=== PATIENT | male | born 1975 | race Caucasian/White ===

== ENCOUNTER 2021-08-08 20:19 | Emergency (ER) | payer OTHER, SELFPAY ==
[2021-08-08 20:20] VITALS: BP 147/98; PULSE 85; RESP 18; TEMP 36.8; O2SAT 96; BMI 33.9
--- NOTE | 2021-08-08 20:52 | ED.VIS.LOWEX ---
HPI History of Present Illness Chief Complaint: Fall Narrative Narrative: 45-year-old male presenting with left knee pain. 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 He states he is ambulatory. Patient believes he sees himself for an abrasion because he is wearing insulated pants. He did not take anything for pain prior to arrival. He states this is a Workmen's Comp. PFSH PFSH Allergy/AdvReac Type Severity Reaction Status Date / Time bee venom protein (honey bee) Allergy Anaphylaxis Verified 08/08/21 20:23 fish oil Allergy Hives Verified 08/08/21 20:23 Social History Smoking Status: Unknown if ever smoked ROS ROS ED Constitutional Constitutional ED: Denies chills, fever(s) or sweats Eyes Eyes: Denies blurry vision or change in vision ENT ENT ED: Denies ear pain or sore throat Cardiovascular Cardiovascular: Denies chest pain, palpitations or racing heartbeat Respiratory/Chest Respiratory/Chest: Denies cough, dyspnea or sputum Gastrointestinal Gastrointestinal: Denies abdominal pain, constipation, diarrhea, nausea or vomiting Genitourinary Genitourinary ED: Denies dysuria, hematuria or urinary frequency Musculoskeletal Musculoskeletal: Reports other Details: Left knee pain ; Denies arthralgias, myalgias or neck pain Integumentary Denies abscess, Abrasions or rash Neurologic Neurologic: Denies headache(s), paresthesias or weakness Psychiatric Psychiatric: Denies anxiety, depression, suicidal ideation or suicidal thoughts Endocrine Endocrinology: Denies polydipsia or polyuria EXAM Physical Exam Const Vital Signs: 08/08/21 20:20 08/08/21 20:56 Temperature 98.3 F Temperature Source Temporal Pulse Rate 85 Respiratory Rate 18 Respiratory Effort Normal Non-Labored Blood Pressure 147/98 H Blood Pressure Mean 114 Pulse Ox 96 Oxygen Delivery Method Room Air Positive well nourished General Appearance ED: NAD HEENT normocephalic and atraumatic Resp normal respiratory effort and clear to auscultation bilaterally Cardio regular rate and regular rhythm Extremity Extremity Narrative: Tenderness to palpation inferior to the left patella. Patient has full range of motion in flexion and extension of actively and passively. There is no deformity. No ligamentous laxity. No bruising or abrasions. Skin no wounds Rashes: no rashes MDM MDM MDM Narrative Medical decision making narrative: Patient presenting with left knee pain. He has full range of motion. There is no abrasions or contusions. No ligamentous laxity. Patient given Naprosyn for pain. I have low suspicion for fracture or other abnormality however the patient feels he wants a x-ray of his knee just to make sure. X-rays obtained and on my interpretation shows no acute fracture or subluxation. Radiologist does agree. I feel the patient is stable for discharge home when he can work without restriction based on his exam. Impression: 1. Left knee contusion Radiography Diagnostic Testing: Clinical Impression(s) from Imaging Studies Knee X-Ray 08/08/21 20:58 IMPRESSION: Normal x-ray examination of the knee. Electronically Signed: Raj Orellana MD at 21:38 EST , Service support , Discharge Plan Triage Chief Complaint: Fall ED Provider: Reynaldo Stanton
[2021-08-08] MEDS: Naproxen 500 MG Tablet PO (20:55)
--- NOTE | 2021-08-08 20:58 | RAD_ITS ---
STUDY: X-RAY - LEFT KNEE REASON FOR EXAM: Male, 45 years old. 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 COMPARISON: None. FINDINGS: Normal visualized distal femur. Normal visualized proximal tibia and fibula. Normal proximal tibiofibular articulation. There is no demonstrated fracture. Normal medial femorotibial compartment. Normal lateral femorotibial compartment. Normal patellofemoral articulation. There is no demonstrated joint effusion. The soft tissue structures are unremarkable. RAD/Knee 4 or More Views IMPRESSION: Normal x-ray examination of the knee. Electronically Signed: Raj Orellana MD at 21:38 EST , Service support ,
== END 2021-08-08 21:50 | disposition home or self-care (01) ==
PROVIDERS: Emergency Provider Student in an Organized Health Care Education/Training Program; Visit Provider Student in an Organized Health Care Education/Training Program
DX: S80.02XA Contusion of left knee, initial encounter (principal); W00.0XXA Fall on same level due to ice and snow, initial encounter; Y93.9 Activity, unspecified; Y92.9 Unspecified place or not applicable
CPT/HCPCS: 73564; 99283

== ENCOUNTER 2021-09-05 10:27 | Outpatient (CLI) | payer OTHER, SELFPAY ==
--- NOTE | 2021-09-05 10:32 | MRI_ITS ---
STUDY: MRI LEFT KNEE REASON FOR EXAM: Anterior medial knee pain, left knee injury 08/08/2021. TECHNIQUE: Standardized fat and water weighted pulse sequences were obtained in all 3 orthogonal planes. COMPARISON: Radiographs 08/08/2021. FINDINGS: There is mild intrasubstance myxoid degeneration of the posterior horn of the medial meniscus without discrete medial meniscal tear. Normal hyaline cartilage of the medial femorotibial compartment. Normal medial femoral condyle and tibial plateau. Normal medial collateral ligamentous complex (MCL). Normal distal semimembranosus, gracilis and semitendinosus tendons. Normal lateral meniscus. Normal hyaline cartilage of the lateral femorotibial compartment. Normal lateral femoral condyle and tibial plateau. Normal proximal tibiofibular articulation. There is a low-grade sprain of the proximal lateral collateral ligament (T2 coronal image 11). Normal popliteus tendon. Normal biceps femoris tendon. Normal anterior cruciate ligament (ACL). Normal posterior cruciate ligament (PCL). Normal congruent patellofemoral articulation. Normal hyaline cartilage of the patellofemoral compartment. Normal medial and lateral patellar retinaculum. Normal visualized quadriceps tendon. Normal patellar tendon. Normal Hoffa''s fat pad. There is a minimal volume of fluid in the joint. There is a thin medial patellar plica. There is mild edema in the anterior subcutis adipose space. There is a small full-thickness tear of the inferior patella (T2 sagittal images 15, 16). MRI/Lower Ext Joint Only (Routine) IMPRESSION: Small bone contusion of the inferior patella. Low-grade sprain of the lateral collateral ligament. Mild edema in the anterior subcutis adipose space. No demonstrated meniscal tear. Electronically Signed: Bj Wilson MD at 11:51 EST ,
== END 2021-09-05 23:59 | disposition short-term general hospital (02) ==
PROVIDERS: Referring Provider Physician Assistant Surgical; Visit Provider Physician Assistant Surgical
DX: S80.02XA Contusion of left knee, initial encounter (principal); X58.XXXA Exposure to other specified factors, initial encounter
CPT/HCPCS: 73721

== ENCOUNTER 2021-10-02 18:07 | Emergency (ER) | payer OTHER, SELFPAY ==
[2021-10-02 18:07] VITALS: BP 128/91; PULSE 89; RESP 15; TEMP 36; O2SAT 98; BMI 34.2
--- NOTE | 2021-10-02 18:34 | EX.ED.GENINJ ---
HPI History of Present Illness Chief Complaint: Laceration Informant: patient Narrative Narrative: Patient is a 45-year-old male presenting with left index finger laceration. He is left-hand dominant. He states he was using small to chop wood when he cut his finger with the ax side of the blade. Does have some mild associated numbness. Has a flap of skin of his finger and is concerned needed stitches. This happened approximately 30 minutes prior to arrival. Denies any other injuries at this time. No other complaints. Tetanus Immunization: Unknown [facility] Medical History no medical history Home Medications NK 09/06/21 [History Last Taken Unknown] Allergy/AdvReac Type Severity Reaction Status Date / Time bee venom protein (honey bee) Allergy Anaphylaxis Verified 09/27/21 07:56 fish oil Allergy Hives Verified 09/27/21 07:56 Social History Smoking Status: Never smoker ROS ROS ED Constitutional Constitutional ED: Denies chills or fever(s) Eyes Eyes: Denies change in vision Cardiovascular Cardiovascular: Denies chest pain Respiratory/Chest Respiratory/Chest: Denies dyspnea Gastrointestinal Gastrointestinal: Denies abdominal pain or vomiting Musculoskeletal Musculoskeletal: Reports other Details: left index finger pain ; Denies arthralgias or myalgias Integumentary Reports Abrasions Neurologic Neurologic: Reports paresthesias; Denies headache(s) or weakness Psychiatric Psychiatric: Denies depression EXAM Physical Exam Const Vital Signs: 10/02/21 18:07 Temperature 96.8 F L Temperature Source Temporal Pulse Rate 89 Respiratory Rate 15 Blood Pressure 128/91 H Blood Pressure Mean 103 Pulse Ox 98 Oxygen Delivery Method Room Air Positive well nourished and well developed General Appearance ED: well developed HEENT atraumatic Eyes PERRL Neck full ROM Chest Wall inspection of chest normal Resp normal respiratory effort Extremity normal to inspection and full ROM Extremity Narrative: Tenderness to palpation of the distal aspect of the left index finger. Normal flexion and extension of the left index finger. No bony deformity. Neuro oriented x3, moves all extremities, no focal motor deficits and no sensory deficits noted Sensorium / Orientation: alert Psych mental status grossly normal Skin Skin Narrative: 2 cm slightly irregular semicircular laceration over the distal lateral left second finger. No involvement of the nailbed PROC Procedures Lacerations left finger: Length: 0.79 in Depth: Skin Shape: Flap Prep: Chlorhexadine Laceration repair: Digital block, Irrigated, Local and Skin sutures Irrigated (ml): 999 Number of Sutures/Alber: 3 Suture Information: Ethilon, Simple and 4-0 MDM MDM MDM Narrative Medical decision making narrative: Patient evaluated for a laceration of his left index finger. Laceration repair performed. See procedure note. Tetanus is updated. Patient counseled generalized wound care. Given mechanism of injury do not think imaging is indicated as there does not seem to be an underlying fracture based on exam and I am not concerned for foreign body. Counseled to return for suture removal/wound check in 10 days. Counseled on return precautions. Discharge Plan Triage Chief Complaint: Laceration ED Provider: Pooja Valverde Dx/Rx/DC Orders Clinical Impression: Laceration of left index finger, Need for [id number] (Tdap) vaccine Instructions: ED Laceration, Hand: All Closures Prescriptions: No Action NK RF: 0 Primary Care Provider: Care Physician,No Primary Referrals: Laya Pandya [NON-STAFF] - Care Physician,No Primary [Primary Care Provider] - Activity Restrictions/Additional Instructions: Sutures should be removed in 10 days. Disposition Disposition: Home, Self Care Discharge Date/Time: 10/02/21 19:17
[2021-10-02] MEDS: Diphth,Pertuss(Acell),Tet Vac 0.5 ML Vial IM (18:48)
[2021-10-02] MEDS: Lidocaine 1% (20 ml mdv) 20 ML Vial INFILT (18:50)
[2021-10-02] MEDS: BACITRACIN 15 GM Tube 1 APPLIC TOPICAL (18:51)
--- NOTE | 2021-10-02 19:10 | CM.ED ---
Social Work Per chart, patient noted to not have a PCP. This social media coordinator met with patient in room. Introduced self and social media coordinator role. Patient agreeable to speak with this social media coordinator. This social media coordinator inquired about PCP status for patient. Patient states to have a PCP, I just don't remember his name. Patient denies any concerns on returning to the community. Cari Yadav MSW, RHIANNON-S
== END 2021-10-02 19:17 | disposition home or self-care (01) ==
PROVIDERS: Emergency Provider Emergency Medicine; Visit Provider Emergency Medicine
DX: S61.211A Laceration without foreign body of left index finger without damage to nail, initial encounter (principal); Z23 Encounter for immunization; W27.0XXA Contact with workbench tool, initial encounter; Y93.H9 Activity, other involving exterior property and land maintenance, building and construction; Y99.9 Unspecified external cause status; Y92.9 Unspecified place or not applicable
CPT/HCPCS: 12001; 90471; 90715; 99283

== ENCOUNTER 2021-12-11 13:57 | Emergency (ER) | payer OTHER, SELFPAY ==
[2021-12-11 13:59] VITALS: BP 123/74; PULSE 87; RESP 18; TEMP 37.1; O2SAT 93; BMI 35.5
--- NOTE | 2021-12-11 14:02 | ED.RN ---
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 CALLED IN GRAC[facility] TO OBTAIN DRUG SCREEN Original Note: [employer] NOT COMING UP FOR DRUG SCREEN REQUIREMENT OR NOT. 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 FROI GIVEN TO PT
--- NOTE | 2021-12-11 14:38 | RAD_ITS ---
STUDY: X-RAY - LUMBAR SPINE REASON FOR EXAM: Male, 45 years old. Fall TECHNIQUE: 2 view(s) of the lumbar spine were obtained. COMPARISON: None FINDINGS: Normal lumbar lordosis. There is no substantial scoliosis. There is a normal alignment of the vertebrae. There is multilevel endplate spondylosis of the lumbar vertebrae. Mild degree of disc space narrowing at the L4-L5 level. Large amount of fecal material is seen in the colon. RAD/Lumbar Spine 2 or 3 Views IMPRESSION: Degenerative changes of the spine, as detailed above. Large amount of fecal material is seen in the colon. Electronically Signed: Elder Morrison MD at 15:22 EDT ,
--- NOTE | 2021-12-11 14:39 | EDS_ITS ---
HPI History of Present Illness Chief Complaint: Fall Informant: patient Onset/Context/Timing Onset: Today Mechanism/Context: Fall Current Severity: Mild Maximum Severity: Moderate Narrative Narrative: Patient presents secondary to low back pain after a fall at work. He was helping carry some doors when he tripped on a pallet and struck his low back against the palate. He complains of pain across his lower back. He has been able to ambulate without difficulty. He reports having broken his back several years ago but did not require any surgery. [facility] Medical History High cholesterol Hx of gastroesophageal reflux (GERD) Home Medications atorvastatin 12/11/21 [History Last Taken Unknown] fenofibrate mg 12/11/21 [History Last Taken Unknown] lidocaine [Lidoderm] 1 patch TOPICAL DAILY #6 ea 12/11/21 [Rx Last Taken Unknown] naproxen [Naprosyn] 500 mg PO BID PRN #20 tab 12/11/21 [Rx Last Taken Unknown] pantoprazole PO 12/11/21 [History Last Taken Unknown] sildenafil 12/11/21 [History Last Taken Unknown] testosterone cypionate mg 12/11/21 [History Last Taken Unknown] Allergy/AdvReac Type Severity Reaction Status Date / Time bee venom protein (honey bee) Allergy Anaphylaxis Verified 12/11/21 14:00 fish oil Allergy Hives Verified 12/11/21 14:00 Social History Smoking Status: Never smoker ROS ROS ED Constitutional Constitutional ED: Denies chills or fever(s) Eyes Eyes: Denies change in vision ENT ENT ED: Denies sore throat Cardiovascular Cardiovascular: Denies chest pain Respiratory/Chest Respiratory/Chest: Denies cough or dyspnea Gastrointestinal Gastrointestinal: Denies abdominal pain, diarrhea, nausea or vomiting Genitourinary Genitourinary ED: Denies dysuria Musculoskeletal Musculoskeletal: Reports back pain Integumentary Denies rash Neurologic Neurologic: Denies headache(s) or weakness Allergic/Immunologic Allergic/Immunologic ED: Denies urticaria EXAM Physical Exam Const Vital Signs: 12/11/21 13:59 12/11/21 14:37 Temperature 98.7 F Temperature Source Temporal Pulse Rate 87 Respiratory Rate 18 Respiratory Effort Normal Respiratory Depth Normal Respiratory Pattern Normal Blood Pressure 123/74 H Blood Pressure Mean 90 Pulse Ox 93 Oxygen Delivery Method Room Air Positive well nourished and well developed General Appearance ED: well developed HEENT atraumatic Eyes PERRL and EOMs intact bilaterally Neck full ROM Chest Wall inspection of chest normal and palpation of chest normal Resp normal respiratory effort and clear to auscultation bilaterally Cardio regular rhythm Rate: regular rate GI non-tender Palpation: soft Back/Spine Back/Spine Narrative: Mild tenderness to the lumbar spine. Very superficial sk in abrasion to the right lumbar paraspinal region. No erythema or ecchymosis. No CVA tenderness. Extremity normal to inspection and full ROM Neuro oriented x3 and moves all extremities Sensorium / Orientation: alert Motor Exam: strength 5/5 throughout MDM MDM MDM Narrative Medical decision making narrative: Patient given Naprosyn and a Lidoderm patch. Lumbar spine x-rays obtained. Radiography Diagnostic Testing: Clinical Impression(s) from Imaging Studies Lumbar Spine X-Ray 12/11/21 14:38 IMPRESSION: Degenerative changes of the spine, as detailed above. Large amount of fecal material is seen in the colon. Electronically Signed: Elder Morrison MD at 15:22 EDT , Treatment and Re-Evaluation Narrative: L-spine x-rays from interpretation reveal no acute abnormality. Radiology to rotation reviewed. Test results discussed with patient. He will be given prescription for Naprosyn and Lidoderm patches. He will follow-up with corporate care. Discharge Plan Triage Chief Complaint: Fall ED Provider: Deborah May Dx/Rx/DC Orders Clinical Impression: Back contusion Prescriptions: New naproxen [Naprosyn] 500 mg tablet 500 mg PO BID PRN (Reason: pain) Qty: 20 RF: 0 lidocaine [Lidoderm] 5 % adhesive patch,medicated 1 patch topical DAILY Qty: 6 RF: 0 No Action atorvastatin 40 mg tablet RF: 0 sildenafil 100 mg tablet RF: 0 pantoprazole 20 mg tablet,delayed release (DR/EC) PO RF: 0 testosterone cypionate 200 mg/mL oil RF: 0 fenofibrate 160 mg tablet RF: 0 Stand Alone Forms: Work Status Form Primary Care Provider: Care Physician,No Primary Referrals: Corporate,Care [GROUP OF PHYSICIANS] - 3-5 Days Care Physician,No Primary [Primary Care Provider] - Disposition Disposition: Home, Self Care
[2021-12-11] MEDS: Lidocaine 5% Patch 1 PATCH TOPICAL (14:47)
[2021-12-11] MEDS: Naproxen 500 MG Tablet PO (14:47)
== END 2021-12-11 15:45 | disposition home or self-care (01) ==
PROVIDERS: Emergency Provider Emergency Medicine; Visit Provider Emergency Medicine
DX: S20.229A Contusion of unspecified back wall of thorax, initial encounter (principal); W01.198A Fall on same level from slipping, tripping and stumbling with subsequent striking against other object, initial encounter; Y99.0 Civilian activity done for income or pay; E78.00 Pure hypercholesterolemia, unspecified; Z79.899 Other long term (current) drug therapy
CPT/HCPCS: 72100; 99283

== ENCOUNTER → 2022-11-01 | Outpatient (CLI) | payer OTHER, SELFPAY ==
[2022-11-01 09:41] LABS: Absolute Lymphocyte Count 2.13 X10^3/uL (0.83-4.51); Absolute Neutrophil Count 4.2 X10^3/uL (2.0-7.7); Basophil# 0.02 X10^3/uL; Basophil% 0.3 % (0-1); Eosinophil# 0.19 X10^3/uL; Eosinophils% 2.7 % (0-5); Hematocrit 41.7 % (40-54); Hemoglobin 14.4 g/dL (13.0-16.5); Lymphocyte # 2.13 X10^3/ul (0.83-4.51); Lymphocyte % 30.6 % (19-41); Mean Corp Hgb Conc 34.5 g/dL (32-36); Mean Corpuscular Hgb 31.6 pg (27.0-32.0); Mean Corpuscular Volume 91.6 fL (80-94); Mean Platelet Vol. 9.7 fl (6.2-12.0); Monocyte# 0.39 X10^3/uL; Monocyte% 5.6 % (0-10); NRBC Flagged by Analyzer 0 % (0-5); Neutrophil # 4.21 X10^3/uL (2.7-7.7); Neutrophil % 60.4 % (47-70); Platelet Count 262 K/mm3 (150-450); RBC Distribution Width CV 13.6 % (11.6-14.6); RBC Distribution Width SD 45.8 fl (35.1-43.9); Red Blood Count 4.55 M/mm3 (4.6-6.2)
[2022-11-01 10:52] LABS: ALB/GLOB Ratio 0.9 RATIO (0.9-2.4); AST(SGOT) 35 U/L (15-37); Alanine Aminotransfer ALT/SGPT 39 U/L (16-61); Albumin, Serum 3.5 g/dL (3.2-5.0); Alkaline Phosphatase 34 U/L (45-117); Anion Gap 4 (5-15); BUN 16 mg/dL (7-18); BUN/Creat Ratio 13.9 RATIO (10-20); Calcium,Total 8.3 mg/dL (8.5-10.1); Chloride 110 mmol/L (98-107); Cholesterol 149 mg/dL (200); Creatinine, Serum 1.15 mg/dL (0.70-1.30); EST Glomerular Filtration Rate 73 mL/min (>60); Est Glom Filt Rate - Afr Amer 88 mL/min (>60); Globulin 3.7 g/dL (2.2-4.2); Glucose 110 mg/dL (74-106); High Density Lipoprotein 9 mg/dL; Potassium 4.3 mmol/L (3.5-5.1); Protein, Total 7.2 g/dL (6.4-8.2); Sodium Level 138 mmol/L (136-145); T4 Free Direct 0.73 ng/dL (0.76-1.46); Thyroid Stim Hormone (TSH) 1.82 uIU/mL (0.358-3.74); Triglycerides 1288 mg/dL
[2022-11-03 09:06] LABS: Hepatitis B Surface Antibody Non-Reactive; Hepatitis B Surface Antigen Non-Reactive (Nonreactive); Hepatitis C Antibody Non-Reactive (Nonreactive)
[2022-11-04 10:55] LABS: Hemoglobin A1c 5.6 % (3.8-5.6)
== END | disposition home or self-care (01) ==
PROVIDERS: PCP Family Medicine; Referring Provider Family Medicine; Visit Provider Family Medicine
DX: R73.09 Other abnormal glucose (principal); K21.9 Gastro-esophageal reflux disease without esophagitis; R79.89 Other specified abnormal findings of blood chemistry; E78.1 Pure hyperglyceridemia
CPT/HCPCS: 36415; 80053; 80061; 83036; 84439; 84443; 85025; 86706; 86803; 87340

== ENCOUNTER → 2022-11-14 | Day surgery (SDC) | payer OTHER, SELFPAY ==
[2022-11-14] MEDS: Lidocaine Jelly 2% 20 ML Syringe (URO-JET) 1 APPLIC (08:50)
[2022-11-14 08:51] VITALS: BP 137/86; PULSE 81; RESP 20; TEMP 36.2; O2SAT 100
== END | disposition home or self-care (01) ==
LOC: EN 08:33
PROVIDERS: PCP Family Medicine; Referring Provider Family Medicine; Visit Provider Surgery
PROC: F00ZJWZ Instrumental Swallowing and Oral Function Assessment using Swallowing Equipment (ICD-10-PCS; CPT 43235; principal; 2022-11-14 08:40)
DX: K21.9 Gastro-esophageal reflux disease without esophagitis (principal)
CPT/HCPCS: 91010

== ENCOUNTER 2022-12-05 09:14 | Day surgery (SDC) | payer OTHER, SELFPAY ==
[2022-12-05] VITALS (7 sets, daily range): BP systolic 117–141; BP diastolic 84–96; PULSE 73–94; RESP 16–18; TEMP 36.1–36.3; O2SAT 92–96; BMI 33.4
[2022-12-05] MEDS: Lactated Ringers 1,000 ML 15 ML IV (09:48)
--- NOTE | 2022-12-05 10:33 | PCM.HP.BLA ---
History and Physical Date of Admission: 12/05/22 Intake Vital Signs ? 12/11/2212:59 11/11/2313:44 Height 5 ft 6 in 5 ft 6 in Weight: ? 215 lb 6 oz BMI ? 34.7 BP ? 129/77 H Blood Pressure Location ? Rt brachial Position ? Sitting Respiration ? 17 Pulse ? 96 Pulse Source ? Monitor Temp ? 97.4 F L Temp Source ? Temporal Pulse Oximetry (%) ? 98 Oxygen Delivery Method ? room air Intake Visit Reasons:?Gastroesophageal reflux disease (GERD) Chief Complaint: gerd Is patient in pain?: No Allergies bee venom protein (honey bee) Allergy (Verified 11/11/22 14:47) Anaphylaxisfish oil Allergy (Verified 11/11/22 14:47) Hives Medications naproxen 500 mg tablet (Naprosyn) 500 mg PO BID PRN pain #20 tabs 12/11/21 [Rx Confirmed 11/11/22] pantoprazole 20 mg tablet,delayed release PO 12/11/21 [History Confirmed 11/11/22] sildenafil 100 mg tablet? 12/11/21 [History Confirmed 11/06/22] testosterone cypionate 200 mg/mL intramuscular oil mg 12/11/21 [History Confirmed 11/11/22] cyclobenzaprine 10 mg tablet 10 mg PO HS PRN muscle spasm #10 tabs 12/16/21 [Rx Confirmed 11/11/22] prednisone 10 mg tablet 10 mg PO DIRECTED #30 tabs 11/06/22 [Rx Confirmed 11/11/22] fenofibrate nanocrystallized 48 mg tablet (Tricor) 48 mg PO DAILY 11/11/22 [History Confirmed 11/11/22] PFSH Medical History? High cholesterol Hx of gastroesophageal reflux (GERD) Left shoulder strain Lumbar radiculopathy Lumbar strain Strain of left hip Thoracic myofascial strain Social History?(Updated 11/11/22 @ 14:44 by Whit Leonardo) Smoking Status:? Never smoker alcohol intake:? current substance use type:? does not use additional social history:? daily use of aspirin and ibuprofen HPI HPI HPI: Patient is here for reflux.? He says he has had reflux his entire life.? He is on PPIs but says they are not doing much anymore.? He denies nausea or vomiting but does say he has epigastric pain occasionally.? He has never had an endoscopy before. ROS General General: No weight change, appetite, fatigue, colon cancer, breast cancer or weakness HEENT HEENT: No difficulty swallowing, eye injury, eye surgery, swollen glands or hoarseness Endo Endocrine: No thyroid disease, diabetes mellitus, thyroid cancer, Hair loss, heat intolerance or cold intolerance Skin Skin: No rash or changing moles Musc Musculoskeletal: Yes back problems and rheumatoid arthritis; No arthritis, gout or joint pain Cardio Cardiovascular: No murmur, pacemaker, heart disease, atrial fibrillation, high blood pressure, heart attack, heart stent, palpitations, shortness of breat with exertion or chest pain Psych Psychiatric: No depression, anxiety or hearing voices Resp Respiratory: No shortness of breath, No sleep apnea, No cough, No COPD, No asthma, No emphysema and No wheezing Gastro Gastrointestinal: No abdominal pain, No nausea or vomiting, No diarrhea, No constipation, No blood in stool, Yes acid reflux, No hemorrhoids, Yes ulcers, No gallbladder problem and No black,tarry stools Garett Hematologic: No blood thinners, No blood disorders, No bleeding, No anemia and No blood clots Neuro Neurologic: No system reviewed and no additional complaints, except as documented, No as per HPI, No abnormal gait, No abnormal hearing, No abnormal movements, No abnormal speech, No behavioral changes, No burning sensations, No confusion, No convulsions, No disequilibrium, No dizziness, No localized weakness, No frequent falls, No headache(s), No lack of coordination, No loss of vision, No memory loss, Yes numbness, No other visual disturbances, No radicular pain, No restless legs, No sensory deficit, No syncope, Yes tingling, No tremor(s), No weakness and No other Exam Const General: cooperative Orientation: alert and oriented x3 HENMT Head: normal to inspection Neck Neck: normal visual inspection and full ROM Chest Chest palpation & inspection: normal inspection of the chest Resp Effort & Inspection: normal respiratory effort Auscultation: clear to auscultation bilaterally Cardio Rate: regular rate Rhythm: regular rhythm GI Inspection: non-distended Palpation: soft and nontender Skin General: no rashes or lesions noted Neuro General: patient alert and patient oriented x3 Extrem General: full ROM Psych Appearance: grossly normal Mental Status: mental status grossly normal Assessment and Plan Assessment and Plan (1) Gastroesophageal reflux disease: ?Qualifiers: ?Esophagitis presence:?esophagitis presence not specified? Qualified Code(s):?K21.9 - Gastro-esophageal reflux disease without esophagitis ?Plan: The patient has chronic acid reflux and has been on a PPI for years.? I discussed fundoplication with him and he is agreeable and is very interested in the surgery.? Before surgery I will perform an EGD with pH probe and manometry and then I will see him back in the office to discuss fundoplication further. I explained endoscopy in detail to the patient.? I explained the risks including but not limited to stroke or heart attack with anesthesia, perforation of the GI tract, bleeding, infection.? I explained that any of these could necessitate further emergency surgery.? The patient understands and all questions were answered sufficiently.? The patient wishes to proceed with procedure. Soham Pham MD Pager: [facility] [address] [place] [address] [address] [place] [address] Office: I have examined the patient and the H&P has been reviewed. There are no clinical changes since date of exam.
--- NOTE | 2022-12-05 10:57 | OP.EGD_ITS ---
Patient Name: Justino Pacheco Procedure Date: 12/05/2022 10:43 AM Date of : 1975 Age: 46 Procedure: Upper GI endoscopy Indications: Heartburn, Gastro-esophageal reflux disease Providers: Soham Pham MD Referring MD: Soham Pham MD Medicines: Monitored Anesthesia Care Patient Profile: This is a 46 year old male. Refer to note in patient chart for documentation of history and physical. Complications: No immediate complications. Procedure: Pre-Anesthesia Assessment: - Prior to the procedure, a History and Physical was performed, and patient medications and allergies were reviewed. The patient's tolerance of previous anesthesia was also reviewed. The risks and benefits of the procedure and the sedation options and risks were discussed with the patient. All questions were answered, and informed consent was obtained. Prior Anticoagulants: The patient has taken no previous anticoagulant or antiplatelet agents. After reviewing the risks and benefits, the patient was deemed in satisfactory condition to undergo the procedure. After obtaining informed consent, the endoscope was passed under direct vision. Throughout the procedure, the patient's blood pressure, pulse, and oxygen saturations were monitored continuously. The Endoscope was introduced through the mouth, and advanced to the fourth part of duodenum. The upper GI endoscopy was accomplished without difficulty. The patient tolerated the procedure well. Scope In: 10:50:47 AM Scope Out: 10:54:22 AM Total Procedure Duration Time 0 hours 3 minutes 35 seconds Findings: The esophagus was normal. The stomach was normal. The examined duodenum was normal. The TAYLOR capsule with delivery system was introduced through the mouth and advanced into the esophagus, such that the TAYLOR pH capsule was positioned 34 cm from the incisors, which was 6 cm proximal to the GE junction. Suction was applied to the well of the TAYLOR pH capsule to suck in the adjacent mucosa of the esophagus using the external vacuum pump set at a minimum vacuum pressure of 550 mmHg for 30 seconds. The TAYLOR pH capsule was then deployed by depressing the plunger on top of the handle to advance the locking pin into the mucosa, thereby attaching the capsule to the esophagus. The plunger was then rotated a quarter turn clockwise to release the capsule from the delivery system. The delivery system was then withdrawn. Endoscopy was utilized for probe placement and diagnostic evaluation. Impression: - Normal esophagus. - Normal stomach. - Normal examined duodenum. - The TAYLOR pH capsule was positioned 34 cm from the incisors, which was 6 cm proximal to the GE junction. - No specimens collected. Recommendation: - Discharge patient to home. - Resume previous diet. - Continue present medications. Procedure Code(s): --- Professional --- 16053, Esophagogastroduodenoscopy, flexible, transoral; diagnostic, including collection of specimen(s) by brushing or washing, when performed (separate procedure) Diagnosis Code(s): --- Professional --- R12, Heartburn K21.9, Gastro-esophageal reflux disease without esophagitis CPT copyright 2017 [employer]. All rights reserved. The codes documented in this report are preliminary and upon machine whitener review may be revised to meet current compliance requirements. Soham Pham MD 12/05/2022 10:57:27 AM This report has been signed electronically. Number of Addenda: 0 Note Initiated On: 12/05/2022 10:43 AM
--- NOTE | 2022-12-05 10:58 | OP.CCLET_ITS ---
12/05/2022 Mauricio Lara [address] [place] [address] Re : Upper GI endoscopy procedure for Justino Pacheco Dear Dr. Lara This procedure was performed on Monday, December 05, 2022. My impressions and recommendations are as follows: Impressions : - Normal esophagus. - Normal stomach. - Normal examined duodenum. - The TAYLOR pH capsule was positioned 34 cm from the incisors, which was 6 cm proximal to the GE junction. - No specimens collected. Recommendations : - Discharge patient to home. - Resume previous diet. - Continue present medications. My findings are described in the full procedure note, which is enclosed. If I can be of further assistance, please feel free to contact me at Doctor phone number(s): , Work: . Sincerely, Soham Pham MD 12/05/2022 10:57:27 AM This report has been signed electronically.
== END 2022-12-05 11:45 | disposition home or self-care (01) ==
LOC: EN 09:17 → AC 09:18
PROVIDERS: PCP Family Medicine; Referring Provider Family Medicine; Visit Provider Surgery
PROC: (CPT 43235; principal; 2022-12-05 10:25)
DX: K21.9 Gastro-esophageal reflux disease without esophagitis (principal); E78.00 Pure hypercholesterolemia, unspecified; Z79.899 Other long term (current) drug therapy
CPT/HCPCS: 43235; J7120; J2405

== ENCOUNTER 2022-12-28 01:38 | Emergency (ER) | payer OTHER, SELFPAY ==
[2022-12-28 01:39] VITALS: BP 167/96; PULSE 107; RESP 20; TEMP 36.9; O2SAT 96; BMI 30.5
--- NOTE | 2022-12-28 01:48 | CT_ITS ---
EXAM: CT CERVICAL SPINE WITHOUT INTRAVENOUS CONTRAST CLINICAL INDICATION: trauma TECHNIQUE: Helically acquired images were obtained of the cervical spine without intravenous contrast. 2D reformatted images were reviewed. This CT exam was performed using one or more of the following dose reduction techniques: automated exposure control, adjustment of the mA and/or kV according to patient size, and/or use of iterative reconstruction technique. RADIATION DOSE: CTDIvol = 26.17 mGy, DLP = 583.39 mGy-cm COMPARISON: No relevant prior studies available. FINDINGS: VERTEBRAE: Mild anterior spondylosis at C4-C6 with mild anterior ligamentous ossifications. Hypertrophic changes and fusion at the left C3-4 facet joint and marked neural foraminal stenosis. No evidence of significant spinal stenosis. Straightening of the usual lordotic curvature. No fracture. No traumatic subluxation. No discrete lytic or blastic abnormality. Normal craniocervical junction and cervicothoracic junction. DISCS/SPINAL CANAL/NEURAL FORAMINA: See above. SOFT TISSUES: Unremarkable. No prevertebral soft tissue swelling. LYMPH NODES: Unremarkable. No cervical adenopathy. LUNG APICES: Unremarkable as visualized. Clear. CT/Spine Cervical without Contras IMPRESSION: No acute posttraumatic abnormality. 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 Electronically Signed: Roopa Virgen MD at 3:21 EDT ,
--- NOTE | 2022-12-28 01:48 | CT_ITS ---
EXAM: CT HEAD WITHOUT INTRAVENOUS CONTRAST CLINICAL INDICATION: ams TECHNIQUE: Multiple axial images were obtained of the head without intravenous contrast. This CT exam was performed using one or more of the following dose reduction techniques: automated exposure control, adjustment of the mA and/or kV according to patient size, and/or use of iterative reconstruction technique. RADIATION DOSE: CTDIvol = 44.99 mGy, DLP = 779.24 mGy-cm COMPARISON: No relevant prior studies available. FINDINGS: BRAIN AND EXTRA-AXIAL SPACES: Unremarkable. No intra- or extra-axial hemorrhage. No evidence of acute infarct. No intracranial mass or mass effect. There is preservation of the walters/white matter interface. Posterior fossa structures are unremarkable. Ventricles are appropriate for age. No hydrocephalus. Basal cisterns are patent. BONES/JOINTS: See below. 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 SINUSES: Minimal mucosal thickening in maxillary and ethmoid sinuses. MASTOID AIR CELLS: Unremarkable. Clear. ORBITS: Visualized globes, extraocular muscles, optic nerves and retrobulbar fat appear unremarkable. CT/Brain/Head without Contrast IMPRESSION: No acute findings in the head/brain. 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 Minimal chronic sinusitis. Electronically Signed: Roopa Virgen MD at 3:17 EDT ,
--- NOTE | 2022-12-28 01:48 | CT_ITS ---
EXAM: CT MAXILLOFACIAL WITHOUT INTRAVENOUS CONTRAST CLINICAL INDICATION: facial trauma TECHNIQUE: Helically acquired images were obtained of the face without intravenous contrast. This CT exam was performed using one or more of the following dose reduction techniques: automated exposure control, adjustment of the mA and/or kV according to patient size, and/or use of iterative reconstruction technique. RADIATION DOSE: CTDIvol = 29.38 mGy, DLP = 576.84 mGy-cm. COMPARISON: No relevant prior studies available. FINDINGS: BONES/JOINTS: Unremarkable. No displaced fracture. No discrete lytic or blastic abnormalities. SOFT TISSUES: Unremarkable. No focal subcutaneous swelling. No discrete fluid collections. ORBITS: Unremarkable. Both globes are unremarkable. Extraocular muscles are normal. Retrobulbar fat appears unremarkable. SINUSES: Mild mucosal thickening in the root of the maxillary sinuses. Intact orbits. MASTOID AIR CELLS: Unremarkable as visualized. Clear. DENTAL: Diffuse periapical lucencies around teeth in the maxilla and mandible consistent with advanced periodontal disease. Partially unerupted wisdom tooth in the left maxilla with root projecting into the floor of the left maxillary sinus and mild mucosal thickening in the left maxillary sinus. CT/Sinus/Facial Bone IMPRESSION: 1. Marked diffuse periodontal disease, extensive periapical lucencies around tooth roots. No fracture identified. Minimal sinusitis. No intraorbital injury. 2. Again noted left frontal scalp lipoma with underlying bone remodeling, very thin underlying left frontal bone but but the inner table is intact. Electronically Signed: Roopa Virgen MD at 3:27 EDT ,
[2022-12-28 02:06] LABS: Bacteria 0 SEEN /hpf (None Seen); Mucous, Urine 0 SEEN /hpf (<or=2+); Red Blood Cells-Urine 0 SEEN /hpf (0-5); Squamous Epithelial Cells - UA 0 SEEN /hpf (0-5); White Blood Cells 0 SEEN /hpf (0-5)
[2022-12-28] MEDS: 0.9% Normal Saline 1,000 ML 999 ML IV ×2 (02:06→02:50)
[2022-12-28 02:13] LABS: Color, Urine Yellow (Yellow); Glucose, Dipstick Normal (Normal); Ketone-Dipstick Negative (Negative); Leukocyte Esterase-Dipstick Negative /ul (Negative); Nitrite-Dipstick Negative (Negative); Occult Blood-Urine 25 /ul (Negative); Protein-Dipstick 100 mg/dl (Negative); Specific Gravity, Urine 1.025 (1.002-1.030); Urine Bilirubin Dipstick Negative (Negative); Urine Clarity Clear (Clear); Urine Urobilinogen Normal (Normal)
[2022-12-28 02:26] LABS: Amphetamine Urine VISTA NEGATIVE (<1000 ng/mL); Barbiturate Urine VISTA NEGATIVE (< 200 ng/mL); Benzodiazepine Urine VISTA NEGATIVE (< 200 ng/mL); Cocaine Urine VISTA NEGATIVE (< 300 ng/mL); Ecstacy Urine VISTA NEGATIVE (< 500 ng/mL); Methadone Urine VISTA NEGATIVE (< 300 ng/mL); PCP Urine VISTA NEGATIVE (< 25 ng/mL); THC Urine VISTA NEGATIVE (< 50 ng/mL); Vista UDS pH Range 5
[2022-12-28 02:28] LABS: Absolute Lymphocyte Count 2.28 X10^3/uL (0.83-4.51); Absolute Neutrophil Count 7.4 X10^3/uL (2.0-7.7); Basophil# 0.05 X10^3/uL; Basophil% 0.5 % (0-1); Eosinophil# 0.11 X10^3/uL; Hematocrit 47.6 % (40-54); Hemoglobin 15.9 g/dL (13.0-16.5); Lymphocyte # 2.28 X10^3/ul (0.83-4.51); Lymphocyte % 21.4 % (19-41); Mean Corp Hgb Conc 33.4 g/dL (32-36); Mean Corpuscular Hgb 31.5 pg (27.0-32.0); Mean Corpuscular Volume 94.3 fL (80-94); Mean Platelet Vol. 9.5 fl (6.2-12.0); Monocyte# 0.73 X10^3/uL; Monocyte% 6.8 % (0-10); NRBC Flagged by Analyzer 0 % (0-5); Neutrophil # 7.44 X10^3/uL (2.7-7.7); Neutrophil % 69.7 % (47-70); Platelet Count 313 K/mm3 (150-450); RBC Distribution Width CV 14.9 % (11.6-14.6); RBC Distribution Width SD 51.3 fl (35.1-43.9); Red Blood Count 5.05 M/mm3 (4.6-6.2); White Blood Count 10.7 K/mm3 (4.4-11.0)
[2022-12-28 02:31] LABS: AST(SGOT) 88 U/L (15-37); Alanine Aminotransfer ALT/SGPT 91 U/L (16-61); Albumin, Serum 4.1 g/dL (3.2-5.0); Alkaline Phosphatase 43 U/L (45-117); Anion Gap 12 (5-15); BUN 16 mg/dL (7-18); BUN/Creat Ratio 11.6 RATIO (10-20); Calcium,Total 9.1 mg/dL (8.5-10.1); Chloride 107 mmol/L (98-107); Creatinine, Serum 1.38 mg/dL (0.70-1.30); EST Glomerular Filtration Rate 59 mL/min (>60); Est Glom Filt Rate - Afr Amer 71 mL/min (>60); Estimated Creatinine Clearance 66.17 ml/min; Globulin 4.3 g/dL (2.2-4.2); Glucose 109 mg/dL (74-106); Potassium 3.9 mmol/L (3.5-5.1); Protein, Total 8.4 g/dL (6.4-8.2); Sodium Level 141 mmol/L (136-145); Troponin-I HS 16 pg/mL (3.0-78.0)
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
[2022-12-28 04:00] VITALS: BP 146/78; PULSE 93; RESP 20
== END 2022-12-28 05:30 | disposition home or self-care (01) ==
PROVIDERS: Emergency Provider Student in an Organized Health Care Education/Training Program; PCP Family Medicine; Visit Provider Student in an Organized Health Care Education/Training Program
DX: T51.94XA Toxic effect of unspecified alcohol, undetermined, initial encounter (principal); F43.10 Post-traumatic stress disorder, unspecified; F17.210 Nicotine dependence, cigarettes, uncomplicated; E78.00 Pure hypercholesterolemia, unspecified; K21.9 Gastro-esophageal reflux disease without esophagitis; Z79.899 Other long term (current) drug therapy
CPT/HCPCS: 70450; 70486; 72125; 80053; 80307; 81001; 82077; 84484; 85025; 93005; 96360; 96361; 99285; J7030; P9612; A4216

== ENCOUNTER 2022-12-31 18:30 | Outpatient (RCR) | payer OTHER, SELFPAY ==
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
--- NOTE | 2023-03-31 11:14 | HP.PTDCSUM_ITS ---
Discharge Summary D/C summary: It has been my pleasure to treat AYLIN WYNN referred by OSIRIS Ritter, with the diagnosis of STRAIN OF MUSCLE AND TENDON LOWER BACK ,STRAIN HIP STRAIN LEFT SHOULDER for a total of 12 visit(s). Discharge Date: Please see the following information for a summary of their discharge status. Subjective Subjective: Pt has about 3-4/10 back pain today. Pt reports that his Dr sent over more visits to be approved the other day cause he is improving. Pain Left Back: Pain Intensity (Out of 10): 3 Left Shoulder: Pain Intensity (Out of 10): 3 Left Lower Extremity: Pain Intensity (Out of 10): 3 Overall Improvement % Improvement: 65 Objective Objective/Function: Trunk AROM: flex 75% (to mid [place]), Ext 75%, SB B 50%, Rpt B 50% Goals Goal 1:: Patient to be I with HEP Goal 2:: Patient to demonstrate 50% improvement with decrease pain and improved function left shoulder and back Goal Progress: Goal Met Goal 3:: Patient to improve lumbar ROM for function of recovery for job demands Goal 4:: Patient to increase peak force RTC by 5 -10 to improve function with [place] activities for job Goal Progress: Progressing Goal 5:: Patient to improve back oswestry score by 5 points or > to improve f unction and ADLS /job demnads. Goal 6:: Patient improve posture/body mechanics by 90% to improve function and job demands. Plan Plan: d/c D/C Information d/c sentence: If there are questions or concerns regarding this patient's physical therapy, please feel free to call me at [phone]. Thank you for the referral of this patient. Sincerely, Selvin uA, PT, Cert MDT, OCS Balance/Gait/Functional tests Balance/Special Test Scores Oswestry Low Back Score: 14 Improvement % Improvement: 65
== END 2022-12-31 19:00 | disposition home or self-care (01) ==
LOC: PT 18:30
PROVIDERS: PCP Family Medicine; Referring Provider Physician Assistant; Visit Provider Physician Assistant
DX: S29.019D Strain of muscle and tendon of unspecified wall of thorax, subsequent encounter (principal); S39.012D Strain of muscle, fascia and tendon of lower back, subsequent encounter; M54.16 Radiculopathy, lumbar region; S76.012D Strain of muscle, fascia and tendon of left hip, subsequent encounter; S46.912D Strain of unspecified muscle, fascia and tendon at shoulder and upper arm level, left arm, subsequent encounter
CPT/HCPCS: 97110; 97162

== ENCOUNTER 2023-02-10 16:56 | Emergency (ER) | payer OTHER, SELFPAY ==
[2023-02-10 16:57] VITALS: BP 135/87; PULSE 97; RESP 15; TEMP 36; O2SAT 97; BMI 34.4
== END 2023-02-10 17:55 | disposition left against medical advice (07) ==
LOC: ED 18:06
PROVIDERS: PCP Family Medicine
DX: R51.9 Headache, unspecified (principal); Z53.21 Procedure and treatment not carried out due to patient leaving prior to being seen by health care provider

== ENCOUNTER 2023-02-11 09:19 | Emergency (ER) | payer OTHER, SELFPAY ==
[2023-02-11 09:20] VITALS: BP 141/90; PULSE 91; RESP 16; TEMP 36.4; O2SAT 99; BMI 33.6
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
[2023-02-11] MEDS: 0.9% Normal Saline 1,000 ML 999 ML IV (09:53)
[2023-02-11] MEDS: Metoclopramide 10 MG/2 ML Vial 5 MG IV (09:53)
[2023-02-11] MEDS: Ketorolac 30 MG/ML Syringe IV (09:54)
[2023-02-11 12:08] VITALS: BP 120/82; PULSE 72; RESP 16; O2SAT 98
== END 2023-02-11 12:09 | disposition home or self-care (01) ==
PROVIDERS: Emergency Provider Emergency Medicine; PCP Family Medicine; Visit Provider Emergency Medicine
DX: R51.9 Headache, unspecified (principal); R11.0 Nausea; E78.00 Pure hypercholesterolemia, unspecified; F17.210 Nicotine dependence, cigarettes, uncomplicated; Z79.899 Other long term (current) drug therapy
CPT/HCPCS: 96361; 96374; 96375; 99282; J7030; A4216

== ENCOUNTER 2023-02-18 16:30 | Outpatient (CLI) | payer OTHER, SELFPAY ==
[2023-02-18 18:09] LABS: Absolute Lymphocyte Count 1.95 X10^3/uL (0.83-4.51); Absolute Neutrophil Count 4.4 X10^3/uL (2.0-7.7); Basophil# 0.03 X10^3/uL; Basophil% 0.4 % (0-1); Eosinophil# 0.16 X10^3/uL; Eosinophils% 2.3 % (0-5); Hematocrit 40.3 % (40-54); Lymphocyte # 1.95 X10^3/ul (0.83-4.51); Lymphocyte % 28.2 % (19-41); Mean Corp Hgb Conc 34.7 g/dL (32-36); Mean Corpuscular Hgb 33.7 pg (27.0-32.0); Mean Corpuscular Volume 97.1 fL (80-94); Mean Platelet Vol. 10.1 fl (6.2-12.0); Monocyte# 0.39 X10^3/uL; Monocyte% 5.6 % (0-10); NRBC Flagged by Analyzer 0 % (0-5); Neutrophil # 4.35 X10^3/uL (2.7-7.7); Neutrophil % 62.9 % (47-70); Platelet Count 325 K/mm3 (150-450); RBC Distribution Width CV 13.6 % (11.6-14.6); RBC Distribution Width SD 48.7 fl (35.1-43.9); Red Blood Count 4.15 M/mm3 (4.6-6.2); White Blood Count 6.9 K/mm3 (4.4-11.0)
[2023-02-18 19:57] LABS: ALB/GLOB Ratio 0.9 RATIO (0.9-2.4); AST(SGOT) 39 U/L (15-37); Alanine Aminotransfer ALT/SGPT 60 U/L (16-61); Albumin, Serum 3.7 g/dL (3.2-5.0); Alkaline Phosphatase 42 U/L (45-117); Anion Gap 9 (5-15); BUN 16 mg/dL (7-18); BUN/Creat Ratio 18.1 RATIO (10-20); Calcium,Total 8.7 mg/dL (8.5-10.1); Chloride 106 mmol/L (98-107); Cholesterol 134 mg/dL (200); Creatinine, Serum 0.88 mg/dL (0.70-1.30); EST Glomerular Filtration Rate 98 mL/min (>60); Est Glom Filt Rate - Afr Amer 119 mL/min (>60); Globulin 3.9 g/dL (2.2-4.2); Glucose 147 mg/dL (74-106); High Density Lipoprotein 12 mg/dL; Potassium 3.9 mmol/L (3.5-5.1); Protein, Total 7.6 g/dL (6.4-8.2); Sodium Level 140 mmol/L (136-145); Triglycerides 1396 mg/dL
[2023-02-19 11:31] LABS: Hemoglobin A1c 5.3 % (3.8-5.6)
== END 2023-02-18 23:59 | disposition home or self-care (01) ==
LOC: MFPLAB 16:33
PROVIDERS: PCP Family Medicine; Visit Provider Family Medicine
DX: E78.1 Pure hyperglyceridemia (principal); F17.200 Nicotine dependence, unspecified, uncomplicated; R73.09 Other abnormal glucose
CPT/HCPCS: 36415; 80053; 80061; 83036; 85025

== ENCOUNTER 2023-08-17 08:41 | Emergency (ER) | payer OTHER, SELFPAY ==
[2023-08-17 08:42] VITALS: BP 192/96; PULSE 101; RESP 16; TEMP 36; O2SAT 98; BMI 36.1
--- NOTE | 2023-08-17 09:05 | EX.ED.GENINJ ---
HPI History of Present Illness Chief Complaint: Other, Pain/Inj Detail of Chief Complaint: Left arm pain and numbness and tingling Informant: patient Narrative Narrative: Patient presents to the emergency department with complaint of left arm pain as well as numbness and tingling. Patient states he had symptoms for about 5 days. Patient states work made him come in and get evaluated. Patient is left-hand dominant. 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 He is never had pain quite like this before. Patient states he has had a broken neck in the past. He denies fall or injury recently. Does describe some decreased retort setter strength. Having hard time sleeping at night secondary to the pain. Patient denies any neck pain and states that the pain seems to start around his left scapula and go down his left arm with numbness and tingling of all his fingers. [facility] Medical History Alcohol use Arthritis Back pain Gastric reflux High cholesterol History of fracture of clavicle History of steroid therapy Hx of fracture of wrist Injury of back Injury of head and neck Left shoulder strain Lumbar radiculopathy Lumbar radiculopathy, acute Lumbar strain Migraine headache Smoker Strain of left hip Thoracic myofascial strain Wears glasses Home Medications naproxen 500 mg tablet (Naprosyn) 500 mg PO BID PRN pain #20 tabs 12/11/21 [Rx Last Taken Unknown] pantoprazole 20 mg tablet,delayed release 20 mg PO DAILY 12/11/21 [History Last Taken 11/29/22] testosterone cypionate 200 mg/mL intramuscular oil 100 mg IM QWEEK 12/11/21 [History Last Taken Unknown] fenofibrate nanocrystallized 48 mg tablet (Tricor) 48 mg PO DAILY 11/11/22 [History Last Taken Unknown] atorvastatin 40 mg tablet 40 mg PO QHS 12/02/22 [History Last Taken Unknown] multivitamin 1 cap PO DAILY 12/02/22 [History Last Taken Unknown] cyclobenzaprine 10 mg tablet 10 mg PO HS PRN muscle spasm #14 tabs 12/17/22 [Rx Last Taken Unknown] hydrocodone-acetaminophen 5-325mg 5mg-325mg 1 tab PO Q4H PRN PRN Pain 2 days #10 TABLETS 08/17/23 [Rx Last Taken Unknown] naproxen 500 mg tablet (Naprosyn) 500 mg PO BID PRN pain #20 tabs 08/17/23 [Rx Last Taken Unknown] Allergy/AdvReac Type Severity Reaction Status Date / Time bee venom protein (honey bee) Allergy Anaphylaxis Verified 08/17/23 09:13 fish oil Allergy Hives Verified 08/17/23 09:13 Surgical History History of incision and drainage History of removal of retained hardware Hx of removal of testicle Social History Smoking Status: Current every day smoker tobacco type: cigarettes alcohol intake: current substance use type: does not use additional social history: daily use of aspirin and ibuprofen ROS ROS ED Review of Systems ROS Unobtainable: other Constitutional Constitutional ED: Reports lethargy; Denies chills, fever(s), sweats or weight loss Eyes Eyes: Denies blurry vision, change in vision or diplopia ENT ENT ED: Denies rhinorrhea or sore throat Cardiovascular Cardiovascular: Reports chest pain and racing heartbeat; Denies orthopnea Respiratory/Chest Respiratory/Chest: Reports dyspnea and dyspnea on exertion; Denies cough, orthopnea or sputum Gastrointestinal Gastrointestinal: Denies abdominal pain, diarrhea, nausea or vomiting Genitourinary Genitourinary ED: Denies dysuria, hematuria or urinary frequency Musculoskeletal Musculoskeletal: Reports extremity pain, numbness, radiating pain into limb and tingling; Denies arthralgias, back pain, myalgias or neck pain Integumentary Denies abscess, Abrasions or rash Neurologic Neurologic: Denies headache(s) or weakness Psychiatric Psychiatric: Denies anxiety, depression or suicidal thoughts Endocrine Endocrinology: Denies polydipsia, polyphagia or polyuria Hematologic/Lymphatic Hematologic/Lymphatic: Denies easy bleeding, easy bruising or lymphadenopathy Allergic/Immunologic Allergic/Immunologic ED: Denies mouth swelling, tongue swelling or urticaria EXAM Physical Exam Const Vital Signs: 08/17/23 08:42 Temperature 96.8 F L Temperature Source Temporal Pulse Rate 101 H Respiratory Rate 16 Blood Pressure 192/96 H Blood Pressure Mean 128 Pulse Ox 98 Oxygen Delivery Method Room Air Positive well nourished and well developed General Appearance ED: well developed and NAD HEENT Reports TM's clear and moist mucous membranes normocephalic and atraumatic; Negative for trauma or tenderness Tympanic Membrane ED: Yes TM's clear Eyes PERRL and EOMs intact bilaterally General Eye ED: Negative for pale conjunctiva or scleral icterus Neck no lymphadenopathy, supple and no JVD General: Negative for tenderness Chest Wall inspection of chest normal and palpation of chest normal Chest: Negative for tenderness Resp normal respiratory effort and clear to auscultation bilaterally Effort and Inspection: Negative for respiratory distress or pain with movement Auscultation: Negative for rhonchi, wheezes or diminished lung sounds Cardio regular rate, regular rhythm, S1 normal heart sound, S2 normal heart sound and no murmurs Peripheral Pulses: pulses 2+ throughout GI normal to inspection, nondistended, normoactive bowel sounds, soft to palpation, non-tender, non-distended and no masses Back/Spine no CVA tenderness and no thoracic nor lumbar tenderness Extremity Extremity Narrative: Left arm-patient has good range of motion at the left shoulder as well as the elbow and wrist and all digits. Unable to reproduce his pain with palpation. He has good retort setter strength. Decree sensation over the radial and ulnar nerve distribution. Deep tendon reflexes are plus 2 out of 4 bilaterally at the bicep, tricep, and brachioradialis. General Extremety ED: Negative for edema General Extremity: Negative for edema Neuro oriented x3, CN's II-XII intact bilaterally, no sensory deficits noted and gait normal Sensorium / Orientation: awake, alert, oriented to person, oriented to place and oriented to time Motor Exam: strength 5/5 throughout and strength abnormal Psych mental status grossly normal Skin no rashes or lesions noted and no wounds MDM MDM MDM Narrative Medical decision making narrative: Patient presents with left arm pain x 4 days is atraumatic. Believes it may be work related from repetitive motions and related to the work that he does. Denies any neck pain. Clinically I suspect a radiculopathy. I do not feel imaging is indicated. Recommended anti-inflammatories and rest with work restrictions. Will refer to orthopedics for follow-up. If symptoms do not improve or persistently worsen may require imaging such as possibly MRI to evaluate further. Discharge Plan Triage Chief Complaint: Other, Pain/Inj ED Provider: Ana Heredia Dx/Rx/DC Orders Clinical Impression: Arm pain, left, Arm paresthesia, left Instructions: Cervical Radiculopathy, ED Pain, Acute, Uncertain Cause, ED Paraesthesias Prescriptions: New hydrocodone-acetaminophen [hydrocodone-acetaminophen] 5-325 mg tablet 1 tab PO Q4H PRN PRN (Reason: Pain) 2 Days Qty: 10 0RF naproxen [Naprosyn] 500 mg tablet 500 mg PO BID PRN (Reason: pain) Qty: 20 0RF No Action fenofibrate nanocrystallized [Tricor] 48 mg tablet 48 mg PO DAILY cyclobenzaprine 10 mg tablet 10 mg PO HS PRN (Reason: muscle spasm) Qty: 14 0RF pantoprazole 20 mg tablet,delayed release (DR/EC) 20 mg PO DAILY Patient Comments: TAKE 1 TABLET BY MOUTH EVERY DAY testosterone cypionate 200 mg/mL oil 100 mg IM QWEEK Patient Comments: INJECT 0.5 ML (100 MG TOTAL) INTO THE SHOULDER, THIGH, OR BUTTOCKS ONCE A WEEK . naproxen [Naprosyn] 500 mg tablet 500 mg PO BID PRN (Reason: pain) Qty: 20 0RF atorvastatin 40 mg Tablet 40 mg PO QHS multivitamin Capsule 1 cap PO DAILY Primary Care Provider: Mauricio Lara Referrals: Mauricio Lara MD [Primary Care Provider] - Ricardo Aldana MD [Med Staff - Active Staff] - 3-5 Days Disposition Disposition: Home, Self Care Discharge Date/Time: 08/17/23 09:48
--- OUTSIDE RECORDS SUMMARY | 2023-08-17 10:04 | XMS RPT_ITS | CCD ---
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 diphtheria toxoid) Primitivolita Abeberedd [facility] Work Phone: Payers Date Payer Category Payer Unknown [id number] 2020 Worker's Compensation [id number] Worker's Compensation [employer] [id number] 2020-Present [id number] 2019 Unknown [id number] 2019 Unknown [id number] 2019 Unknown xxxxxxxxx [id number] 2016 Worker's Compensation [employer] [id number] 2016-Present [id number] 2016 Worker's Compensation [employer] [id number] 2016-Present [id number] 2016 Worker's Compensation [employer] [id number] 2016-Present [phone] [id number] [place] [address] [id number] 2016 Unknown [id number] 2016 Unknown [id number] 1975 Unknown [id number] 00 1975 Unknown [id number] 03 1975 Unknown [id number] 03 1975 Unknown [id number] 03 1975 Unknown [id number] 03 1975 Unknown [id number] 03 Unknown [id number] Worker's Compensation [id number] Social History Date Type Detail Facility Start: 04-22-2017 End: 09-30-2022 Tobacco smoking status NHIS Former smoker [employer] Work Phone: End: 10-15-2016 History of tobacco use Current smoker [employer] Phone: Start: 04-22-2017 End: 09-24-2020 Cigarettes smoked current (pack per day) - Reported [facility] Start: 1975 Sex Assigned At Not on file [employer] Phone: Start: 12-26-2016 End: 09-30-2022 Tobacco Comment Initially quit 2014, started smoking 1/2 ppd again for 3-4 months then quit again with e-cig [facility] Start: 03-15-2015 Alcohol Comment occ./former alcoholic [facility] Start: 04-18-2019 Tobacco smoking status NHIS Never smoker [facility] Start: 04-18-2019 End: 09-24-2020 Alcohol intake Never [facility] Start: 04-18-2019 End: 08-31-2020 History SD[facility] Start: 10-08-2019 End: 09-30-2022 Alcohol intake Current drinker of alcohol (finding) [facility] Start: 09-13-2021 End: 09-30-2022 Exposure to SARS-CoV-2 (event) Not sure [facility] Start: 08-31-2020 End: 09-30-2022 Tobacco use and exposure Never used [facility] Start: 08-31-2020 End: 09-24-2020 History SDOH Alcohol Frequency 2 [facility] Start: 08-31-2020 End: 09-24-2020 History SDOH Social Connections Phone 5 [facility] Start: 08-31-2020 History SDOH Social Connections Living 3 [facility] Start: 08-31-2020 History SDOH Physical Activity DPW 0 [facility] End: 10-15-2016 History of tobacco use Cigarette Smoker [facility] Within the last year , have you been afraid of your partner or ex-partner? No [facility] Are you now , , , , never or living with a partner? [facility] How often to you hav e a drink containing alcohol? Monthly or less [facility] Average Number of Drinks Not on file [facility] How often do you hav e 6 or more drinks on 1 occasion? Less than monthly [facility] Do you feel stress - tense, restless, nervous, or anxious, or unable to sleep at night because your mind is troubled all the time - these days [OSQ] Not at all [facility] (I/We) worried wheth er (my/our) food would run out before (I/we) got money to buy more. Sometimes true [facility] Start: 02-22-2020 Gender identity Identifies as male gender (finding) [facility] Start: 02-22-2020 Sexual orientation Heterosexual (finding) [facility] Medical Equipment Procedure Code Equipment Code Equipment Origin al Text Equipment Identifier Dates Use to inject testosterone weekly (mondays) . [id number] Start: 08-10-2018 End: 02-27-2022 Use to inject testosterone weekly (mondays). [id number] Start: 04-28-2016 Use to inject medication . [id number] Start: 01-16-2020 End: 03-25-2022 Use to inject testosterone weekly (mondays) . [id number] Start: 02-27-2022 End: 09-30-2022 Please dispense 100 needles for testosterone injection which will occur every 2 weeks. . [id number] Start: 03-25-2022 To use for IM injection of testosterone . [id number] Start: 03-25-2022 Use to inject testosterone weekly (mondays) . [id number] Start: 09-30-2022 Clinical Notes 10-19-2020 to 06-19-2023 Telephone Encounter - Dixie Schwarz RN - 06/19/2023 2:10 PM ESTTelephone Encounter - Dixie Schwarz RN - 06/19/2023 2:10 PM Clementine Whitaker MD - 09/30/2022 9:00 AM ESTPatient Instructions Note Date & Type Note Facility 06-19-2023 Telephone encounter Note [facility]ist from [facility] called to request a refill for patient Viagra. Unable to refill at this time d/t patient not being see since September. Was to follow up 3 months later with labs. Call placed to patient to advise him of this. No answer. LVM. [facility] 06-19-2023 Miscellaneous Notes Pharmacist from [facility] called to request a refill for patient Viagra. Unable to refill at this time d/t patient not being see since September. Was to follow up 3 months later with labs. Call placed to patient to advise him of this. No answer. LVM. documented in this encounter [facility] 02-28-2023 History of Present illness Narrative General Urology Note History of present illness: Justino Pacheco is a 46 y.o. male who presents for follow up for hypogonadism. Of note, he had an orchiectomy for trauma on the left. Low testosterone Low libido Yes Low energy Yes Poor sleep Yes Poor mental clarity Yes History of depression? No Erectile dysfunction? Yes Any potential interest in conception? No States these symptoms started since in 2019. He has been treated previously with TRT. No hx of BPH No hx of RAIN No hx of CAD or [place] No trouble urinating No family history of prostate CA No chronic opioid use positive for ED does use PDE5Is Patient does not carry nitrates for chest pain 09/30/22 Interval history- doing much better. He's happier on 200 mg weekly. Labs today- T- >1200, PSA within normal limits CBC which is much elevated than previous levels Review of systems: Const: Denies weight loss, bone pain Endocrine- no night sweats HEENT: Denies new changes in vision CV: Denies C/P Pulm: Denies SOB Abd: Denies constipation, diarrhea, nausea, vomiting Neuro: Denies numbness, tingling MSK: Denies weakness Psych- denies depression : See HPI Medical History: HLD GERD Left orchiectomy(trauma) Surgical History: Left orchiectomy ? 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 1 Tobacco: no EtOH: no Illicit drugs: no Family History: Patient is adopted and does not know his family hx ECO ? Performance Status: can climb 2 flights of stairs without significant shortness of breath ? Anticoagulation: no ? Life expectancy: greater than 10 years Physical Exam: PACU Vitals 09/30/22 0810 BP: (!) 144/89 Pulse: 81 SpO2: 97% Gen: WDWN Neuro- Grossly intact Psych- Alert and oriented Eyes- no Jaundice MSK- Normal Gait. Normal range of motion. Resp: non-labored. ?No increased work of breathing. ? Assessment: Justino Pacheco is a 46 y.o. male with hypogonadism and erectile dysfunction. He is currently on T every week and Viagra PRN. His T levels are very high and his blood counts are going up way above baseline. I suggested coming off testosterone for some time but patient is very concerned about quality of life. We will half his dose to 100 mg weekly and repeat lab work in 3 months Will resume every 6 month follow up after his levels have stabilized Plan: - refill viagra - back down testosterone to 100 mg weekly - repeat AM T and CBC in 3 months, follow up after ? I discussed diagnostics options, treatment options and risks and benefits of all options. Discussed alternative opinions and referral for 2nd/3rd opinion. Also discussed availability of clinical trial when/if appropriate. Patients recommended to read all package inserts for any medications prescribed and schedule another appointment should they have any concerns. Lindsay Whitaker MD documented in this encounter [facility] 05-07-2022 Telephone encounter Note Patient had to switch pharmacies due to insurance. [facility] to [facility] 05-07-2022 Miscellaneous Notes Patient had to switch pharmacies due to insurance. [facility] to [facility] [place] documented in this encounter [facility] 03-25-2022 History of Present illness Narrative General Urology Note Seen by Guillermo Whitaker- stopped clomid Started T 100 mg every week T- 120 INITIAL VISIT JAVED- 2x2 cm no nodules _ Pending: T, PSA, CBC every 6 months __ History of present illness: Justino Pacheco is a 46 y.o. male who presents for follow up for hypogonadism. Of note, he had an orchiectomy for trauma on the left. Low testosterone Low libido Yes Low energy Yes Poor sleep Yes Poor mental clarity Yes History of depression? No Erectile dysfunction? Yes Any potential interest in conception? No States these symptoms started since in 2019. He has been treated previously with TRT. No hx of BPH No hx of RAIN No hx of CAD or [place] No trouble urinating No family history of prostate CA No chronic opioid use positive for ED does use PDE5Is Patient does not carry nitrates for chest pain 03/25/22 Interval history- doing okay. Finished his [place]. Less energy over the last 6 months. Has been taking 0.5 ml weekly. 100 mg. He has had trouble sleeping as well. Labs today- T- <200, CBC and PSA WNL Review of systems: Const: Denies weight loss, bone pain Endocrine- no night sweats HEENT: Denies new changes in vision CV: Denies C/P Pulm: Denies SOB Abd: Denies constipation, diarrhea, nausea, vomiting Neuro: Denies numbness, tingling MSK: Denies weakness Psych- denies depression : See HPI Medical History: HLD GERD Left orchiectomy(trauma) Surgical History: Left orchiectomy ? 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 1 Tobacco: no EtOH: no Illicit drugs: no Family History: Patient is adopted and does not know his family hx ECO ? Performance Status: can climb 2 flights of stairs without significant shortness of breath ? Anticoagulation: no ? Life expectancy: greater than 10 years Physical Exam: PACU Vitals 03/25/22 0844 BP: 129/78 Pulse: 83 SpO2: 93% Gen: WDWN Neuro- Grossly intact Psych- Alert and oriented Eyes- no Jaundice MSK- Normal Gait. Normal range of motion. Resp: non-labored. ?No increased work of breathing. Records review: Independently reviewed Laboratory results review: See HPI Pathology review: None to review ? Radiograph review: None to review ? Assessment: Justino Pacheco is a 46 y.o. male with hypogonadism and erectile dysfunction. He is currently on T every week and Viagra PRN. His T levels are low. Discussed options moving forward. Will adjust his prescription to 200 mg weekly. Continue weekly injections and every 6 month follow up Plan: - refill for Viagra - new prescription for T for 200 mg weekly. Previously on 100 mg but did not double his dose last time. - RTC in 6 months for T, PSA, CBC, symptom check ? I discussed diagnostics options, treatment options and risks and benefits of all options. Discussed alternative opinions and referral for 2nd/3rd opinion. Also discussed availability of clinical trial when/if appropriate. Patients recommended to read all package inserts for any medications prescribed and schedule another appointment should they have any concerns. Lindsay Whitaker MD documented in this encounter [facility] 09-23-2021 History of Present illness Narrative General Urology Note Seen by Guillermo Whitaker- stopped clomid Started T 100 mg every week T- 120 2020- INITIAL VISIT JAVED- 2x2 cm no nodules _ Pending: T, PSA, CBC every 6 months __ History of present illness: Justino Pacheco is a 45 y.o. male who presents for follow up for hypogonadism. Of note, he had an orchiectomy for trauma on the left. Low testosterone Low libido Yes Low energy Yes Poor sleep Yes Poor mental clarity Yes History of depression? No Erectile dysfunction? Yes Any potential interest in conception? No States these symptoms started since in 2019. He has been treated previously with TRT. No hx of BPH No hx of RAIN No hx of CAD or [place] No trouble urinating No family history of prostate CA No chronic opioid use positive for ED does use PDE5Is Patient does not carry nitrates for chest pain 09/23/21 Interval history- continues to do well with weekly T and NEEDED Viagra. Recently hurt his knee and has been out of work for 6 weeks but other than that states he has no issues. Labs today- T- <200, CBC and PSA WNL Review of systems: Const: Denies weight loss, bone pain Endocrine- no night sweats HEENT: Denies new changes in vision CV: Denies C/P Pulm: Denies SOB Abd: Denies constipation, diarrhea, nausea, vomiting Neuro: Denies numbness, tingling MSK: Denies weakness Psych- denies depression : See HPI Medical History: HLD GERD Left orchiectomy(trauma) Surgical History: Left orchiectomy ? 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 1 Tobacco: no EtOH: no Illicit drugs: no Family History: Patient is adopted and does not know his family hx ECO ? Performance Status: can climb 2 flights of stairs without significant shortness of breath ? Anticoagulation: no ? Life expectancy: greater than 10 years Physical Exam: PACU Vitals 09/23/21 0802 BP: 131/86 Pulse: 68 SpO2: 92% Gen: WDWN Neuro- Grossly intact Psych- Alert and oriented Eyes- no Jaundice MSK- Normal Gait. Normal range of motion. Resp: non-labored. ?No increased work of breathing. Records review: Independently reviewed Laboratory results review: Sep 2020- CBC, PSA, T within normal limits Results for JUSTINO PACHECO ( ) as of 03/25/2021 08:04 Ref. Range 09/24/2020 09:03 WBC Latest Ref Range: 4.50 - 11.00 K/mcL 6.05 RBCs Latest Ref Range: 4.50 - 5.90 M/mcL 4.35 (L) HGB Latest Ref Range: 13.5 - 17.5 g/dL 13.8 HCT Latest Ref Range: 41.0 - 53.0 % 41.1 MCV Latest Ref Range: 80.0 - 100.0 fL 94.5 MCH Latest Ref Range: 26.0 - 34.0 pg 31.7 MCHC Latest Ref Range: 31.0 - 37.0 g/dL 33.6 RDW Latest Ref Range: 11.6 - 14.8 % 12.9 Platelets Latest Ref Range: 150 - 400 K/mcL 246 MPV Latest Ref Range: 9.4 - 12.4 fL 9.7 Nucleated RBC Latest Units: % 0.0 Nucleated RBC Abs Latest Ref Range: 0.00 - 0.00 K/mcL 0.00 Total Protein Latest Ref Range: 6.0 - 8.0 g/dL 7.4 Luteinizing Hormone Latest Ref Range: 1.2 - 10.6 mIU/mL 1.1 (L) Non HDL Chol. (LDL+VLDL) Latest Units: mg/dL 129 PSA Latest Ref Range: 0.00 - 0.99 ng/mL 0.45 Testosterone Latest Ref Range: 123 - 813 ng/dL 324 Pathology review: None to review ? Radiograph review: None to review ? Assessment: Justino Pacheco is a 45 y.o. male with hypogonadism and erectile dysfunction. He is currently on T every week and Viagra PRN. His T levels are low but this can be dependent on when he got it drawn vs. His last injection. He is overall happy with how he is feeling and does not necessarily want to make any changes at this time. Plan: - refill for Viagra - refill for T - RTC in 6 months for T, PSA, CBC, LH, symptom check - Annual JAVED ? I discussed diagnostics options, treatment options and risks and benefits of all options. Discussed alternative opinions and referral for 2nd/3rd opinion. Also discussed availability of clinical trial when/if appropriate. Patients recommended to read all package inserts for any medications prescribed and schedule another appointment should they have any concerns. Lindsay Whitaker MD documented in this encounter [facility] 04-26-2021 Instructions Manuel Saeed MD - 04/26/2021 9:00 AM EDT Problem List Items Addressed This Visit Other Hypertriglyceridemia - Primary (Chronic) If any referrals were placed at the time of your visit please allow 2 weeks for processing. If you haven't heard from anyone within 2 weeks please contact my office so we can look into the status of your referral. Please answer your phone for the next 2 weeks to receive the call from the doctor we referred you to. Please keep the appointment with your doctor. If you can not make the appointment for some reason please call to cancel and do not just No Show or not show up for the appointment. This makes it hard for us to get you future appointments. Thank you for your cooperation If you were given any labs today please ensure they are completed according to the directions given. Once labs are completed please allow 1-2 weeks for us to receive the results, review them, and let you know what steps, if any, are needed next. If you haven't heard from us after that please call to inquire. If labs were ordered to be done PRIOR to your next visit we will discuss the results at the time of your office visit. If any procedures or imaging studies were ordered that must be prior authorized please give us 2 weeks to get them approved. Once approved someone should call you to schedule them or give you a date and time that they were scheduled for. If you haven't heard anything within 2 weeks of the office visit please call the office so we can look into their status. documented in this encounter [facility] 04-26-2021 History of Present illness Narrative OFFICE VISIT PROGRESS NOTE HPI Here today for an insurance form No questions or concerns Still taking fenofibrate and atorvastatin hypogonadism Taking testosterone Eating OK Exercising no Only with work Discussed vaccines today and he is not interested in doing those Reviewed new guidelines for colonoscopy and Cologuard and he is not interested in doing those Offered screening blood test and he is not interested in that either The following portions of the patient's history were reviewed and updated as appropriate: allergies, current medications and problem list. The patient's surgical, family, and social history was reviewed and updated as appropriate. Review of Systems Review of Systems Constitutional: Negative for fever. HENT: Negative. Eyes: Negative. Respiratory: Negative for shortness of breath. Cardiovascular: Negative for chest pain. Gastrointestinal: Negative for abdominal pain, constipation, diarrhea, nausea and vomiting. Endocrine: Negative for cold intolerance and heat intolerance. Genitourinary: Negative for difficulty urinating. Musculoskeletal: Positive for arthralgias (shoulder). Skin: Negative for rash. Allergic/Immunologic: Negative for food allergies. Neurological: Negative for dizziness and headaches. Psychiatric/Behavioral: The patient is not nervous/anxious. No depression Vitals: 04/26/21 0830 BP: 110/70 BP Location: Left arm Patient Position: Sitting BP Cuff Size: Adult Pulse: 76 Temp: 98.9 F (37.2 C) TempSrc: Infrared SpO2: 94% Weight: 96.2 kg (212 lb) Height: 5' 6 Body mass index is 34.22 kg/m . Physical Exam Justino Pacheco Is a 45 y.o.. male. Alert and oriented to person, time and place In No Acute Distress Constitutional: Appearance: Normal appearance, HEENT: Head; normocephalic Right Ear: Tympanic Membrane and external ear normal, Hearing Normal Left Ear: Tympanic Membrane and external ear normal, Hearing Normal Right eye: Conjunctiva/sclera normal Left eye: conjunctiva/sclera normal Pupils: Pupils are equal, round, and reactive to light, Extra occular motion is Intact Nose: clear, turbinates are normal Mouth/Throat: clear, Mucus Membranes are Moist, tonsils not enlarged, Pharynx: Uvula is midline, Posterior Pharynx is not injected Neck: soft and supple, FROM, no lymphadenopathy or masses No thyromegaly Cardiovascular Rate and Rhythm: Normal rate and regular rhythm: Heart sounds: Normal heart sounds, S1 normal, S2 normal Pulses: Radial pulses: normal and equal Pulmonary: Pulmonary effort is normal. No Respiratory Distress: Breath sounds are normal, no wheezing Back: no CVA tenderness Abdominal: Palpation: soft and non tender Normal bowel sounds No guarding or rebound Musculoskeletal: Normal ROM The left shoulder has a scar, and he does have some decreased range of motion there Lower extremities: no edema, Skin: is warm and dry, no rashes Neuro: No focal deficits Psych: behavior is normal, mood and affect are normal Assessment/Plan Problem List Items Addressed This Visit Other Hypertriglyceridemia (Chronic) Relevant Orders Lipid Panel Hepatic Function Panel Other Visit Diagnoses Encounter for insurance examination - Primary He needs a lipid profile both for his physical and to follow his triglycerides Patient had no other questions or concerns today No follow-ups on file. If any referrals were placed at today's visit the patient was instructed to call the office if they havn't heard anything about the referral within 2 weeks of today's visit. For any new medications prescribed today, patient was educated about indications for the medication, how to take the medication and potential side effects of the medications. Manuel Saeed MD Please note: Portions of this chart may have been created with [employer] voice recognition software. Occasional wrong-word or sound-like substitutions may have occurred due to inherent limitations of the voice recognition software. Please read the chart carefully and recognize, using context, where the substitutions have occurred. documented in this encounter [facility] 03-25-2021 Miscellaneous Notes Addended by: LINDSAY WHITAKER on: 03/25/2021 09:25 AM Modules accepted: Orders documented in this encounter [facility] 03-25-2021 History of Present illness Narrative General Urology Note Seen by Guillermo Whitaker- humza clomid Started T 100 mg every week T- 120 INITIAL VISIT JAVED- 2x2 cm no nodules _ Pending: T, PSA, CBC every 6 months __ History of present illness: Justino Pacheco is a 45 y.o. male who presents for follow up for hypogonadism. Of note, he had an orchiectomy for trauma on the left. Low testosterone Low libido Yes Low energy Yes Poor sleep Yes Poor mental clarity Yes History of depression? No Erectile dysfunction? Yes Any potential interest in conception? No States these symptoms started since in 2019. He has been treated previously with TRT. No hx of BPH No hx of RAIN No hx of CAD or NH No trouble urinating No family history of prostate CA No chronic opioid use positive for ED does use PDE5Is Patient does not carry nitrates for chest pain 03/25/21 Interval history- doing well at this time on T once a week and Viagra as needed. Happy with symptoms. No new issues at this time. Review of systems: Const: Denies weight loss, bone pain Endocrine- no night sweats HEENT: Denies new changes in vision CV: Denies C/P Pulm: Denies SOB Abd: Denies constipation, diarrhea, nausea, vomiting Neuro: Denies numbness, tingling MSK: Denies weakness Psych- denies depression : See HPI Medical History: HLD GERD Left orchiectomy(trauma) Surgical History: Left orchiectomy ? 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 1 Tobacco: no EtOH: no Illicit drugs: no Family History: Patient is adopted and does not know his family hx ECO ? Performance Status: can climb 2 flights of stairs without significant shortness of breath ? Anticoagulation: no ? Life expectancy: greater than 10 years Physical Exam: PACU Vitals 03/25/21 0759 BP: (!) 142/74 Pulse: 69 SpO2: 94% Gen: WDWN Neuro- Grossly intact Psych- Alert and oriented Eyes- no Jaundice MSK- Normal Gait. Normal range of motion. Resp: non-labored. ?No increased work of breathing. Records review: Independently reviewed Laboratory results review: Sep 2020- CBC, PSA, T within normal limits Results for JUSTINO PACHECO ( ) as of 03/25/2021 08:04 Ref. Range 09/24/2020 09:03 WBC Latest Ref Range: 4.50 - 11.00 K/mcL 6.05 RBCs Latest Ref Range: 4.50 - 5.90 M/mcL 4.35 (L) HGB Latest Ref Range: 13.5 - 17.5 g/dL 13.8 HCT Latest Ref Range: 41.0 - 53.0 % 41.1 MCV Latest Ref Range: 80.0 - 100.0 fL 94.5 MCH Latest Ref Range: 26.0 - 34.0 pg 31.7 MCHC Latest Ref Range: 31.0 - 37.0 g/dL 33.6 RDW Latest Ref Range: 11.6 - 14.8 % 12.9 Platelets Latest Ref Range: 150 - 400 K/mcL 246 MPV Latest Ref Range: 9.4 - 12.4 fL 9.7 Nucleated RBC Latest Units: % 0.0 Nucleated RBC Abs Latest Ref Range: 0.00 - 0.00 K/mcL 0.00 Total Protein Latest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 stool softener daily with the pain medicine to prevent the development of constipation. ? Also drink plenty of water and eat foods high in fiber. If you are not taking a prescription pain medicine, take an nlen-far-pkreyhl medicine as directed such as Tylenol (Acetaminophen) or Motrin (Ibuprofen). When should you call for help? Call your doctor now or seek immediate medical care if: ? You have a new kind of pain. ? You have new symptoms, such as a fever or rash, along with the pain. ? You think you might be using too much pain medicine. ? You need help to use less or stop taking pain medicine. ? Your pain gets worse. ? You would like a referral to a doctor or clinic that specializes in pain management. RETURN TO WORK You may return to work as follows: [ ] Immediately upon hospital discharge- No work restrictions [X] When no longer requiring opiate pain medications [ ] We will discuss returning to work at your Outpatient Trauma office appointment [ ] When you follow up with your specialist, they will tell you when you may return to work SPINAL FRACTURE - NO BRACE NEEDED You have had a break or fracture in one or more of your thoracic and lumbar vertebrae. The Neurosurgery team has determined that you do not need to wear a brace at this time. Activity ? Avoid activities that may make your pain worse, such as picking up heavy things. When your pain decreases, begin normal, slow movements. ? You should sleep on a firm mattress. You should NOT sleep on a waterbed as it does not properly support your back. You may sleep on your back with a pillow under your knees to decrease tension on your back. You may also sleep on your side with one or both of your knees bent. Avoid re-injury ? Do not advance your activity until you have been cleared to at your follow up appointment. ? You should use the following steps to avoid re-hurting your back. ? When picking something up, bend at your hips and knees. Never bend from the waist only. Use bent knees and your leg muscles to lift the load. ? While lifting the object, keep it close to your chest. Do not try to twist or lift anything aboveyour waist. ? Maintain a weight as suggested by your doctor. Weighing too much puts a load on your back. ? Wear low-heeled shoes Scrapes (Abrasions): Care Instructions Your Care Instructions Scrapes (abrasions) are wounds where your skin has been rubbed or torn off. Most scrapes do not go deep into the skin, but some may remove several layers of skin. Scrapes usually don't bleed much, but they may ooze pinkish fluid. Scrapes on the head or face may appear worse than they are. They may bleed a lot because of the good blood supply to this area. Most scrapes heal well and may not need a bandage. They usually heal within 3 to 7 days. A large, deep scrape may take 1 to 2 weeks or longer to heal. A scab may form on some scrapes. Follow-up care is a ray part of your treatment and safety. Be sure to make and go to all appointments, and call your doctor if you are having problems. It's also a good idea to know your test resultsand keep a list of the medicines you take. How can you care for yourself at home? If your doctor told you how to care for your wound, follow your doctor's instructions. If you did not get instructions, follow this general advice: Wash the scrape with clean water 2 times a day. Don't use hydrogen peroxide or alcohol, which can slow healing. You may cover the scrape with a thin layer of petroleum jelly, such as Vaseline, and a nonstick bandage. Apply more petroleum jelly and replace the bandage as needed. Prop up the injured area on a pillow anytime you sit or lie down during the next 3 days. Try to keep it above the level of your heart. This will help reduce swelling. Be safe with medicines. Take pain medicines exactly as directed. If the doctor gave you a prescription medicine for pain, take it as prescribed. If you are not taking a prescription pain medicine, ask your doctor if you can take an ftkg-zdu-bcmikkn medicine. When should you call for help? Call your doctor now or seek immediate medical care if: You have signs of infection, such as: Increased pain, swelling, warmth, or redness around the scrape. Red streaks leading from the scrape. Pus draining from the scrape. A fever. The scrape starts to bleed, and blood soaks through the bandage. Oozing small amounts of blood is normal. Watch closely for changes in your health, and be sure to contact your doctor if the scrape is not getting better each day. Where can you learn more? Log into your personal health record on https://OLIVERS Apparelt.IndiaMART.User Replay and enter A374 in the Education box to learn more about Scrapes (Abrasions): Care Instructions. Current as of: 2015 Content Version: 11.2 5768-9437 [employer]. Care instructions adapted under license by your healthcare professional. If you have questions about a medical condition or this instruction, always ask your healthcare professional. [employer] disclaims any warranty or liability for your use of this information. ORTHOPEDIC TRAUMA (BONE INJURIES) Weight bearing instructions: Non weight bearing right leg Wound Care: ? Unless you are instructed otherwise, do not remove the dressing until your follow-up office visit. ? Keep the dressing clean, dry, and in place until follow-up visit. ? Wash your hands before and after touching the dressing. ? Keep your incision dry until follow-up visit. ? Sutures and/or speedy will be removed at your follow up appointment. Call the Orthopedic team or Outpatient Trauma office if you develop: ? Persistent or heavy bleeding from your wound/incision ? A fever greater than 101?F ? Redness or drainage at the surgery site ? Unexpected swelling, numbness, tingling or discoloration of extremities ? Severe pain that is not relieved by your pain medicine, ice, and rest Follow-up Care: ? A follow-up appointment should be scheduled for you at discharge. ? If the appointment has not been scheduled, please call at your earliest convenience to schedule follow up with the orthopedic team. ? You may also contact the Outpatient Trauma Office to assist in follow up scheduling. LOVENOX: Deep vein thrombosis (blood clot) prevention Your injuries and/or surgeries have put you at an increased risk for blood clots. To prevent blood clots you will be encouraged to get out of bed as much as possible, keeping in mind any limitations placed on your activity by your providers. Lovenox (enoxaparin) is a medication that helps prevent blood clots. Lovenox slows down the formation of clots by reducing the amount of certain clotting factors that can build up with inactivity. Medication: Lovenox Dose: 40 How often: Daily Length of Treatment: 20 days Please use extra caution to prevent bleeding while shaving or brushing your teeth. Please inform your primary care physician of any medications, such as Lovenox, that were initiated while in the hospital. Please call the Outpatient Trauma office at if you are unable to obtain/afford the Lovenox injections. in this encounter* Instructions* Luis Armando Alcazar MD - 04/18/2019 Take 1000 mg of Tylenol every 4 hours Take Advil 600 mg 3 times a day with food Take Robaxin for muscle relaxation Warm showers to your back twice a day for the next 3 to 4 days * Attachments The following attachments cannot be sent through Care Everywhere. * Strain or Sprain (Polish) documented in this encounter* Instructions* Carlos Ellison PA-C - 02/22/2020 Follow-up with work health. Return to the emergency department immediately for any new or worseningsymptoms. * Attachments The following attachments cannot be sent through Care Everywhere. * Wrist Sprain (Polish) * Wrist Sprain: Rehab Exercises (Polish) documented in this encounter Instructions * Patient Instructions - Nati Felder DO - 01/20/2018 2:04 PM EDT To wean from your protonix: - take 20 mg daily x 2 weeks - then take 20 mg every other day x 1-2 weeks - then stop Continue your zantac 150 mg twice a day Come back in 6-8 weeks for GERD follow up. in this encounter* Patient Instructions - Primitivo Walters DO - 03/20/2017 3:03 PM EDT Heart-Healthy Diet: Care Instructions Your Care Instructions A heart-healthy diet has lots of vegetables, fruits, nuts, beans, and whole grains, and is low in salt. It limits foods that are high in saturated fat, such as meats, cheeses, and fried foods. It maybe hard to change your diet, but even small changes can lower your risk of heart attack and heart disease. Follow-up care is a ray part of your treatment and safety. Be sure to make and go to all appointments, and call your doctor if you are having problems. It's also a good idea to know your test resultsand keep a list of the medicines you take. How can you care for yourself at home? Watch your portions Learn what a serving is. A serving and a portion are not always the same thing. Make sure that you are not eating larger portions than are recommended. For example, a serving of pasta is cup. A serving size of meat is 2 to 3 ounces. A 3-ounce serving is about the size of a deck of cards. Measure serving sizes until you are good at eyeballing them. Keep in mind that restaurants often serve portions that are 2 or 3 times the size of one serving. To keep your energy level up and keep you from feeling hungry, eat often but in smaller portions. Eat only the number of calories you need to stay at a healthy weight. If you need to lose weight, eat fewer calories than your body miller (through exercise and other physical activity). Eat more fruits and vegetables Eat a variety of fruit and vegetables every day. Dark green, deep orange, red, or yellow fruits andvegetables are especially good for you. Examples include spinach, carrots, peaches, and berries. Keep carrots, celery, and other veggies handy for snacks. Buy fruit that is in season and store it where you can see it so that you will be tempted to eat it. Cook dishes that have a lot of veggies in them, such as stir-fries and soups. Limit saturated and trans fat Read food labels, and try to avoid saturated and trans fats. They increase your risk of heart disease. Trans fat is found in many processed foods such as cookies and crackers. Use olive or canola oil when you cook. Try cholesterol-lowering spreads, such as Benecol or Take Control. Bake, broil, grill, or steam foods instead of frying them. Choose lean meats instead of high-fat meats such as hot dogs and sausages. Cut off all visible fat when you prepare meat. Eat fish, skinless poultry, and meat alternatives such as soy products instead of high-fat meats. Soy products, such as tofu, may be especially good for your heart. Choose low-fat or fat-free milk and dairy products. Eat fish Eat at least two servings of fish a week. Certain fish, such as salmon and tuna, contain omega-3 fatty acids, which may help reduce your risk of heart attack. Eat foods high in fiber Eat a variety of grain products every day. Include whole-grain foods that have lots of fiber and nutrients. Examples of whole-grain foods include oats, whole wheat bread, and brown rice. Buy whole-grain breads and cereals, instead of white bread or pastries. Limit salt and sodium Limit how much salt and sodium you eat to help lower your blood pressure. Taste food before you salt it. Add only a little salt when you think you need it. With time, your taste buds will adjust to less salt. Eat fewer snack items, fast foods, and other high-salt, processed foods. Check food labels for the amount of sodium in packaged foods. Choose low-sodium versions of canned goods (such as soups, vegetables, and beans). Limit sugar Limit drinks and foods with added sugar. These include candy, desserts, and soda pop. Limit alcohol Limit alcohol to no more than 2 drinks a day for men and 1 drink a day for women. Too much alcohol can cause health problems. When should you call for help? Watch closely for changes in your health, and be sure to contact your doctor if: You would like help planning heart-healthy meals. Where can you learn more? Log into your personal health record on https://Apprion.Velocify and enter V137 in the Education box to learn more about Heart-Healthy Diet: Care Instructions. Current as of: August 29, 2015 Content Version: 11.2 1429-4461 [employer]. Care instructions adapted under license by your healthcare professional. If you have questions about a medical condition or this instruction, always ask your healthcare professional. [employer] disclaims any warranty or liability for your use of this information. in this encounter* Patient Instructions - Suzan Carney RN - 04/03/2017 9:27 AM EDT OUTPATIENT TRAUMA AND ACUTE CARE SURGERY OFFICE INFORMATION -Office phone number is [phone], FAX [phone] -Office hours are Thursday-Thursday 8:00am-4:00pm -The office is closed on the weekends -We are unable to make appointments over the weekend. If you need to be seen in the office, call during normal business hours or leave a message and we will return your phone call during business hours -If you need assistance when the office is closed, call [phone] and ask to speak to the TraumaNurse Practitioner vision mixer. -It is acceptable to refill pain medication in certain instances but only during normal business hours. in this encounter* Patient Instructions* Sin Morris, DO - 04/21/2019 9:11 AM EDT Upper GI Endoscopy (01:20) Your health professional recommends that you watch this short online health video. Learn what an upper GI endoscopy is used for and how it's done. How to watch the video Scan the QR code OR Visit the website [email or web address] Current as of: June 09, 2018 Content Version: 12.20055755-0343 [employer]. Care instructions adapted under license by your healthcare professional. If you have questions about a medical condition or this instruction, always ask your healthcare professional. [employer] disclaims any warranty or liability for your use of this information. Upper GI Endoscopy: Before Your Procedure What is an upper GI endoscopy? An upper gastrointestinal (or GI) endoscopy is a test that allows your doctor to look at the insideof your esophagus, stomach, and the first part of your small intestine, called the duodenum. The esophagus is the tube that carries food to your stomach. The doctor uses a thin, lighted tube that bends. It is called an endoscope, or scope. The doctor puts the tip of the scope in your mouth and gently moves it down your throat. The scope is a flexible video camera. The doctor looks at a monitor (like a TV set or a computer screen) as heor she moves the scope. A doctor may do this test, which is also called a procedure, to look for ulcers, tumors, infection, or bleeding. It also can be used to look for signs of acid backing up into your esophagus. This is called gastroesophageal reflux disease, or GERD. The doctor can use the scope to take a sample of tissue for study (a biopsy). The doctor also can use the scope to take out growths or stop bleeding. Follow-up care is a ray part of your treatment and safety. Be sure to make and go to all appointments, and call your doctor if you are having problems. It's also a good idea to know your test resultsand keep a list of the medicines you take. What happens before the procedure? Preparing for the procedure Understand exactly what procedure is planned, along with the risks, benefits, and other options. Tell your doctors ALL the medicines, vitamins, supplements, and herbal remedies you take. Some of these can increase the risk of bleeding or interact with anesthesia. If you take blood thinners, such as warfarin (Coumadin), clopidogrel (Plavix), or aspirin, be sure to talk to your doctor. He or she will tell you if you should stop taking these medicines before your procedure. Make sure that you understand exactly what your doctor wants you to do. Your doctor will tell you which medicines to take or stop before your procedure. You may need to stop taking certain medicines a week or more before the procedure. So talk to your doctor as soon as you can. If you have an advance directive, let your doctor know. It may include a living will and a durable power of supervisor sample preparation for health care. Bring a copy to the hospital. If you don't have one, you may wantto prepare one. It lets your doctor and loved ones know your health care wishes. Doctors advise that everyone prepare these papers before any type of surgery or procedure. Procedures can be stressful. This information will help you understand what you can expect. And it will help you safely prepare for your procedure. What happens on the day of the procedure? Follow the instructions exactly about when to stop eating and drinking. If you don't, your procedure may be canceled. If your doctor told you to take your medicines on the day of the procedure, take them with only a sip of water. Take a bath or shower before you come in for your procedure. Do not apply lotions, perfumes, deodorants, or nail nepalese. Take off all jewelry and piercings. And take out contact lenses, if you wear them. At the hospital or surgery center Bring a picture ID. The test may take 15 to 30 minutes. The doctor may spray medicine on the back of your throat to numb it. You also will get medicine to prevent pain and to relax you. You will lie on your left side. The doctor will put the scope in your mouth and toward the back of your throat. The doctor will tell you when to swallow. This helps the scope move down your throat. You will be able to breathe normally. The doctor will move the scope down your esophagus into your stomach. The doctor also may look at the duodenum. If your doctor wants to take a sample of tissue for a biopsy, he or she may use small surgical tools, which are put into the scope, to cut off some tissue. You will not feel a biopsy, if one is taken. The doctor also can use the tools to stop bleeding or to do other treatments, if needed. You will stay at the hospital or surgery center for 1 to 2 hours until the medicine you were given wears off. Going home Be sure you have someone to drive you home. Anesthesia and pain medicine make it unsafe for you to drive. You will be given more specific instructions about recovering from your procedure. They will cover things like diet, wound care, follow-up care, driving, and getting back to your normal routine. When should you call your doctor? You have questions or concerns. You don't understand how to prepare for your procedure. You become ill before the procedure (such as fever, flu, or a cold). You need to reschedule or have changed your mind about having the procedure. Where can you learn more? Log into your personal health record on https://Apprion.Velocify and enter P790 in the Education box to learn more about Upper GI Endoscopy: Before Your Procedure. Current as of: June 09, 2018 Content Version: 12.20059605-7138 [employer]. Care instructions adapted under license by your healthcare professional. If you have questions about a medical condition or this instruction, always ask your healthcare professional. [employer] disclaims any warranty or liability for your use of this information. Hypogonadism: Care Instructions Your Care Instructions Men who have hypogonadism do not make enough testosterone. This hormone allows men to make sperm and to have normal physical male traits. The condition also is known as testosterone deficiency. It can lead to loss of sex drive, weakness, impotence, infertility, and weakened bones. Many things can cause this condition. Causes include injured testicles, certain medicines, an infection, and aging. Having a long-term health problem such as kidney or liver disease or being obese can cause it. So can surgery or radiation treatment for another health problem. It also can be presentat . It is most often treated with testosterone hormone. You can get the hormone as a shot or t hrough a patch or gel on the skin. Follow-up care is a ray part of your treatment and safety. Be sure to make and go to all appointments, and call your doctor if you are having problems. It's also a good idea to know your test resultsand keep a list of the medicines you take. How can you care for yourself at home? Take your medicines exactly as prescribed. Call your doctor if you think you are having a problem with your medicine. You will get more details on the specific medicines your doctor prescribes. Follow your treatment plan. If you use testosterone hormones, follow your doctor's instructions. Hormones can help relieve many of the effects of this condition, such as impotence. But it may take weeks or months for your symptoms to improve. Get plenty of exercise. And make sure to get plenty of calcium and vitamin D in your diet. Eat moredairy foods and green vegetables. They can help keep your bones from getting weak. If you have a hard time dealing with this condition, talk to your doctor about joining a support group. Talking with others who have the same problems can help you cope. When should you call for help? Call your doctor now or seek immediate medical care if: You have headaches. You have problems with your vision. Watch closely for changes in your health, and be sure to contact your doctor if: You have trouble getting or keeping an erection. You have a loss of body hair. You feel weak or tired a lot of the time. Your breasts are getting larger. You do not get better as expected. Where can you learn more? Log into your personal health record on https://[employer] and enter V434 in the Education box to learn more about Hypogonadism: Care Instructions. Current as of: June 08, 2018 Content Version: 12.20054078-0138 [employer]. Care instructions adapted under license by your healthcare professional. If you have questions about a medical condition or this instruction, always ask your healthcare professional. [employer] disclaims any warranty or liability for your use of this information. Learning About High Cholesterol What is high cholesterol? Cholesterol is a type of fat in your blood. It is needed for many body functions, such as making new cells. Cholesterol is made by your body. It also comes from food you eat. If you have too much cholesterol, it starts to build up in your arteries. This is called hardening of the arteries, or atherosclerosis. High cholesterol raises your risk of a heart attack and stroke. There are different types of cholesterol. LDL is the bad cholesterol. High LDL can raise your risk for heart disease, heart attack, and stroke. HDL is the good cholesterol. High HDL is linked with a lower risk for heart disease, heart attack, and stroke. Your cholesterol levels help your doctor find out your risk for having a heart attack or stroke. How can you prevent high cholesterol? A heart-healthy lifestyle can help you prevent high cholesterol. This lifestyle helps lower your risk for a heart attack and stroke. Eat heart-healthy foods. ? Eat fruits, vegetables, whole grains (like oatmeal), dried beans and peas, nuts and seeds, soy products (like tofu), and fat-free or low-fat dairy products. ? Replace butter, margarine, and hydrogenated or partially hydrogenated oils with olive and canola oils. (Canola oil margarine without trans fat is fine.) ? Replace red meat with fish, poultry, and soy protein (like tofu). ? Limit processed and packaged foods like chips, crackers, and cookies. Be active. Exercise can improve your cholesterol level. Get at least 30 minutes of exercise on mostdays of the week. Walking is a good choice. You also may want to do other activities, such as running, swimming, cycling, or playing tennis or team sports. Stay at a healthy weight. Lose weight if you need to. Don't smoke. If you need help quitting, talk to your doctor about stop-smoking programs and medicines. These can increase your chances of quitting for good. How is high cholesterol treated? The goal of treatment is to reduce your chances of having a heart attack or stroke. The goal is notto lower your cholesterol numbers only. You may make lifestyle changes, such as eating healthy foods, not smoking, losing weight, and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
== END 2023-08-17 09:48 | disposition home or self-care (01) ==
LOC: ED 09:41
PROVIDERS: Emergency Provider Emergency Medicine; PCP Family Medicine; Visit Provider Emergency Medicine
DX: M79.602 Pain in left arm (principal); R20.2 Paresthesia of skin; R20.0 Anesthesia of skin; E78.00 Pure hypercholesterolemia, unspecified; Z79.899 Other long term (current) drug therapy; F17.210 Nicotine dependence, cigarettes, uncomplicated
CPT/HCPCS: 99282

== ENCOUNTER → 2023-12-02 | Outpatient (CLI) | payer OTHER, SELFPAY ==
[2023-12-02 17:47] LABS: Absolute Lymphocyte Count 2.46 X10^3/uL (0.83-4.51); Absolute Neutrophil Count 4.3 X10^3/uL (2.0-7.7); Basophil# 0.03 X10^3/uL; Basophil% 0.4 % (0-1); Eosinophil# 0.19 X10^3/uL; Eosinophils% 2.6 % (0-5); Hematocrit 43.7 % (40-54); Hemoglobin 15.2 g/dL (13.0-16.5); Lymphocyte # 2.46 X10^3/ul (0.83-4.51); Lymphocyte % 33.3 % (19-41); Mean Corp Hgb Conc 34.8 g/dL (32-36); Mean Corpuscular Hgb 30.5 pg (27.0-32.0); Mean Corpuscular Volume 87.8 fL (80-94); Mean Platelet Vol. 9.7 fl (6.2-12.0); Monocyte# 0.43 X10^3/uL; Monocyte% 5.8 % (0-10); NRBC Flagged by Analyzer 0 % (0-5); Neutrophil # 4.26 X10^3/uL (2.7-7.7); Neutrophil % 57.8 % (47-70); Platelet Count 236 K/mm3 (150-450); RBC Distribution Width CV 15.1 % (11.6-14.6); RBC Distribution Width SD 47.8 fl (35.1-43.9); Red Blood Count 4.98 M/mm3 (4.6-6.2); White Blood Count 7.4 K/mm3 (4.4-11.0)
[2023-12-02 18:12] LABS: AST(SGOT) 35 U/L (15-37); Alanine Aminotransfer ALT/SGPT 61 U/L (16-61); Albumin, Serum 3.8 g/dL (3.2-5.0); Alkaline Phosphatase 55 U/L (45-117); Anion Gap 5 (5-15); BUN 12 mg/dL (7-18); BUN/Creat Ratio 12.5 RATIO (10-20); Calcium,Total 8.7 mg/dL (8.5-10.1); Chloride 111 mmol/L (98-107); Cholesterol 203 mg/dL (200); Creatinine, Serum 0.96 mg/dL (0.70-1.30); EST Glomerular Filtration Rate 89 mL/min (>60); Est Glom Filt Rate - Afr Amer 107 mL/min (>60); Globulin 3.7 g/dL (2.2-4.2); Glucose 109 mg/dL (74-106); High Density Lipoprotein 16 mg/dL; Potassium 3.8 mmol/L (3.5-5.1); Protein, Total 7.5 g/dL (6.4-8.2); Sodium Level 139 mmol/L (136-145); Triglycerides 1517 mg/dL
[2023-12-03 15:09] LABS: Hemoglobin A1c 5.7 % (3.8-5.6)
== END | disposition home or self-care (01) ==
PROVIDERS: PCP Family Medicine; Referring Provider Family Medicine; Visit Provider Family Medicine
DX: E78.1 Pure hyperglyceridemia (principal)
CPT/HCPCS: 36415; 80053; 80061; 83036; 85025

== ENCOUNTER → 2023-12-31 | Outpatient (CLI) | payer OTHER, SELFPAY ==
--- NOTE | 2023-12-31 16:06 | MRI_ITS ---
ACR Level 3 findings have been noted. An addendum which confirms receipt of the report will follow. EXAM: MR HEAD WITHOUT AND WITH INTRAVENOUS CONTRAST CLINICAL INDICATION: headaches, episodic confusion TECHNIQUE: Multiplanar and multisequence MR images of the brain were obtained without and with intravenous contrast. CONTRAST: IV 20cc Clariscan COMPARISON: CT head without contrast 12/28/2022. FINDINGS: BRAIN AND EXTRA-AXIAL SPACES: Small T2 FLAIR hyperintensity foci in the white matter anterior to the right lentiform nucleus and in the left central lobe subcortical white matter are nonspecific. They have no mass effects. There are no abnormally enhancing lesions intra-axially and extra-axially. Normal ventricles and cisterns. No intra- or extra-axial hemorrhage. No evidence of acute infarct. There is preservation of the walters/white matter interface. Posterior fossa structures are unremarkable. No hydrocephalus. SELLA: Unremarkable. Normal sella turcica, pituitary gland, infundibular stalk, optic chiasm and hypothalamus. AUDITORY SYSTEM: Unremarkable. The internal auditory canals are patent. BONES/JOINTS: Small intradiploic T2 hyperintensity and mildly hyperintense on T1 posterior bony calvarium overlying the left posterior temporal lobe enhances minimally with contrast.. SINUSES: Unremarkable as visualized. Clear. MASTOID AIR CELLS: Unremarkable as visualized. Clear. ORBITS: Unremarkable as visualized. Both globes, extraocular muscles, optic nerves and retrobulbar fat appear unremarkable. VASCULATURE: Unremarkable as visualized. Normal flow voids in the major intracranial circulation. SOFT TISSUES: 2.4 x 2.3 x 1.5 cm left soft tissue scalp mass with heterogeneous T1 and T2 hyperintensity and causing erosion and thinning of the underlying left frontal bone. There is minimal contrast enhancement at the periphery of the left frontal loss soft tissue scalp mass and central dots of contrast enhancement on the fat suppressed coronal T1 weighted images. This is worrisome for liposarcoma. MRI/Brain W/WO Contrast IMPRESSION: 1. 2.4 x 2.3 x 1.5 cm left frontal soft tissue scalp mass with heterogeneous T1 and T2 hyperintensity and causing erosion and suspicious increase thinning of the left frontal bone when compared to CT head scan of 12/28/2022. There is minimal peripheral contrast enhancement and small dots of central contrast enhancement. This is not benign lipoma. Liposarcoma is worrisome. 2. Small intradiploic T2 FLAIR hyperintensity is mildly hyperintense on T1 and enhances with intravenous contrast. This is a subtle hypodensity on the comparison CT head scan of 12/28/2022. Exact etiology is unknown. Correlation with bone scan may be helpful for further evaluation. 3. A couple of small nonenhancing T2 FLAIR hyperintensity in the white matter anterior to the right lentiform nucleus and in the left temporal lobe subcortical white matter are nonspecific. They may be migraine-related changes. Other possibilities include reversible cerebral vasoconstrictive syndrome, vasculitis and microvascular disease. Electronically Signed: Alphonse Younger MD at 9:43 EDT ,
== END | disposition home or self-care (01) ==
LOC: MRI 15:55
PROVIDERS: PCP Family Medicine; Referring Provider Family Medicine; Visit Provider Family Medicine
DX: R51.9 Headache, unspecified (principal); I71.21 Aneurysm of the ascending aorta, without rupture
CPT/HCPCS: 70553; A9575

== ENCOUNTER 2024-01-10 14:46 | Emergency (ER) | payer OTHER, SELFPAY ==
[2024-01-10 14:47] VITALS: BP 140/82; PULSE 90; RESP 18; TEMP 36.5; O2SAT 94; BMI 35.5
--- NOTE | 2024-01-10 15:41 | RAD_ITS ---
EXAM: XR LUMBOSACRAL SPINE, 2 OR 3 VIEWS CLINICAL INDICATION: Injury/Pain TECHNIQUE: Frontal and lateral views of the lumbar spine and sacrum. COMPARISON: No relevant prior studies available. FINDINGS: VERTEBRAE: Mild vertebral body osteophytosis. Facet arthropathy at L3-4, L4-5 and L5-S1. DISC SPACES: No acute findings. Disc spaces are maintained. RAD/Lumbar Spine 2 or 3 Views IMPRESSION: No acute abnormality. Although moderate spondylosis. Electronically Signed: Martín Caceres MD at 16:00 EDT ,
--- NOTE | 2024-01-10 15:45 | RAD_ITS ---
EXAM: XR RIGHT HAND COMPLETE, 3 OR MORE VIEWS CLINICAL INDICATION: Injury/Pain TECHNIQUE: Frontal, lateral and oblique views of the right hand. COMPARISON: No relevant prior studies available. FINDINGS: BONES/JOINTS: Deformity of distal radius, ulnar styloid process and fifth metacarpal related to old fractures. No acute fracture or subluxation. SOFT TISSUES: Normal. No soft tissue swelling or gas. No radiopaque foreign body. RAD/Hand Min 3 Views IMPRESSION: No acute fracture or subluxation. As above. Electronically Signed: Martín Caceers MD at 15:59 EDT ,
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
[2024-01-10] MEDS: Ibuprofen 600 MG Tablet PO (15:55)
[2024-01-10 16:44] VITALS: BP 135/80; PULSE 92; RESP 18; TEMP 36.6; O2SAT 95
== END 2024-01-10 16:47 | disposition home or self-care (01) ==
PROVIDERS: Emergency Provider Emergency Medicine; PCP Family Medicine; Visit Provider Emergency Medicine
DX: S39.012A Strain of muscle, fascia and tendon of lower back, initial encounter (principal); S66.911A Strain of unspecified muscle, fascia and tendon at wrist and hand level, right hand, initial encounter; M25.511 Pain in right shoulder; V53.5XXA Driver of pick-up truck or van injured in collision with car, pick-up truck or van in traffic accident, initial encounter; E78.00 Pure hypercholesterolemia, unspecified; F17.210 Nicotine dependence, cigarettes, uncomplicated; Z79.899 Other long term (current) drug therapy
CPT/HCPCS: 72100; 73130; 99282

== ENCOUNTER → 2024-01-13 | Outpatient (CLI) | payer OTHER, SELFPAY ==
--- NOTE | 2024-01-13 14:53 | ECHOD_ITS ---
Reason For Study: AAA Procedure This was a 2D Doppler, Color Flow transthoracic echocardiogram. Exam performed in department. Left Ventricle Normal LV size. Left ventricular systolic function is normal. The left ventricular ejection fraction is 60 %. No regional wall motion abnormalities noted. Right Ventricle Normal RV size. Normal systolic function. Atria Normal left atrium. Normal right atrium. Mitral Valve Normal mitral valve. Tricuspid Valve Normal tricuspid valve. Mild tricuspid valve insufficiency. Pulmonary artery systolic pressure is 25 mmHg. Aortic Valve Bicuspid aortic valve. Mild focal aortic valve calcification. Pulmonic Valve Normal pulmonic valve. Great Vessels Normal aortic root. The pulmonary artery is normal size. Normal inferior vena cava. Pericardium/Pleural No pericardial effusion. MMode/2D Measurements & Calculations LVIDd: 4.8 cm IVSd: 1.4 cm LVOT diam: 2.4 cm LVIDs: 3.4 cm LVPWd: 1.1 cm LVOT area: 4.4 cm2 RVDd: 3.1 cm FS: 28.7 % Ao root diam: 4.1 cm LAV(MOD-bp): 36.6 ml LVAd ap4: 26.1 cm2 LAV(MOD-bp) Indexed: 17.4 ml/m2 LVLd ap4: 7.1 cm LAV(MOD-sp2): 40.3 ml EDV(MOD-sp4): 80.4 ml LAV(MOD-sp4): 31.5 ml EDV(sp4-el): 81.0 ml LVAs ap4: 15.1 cm2 LVLs ap4: 6.0 cm ESV(MOD-sp4): 33.0 ml ESV(sp4-el): 32.3 ml EF(MOD-sp4): 59.0 % EF(sp4-el): 60.1 % SV(MOD-sp4): 47.4 ml SV(sp4-el): 48.7 ml LA A4 area: 13.0 cm2 LA dimension(2D): 3.5 cm RA A4 area: 13.9 cm2 TAPSE: 2.1 cm Time Measurements MV dec time: 0.20 sec Doppler Measurements & Calculations MV E max javon: 98.2 cm/sec Lat Peak E' Javon: 8.2 cm/sec Med Peak E' Javon: 9.5 cm/sec MV A max javon: 98.5 cm/sec E/E' lat: 12.0 E/E' med: 10.3 MV E/A: 1.00 MV V2 max: 110.2 cm/sec MV P1/2t max javon: 115.9 cm/sec Ao V2 max: 207.6 cm/sec MV max P.9 mmHg MV P1/2t: 50.7 msec Ao max P.3 mmHg MV V2 mean: 72.9 cm/sec Ao V2 mean: 144.6 cm/sec MV mean P.4 mmHg MV dec slope: 670.1 cm/sec2 Ao mean P.4 mmHg MV V2 VTI: 27.7 cm MVA(P1/2t): 4.3 cm2 Ao V2 VTI: 35.7 cm AV (velocity ratio): 0.56 MVA(VTI): 3.2 cm2 SANDY(I,D): 2.4 cm2 SANDY(V,D): 2.1 cm2 LV V1 max: 101.9 cm/sec SV(LVOT): 87.4 ml PA V2 max: 123.1 cm/sec LV V1 max P.2 mmHg PA V2 mean: 95.3 cm/sec LV V1 mean P.6 mmHg LV V1 mean: 78.5 cm/sec LV V1 VTI: 20.0 cm TR max javon: 232.8 cm/sec TR max P.7 mmHg ECHO/Echo Complete Interpretation Summary Normal LV size. Left ventricular systolic function is normal. The left ventricular ejection fraction is 60 %. Mild focal aortic valve calcification. Bicuspid aortic valve. Ordering Physician: Mauricio Lara Referring Physician: Mauricio Lara Performed By: Julianne Solares RDCS, RVT
== END | disposition home or self-care (01) ==
LOC: CVS 14:48
PROVIDERS: PCP Family Medicine; Referring Provider Family Medicine; Visit Provider Family Medicine
DX: I71.21 Aneurysm of the ascending aorta, without rupture (principal)
CPT/HCPCS: 93306

== ENCOUNTER 2024-03-27 10:53 | Emergency (ER) | payer OTHER, SELFPAY ==
[2024-03-27 10:54] VITALS: BP 133/87; PULSE 101; RESP 18; TEMP 36.4; O2SAT 92; BMI 33.7
--- NOTE | 2024-03-27 11:10 | EX.ED.UPPERE ---
HPI <OSIRIS Babb - Last Filed: 03/27/24 12:01> History of Present Illness Chief Complaint: Upper Extremity Injury Narrative Narrative: Patient presenting today with pain to his right hand after an injury that occurred last night. He was visiting with a new horse and got his hand smashed between the horse and the stable. He reports that he is ambidextrous but does use his left hand more. He denies any other injury. PFS <OSIRIS Babb - Last Filed: 03/27/24 12:01> [facility] Medical History Lumbar radiculopathy, acute Wears glasses Alcohol use History of steroid therapy Arthritis Back pain Injury of back Migraine headache Injury of head and neck Gastric reflux Smoker History of fracture of clavicle Hx of fracture of wrist Left shoulder strain Strain of left hip Lumbar radiculopathy Lumbar strain Thoracic myofascial strain High cholesterol Home Medications ?Medication ?Instructions ?Recorded ?Last Taken ?Type naproxen 500 mg tablet (Naprosyn) 500 mg PO BID PRN pain #20 tabs 12/11/21 Unknown Rx pantoprazole 20 mg tablet,delayed 20 mg PO DAILY 12/11/21 11/29/22 History release testosterone cypionate 200 mg/mL 100 mg IM QWEEK 12/11/21 Unknown History intramuscular oil fenofibrate nanocrystallized 48 mg 48 mg PO DAILY 11/11/22 Unknown History tablet (Tricor) atorvastatin 40 mg tablet 40 mg PO QHS 12/02/22 Unknown History multivitamin 1 cap PO DAILY 12/02/22 Unknown History cyclobenzaprine 10 mg tablet 10 mg PO HS PRN muscle spasm #14 12/17/22 Unknown Rx tabs hydrocodone-acetaminophen 5-325mg 1 tab PO Q4H PRN PRN Pain 2 days 08/17/23 Unknown Rx 5mg-325mg #10 TABLETS naproxen 500 mg tablet (Naprosyn) 500 mg PO BID PRN pain #20 tabs 08/17/23 Unknown Rx cyclobenzaprine 10 mg tablet 10 mg PO TID PRN Muscle Spasm #15 01/10/24 Unknown Rx TABLETS Allergy/AdvReac Type Severity Reaction Status Date / Time bee venom protein (honey bee) Allergy Anaphylaxis Verified 03/27/24 10:53 fish oil Allergy Hives Verified 03/27/24 10:53 Surgical History Hx of removal of testicle History of incision and drainage History of removal of retained hardware Social History Smoking Status: Current every day smoker tobacco type: cigarettes alcohol intake: current substance use type: does not use additional social history: daily use of aspirin and ibuprofen ROS <OSIRIS Babb - Last Filed: 03/27/24 12:01> ROS ED Constitutional Constitutional ED: Denies chills or fever(s) Cardiovascular Cardiovascular: Denies chest pain Respiratory/Chest Respiratory/Chest: Denies dyspnea Gastrointestinal Gastrointestinal: Denies abdominal pain, nausea or vomiting Musculoskeletal Musculoskeletal: Reports arthralgias Integumentary Denies Abrasions Neurologic Neurologic: Denies paresthesias EXAM <OSIRIS Babb - Last Filed: 03/27/24 12:01> Physical Exam Const Vital Signs: 03/27/24 10:54 Temperature 97.6 F L Temperature Source Temporal Pulse Rate 101 H Respiratory Rate 18 Blood Pressure 133/87 H Blood Pressure Mean 102 Pulse Ox 92 Oxygen Delivery Method Room Air Positive well nourished, well developed and no apparent distress General Appearance ED: well developed HEENT Reports normocephalic and head/scalp atraumatic Mouth ED: Yes moist mucous membranes normal Eyes PERRL and EOMs intact bilaterally Neck full ROM Resp normal respiratory effort and clear to auscultation bilaterally Cardio regular rate and regular rhythm Back/Spine normal to inspection Extremity normal to inspection and full ROM Extremity Narrative: Edema to the dorsum of the right hand, full flexion and extension at the MCP, PIP, DIP joints of the right hand. Right radial pulse 2+, good capillary refill, sensation intact. Neuro oriented x3, CN's II-XII intact bilaterally, moves all extremities, no focal motor deficits and no sensory deficits noted Sensorium / Orientation: awake and alert Psych mental status grossly normal and thought process normal Skin no rashes or lesions noted and no wounds MDM <OSIRIS Babb - Last Filed: 03/27/24 12:01> MDM MDM Narrative Medical decision making narrative: Patient presenting today with pain to his right hand after getting his hand smashed between a horse and the stall yesterday. X-ray will be obtained to rule out fracture, I did offer analgesia, he declines. X-ray shows evidence of previous wrist fracture which patient had surgery for. No acute fracture in his hand or wrist. He will be given a cock up wrist splint, RICE instructions, and will be discharged home in stable condition. He can alternate Tylenol and ibuprofen as needed for his pain. <Dr. Severo Dumas, DO - Last Filed: 03/27/24 12:29> [facility] Narrative Medical decision making narrative: Patient presenting today with pain to his right hand after getting his hand smashed between a horse and the stall yesterday. X-ray will be obtained to rule out fracture, I did offer analgesia, he declines. X-ray shows evidence of previous wrist fracture which patient had surgery for. No acute fracture in his hand or wrist. He will be given a cock up wrist splint, RICE instructions, and will be discharged home in stable condition. He can alternate Tylenol and ibuprofen as needed for his pain. I have personally performed a face to face assessment of the patient and have reviewed the BRE note. I personally made/approved the management plan and take responsibility for the patient management. I performed a substantive portion of the visit including all aspects of the following. My ray findings include: [id number] male presents crush injury right hand yesterday evening between horse and stall. Pain to the dorsal hand. No medications taken. History of wrist fracture hardware has been removed. History of hand fracture, with no surgical intervention. Exam tender dorsal aspect second third and fourth metacarpals proximally. Mild swelling. Soft compartments. Three-view x-ray right hand interpreted myself and read by radiology no new fractures. Old healed fractures noted. No clinical compartment syndrome. Cock-up splint provided for immobilization. Declining medication in the ED. Use Tylenol Motrin as needed. Outpatient follow-up. Discharge Plan Triage Chief Complaint: Upper Extremity Injury ED Midlevel Provider: Joan Summers ED Provider: Severo Dumas Dx/Rx/DC Orders Clinical Impression: Contusion of hand, right Instructions: ED Hand Contusion Prescriptions: No Action fenofibrate nanocrystallized [Tricor] 48 mg tablet 48 mg PO DAILY cyclobenzaprine 10 mg tablet 10 mg PO HS PRN (Reason: muscle spasm) Qty: 14 0RF pantoprazole 20 mg tablet,delayed release (DR/EC) 20 mg PO DAILY Patient Comments: TAKE 1 TABLET BY MOUTH EVERY DAY testosterone cypionate 200 mg/mL oil 100 mg IM QWEEK Patient Comments: INJECT 0.5 ML (100 MG TOTAL) INTO THE SHOULDER, THIGH, OR BUTTOCKS ONCE A WEEK . naproxen [Naprosyn] 500 mg tablet 500 mg PO BID PRN (Reason: pain) Qty: 20 0RF atorvastatin 40 mg Tablet 40 mg PO QHS multivitamin Capsule 1 cap PO DAILY hydrocodone-acetaminophen [hydrocodone-acetaminophen] 5-325 mg tablet 1 tab PO Q4H PRN PRN (Reason: Pain) 2 Days Qty: 10 0RF naproxen [Naprosyn] 500 mg tablet 500 mg PO BID PRN (Reason: pain) Qty: 20 0RF cyclobenzaprine 10 mg tablet 10 mg PO TID PRN (Reason: Muscle Spasm) Qty: 15 0RF Primary Care Provider: Mauricio Lara Referrals: Mauricio Lara MD [Primary Care Provider] - 1 Week if not improving Activity Restrictions/Additional Instructions: You can alternate Tylenol and ibuprofen as needed for your pain, elevate hand and ice your hand 15 to 20 minutes at a time a few times a day to help with swelling. Print Language: Yoruba Disposition Disposition: Home, Self Care Discharge Date/Time: 03/27/24 12:08
--- NOTE | 2024-03-27 11:15 | RAD_ITS ---
EXAM: XR RIGHT HAND COMPLETE, 3 OR MORE VIEWS CLINICAL INDICATION: hand pain TECHNIQUE: Frontal, lateral and oblique views of the right hand. COMPARISON: No relevant prior studies available. FINDINGS: BONES/JOINTS: Small well-corticated bone of the distal ulnar side of process due to remote fracture injury. Preservation of the joint space. No sclerotic or destructive changes observed. SOFT TISSUES: Unremarkable. No soft tissue swelling or gas. No radiopaque foreign body. RAD/Hand Min 3 Views IMPRESSION: No acute osseous abnormality in the right hand. Electronically Signed: Alphonse Younger MD at 11:47 EDT ,
== END 2024-03-27 12:08 | disposition home or self-care (01) ==
PROVIDERS: Emergency Provider Emergency Medicine; PCP Family Medicine; Visit Provider Emergency Medicine
DX: S60.221A Contusion of right hand, initial encounter (principal); W23.2XXA Caught, crushed, jammed or pinched between a moving and stationary object, initial encounter; E78.00 Pure hypercholesterolemia, unspecified; F17.210 Nicotine dependence, cigarettes, uncomplicated; Z79.899 Other long term (current) drug therapy
CPT/HCPCS: 73130; 99283

== ENCOUNTER 2024-03-30 20:42 | Emergency (ER) | payer OTHER, SELFPAY ==
[2024-03-30 20:43] VITALS: BP 146/99; PULSE 78; RESP 16; TEMP 36.6; O2SAT 96
--- NOTE | 2024-03-30 21:22 | EDS_ITS ---
HPI History of Present Illness HPI Narrative: Patient presents with left leg injury that occurred today. Patient states that his accidentally ran over his leg with a golf cart. Patient states his leg was pinned between a golf cart and a metal gate. Patient describes the pain as throbbing. Patient admits to some tingling into his foot. Patient states his pain is worse with movement. Patient states his last tetanus was approximately 6 years ago. Patient denies any weakness. Patient denies any other injuries. Chief Complaint: Trauma Informant: patient Occured/Mechanism Mechanism/Context: Yes direct blow Onset/Context/Timing Onset: Today Context: Sudden Onset Timing: Continuous Quality of Pain: Throbbing Location: Left ankle Worsened by: Movement Relieved by: Nothing Associated Symptoms Associated Symptoms: Positive for Parasthesia; Negative for Weakness or Loss of Funtion Narrative Tetanus Immunization: 5-10 years [facility] Medical History Lumbar radiculopathy, acute Wears glasses Alcohol use History of steroid therapy Arthritis Back pain Injury of back Migraine headache Injury of head and neck Gastric reflux Smoker History of fracture of clavicle Hx of fracture of wrist Left shoulder strain Strain of left hip Lumbar radiculopathy Lumbar strain Thoracic myofascial strain High cholesterol Home Medications ?Medication ?Instructions ?Recorded ?Last Taken ?Type naproxen 500 mg tablet (Naprosyn) 500 mg PO BID PRN pain #20 tabs 12/11/21 Unknown Rx pantoprazole 20 mg tablet,delayed 20 mg PO DAILY 12/11/21 11/29/22 History release testosterone cypionate 200 mg/mL 100 mg IM QWEEK 12/11/21 Unknown History intramuscular oil fenofibrate nanocrystallized 48 mg 48 mg PO DAILY 11/11/22 Unknown History tablet (Tricor) atorvastatin 40 mg tablet 40 mg PO QHS 12/02/22 Unknown History multivitamin 1 cap PO DAILY 12/02/22 Unknown History cyclobenzaprine 10 mg tablet 10 mg PO HS PRN muscle spasm #14 12/17/22 Unknown Rx tabs hydrocodone-acetaminophen 5-325mg 1 tab PO Q4H PRN PRN Pain 2 days 08/17/23 Unknown Rx 5mg-325mg #10 TABLETS naproxen 500 mg tablet (Naprosyn) 500 mg PO BID PRN pain #20 tabs 08/17/23 Unknown Rx cyclobenzaprine 10 mg tablet 10 mg PO TID PRN Muscle Spasm #15 01/10/24 Unknown Rx TABLETS Allergy/AdvReac Type Severity Reaction Status Date / Time bee venom protein (honey bee) Allergy Anaphylaxis Verified 03/30/24 20:45 fish oil Allergy Hives Verified 03/30/24 20:45 Surgical History Hx of removal of testicle History of incision and drainage History of removal of retained hardware Social History Smoking Status: Current every day smoker tobacco type: cigarettes alcohol intake: current substance use type: does not use additional social history: daily use of aspirin and ibuprofen ROS ROS ED Constitutional Constitutional ED: Denies chills or fever(s) Eyes Eyes: Denies blurry vision or change in vision ENT ENT ED: Denies rhinorrhea or sore throat Cardiovascular Cardiovascular: Denies chest pain or palpitations Respiratory/Chest Respiratory/Chest: Denies cough or dyspnea Gastrointestinal Gastrointestinal: Denies nausea or vomiting Genitourinary Genitourinary ED: Denies dysuria or hematuria Musculoskeletal Musculoskeletal: Denies back pain or neck pain Integumentary Denies abscess or rash Neurologic Neurologic: Denies headache(s) or weakness Allergic/Immunologic Allergic/Immunologic ED: Denies mouth swelling or urticaria EXAM Physical Exam Const Vital Signs: 03/30/24 20:43 Temperature 97.8 F Temperature Source Temporal Pulse Rate 78 Respiratory Rate 16 Blood Pressure 146/99 H Blood Pressure Mean 114 Pulse Ox 96 Oxygen Delivery Method Room Air Positive well nourished and well developed General Appearance ED: well developed and NAD HEENT Reports moist mucous membranes Neck full ROM and supple Extremity Extremity Narrative: There is tenderness over the medial aspect of the left distal tibia. There is a 1 cm laceration over this area. There is no bony crepitance or step-off noted. There is no obvious deformity noted. There is mild tenderness over the proximal tibia as well. There is decreased range of motion of the left knee and left ankle secondary to pain. Pedal pulses are equal bilaterally. Sensation was intact to light touch in all digits. Capillary refill was less than 2 seconds in all digits. Neuro oriented x3, CN's II-XII intact bilaterally, moves all extremities and no sensory deficits noted Sensorium / Orientation: alert Motor Exam: strength 5/5 throughout Psych mental status grossly normal MDM MDM MDM Narrative Medical decision making narrative: Differential diagnosis includes open fracture, laceration, contusion, and sprain. X-rays of the left tibia and fibula will be obtained to assess for fracture. Radiography Diagnostic Testing: X-rays of the left tibia and fibula were obtained. There are 4 views. On my independent interpretation, there is no acute fracture or dislocation. There is no radiopaque foreign body noted. There is some soft tissue swelling noted. Radiologist also interpreted the x-rays and agrees. Treatment and Re-Evaluation Narrative: Smoking cessation was discussed. Patient was given a dose of [place] here. Patient was advised of the need for suture repair. The patient left prior to receiving sutures and x-ray results. Patient did not wait to sign out AGAINST MEDICAL ADVICE. Patient eloped. Discharge Plan Triage Chief Complaint: Trauma ED Provider: Otis Carlos Dx/Rx/DC Orders Clinical Impression: Contusion of left lower leg, Laceration of left lower leg, Tobacco use disorder Prescriptions: No Action fenofibrate nanocrystallized [Tricor] 48 mg tablet 48 mg PO DAILY cyclobenzaprine 10 mg tablet 10 mg PO HS PRN (Reason: muscle spasm) Qty: 14 0RF pantoprazole 20 mg tablet,delayed release (DR/EC) 20 mg PO DAILY Patient Comments: TAKE 1 TABLET BY MOUTH EVERY DAY testosterone cypionate 200 mg/mL oil 100 mg IM QWEEK Patient Comments: INJECT 0.5 ML (100 MG TOTAL) INTO THE SHOULDER, THIGH, OR BUTTOCKS ONCE A WEEK . naproxen [Naprosyn] 500 mg tablet 500 mg PO BID PRN (Reason: pain) Qty: 20 0RF atorvastatin 40 mg Tablet 40 mg PO QHS multivitamin Capsule 1 cap PO DAILY hydrocodone-acetaminophen [hydrocodone-acetaminophen] 5-325 mg tablet 1 tab PO Q4H PRN PRN (Reason: Pain) 2 Days Qty: 10 0RF naproxen [Naprosyn] 500 mg tablet 500 mg PO BID PRN (Reason: pain) Qty: 20 0RF cyclobenzaprine 10 mg tablet 10 mg PO TID PRN (Reason: Muscle Spasm) Qty: 15 0RF Primary Care Provider: Mauricio Lara Referrals: Mauricio Lara MD [Primary Care Provider] - 5-7 Days Print Language: Somali Disposition Disposition: Elopement
[2024-03-30] MEDS: HYDROcodone Bitartrate/Apap 5/325 Tablet PO (21:54)
[2024-03-30] MEDS: Lidocaine 1% (20 ml mdv) 20 ML Vial INFILT (21:54)
--- NOTE | 2024-03-30 22:00 | RAD_ITS ---
EXAM: XR LEFT TIBIA AND FIBULA, 2 VIEWS CLINICAL INDICATION: Injury/Pain TECHNIQUE: Frontal and lateral views of the left tibia and fibula. COMPARISON: No relevant prior studies available. FINDINGS: BONES/JOINTS: Unremarkable. No acute fracture. No subluxation. Normal alignment. Preservation of the joint space. No sclerotic or destructive changes observed. SOFT TISSUES: Calf soft tissue swelling posteriorly and medially may be due to hematoma. RAD/Tibia & Fibula 2 Views IMPRESSION: Calf soft tissue swelling posteriorly and medially may be due to hematoma. No fracture. Electronically Signed: Blair Fernandes MD at 22:25 EDT ,
--- NOTE | 2024-03-30 23:26 | ED.RN ---
Patient's family come out to the nursing desk asking what's taking so long This RN explains that his results are back and we are waiting for the physician to come back in and go over results and suture him up. She rolls her eyes at this RN stating well he has to get up early, I don't think he wants to wait This RN states it is up to them if they want to wait or not, but physical should be in soon. This RN then witnessed them walking out of the department together. Pt was walking with steady gait without assistance. This RN asks if they are leaving and they did not respond. Patients family then walks back into the department demanding that we tell her the results of the xray. We explained that we can not do that. Patient and family left. Dr Carlos made aware. Family then calls into department again demanding someone tell her the results of the xray and if they need to go to another hospital. This RN explains that we cannot give results over the phone, she then states what are we suppose to do then This RN explains that they should be able to see his results on his portal. They then hung up on this RN.
== END 2024-03-30 23:40 | disposition left against medical advice (07) ==
PROVIDERS: Emergency Provider Emergency Medicine; PCP Family Medicine; Visit Provider Emergency Medicine
DX: S81.812A Laceration without foreign body, left lower leg, initial encounter (principal); V86.79XA Person on outside of other special all-terrain or other off-road motor vehicles injured in nontraffic accident, initial encounter; E78.00 Pure hypercholesterolemia, unspecified; F17.210 Nicotine dependence, cigarettes, uncomplicated; Z79.82 Long term (current) use of aspirin; Z79.899 Other long term (current) drug therapy
CPT/HCPCS: 73590; 99282

== ENCOUNTER 2024-09-24 17:38 | Emergency (ER) | payer OTHER, SELFPAY ==
[2024-09-24 17:39] VITALS: BP 147/93; PULSE 91; RESP 18; TEMP 36.8; O2SAT 96; BMI 34.7
--- NOTE | 2024-09-24 18:04 | RAD_ITS ---
PROCEDURE: Right hand radiographs REASON FOR EXAM: Pain TECHNIQUE: Three views of the right hand COMPARISON: 03/27/2024 FINDINGS: See impression RAD/Hand Min 3 Views IMPRESSION: Negative for acute displaced fracture or dislocation. Chronic fracture deformi ties of the distal radius and proximal aspect of the 3rd metacarpal. Scattered degenerative changes throughout the carpus. No radiopaque foreign body. Reading Location: [facility]
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
--- NOTE | 2024-09-24 18:15 | RAD_ITS ---
PROCEDURE: Chest radiograph REASON FOR EXAM: Shortness of breath TECHNIQUE: Frontal view of the chest COMPARISON: None. FINDINGS: Cardiomediastinal silhouette is within normal limits. Lungs are clear. No sizable pneumothorax. RAD/Chest 1 View (Portable) IMPRESSION: No acute airspace abnormality. Reading Location: [facility]
[2024-09-24 18:43] VITALS: BP 131/87; O2SAT 100
[2024-09-24 18:56] VITALS: BP 131/87; PULSE 75; RESP 16; O2SAT 100
[2024-09-24 19:00] VITALS: BP 133/82
[2024-09-24 19:53] VITALS: BP 125/95; PULSE 78; RESP 16; TEMP 36.8; O2SAT 99
== END 2024-09-24 19:58 | disposition home or self-care (01) ==
PROVIDERS: Emergency Provider Emergency Medicine; PCP Family Medicine; Referring Provider Emergency Medicine; Visit Provider Emergency Medicine
DX: R06.02 Shortness of breath (principal); J70.5 Respiratory conditions due to smoke inhalation; S60.221A Contusion of right hand, initial encounter; W01.0XXA Fall on same level from slipping, tripping and stumbling without subsequent striking against object, initial encounter; F17.210 Nicotine dependence, cigarettes, uncomplicated
CPT/HCPCS: 71045; 73130; 82375; 93005; 99282; A4216

== ENCOUNTER 2024-10-04 21:25 | Emergency (ER) | payer OTHER, SELFPAY ==
[2024-10-04 21:25] VITALS: BP 146/98; PULSE 87; RESP 16; TEMP 36.1; O2SAT 96; BMI 33.4
--- NOTE | 2024-10-04 21:40 | RAD_ITS ---
PROCEDURE: TIBIA FIBULA 2 VIEWS REASON FOR EXAM: Injury TECHNIQUE: Four views of the left leg COMPARISON: None. FINDINGS: No fracture. No suspicious bone lesion. Normal alignment at the knee and ankle. Soft tissues are unremarkable. RAD/Tibia & Fibula 2 Views IMPRESSION: No acute fracture or dislocation. Reading Location: [facility]
[2024-10-04] MEDS: morphine 10 MG/ML Syringe 8 MG IM (22:16)
[2024-10-04] MEDS: Ondansetron ODT 4 MG Tablet PO (22:16)
[2024-10-04] MEDS: Lidocaine 2% /Epi 1:100 (20ml) 20 ML VIAL INFILT (22:16)
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
[2024-10-04] MEDS: oxyCODONE 5 MG Tablet 10 MG PO (23:16)
== END 2024-10-04 23:20 | disposition home or self-care (01) ==
PROVIDERS: Emergency Provider Emergency Medicine; PCP Family Medicine; Visit Provider Emergency Medicine
DX: S80.12XA Contusion of left lower leg, initial encounter (principal); W55.12XA Struck by horse, initial encounter; K29.70 Gastritis, unspecified, without bleeding; E78.00 Pure hypercholesterolemia, unspecified; Z79.899 Other long term (current) drug therapy
CPT/HCPCS: 10160; 73590; 96372; 99282

== ENCOUNTER 2024-12-07 04:56 | Observation (INO) | payer OTHER, SELFPAY ==
[2024-12-07] VITALS (13 sets, daily range): BP systolic 118–137; BP diastolic 63–90; PULSE 67–97; RESP 16–18; TEMP 36.7–37.1; O2SAT 92–100; BMI 34.0; BMI 32.1
--- NOTE | 2024-12-07 05:12 | ED.RN ---
0508: ATTEMPT MADE TO PLACE PT. IN HOSPITAL GOWN. PT. REPLIED I AM JUST GOING TO TAKE IT BACK OFF AND PUT MY SWEATSHIRT ON. I AM SO COLD. PT. OFFERED A WARM BLANKET AND CONTINUED TO DECLINE GOWN. PT. REMAINS IN BED W/ GOWN LAYING ON BED AT SIDE AND NO TOP ON. WARM BLANKET PROVIDED BY Renetta VILLANUEVA.
--- NOTE | 2024-12-07 05:25 | US_ITS ---
PROCEDURE: GALLBLADDER 12/07/2024 REASON FOR EXAM: RUQ ABD PAIN COMPARISON: None available FINDINGS: Liver: Measures 17.8 cm and appears diffusely increased in echogenicity which can be seen with hepatic steatosis or other hepatocellular disease. Increased liver echogenicity limits parenchymal sonographic evaluation. No intrahepatic biliary ductal dilation. Hepatic color flow is present. Flow within the portal vein appears hepatopetal as expected. Gallbladder: Gallbladder appears within limits without stones, wall thickening or pericholecystic free fluid. Wall measures 2 mm. Report of a negative sonographic Meng's sign. Hypoechoic area adjacent to the gallbladder fossa may represent focal fatty sparing. Common bile duct: 7 mm mildly large for age. Pancreas: The visualized pancreas appears within limits. No pancreatic ductal dilation identified. The right kidney measures 12 x 5.6 x 5.3 cm with a cortical thickness of 1.6 cm. No right hydronephrosis, renal stone or perinephric fluid seen. No free fluid seen. US/Gallbladder IMPRESSION: CBD measures large for age at 7 mm. May correlate further with LFTs and alkali ne phosphatase. The liver is diffusely increased in echogenicity which can be seen with hepatic steatosis or other hepatocellular disease. Reading Location: [id number]
[2024-12-07] MEDS: Ondansetron 4 MG/2 ML Vial IV ×2 (05:37→17:33)
[2024-12-07] MEDS: HYDROmorphone 1 MG/ML Syringe IV ×2 (05:37→12:24)
[2024-12-07] MEDS: 0.9% Normal Saline (1000mL) 1,000 ML 999 ML IV (05:37)
[2024-12-07] MEDS: Pantoprazole Sodium 40 MG in 0.9% Normal Saline (100mL MB+) 100 ML 330 MG IV (05:37)
[2024-12-07 05:52] LABS: Absolute Lymphocyte Count 1.54 X10^3/uL (0.83-4.51); Absolute Neutrophil Count 11.8 X10^3/uL (2.0-7.7); Basophil# 0.04 X10^3/uL; Basophil% 0.3 % (0-1); Eosinophil# 0.12 X10^3/uL; Eosinophils% 0.8 % (0-5); Hematocrit 47.6 % (40-54); Hemoglobin 16.8 g/dL (13.0-16.5); Lymphocyte # 1.54 X10^3/ul (0.83-4.51); Lymphocyte % 10.7 % (19-41); Mean Corp Hgb Conc 35.3 g/dL (32-36); Mean Corpuscular Hgb 32.4 pg (27.0-32.0); Mean Corpuscular Volume 91.7 fL (80-94); Mean Platelet Vol. 9.5 fl (6.2-12.0); Monocyte# 0.92 X10^3/uL; Monocyte% 6.4 % (0-10); NRBC Flagged by Analyzer 0 % (0-5); Neutrophil # 11.76 X10^3/uL (2.7-7.7); Neutrophil % 81.2 % (47-70); Platelet Count 204 K/mm3 (150-450); RBC Distribution Width CV 12.9 % (11.6-14.6); RBC Distribution Width SD 43.1 fl (35.1-43.9); Red Blood Count 5.19 M/mm3 (4.6-6.2); White Blood Count 14.5 K/mm3 (4.4-11.0)
[2024-12-07 06:14] LABS: Lactic Acid 1.1 mmol/L (0.0-2.0)
[2024-12-07 06:18] LABS: AST(SGOT) 29 U/L (<=37); Alanine Aminotransfer ALT/SGPT 47 U/L (<=46); Albumin, Serum 4.1 g/dL (3.5-5.0); Alkaline Phosphatase 61 U/L (40-129); Anion Gap 11 (5-15); BUN 9 mg/dL (4-19); BUN/Creat Ratio 9.5 RATIO (10-20); Bilirubin, Direct 0.16 mg/dL (0.00-0.30); Calcium,Total 9.2 mg/dL (7.6-11.0); Carbon Dioxide 23.6 mmol/L (21.0-32.0); Chloride 102 mmol/L (98-108); EST Glomerular Filtration Rate 93 (>60); Estimated Creatinine Clearance 97.72 ml/min (50-250); Globulin 3.7 g/dL (2.2-4.2); Glucose 100 mg/dL (70-99); Lipase 76 U/L (13-75); Potassium 4.2 mmol/L (3.3-5.1); Protein, Total 7.8 g/dL (5.9-8.4); Sodium Level 136 mmol/L (133-145); Total Bilirubin 0.58 mg/dL (0.00-1.30)
--- NOTE | 2024-12-07 07:11 | EDS_ITS ---
HPI History of Present Illness Chief Complaint: Abd Pain Informant: patient and spouse/S.O. Narrative Narrative: Patient is a 48-year-old male with past medical history of of gastritis and lumbar radiculopathy. He states over the past 2 days or so he has developed upper abdominal pain with nausea. He states that he has taken medications for his gastritis without any symptom improvement. He reports with this he has had subjective fevers and chills. He denies any loose stool or diarrhea and he denies any known sick contacts. He reports that despite giving his symptoms time to improve they seem to be worsening and secondary to this he comes in for evaluation [facility] Medical History Lumbar radiculopathy, acute Wears glasses Alcohol use History of steroid therapy Arthritis Back pain Injury of back Migraine headache Injury of head and neck Gastric reflux Smoker History of fracture of clavicle Hx of fracture of wrist Left shoulder strain Strain of left hip Lumbar radiculopathy Lumbar strain Thoracic myofascial strain High cholesterol Home Medications ?Medication ?Instructions ?Recorded ?Last Taken ?Type naproxen 500 mg tablet (Naprosyn) 500 mg PO BID PRN pa in #20 tabs 12/11/21 Unknown Rx sildenafil 100 mg tablet 100 mg PO DAILY PRN sexual F UNCTION 09/24/24 09/03/24 History multivitamin (Daily Multi-Vitamin 1 tab PO DAILY 10/04 Unknown History tablet) testosterone cypionate 100 mg/mL 100 mg IM QMONTH 02/24 Unknown History intramuscular oil (Depo-Testosterone) Allergy/AdvReac Type Severity Reaction Status Date / Time bee venom protein (honey bee) Allergy Anaphylaxis Verified 12/07/24 05:02 fish oil Allergy Hives Verified 12/07/24 05:02 Surgical History Hx of removal of testicle History of incision and drainage History of removal of retained hardware Social History Smoking Status: Current every day smoker tobacco type: cigarettes alcohol intake: current substance use type: does not use additional social history: daily use of aspirin and ibuprofen ROS ROS ED Constitutional Constitutional ED: Reports chills, fever(s) and subjective ENT ENT ED: Denies sore throat Cardiovascular Cardiovascular: Denies chest pain Respiratory/Chest Respiratory/Chest: Denies cough or dyspnea Gastrointestinal Gastrointestinal: Reports abdominal pain and nausea; Denies diarrhea or vomiting Genitourinary Genitourinary ED: Denies dysuria or hematuria Musculoskeletal Musculoskeletal: Denies back pain or myalgias Integumentary Denies rash Neurologic Neurologic: Denies headache(s) Hematologic/Lymphatic Hematologic/Lymphatic: Denies easy bleeding or easy bruising EXAM Physical Exam Const Vital Signs: 12/07/24 04:57 12/07/24 04:59 12/07/24 05:45 Temperature 98.1 F 98.1 F Temperature Source Oral Oral Pulse Rate 81 83 97 Respiratory Rate 16 16 16 Blood Pressure 137/90 H 136/87 H 125/82 H Blood Pressure Mean 105 103 96 Pulse Ox 95 95 99 Oxygen Delivery Method Room Air Room Air Room Air 12/07/24 05:59 12/07/24 06:00 Temperature 98.4 F 98.4 F Temperature Source Oral Oral Pulse Rate 73 72 Respiratory Rate 16 16 Blood Pressure 133/64 H 133/64 H Blood Pressure Mean 87 87 Pulse Ox 94 98 Oxygen Delivery Method Room Air Room Air Positive well nourished and well developed General Appearance ED: well developed; Negative for pallor HEENT Reports moist mucous membranes HEENT Narrative: No tongue or lip swelling no oral lesions no airway edema or compromise No secondary findings in the posterior pharynx to suggest infection Eyes PERRL and EOMs intact bilaterally General Eye ED: Negative for scleral icterus Neck supple Neck Narrative: No nuchal rigidity or meningeal signs noted Resp normal respiratory effort and clear to auscultation bilaterally Cardio regular rate and regular rhythm GI non-distended and no masses GI Narrative: Abdomen is soft and nondistended with normal active bowel sounds. There is pain with palpation in the midepigastric and right upper quadrant region. It is greatest in the right upper quadrant with voluntary guarding and positive Meng sign No peritoneal signs or pulsatile mass. Auscultation: normoactive bowel sounds Palpation: soft Back/Spine no CVA tenderness Extremity normal to inspection Neuro oriented x3, CN's II-XII intact bilaterally and no sensory deficits noted Sensorium / Orientation: alert Motor Exam: strength 5/5 throughout Psych mental status grossly normal Skin no rashes or lesions noted General Skin Exam: Negative for jaundice or pallor MDM MDM MDM Narrative Medical decision making narrative: Patient arrived to the ER slightly hypertensive but otherwise with stable vitals. He reported subjective and fever at home but denied taking any antipyretic medication his temperature is normal upon arrival. He states the pain is more midepigastric but on exam it is greatest in the right upper quadrant and therefore there is concern for biliary colic versus acute cholecystitis versus pancreatitis versus gastritis. Secondary to his basic labs were obtained as well as a gallbladder ultrasound. The patient's white count is elevated at 14.5 and there is left shift with his neutrophil count elevated at 12. Despite this his lactic acid is normal and he does not have elevation to his liver enzymes. After 1 dose of IV Dilaudid he reports improvement of his pain while at rest but with palpation there is still voluntary guarding in the right upper quadrant. There is concern that this is secondary to developing acute cholecystitis with his subjective fevers and chills nausea and pain in the right upper quadrant. At this time the gallbladder ultrasound is still pending. Therefore the patient will be signed out to day physician Dr. Valverde. She will evaluate the ultrasound report and discussed the case with general surgery if needed. Plan of care was discussed with the patient and he is agreeable to it History & Record Review Discussion w/independent historian: Patient and Significant other Lab Data Attestation: I reviewed the patient's lab results. Labs: Laboratory Results - last 24 hr 12/07/24 05:42 WBC 14.5 H RBC 5.19 Hgb 16.8 H Hct 47.6 MCV 91.7 MCH 32.4 H MCHC 35.3 RDW Std Deviation 43.1 RDW Coeff of Jerod 12.9 Plt Count 204 MPV 9.5 Immature Gran % (Auto) 0.600 Neut % (Auto) 81.2 H Lymph % (Auto) 10.7 L Bowie % (Auto) 6.4 Eos % (Auto) 0.8 Baso % (Auto) 0.3 Absolute Neuts (auto) 11.8 H Absolute Lymphs (auto) 1.54 Nucleated RBC % 0 Sodium 136 Potassium 4.2 Chloride 102 Carbon Dioxide 23.6 Anion Gap 11 BUN 9 Creatinine 1.00 Estim Creat Clear Calc 97.72 Est GFR (MDRD) Non-Af 93 BUN/Creatinine Ratio 9.5 L Glucose 100 H Lactic Acid 1.1 Calcium 9.2 Total Bilirubin 0.58 Direct Bilirubin 0.16 AST 29 ALT 47 Alkaline Phosphatase 61 Total Protein 7.8 Albumin 4.1 Globulin 3.7 Lipase 76 H Discharge Plan Triage Chief Complaint: Abd Pain ED Provider: Miguel Angel Hunter Dx/Rx/DC Orders Prescriptions: No Action naproxen [Naprosyn] 500 mg tablet 500 mg PO BID PRN (Reason: pain) Qty: 20 0RF multivitamin [Daily Multi-Vitamin] Tablet 1 tab PO DAILY testosterone cypionate [Depo-Testosterone] 100 mg/mL oil 100 mg IM QMONTH sildenafil 100 mg tablet 100 mg PO DAILY PRN (Reason: sexual FUNCTION) Primary Care Provider: Mauricio Lara Referrals: Mauricio Lara MD [Primary Care Provider] - Print Language: Dutch
[2024-12-07] MEDS: Mag Hydrox/Al Hydrox/Simeth 30 ML UDC PO (09:18)
[2024-12-07] MEDS: Lidocaine 2% Viscous15 ML UDC 15 ML PO (09:18)
--- NOTE | 2024-12-07 10:11 | CT_ITS ---
PROCEDURE: ABDOMEN/PELVIS W IV CONT ONLY, 12/07/2024 REASON FOR EXAM: RUQ ABD PAIN TECHNIQUE: CT abdomen and pelvis was performed with IV contrast. Multiplanar reformats were generated. IV contrast: Isovue-300 VOLUME: 98mL RADIATION DOSE SUMMARY: CTDlvol: 16.62+ 19.0 mGy DLP: 1166.65 mGycm One or more dose reduction techniques were used (e.g., Automated exposure control, adjustment of the mA and/or kV according to patient size, use of iterative reconstruction technique). COMPARISON: 12/07/2024 FINDINGS: Lung bases: Chronic granulomatous disease. Liver: Suspect mild steatosis. Mildly lobulated hepatic contours.. Spleen: Mild splenomegaly, 13.1 cm.. Gallbladder: Unremarkable gallbladder. Mild dilatation of the CBD to 10 mm with relatively abrupt transition of the pancreatic head Pancreas: Inflammatory changes surrounding the pancreatic head/uncinate process. Ill-defined soft tissue prominence in the region without measurable mass. 7 mm hypodensity in the uncinate process. No ductal dilatation. Adrenals: Unremarkable. Kidneys: Unremarkable. Bowel: Gastric underdistention limits evaluation of wall thickness. Minimal diverticulosis.. Normal caliber appendix. Lymph nodes: Unremarkable. Vasculature: Trace atherosclerosis. Prominent retroperitoneal collaterals of uncertain significance.. Peritoneum: Unremarkable. Bladder: Underdistended and suboptimally evaluated, grossly unremarkable. Reproductive Organs: Trace RIGHT hydrocele. LEFT orchiectomy.. Body Wall: Unremarkable. Bones: Mild multilevel spondylosis. Trace lumbar levoscoliosis may be positional.. CT/Abdomen/Pelvis W IV Cont ONLY IMPRESSION: 1. Findings are compatible with mild focal acute pancreatitis involving the white creatic head/uncinate process. Lipase. No correlate with serum organized collection is present. Given soft tissue promin ence versus edema in the region, recommend follow-up to ensure resolution and no underlying mass. No organized fluid jazlyn ection at present. 2. Mild dilatation of the CBD with relatively abrupt transition at the pancreat ic head. No visible choledocholithiasis or other measurable obstructing lesion. Correlate with serum bilirubin and consider MRC P as indicated. 3. 7 mm pancreatic hypodensity in the uncinate process, possible cystic neoplas m such as IPMN. No ductal dilatation. Recommend follow-up multiphase pancreatic protocol MRI abdomen with and without contrast and with MRCP in 1 year per ACR recommendations to evaluate stability. 4. Suspected hepatic steatosis with mild splenomegaly and mildly lobulated cont ours as can be seen in early fibrosis. No overt serosal nodularity to suggest cirrhosis. Correlate for clinical and laboratory evidence of chronic liver disease 5. Additional description as above. Reading Location: [id number]
[2024-12-07] MEDS: fentaNYL 100 MCG/2 ML Ampul 75 MCG IV (11:34)
[2024-12-07] MEDS: 0.9% Normal Saline (1000mL) 1,000 ML 200 ML IV ×3 (12:24→23:59)
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
--- NOTE | 2024-12-07 14:01 | MRI_ITS ---
PROCEDURE: MRCP ABDOMEN WITHOUT CONTRAST, 12/07/2024 REASON FOR EXAM: PANCREATITIS TECHNIQUE: Multiplanar multisequence MRI abdomen was performed without IV contrast. MRCP was performed including generation of MIP reconstructions and 3D reformats. COMPARISON: CT of same date FINDINGS: Variable overall mild motion limitation. Some sequences are mild/moderately motion degraded. Note that the exam was optimized for evaluation of the gallbladder and biliary tree rather than the remaining abdominal viscera. Note also that sensitivity is limited in the absence of IV contrast. Liver: Similar mildly lobulated hepatic contours.. Gallbladder: Suspect T1 bright layering sludge. No calculi identified. Biliary tree: Mild dilatation of the CBD to 9 mm in the common hepatic duct to 8 mm, with gradual tapering at the level of the pancreatic head. No intrahepatic ductal dilatation. No filling defect identified to suggest choledocholithiasis.. Pancreas Mild stranding along the head/uncinate process as on previous CT. No ductal dilatation. No definite correlate for the previously seen 7 mm hypodensity within the anterior pancreatic head/uncinate process. The intrapancreatic lipomas likely present in the region. Other: None. MRI/MRCP Abdomen without Contrast IMPRESSION: 1. Findings again compatible with mild acute pancreatitis. Given soft tissue p rominence of the pancreatic head/uncinate process, follow-up again recommended following the patient's acute presentation to ensur e resolution as previously suggested. Ideally, given the below, recommend multiphase pancreatic protocol MRI abdomen with and without IV contrast and with MRCP. 2. Similar mildly dilated CBD without filling defect identified to suggest chol edocholithiasis or other measurable obstructing lesion evident in the absence of IV contrast/routine MR abdomen sequences. Cor relate with serum bilirubin. Findings could be related to ampullary stenosis or perhaps less likely an occult underlying ampul bruce lesion. This would be optimally evaluated by ERCP as indicated but could be further evaluated at the time of above follow-up . 3. Suspect gallbladder sludge without cholelithiasis. 4. Additional description as above and as described previously. Reading Location: [id number]
[2024-12-07] MEDS: Acetaminophen 500 MG Tablet 1000 MG PO ×2 (16:34→22:56)
--- NOTE | 2024-12-07 17:25 | PCM.HP.STD ---
HPI - General General Date of Admission: 12/07/24 Chief Complaint: Pancreatitis HPI Narrative AYLIN WYNN, is a 48 M who presented to the ED with worsening abdominal pain. As per the chart he has a history of gastritis and lumbar radiculopathy. He has not seen a GI doctor in the past. He does take Naprosyn 500 mg p.o. twice daily for pain, sildenafil and testosterone. He stated over the past 2 days or so he has developed upper abdominal pain with nausea. He stated that he has taken medications for his gastritis without any symptom improvement. He reports with this he has had subjective fevers and chills. He denies any loose stool or diarrhea and he denies any known sick contacts. He reports that despite giving his symptoms time to improve they seem to be worsening and secondary to this he comes in for evaluation. Patient signed out to me pending right upper quadrant ultrasound results. Presenting with 2 days of upper abdominal pain and nausea. Does also regularly drink alcohol and has a history of gastritis. WBC 14.5 H, RBC 5.19, Hgb 16.8 H, Hct 47.6, MCV 91.7, Plt Count 204, Sodium 136, Potassium 4.2, Chloride 102, Carbon Dioxide 23.6, Anion Gap 11, BUN 9, Creatinine 1.00,Glucose 100 H, Lactic Acid 1.1, Calcium 9.2 Total Bilirubin 0.58, Direct Bilirubin 0.16, AST 29, ALT 47, Alkaline Phosphatase 61, Total Protein 7.8, Albumin 4.1, Globulin 3.7, Lipase 76 H cc: Dr. Mauricio Lara MD ~* Signed [facility] History of Present Illness Chief Complaint: Abd Pain Informant: patient and spouse/S.O. Narrative Narrative: Patient is a 48-year-old male with past medical history of of [facility] Medical History Lumbar radiculopathy, acute Wears glasses Alcohol use History of steroid therapy Arthritis Back pain Injury of back Migraine headache Injury of head and neck Gastric reflux Smoker History of fracture of clavicle Hx of fracture of wrist Left shoulder strain Strain of left hip Lumbar radiculopathy Lumbar strain Thoracic myofascial strain High cholesterol Home Medications ?Medication ?Instructions ?Recorded ?Last Taken ?Type naproxen 500 mg tablet (Naprosyn) 500 mg PO BID PRN pain #20 tabs 12/11/21 Unknown Rx sildenafil 100 mg tablet 100 mg PO DAILY PRN sexual FUNCTION 09/24/24 09/03/24 History multivitamin (Daily Multi-Vitamin 1 tab PO DAILY 10/04/24 Unknown History tablet) testosterone cypionate 100 mg/mL 100 mg IM QMONTH 12/07/24 Unknown History intramuscular oil (Depo-Testosterone) Allergy/AdvReac Type Severity Reaction Status Date / Time bee venom protein (honey bee) Allergy Anaphylaxis Verified 12/07/24 05:02 fish oil Allergy Hives Verified 12/07/24 05:02 Surgical History Hx of removal of testicle History of incision and drainage History of removal of retained hardware Social History Smoking Status: Current every day smoker tobacco type: cigarettes alcohol intake: current substance use type: does not use additional social history: daily use of aspirin and ibuprofen Vital Signs Vital Signs Vital Signs: 12/07/24 04:57 12/07/24 04:59 12/07/24 05:45 Temperature 98.1 F 98.1 F Temperature Source Oral Oral Pulse Rate 81 83 97 Respiratory Rate 16 16 16 Respiratory Effort Blood Pressure 137/90 H 136/87 H 125/82 H Blood Pressure Mean 105 103 96 Blood Pressure Source Blood Pressure Position Blood Pressure Location Pulse Ox 95 95 99 Oxygen Delivery Method Room Air Room Air Room Air 12/07/24 05:59 12/07/24 06:00 12/07/24 07:00 Temperature 98.4 F 98.4 F 98.4 F Temperature Source Oral Oral Oral Pulse Rate 73 72 77 Respiratory Rate 16 16 18 Respiratory Effort Blood Pressure 133/64 H 133/64 H 118/63 Blood Pressure Mean 87 87 81 Blood Pressure Source Blood Pressure Position Blood Pressure Location Pulse Ox 94 98 95 Oxygen Delivery Method Room Air Room Air Room Air 12/07/24 09:00 12/07/24 11:00 12/07/24 13:00 Temperature Temperature Source Pulse Rate 70 76 Respiratory Rate 17 Respiratory Effort Blood Pressure 128/82 H 119/67 Blood Pressure Mean 97 84 Blood Pressure Source Blood Pressure Position Blood Pressure Location Pulse Ox 93 92 Oxygen Delivery Method Room Air Room Air 12/07/24 13:40 12/07/24 13:59 12/07/24 14:04 Temperature 98.4 F 98.7 F Temperature Source Oral Pulse Rate 67 68 Respiratory Rate 16 18 18 Respiratory Effort Normal Non-Labored Blood Pressure 119/67 128/82 H Blood Pressure Mean 84 97 Blood Pressure Source Monitor Blood Pressure Position Semi-Fowlers Blood Pressure Location Right Arm Pulse Ox 100 98 Oxygen Delivery Method Room Air Room Air 12/07/24 14:43 Temperature Temperature Source Pulse Rate Respiratory Rate Respiratory Effort Blood Pressure Blood Pressure Mean Blood Pressure Source Blood Pressure Position Blood Pressure Location Pulse Ox Oxygen Delivery Method Room Air Weight Weight: 205 lb 0.478 oz Body Mass Index (BMI) 32.1 Results Lab / Micro Data 12/07/24 05:42 12/07/24 05:42 Labs: Laboratory Results - last 24 hr 12/07/24 05:42: WBC 14.5 H, RBC 5.19, Hgb 16.8 H, Hct 47.6, MCV 91.7, MCH 32.4 H, MCHC 35.3, RDW Std Deviation 43.1, RDW Coeff of Jerod 12.9, Plt Count 204, MPV 9.5, Immature Gran % (Auto) 0.600, Neut % (Auto) 81.2 H, Lymph % (Auto) 10.7 L, Story % (Auto) 6.4, Eos % (Auto) 0.8, Baso % (Auto) 0.3, Absolute Neuts (auto) 11.8 H, Absolute Lymphs (auto) 1.54, Nucleated RBC % 0, Sodium 136, Potassium 4.2, Chloride 102, Carbon Dioxide 23.6, Anion Gap 11, BUN 9, Creatinine 1.00, Estim Creat Clear Calc 97.72, Est GFR (MDRD) Non-Af 93, BUN/Creatinine Ratio 9.5 L, Glucose 100 H, Lactic Acid 1.1, Calcium 9.2, Total Bilirubin 0.58, Direct Bilirubin 0.16, AST 29, ALT 47, Alkaline Phosphatase 61, Total Protein 7.8, Albumin 4.1, Globulin 3.7, Lipase 76 H Imaging Radiology Impression Gallbladder Ultrasound 12/07/24 05:25 IMPRESSION: CBD measures large for age at 7 mm. May correlate further with LFTs and alkaline phosphatase. The liver is diffusely increased in echogenicity which can be seen with hepatic steatosis or other hepatocellular disease. Reading Location: [id number] Abdomen/Pelvis CT 12/07/24 10:11 IMPRESSION: 1. Findings are compatible with mild focal acute pancreatitis involving the pancreatic head/uncinate process. Lipase. No correlate with serum organized collection is present. Given soft tissue prominence versus edema in the region, recommend follow-up to ensure resolution and no underlying mass. No organized fluid collection at present. 2. Mild dilatation of the CBD with relatively abrupt transition at the pancreatic head. No visible choledocholithiasis or other measurable obstructing lesion. Correlate with serum bilirubin and consider MRCP as indicated. 3. 7 mm pancreatic hypodensity in the uncinate process, possible cystic neoplasm such as IPMN. No ductal dilatation. Recommend follow-up multiphase pancreatic protocol MRI abdomen with and without contrast and with MRCP in 1 year per ACR recommendations to evaluate stability. 4. Suspected hepatic steatosis with mild splenomegaly and mildly lobulated contours as can be seen in early fibrosis. No overt serosal nodularity to suggest cirrhosis. Correlate for clinical and laboratory evidence of chronic liver disease 5. Additional description as above. Reading Location: [facility]
[2024-12-07] MEDS: 0.9% Saline Lock 10 ML Syringe IV (17:33)
[2024-12-07] MEDS: Ketorolac 15 MG/ML Vial IV (17:33)
--- NOTE | 2024-12-07 17:34 | EX.PCM.CON.G ---
HPI Consult Data Date of Consult: 12/07/24 HPI Narrative Reason for Consultation: Pancreatitis HPI Narrative: AYLIN WYNN, is a 48 M who presented to the ED with worsening abdominal pain. As per the chart he has a history of gastritis and lumbar radiculopathy. He has not seen a GI doctor in the past. He does take Naprosyn 500 mg p.o. twice daily for pain, sildenafil and testosterone. He stated over the past 2 days or so he has developed upper abdominal pain with nausea. He stated that he has taken medications for his gastritis without any symptom improvement. He reports with this he has had subjective fevers and chills. He denies any loose stool or diarrhea and he denies any known sick contacts. He reports that despite giving his symptoms time to improve they seem to be worsening and secondary to this he comes in for evaluation. Patient signed out to me pending right upper quadrant ultrasound results. Presenting with 2 days of upper abdominal pain and nausea. Does also regularly drink alcohol and has a history of gastritis. ?There was no history of hypertriglyceridemia or hypercalcemia. Family history was unremarkable. He does not know if he has been checked for diabetes. WBC 14.5 H, RBC 5.19, Hgb 16.8 H, Hct 47.6, MCV 91.7, Plt Count 204, Sodium 136, Potassium 4.2, Chloride 102, Carbon Dioxide 23.6, Anion Gap 11, BUN 9, Creatinine 1.00,Glucose 100 H, Lactic Acid 1.1, Calcium 9.2 Total Bilirubin 0.58, Direct Bilirubin 0.16, AST 29, ALT 47, Alkaline Phosphatase 61, Total Protein 7.8, Albumin 4.1, Globulin 3.7, Lipase 76 H US/Gallbladder CBD measures large for age at 7 mm. May correlate further with LFTs and alkaline phosphatase. The liver is diffusely increased in echogenicity which can be seen with hepatic steatosis or other hepatocellular disease. CT/Abdomen/Pelvis W IV Cont ONLY 1. Findings are compatible with mild focal acute pancreatitis involving the pancreatic head/uncinate process. Lipase. No correlate with serum organized collection is present. Given soft tissue prominence versus edema in the region, recommend follow-up to ensure resolution and no underlying mass. No organized fluid collection at present. 2. Mild dilatation of the CBD with relatively abrupt transition at the pancreatic head. No visible choledocholithiasis or other measurable obstructing lesion. Correlate with serum bilirubin and consider MRCP as indicated. 3. 7 mm pancreatic hypodensity in the uncinate process, possible cystic neoplasm such as IPMN. No ductal dilatation. Recommend follow-up multiphase pancreatic protocol MRI abdomen with and without contrast and with MRCP in 1 year per ACR recommendations to evaluate stability. 4. Suspected hepatic steatosis with mild splenomegaly and mildly lobulated contours as can be seen in early fibrosis. No overt serosal nodularity to suggest cirrhosis. [facility] Medical History (Updated 12/07/24 @ 17:[address] Pk Sifuentes, DO) Lumbar radiculopathy, acute Wears glasses Alcohol use History of steroid therapy Arthritis Back pain Injury of back Migraine headache Injury of head and neck Gastric reflux Smoker History of fracture of clavicle Hx of fracture of wrist Left shoulder strain Strain of left hip Lumbar radiculopathy Lumbar strain Thoracic myofascial strain High cholesterol Home Medications ?Medication ?Instructions ?Recorded ?Last Taken ?Type naproxen 500 mg tablet (Naprosyn) 500 mg PO BID PRN pain #20 tabs 12/11/21 Unknown Rx sildenafil 100 mg tablet 100 mg PO DAILY PRN sexual FUNCTION 09/24/24 09/03/24 History multivitamin (Daily Multi-Vitamin 1 tab PO DAILY 10/04/24 Unknown History tablet) testosterone cypionate 100 mg/mL 100 mg IM QMONTH 12/07/24 Unknown History intramuscular oil (Depo-Testosterone) Allergy/AdvReac Type Severity Reaction Status Date / Time bee venom protein (honey bee) Allergy Anaphylaxis Verified 12/07/24 05:02 fish oil Allergy Hives Verified 12/07/24 05:02 Surgical History Hx of removal of testicle History of incision and drainage History of removal of retained hardware Social History Smoking Status: Current every day smoker tobacco type: cigarettes alcohol intake: current substance use type: does not use additional social history: daily use of aspirin and ibuprofen ROS Constitutional Constitutional: Denies fatigue, fever(s), poor appetite, weight gain or weight loss Gastrointestinal Gastrointestinal: Denies belching, bloating, change in bowel habits, change in stool character, chewing difficulty, coffee ground emesis, constipation, cramping, diarrhea, dyspepsia, dysphagia, early satiety, excessive flatus, fecal incontinence, heartburn, hematemesis, hematochezia, hemorrhoids, loose stools, melena, nausea, odynophagia, rectal bleeding, tenesmus, vomiting or weight changes Physical Exam Const alert, oriented x3, no apparent distress and healthy appearing General Appearance: cooperative GI normal to inspection, nondistended, normoactive bowel sounds, soft to palpation, non-tender and non-distended Percussion: normal to percussion Rectal Exam: deferred Lab / Micro Data 12/07/24 05:42 12/07/24 05:42 Labs: Laboratory Results - last 24 hr 12/07/24 05:42: WBC 14.5 H, RBC 5.19, Hgb 16.8 H, Hct 47.6, MCV 91.7, MCH 32.4 H, MCHC 35.3, RDW Std Deviation 43.1, RDW Coeff of Jerod 12.9, Plt Count 204, MPV 9.5, Immature Gran % (Auto) 0.600, Neut % (Auto) 81.2 H, Lymph % (Auto) 10.7 L, [place] % (Auto) 6.4, Eos % (Auto) 0.8, Baso % (Auto) 0.3, Absolute Neuts (auto) 11.8 H, Absolute Lymphs (auto) 1.54, Nucleated RBC % 0, Sodium 136, Potassium 4.2, Chloride 102, Carbon Dioxide 23.6, Anion Gap 11, BUN 9, Creatinine 1.00, Estim Creat Clear Calc 97.72, Est GFR (MDRD) Non-Af 93, BUN/Creatinine Ratio 9.5 L, Glucose 100 H, Lactic Acid 1.1, Calcium 9.2, Total Bilirubin 0.58, Direct Bilirubin 0.16, AST 29, ALT 47, Alkaline Phosphatase 61, Total Protein 7.8, Albumin 4.1, Globulin 3.7, Lipase 76 H Imaging Radiology Impression Gallbladder Ultrasound 12/07/24 05:25 IMPRESSION: CBD measures large for age at 7 mm. May correlate further with LFTs and alkaline phosphatase. The liver is diffusely increased in echogenicity which can be seen with hepatic steatosis or other hepatocellular disease. Reading Location: [facility] Abdomen/Pelvis CT 12/07/24 10:11 IMPRESSION: 1. Findings are compatible with mild focal acute pancreatitis involving the pancreatic head/uncinate process. Lipase. No correlate with serum organized collection is present. Given soft tissue prominence versus edema in the region, recommend follow-up to ensure resolution and no underlying mass. No organized fluid collection at present. 2. Mild dilatation of the CBD with relatively abrupt transition at the pancreatic head. No visible choledocholithiasis or other measurable obstructing lesion. Correlate with serum bilirubin and consider MRCP as indicated. 3. 7 mm pancreatic hypodensity in the uncinate process, possible cystic neoplasm such as IPMN. No ductal dilatation. Recommend follow-up multiphase pancreatic protocol MRI abdomen with and without contrast and with MRCP in 1 year per ACR recommendations to evaluate stability. 4. Suspected hepatic steatosis with mild splenomegaly and mildly lobulated contours as can be seen in early fibrosis. No overt serosal nodularity to suggest cirrhosis. Correlate for clinical and laboratory evidence of chronic liver disease 5. Additional description as above. Reading Location: [facility] Assessment & Plan Assessment/Plan (1) Pancreatitis: (2) Hepatic steatosis: (3) Alcohol use: PLAN: Plan 48-year-old comes in with abdominal pain discovered to have mildly elevated lipase, CT evidence of acute pancreatitis without chronic pancreatitis. His CT scan also revealed an enlarged spleen, enlarged liver with significant fibrosis and no overt signs of cirrhosis. He was also discovered to have a small lesion in his pancreas consistent with a IPMN. He has not had his lipid panel checked. Differential diagnosis for his idiopathic pancreatitis does include choledocholithiasis. Patient could have passed common bile duct stone which be the reason why he would have normal LFTs and mildly elevated lipase. Also differential diagnosis would be hypertriglyceridemia, NSAID induced from the naproxen, IgG associated cholangiopathy, amyloidosis, sarcoidosis, hemochromatosis. Also different diagnosis could be hereditary pancreatitis., Celiac disease, vasculitis. I would have the patient get a HIDA scan to see if he does have biliary colic. This is his first episode of pancreatitis that he knows of. However he wants to continue drinking alcohol which increases his chances of recurrent pancreatitis and subsequently chronic pancreatitis. I would encourage no alcohol. At this time his hematocrit is elevated along with his hemoglobin consistent with hemoconcentration. I would recommend he get his hematocrit down to 35% with IV fluids. Since this is his first episode I am not recommending cholecystectomy at this time. However awaiting official reading on his MRI. Continue supportive care. Charges/Coding Visit Charges Inpatient E&M: 38812 Init Hosp L3
[2024-12-08 04:51] VITALS: BP 110/66; PULSE 66; RESP 16; TEMP 36.5; O2SAT 94
[2024-12-08] MEDS: Acetaminophen 500 MG Tablet 1000 MG PO ×3 (04:57→22:46)
[2024-12-08] MEDS: 0.9% Normal Saline (1000mL) 1,000 ML 200 ML IV ×3 (04:57→20:07)
[2024-12-08 07:00] LABS: Absolute Lymphocyte Count 1.77 X10^3/uL (0.83-4.51); Absolute Neutrophil Count 6.1 X10^3/uL (2.0-7.7); Basophil# 0.01 X10^3/uL; Basophil% 0.1 % (0-1); Eosinophil# 0.13 X10^3/uL; Eosinophils% 1.5 % (0-5); Hematocrit 41.8 % (40-54); Hemoglobin 14.2 g/dL (13.0-16.5); Lymphocyte # 1.77 X10^3/ul (0.83-4.51); Lymphocyte % 20.6 % (19-41); Mean Corpuscular Hgb 32.5 pg (27.0-32.0); Mean Corpuscular Volume 95.7 fL (80-94); Monocyte# 0.54 X10^3/uL; Monocyte% 6.3 % (0-10); NRBC Flagged by Analyzer 0 % (0-5); Neutrophil # 6.14 X10^3/uL (2.7-7.7); Neutrophil % 71.4 % (47-70); Platelet Count 170 K/mm3 (150-450); RBC Distribution Width CV 13.3 % (11.6-14.6); RBC Distribution Width SD 47.2 fl (35.1-43.9); Red Blood Count 4.37 M/mm3 (4.6-6.2); White Blood Count 8.6 K/mm3 (4.4-11.0)
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
[2024-12-08 07:40] LABS: ALB/GLOB Ratio 1.3 RATIO (0.9-2.4); AST(SGOT) 20 U/L (<=37); Alanine Aminotransfer ALT/SGPT 30 U/L (<=46); Albumin, Serum 3.2 g/dL (3.5-5.0); Alkaline Phosphatase 48 U/L (40-129); Anion Gap 8 (5-15); BUN 8 mg/dL (4-19); BUN/Creat Ratio 8.4 RATIO (10-20); Carbon Dioxide 22.7 mmol/L (21.0-32.0); Chloride 108 mmol/L (98-108); Cholesterol 130 mg/dL (<=200); Creatinine, Serum 0.93 mg/dL (0.70-1.20); EST Glomerular Filtration Rate 101 (>60); Globulin 2.5 g/dL (2.2-4.2); Glucose 97 mg/dL (70-99); High Density Lipoprotein 16 mg/dL; Low Density Lipoprotein Calc. 47 mg/dL; Potassium 4.2 mmol/L (3.3-5.1); Protein, Total 5.8 g/dL (5.9-8.4); Sodium Level 139 mmol/L (133-145); Total Bilirubin 0.39 mg/dL (0.00-1.30); Triglycerides 336 mg/dL; Very Low Density Lipoprotein 67 mg/dL (5-40); cholesterol:hdl ratio screen 8.02
[2024-12-08 09:09] VITALS: BP 136/89; PULSE 59; RESP 16; TEMP 36.3; O2SAT 98
[2024-12-08 09:10] VITALS: RESP 18
--- NOTE | 2024-12-08 09:30 | NM_ITS ---
PROCEDURE: GASTRIC EMPTYING STUDY 12/08/2024 REASON FOR EXAM: GASTROPARESIS COMPARISON: None. TECHNIQUE: The patient ingested a standard meal of 1 cup of oatmeal with the radiopharmaceutical. Following ingestion, anterior and posterior gamma camera images were acquired at 60 second intervals for a total of 60 minutes. Regions of interest were drawn, and a geometric mean was used to calculate a [id number]. Medications taken in the past 24 hours that may affect gastric emptying: None Radiopharmaceutical: 1.2 mCi of Technetium Sulfur Colloid in oatmeal. FINDINGS: T half-life = 24 min Percent activity remaining in stomach: 1 hour 20 % (normal 37-90%) NM/Gastric Emptying Study IMPRESSION: THERE IS 20% ACTIVITY REMAINING IN THE STOMACH AT 60 MINUTES. Reading Location: [facility]
[2024-12-08] MEDS: Enoxaparin 40 MG/0.4 ML Syringe SC (11:25)
--- NOTE | 2024-12-08 12:45 | CASEMGMT ---
STEF HICKMAN Assessment: Face to Face with pt for initial transition planning/care coordination assessment. STEF HICKMAN introduced self and role at [facility], pt voices understanding and consents to assessment. Pt is A&O x4 and answers all questions appropriately at this time. Pt lying in be in no distress. Pt sitting at bedside, pt agreeable to discussing DC plan with present. Care providers, pharmacy, and demographics verified/updated. Strata: 2 Admitting Dx: Acute Pancreatitis PCP: Marco Specialists: [facility] Preferred Pharmacy: [facility] Insurance: [facility] Prescription Benefit: yes LNOK: Alexi Watson Living Arrangements: Pt lives with in a ranch home with 3 steps to enter. ADLs: Pt states he is I at baseline with ADLs and IADLs Transportation: Pt drives self and denies concerns with transportation. DME: Denies HHC/SNF: Denies Pt states no concerns with going home at time of dc. STEF HICKMAN asked if Pt uses drugs, alcohol or tobacco. Pt reports he drinks alcohol, when STEF HICKMAN asked how much Pt states Depends on the day, do I have to work tomorrow or not. Sometimes I only drink 1-2 beers a week and other times I'll drink a couple cases in one night. STEF HICKMAN asked if pt would be interested in any cessation programs, pt laughed and said No, i can quit anytime I want to. I just don't want to quit. Pt states no further concerns/needs. CM to follow. Advised pt to ask CM if any further question/concerns/needs arise, voices understanding. Pt Goal: Home Plan: Home with family support, follow for safe DC. Marleny FINCH CM
[2024-12-08 16:00] VITALS: BP 129/72; PULSE 67; RESP 16; TEMP 36.8; O2SAT 98
[2024-12-08 22:48] VITALS: BP 140/80; PULSE 79; RESP 16; TEMP 36.5; O2SAT 97
[2024-12-09] MEDS: 0.9% Normal Saline (1000mL) 1,000 ML 200 ML IV ×2 (01:12→06:01)
[2024-12-09 05:06] VITALS: BP 149/78; PULSE 74; RESP 16; TEMP 36.5; O2SAT 95
[2024-12-09] MEDS: Acetaminophen 500 MG Tablet 1000 MG PO (05:09)
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
[2024-12-09 08:39] VITALS: BP 145/96; PULSE 65; RESP 18; TEMP 36.6; O2SAT 97
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
--- NOTE | 2024-12-09 09:48 | PHA.DC.MR.R ---
Pharmacy CT Med Reconciliation Pharmacy Service has performed discharge medication reconciliation for this patient. The patient's discharge medication list was reviewed for discrepancies and discrepancies were resolved. Medications at Discharge Home Medications naproxen 500 mg tablet (Naprosyn) 500 mg PO BID PRN pain #20 tabs 12/11/21 sildenafil 100 mg tablet 100 mg PO DAILY PRN sexual FUNCTION 09/24/24 multivitamin (Daily Multi-Vitamin tablet) 1 tab PO DAILY 10/04/24 testosterone cypionate 100 mg/mL intramuscular oil (Depo-Testosterone) 100 mg IM QMONTH 12/07/24
== END 2024-12-09 10:34 | disposition home or self-care (01) | DRG 440 ==
LOC: ED 05:34 → MS3 12-08 09:49
PROVIDERS: Emergency Provider Emergency Medicine; PCP Family Medicine
DX: K85.20 Alcohol induced acute pancreatitis without necrosis or infection (principal); E78.1 Pure hyperglyceridemia; F10.10 Alcohol abuse, uncomplicated; E89.5 Postprocedural testicular hypofunction; F17.210 Nicotine dependence, cigarettes, uncomplicated; Y90.9 Presence of alcohol in blood, level not specified; Z79.890 Hormone replacement therapy
CPT/HCPCS: 36415; 74177; 74181; 76705; 78264; 80048; 80053; 80061; 80076; 83605; 83690; 85025; 96361; 96365; 96372; 96375; 96376; 97802; 99221; 99284; 99406; A9541; Q9967; A4216; G0378; J2405

== ENCOUNTER 2025-03-16 02:59 | Emergency (ER) | payer SELFPAY ==
[2025-03-16 03:00] VITALS: BP 145/96; PULSE 75; RESP 18; TEMP 36.7; O2SAT 100; BMI 30.7
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
--- OUTSIDE RECORDS SUMMARY | 2025-03-16 03:36 | XMS RPT_ITS | CCD ---
Author Organization [facility] Care Team Providers Care State Attorney Name Role Phone No, Physician Unavailable Unavailable Unavailable Unavailable Unavailable Primitivo Walters Unavailable No, Physician Unavailable Unavailable O'ANTONIO, DERIK MUÑOZ Unavailable Unavaila ble NO, PHYSICIAN Unavailable Unavailable ALISON HUNTER Unavailable Unavailable ONE, TRAUMA Unavailable Unavailable SOBIA ORO Unavailable Unavailab ALISON Parson Unavailable Unavailable JIM CANADA Unavailable Unavailab le Mariel'ANTONIODERIK Unavailable Unavaila ble O'ANTONIO, DERIK MUÑOZ Unavailable Unavaila ble NO, PHYSICIAN Unavailable Unavailable KELY RASHID Unavailable Unavailable STARJANIE JAMES Unavailable Unavailabl e NO, PHYSICIAN Unavailable Unavailable KELY RASHID Unavailable Unavailable STARJANIE JAMES Unavailable Unavailabl e NO, PHYSICIAN Unavailable Unavailable KELY RASHID Unavailable Unavailable JAIDEN GUPTA Unavailable Unavailab le NO, PHYSICIAN Unavailable Unavailable KELY RASHID Unavailable Unavailable STARJANIE JAMES Unavailable Unavailabl e NO, PHYSICIAN Unavailable Unavailable WILTRCHAPIN KATIA MICHAEL Unavailable Unavaila ble WILTROUT, KATIA MICHAEL Unavailable Unavaila ble NO, PHYSICIAN Unavailable Unavailable WILTROUT, KATIA MICHAEL Unavailable Unavaila ble WILTROUT, KATIA MICHAEL Unavailable Unavaila ble NO, PHYSICIAN Unavailable Unavailable DEBORAH OVALLE JACKI Unavailable Unavailable DEBORAH OVALLE JACKI Unavailable Unavailable NO, PHYSICIAN Unavailable Unavailable Primitivo Walters Primary Care Provider Unavailable Primary Care Provider Unavailabl e Sin Morris Primary Care Provider CONSUELO TRAORE Admitting Unavailab le SIN MORRIS P Primary Care Unavailab le ZENIA BANGURA Admitting Unavailable VAN DE VELDE, SIN P Primary Care Unavailab le VAN DE VELDE, SIN P Primary Care Unavailab le DERIK DRIVER Attending Unavailable Manuel Quinn Primary Care Provider Manuel Quinn MD Primary Care Provider OSIRIS Nunez Attending Provider Care Physician, No Primary Primary Care Provider Unavailable Care Physician, No Primary Referring Provider Un available Manuel Quinn MD Primary Care Provider Sin Morris DO Primary Care Provider Manuel Quinn MD Primary Care Provider Care Physician, No Primary Primary Care Provider Unavailable Care Physician, No Primary Referring Provider Un available Ivis ANIMAL CARE ASSISTANT, ANIMAL CARE ASSISTANT-C Karlee Goldman Attending Provider [phone] Dr. Ronit Lara Primary Care Provider Dr. Ronit Lara Referring Provider OSIRIS Yepez Attending Provider Dr. Soham Pham Attending Provider Dr. Soham Pham Other Provider Dr. Ronit Lara Primary Care Provider Dr. Ronit Lara Referring Provider Dr. Soham Pham Attending Provider OSIRIS Yepez Attending Provider Dr. Ronit Lara Primary Care Provider Dr. Ronit aLra Referring Provider OSIRIS Yepez Attending Provider Dr. Ronit Lara Primary Care Provider Dr. Ronti Lara Referring Provider Randy NEWELL, PA Royce Ramsey Attending Provider MD Ricardo Aldana Attending Provider [phone] John Smith Attending Provider Darlin GIORN, Manuel Escalante Primary Care Provider MANUEL QUINN Primary Care Unavailable Ronit Lara MD Primary Care Provider SOHAM MACHADO Admitting Unavailable MANUEL QUINN Primary Care Unavailable SOHAM MACHADO Referring Unavailable SOHAM MACHADO Attending Unavailable MANUEL QUINN Primary Care Unavailable SOHAM MACHADO Attending Unavailable RONIT LARA Primary Care Unavailable SOHAM MACHADO Attending Unavailable Dr. Ronit Lara MD Primary Care Provider Alphonse Avina MD Attending Provider Alphonse Avina MD Referring Provider Alphonse Avina MD Emergency Provider Dr. Miguel Angel Hunter DO Attending Provider Dr. Miguel Angel Hunter DO Emergency Provider Dr. Otis Mack DO Admit Provider Dr. Otis Mack DO Attending Provider Dr. Otis Mack DO Other Provider Dr. Pk Sifuentes DO Attending Provider Darlin GIRON, Manuel Lopez Primary Care Provider No, Physician Unavailable Unavailable GUS SETHI Attending Unavailable MANUEL QUINN Primary Care Unavailable MANUEL QUINN Primary Care Unavailable LINDSAY TRAORE Attending Unavailable MANUEL QUINN Primary Care Unavailable GUS SETHI Attending Unavailable GUS SETHI Attending Unavailable Dr. Ronit Lara MD Primary Care Provider [phone] Dr. Miguel Angel Hunter DO Emergency Provider Dr. Otis Mack DO Referring Provider Dr. Ronit Lara MD Referring Provider Royce Yepez Attending Provider [phone] Jopperi, Otis Admitting Unavailable Jopperi, Otis Attending Unavailable Schinner, Ronit E Primary Care Unavailable Jopperi, Otis Consulting Unavailable MariaPk Attending Unavailable Jopperi, Otis Referring Unavailable Royce Yepez Attending Unavailable Schinner, Ronit Goldman Referring Unavailable Schinner, Ronit E Primary Care Unavailable Schinner, Ronit E Primary Care Unavailable ReAlphonse wilkinson Attending Unavailable Reodica, Alphonse Referring Unavailable Schinner, Ronit E Primary Care Unavailable Miguel Angel Hunter Attending Unavailable Schinner, Ronit E Primary Care Unavailable Otis Carlos Attending Unavailable Schinner, Ronit E Primary Care Unavailable Severo Dumas Attending Unavailable Schinner, Ronit E Primary Care Unavailable Jopperi, Otis Admitting Unavailable Jopperi, Otis Attending Unavailable Allergies Allergy Classification Reported Allergen(s) Allergy Type Date of Onset Reaction(s) Facility Fish Oils (4 sources) Fish Oils Drug Allergy 1 GI Intolerance, Other: See Comments [facility] (20 sources) BEE VENOM PROTEIN (HONEY BEE); Translations: [BEE VENOM PROTEIN (HONEY BEE)] Propensity to adverse reactions to drug 5 Anaphylaxis [facility] Work Phone: (20 sources) Fish Oils; Translations: [FISH OIL] Drug Allergy 1 GI Intolerance, Other: See Comments [facility] (1 source) Fish Oils Drug Allergy 5 [facility] (1 source) bee venom protein (honey bee) Drug allergy (disorder) 5 [facility] Medications Current Medications Medication Drug Class(es) Dates Sig (Normalized) Sig (Original) acetaminophen 500 mg oral tablet (5 sources) Start: 04-18-2019 take 1 tablet by mouth every six hours as needed for pain acetaminophen (APAP EXTRA STRENGTH) 500 MG tablet Take 1 tablet by mouth every 6 hours as needed for Pain 20 tablet 0 04/18/2019 Active Start: 04-18-2019 acetaminophen (TYLENOL) tablet 1,000 mg End: 03-20-2017 take 1 tablet by mouth every six hours acetaminophen (TYLENOL) 500 MG tablet Take 500 mg by mouth every 6 (six) hours as needed for pain. 03/20/2017 Discontinued End: 03-22-2017 take 4 tablets by mouth twice daily as needed for pain acetaminophen (TYLENOL) 325 MG tablet Take 1,300 mg by mouth 2 (two) times a day as needed for pain. 03/22/2017 Discontinued amitriptyline hydrochloride 25 mg oral tablet (3 sources) Tricyclic Antidepressant Start: 12-02-2023 take 1 tablet by mouth once daily amitriptyline (ELAVIL) 25 mg tablet Take 25 mg by mouth daily at bedtime. TAKE ONE TABLET BY MOUTH NIGHTLY 12/02/2023 Active b complex vitamins capsule (20 sources) take 1 capsule by mouth once daily b complex vitamins capsule Take 1 (one) capsule by mouth daily . Active take 1 capsule by mouth once reza ly b complex vitamins capsule Take 1 (one) capsule by mouth daily . 0 Active take 1 capsule by mouth once reza ly b complex vitamins capsule Take 1 capsule by mouth daily. 0 Active blunt needle, disposable 18 x 1 1/2 Ndle (20 sources) Start: 01-16-2020 blunt needle, disposable 18 x 1 1/2 Ndle Use to draw up medication from vial . 20 each 01/16/2020 Active chondroitin sulfates 400 mg / glucosamine hydrochloride 500 mg oral tablet (20 sources) take 1 tablet by mouth three times daily glucosamine-chondroiti n 500-400 mg tablet Take 1 (one) tablet by mouth 3 (three) times a day . Active docusate sodium 50 mg / sennosides, long term 8.6 mg oral tablet (4 sources) Start: 03-21-2017 End: 04-20-2017 take 1 tablet by mouth twice daily senna-docusate (SENNA-S) 8.6-50 mg Take 1 (one) tablet by mouth 2 (two) times a day. 60 tablet 0 03/21/2017 04/20/2017 Active Start: 03-21-2017 End: 03-22-2017 senna-docusate (SENNA-S) 8.6 -50 mg per tablet 1 tablet 1 tablet, Oral, 2 times daily, First dose on 03/21/17 at 0900, NOT for abdominal surgery patients. Hold for loose stools. Do Not Crush or Chew if administering orally due to bitter taste. May be crushed if given via tube. Given 03/21/2017 08:44 EDT 1 tablet 0.4 ml enoxaparin sodium 100 mg/ml prefilled syringe (4 sources) Low Molecular Weight Heparin Start: 03-22-2017 End: 04-11-2017 inject 0.4 mL by subcutaneous injection once daily enoxaparin (LOVENOX) 40 mg/0.4 mL Syrg Inject 0.4 mL (40 mg total) under the skin daily for 20 days. 20 Syringe 0 03/22/2017 04/11/2017 Active Start: 03-21-2017 End: 03-22-2017 take 30 mg by subcutaneous injection twice daily enoxaparin (LOVENOX) syringe 30 mg 30 mg, Subcutaneous, 2 times daily, First dose on 03/21/17 at 0800, Administer in abdomen unless otherwise directed by prescriber. Notify physician if patient refuses. Given 03/21/2017 08:44 EDT 30 mg Abdominal Tissue [id number] 0.3 ml EPINEPHrine 1 mg/ml auto-injector (20 sources) alpha-Adrenergic Agonist, beta-Adrenergic Agonist, Catecholamine Start: 08-31-2020 EPINEPHrine (EpiP en) 0.3 mg/0.3 mL AtIn Indications: Allergy to honey bee venom Inject 0.3 mL (0.3 mg total) into the shoulder, thigh, or buttocks once for 1 dose . 0.3 mL 08/31/2020 Active End: 08-31-2020 EPINEPHrine (EPIPEN) 0.3 mg/ 0.3 mL AtIn Inject 0.3 mg into the shoulder, thigh, or buttocks once. 0 08/31/2020 Discontinued (Reorder (Suppress CancelRx Message to Pharmacy)) EPINEPHrine (EPI PEN) 0.3 mg/0.3 mL AtIn Inject 0.3 mg into the shoulder, thigh, or buttocks once. Active EPINEPHrine (EPI PEN) 0.3 mg/0.3 mL AtIn Inject 0.3 mg into the shoulder, thigh, or buttocks once. Active Epinephrine 0.3 Mg/0.3 Ml In jection, Auto-Injector (1 source) EPINEPHrine (EPI PEN) 0.3 mg/0.3 mL AtIn Inject 0.3 mg into the shoulder, thigh, or buttocks once. Active EPINEPHRINE HCL INJECTION (4 sources) EPINEPHRINE HCL INJECTION 0.3 mg by INJECTION(UNSPECIFIED PARENTERAL ROUTES) route. Active EPINEPHRINE HCL INJECTION 0.3 mg by INJECTION(UNSPECIFIED PARENTERAL ROUTES) route. 0 Active gabapentin 300 mg oral capsule (4 sources) Anti-epileptic Agent Start: 03-22-2017 End: 04-21-2017 take 1 capsule by mouth every eight hours gabapentin (NEURONTIN) 300 MG capsule Take 1 (one) capsule (300 mg total) by mouth every 8 (eight) hours. 90 capsule 0 03/22/2017 04/21/2017 Active glucosamine sulfate 500 mg oral capsule (1 source) Glucosamine 500 MG CAPS Take 1,500 mg by mouth 0 Active glucosamine/msm/ch ondroitin A (GLUCOSAMINE-CHOND R-MSM ORAL) (4 sources) take 500 mg by mouth three times daily glucosamine/msm/c hondroitin A (GLUCOSAMINE-ANDREI DR-MSM ORAL) Take 500 mg by mouth three times daily. Active take 500 mg by mouth three times daily glucosamine/msm/chondroitin A ([id number]-IHD ORAL) Take 500 mg by mouth three times daily. 0 Active icosapent ethyl 1000 mg oral capsule (5 sources) Start: 12-11-2020 End: 03-01-2021 take 2 capsules by mouth twice daily at mealtime icosapent ethyl (VASCEPA) capsule Take 2 capsules by mouth twice daily with meals. 120 capsule 5 12/11/2020 Active isopropyl alcohol 0.7 ml/ml medicated pad (12 sources) Start: 03-25-2022 End: 09-30-2022 alcohol swabs PadM Apply 1 (one) Swab topically as needed . 60 each 12 09/30/2022 Active methocarbamol 500 mg oral tablet (2 sources) Muscle Relaxant Start: 04-18-2019 End: 04-23-2019 take 1 tablet by mouth four times daily methocarbamol (ROBAXIN) 500 MG tablet Take 1 tablet by mouth 4 times daily for 20 doses 20 tablet 0 04/18/2019 04/23/2019 Active Multiple Vitamins-Minerals (THERAPEUTIC MULTIVITAMIN-MINERAL S) tablet (1 source) take 1 tablet by mouth once daily Multiple Vitamins-Minerals (THERAPEUTIC MULTIVITAMIN-MINERA LS) tablet Take 1 tablet by mouth daily 0 Active Multivitamin (Daily Multi-Vitamin) tablet (3 sources) Start: 10-04-2024 Multivitamin ( Daily Multi-Vitamin) tablet Active 1 {tbl} PO DAILY October 04, 2024 1:00am multivitamin (THERAGRAN) per tablet (20 sources) take 1 tablet by mouth once daily multivitamin (THERAGRAN) per tablet Take 1 (one) tablet by mouth daily . Active take 1 tablet by mouth once kira y multivitamin (THERAGRAN) per tablet Take 1 (one) tablet by mouth daily . 0 Active take 1 tablet by mouth once kira y multivitamin (THERAGRAN) per tablet Take 1 tablet by mouth daily. 0 Active take 1 tablet by mouth once kira y multivitamin (THERAGRAN) per tablet Take 1 tablet by mouth daily. Active MULTIVITAMIN ORAL (4 sources) MULTIVITAMIN ORA L Take by mouth once daily. Active MULTIVITAMIN ORA L Take by mouth. 0 Active Multivitamin preparation (7 sources) Start: 12-02-2022 take 1 capsule by mouth once daily Multivitamin Active 1 CAP PO DAILY December 01, 2022 11:00pm Start: 12-02-2022 take 1 capsule by mo ut once daily Multivitamin Active 1 CAP PO DAILY December 02, 2022 12:00am Multivitamin Tablet (7 sources) take 1 tablet by mouth once daily multivitamin (THERAGRAN) per tablet Take 1 tablet by mouth daily. Active raNITIdine 150 mg oral capsule (18 sources) Histamine-2 Receptor Antagonist Start: 10-14-19 End: 07-20-20 take 1 capsule by mouth twice daily ranitidine (ZANTAC) 150 MG capsule Indications: Gastroesophageal reflux disease, esophagitis presence not specified Take 1 (one) capsule (150 mg total) by mouth 2 (two) times a day . 180 capsule 0 04/21/2019 07/20/2019 Active raNITIdine HCl ( ZANTAC 75 PO) Take 150 mg by mouth 0 Active take 1 capsule by mouth twice da peri ranitidine (ZANTAC) 150 MG capsule Take 150 mg by mouth 2 (two) times a day. Active sildenafil 100 mg oral tablet (20 sources) Phosphodiesterase 5 Inhibitor Start: 09-19-2019 take 1 tablet by mouth every other day as needed sildenafil (VIAGRA) 100 MG tablet Take 1 (one) tablet (100 mg total) by mouth every other day as needed for erectile dysfunction . 30 tablet 0 09/19/2019 Active Start: 05-31-2019 End: 07-09-2025 take 1 tablet by mouth once daily as needed Sildenafil 100 mg tablet Active 100 mg PO DAILY as needed for sexual FUNCTION September 24, 2024 1:00am syringe with needle (BD Eclipse Luer-Lars) 3 mL 23 x 1 Syrg (1 source) Start: 09-14-2024 End: 09-14-2025 syringe with needle (BD Ecli pse Luer-Lars) 3 mL 23 x 1 Syrg Indications: Hypogonadism in male 1 each by Miscellaneous route every 14 (fourteen) days . 50 each 2 09/14/2024 09/14/2025 Active Syringe With Needle 1 Ml 20 Gauge X 1 (5 sources) Start: 01-20-2018 syringe with n eedle 1 mL 20 gauge x 1 Syrg Indications: Primary hypogonadism in male Use to inject testosterone weekly (mondays). 30 Syringe 5 01/20/2018 Active Start: 07-16-2017 End: 01-20-2018 syringe with needle 1 mL 20 gauge x 1 Syrg Indications: Primary hypogonadism in male Use to inject testosterone weekly (mondays). 30 Syringe 5 07/16/2017 01/20/2018 Discontinued Start: 04-28-2016 syringe with n eedle 1 mL 20 gauge x 1 Syrg Indications: Primary hypogonadism in male Use to inject testosterone weekly (mondays). 30 Syringe 1 04/28/2016 Active syringe with needle 1 mL 20 gauge x 1 Syrg (4 sources) Start: 07-16-2017 syringe with n eedle 1 mL 20 gauge x 1 Syrg Indications: Primary hypogonadism in male Use to inject testosterone weekly (mondays). 30 Syringe 5 07/16/2017 Active Start: 04-28-2016 End: 07-16-2017 syringe with needle 1 mL 20 gauge x 1 Syrg Indications: Primary hypogonadism in male Use to inject testosterone weekly (mondays). 30 Syringe 1 04/28/2016 07/16/2017 Discontinued Start: 04-28-2016 syringe with n eedle 1 mL 20 gauge x 1 Syrg Indications: Primary hypogonadism in male Use to inject testosterone weekly (mondays). 30 Syringe 1 04/28/2016 Active testosterone cypionate 100 mg/ml injectable solution (20 sources) Androgen Start: 12-07-2024 inject 100 mg by intramuscular injection every month Testosterone Cypionate (Testosterone Cypionate 100 Mg/Ml Intramuscular Oil) 100 mg/mL oil Active 100 mg IM EVERY MONTH December 07, 2024 12:00am Start: 09-14-2024 End: 06-21-2025 inject 100 mg by intramuscular injection every month Testosterone Cypionate (Depo-Testosterone) 100 mg/mL oil Active 100 mg IM EVERY MONTH December 07, 2024 12:00am Start: 01-26-2024 End: 09-14-2024 testosterone cypionate (DEPOTESTOTERONE CYPIONATE) 200 mg/mL injection Indications: Low testosterone Inject 0.5 mL (100 mg total) into the shoulder, thigh, or buttocks once a week . 10 mL 3 01/26/2024 09/14/2024 Discontinued (Alternate therapy) Start: 03-25-2022 End: 01-26-2024 testosterone cypionate (DEPOTESTOTERONE CYPIONATE) 200 mg/mL injection Indications: Low testosterone Inject 1 mL (200 mg total) into the shoulder, thigh, or buttocks once a week . 10 mL 3 09/30/2022 01/26/2024 Discontinued (Reorder (Suppress CancelRx Message to Pharmacy)) Start: 12-11-2021 inject 100 mg by int ramuscular injection every week Testosterone Cypionate Active 100 MG IM EVERY WEEK December 11, 2021 12:00am Start: 12-11-2021 inject 200 mg by int ramuscular injection every week Testosterone Cypionate Active 200 MG IM EVERY WEEK December 11, 2021 12:00am Start: 12-11-2021 Testosterone C ypionate Active MG December 11, 2021 12:00am Start: 01-16-2020 End: 03-25-2022 testosterone cypionate (DEPOTESTOTERONE CYPIONATE) 200 mg/mL injection Indications: Erectile dysfunction, unspecified erectile dysfunction type Inject 0.5 mL (100 mg total) into the shoulder, thigh, or buttocks once a week . 10 mL 0 02/27/2022 03/25/2022 Discontinued (Reorder) Start: 04-26-2019 End: 03-29-2020 testosterone cypionate (DEPOTESTOTERONE CYPIONATE) 200 mg/mL injection Indications: Primary hypogonadism in male , High risk medication use Inject 0.75 mL (150 mg total) into the shoulder, thigh, or buttocks once a week . 6 mL 0 04/26/2019 03/29/2020 Discontinued Start: 10-18-2018 testosterone c ypionate (DEPOTESTOTERONE CYPIONATE) 200 mg/mL injection Indications: Primary hypogonadism in male , High risk medication use Inject 0.75 mL (150 mg total) into the shoulder, thigh, or buttocks once a week . 3 mL 2 10/18/2018 Active Start: 01-22-2018 End: 10-13-2018 testosterone cypionate (DEPOTESTOTERONE CYPIONATE) 200 mg/mL injection Indications: Primary hypogonadism in male , High risk medication use Inject 0.75 mL (150 mg total) into the shoulder, thigh, or buttocks once a week . 10 mL 2 10/13/2018 Active Start: 01-22-2018 testosterone c ypionate (DEPOTESTOTERONE CYPIONATE) 200 mg/mL injection Indications: Primary hypogonadism in male , High risk medication use Inject 0.75 mL (150 mg total) into the shoulder, thigh, or buttocks once a week. 10 mL 5 01/22/2018 Active Start: 12-25-2016 End: 01-20-2018 testosterone cypionate (DEPOTESTOTERONE CYPIONATE) 200 mg/mL injection Indications: Primary hypogonadism in male , High risk medication use Inject 0.75 mL (150 mg total) into the shoulder, thigh, or buttocks once a week. 10 mL 5 01/20/2018 Active inject 0.5 mL by int ramuscular injection every week testosterone cypionate 200 mg/mL kit Inject 0.5 mL intramuscularly one time a week. Active Testosterone 75 MG PLLT by Implant route. 0 Active Vitamin B Complex Capsule (10 sources) take 1 capsule by mo uth once daily b complex vitamins capsule Take 1 capsule by mouth daily. Active Completed/Discontinued Medications Medication Drug Class(es) Dates Sig (Normalized) Sig (Original) acetaminophen 325 mg / HYDROcodone bitartrate 5 mg oral tablet (8 sources) Opioid Agonist Start: 08-17-2023 End: 10-04-2024 Hydrocodone-Acetami nophen 5-325 mg tablet Discontinued 1 {tbl} PO EVERY 4 HOURS NEEDED as needed for Pain 10 August 17, 2023 October 04, 2024 10:28pm Pain of left upper extremity Pain in left arm Start: 08-17-2023 take 1 tablet by feliz th every four hours as needed Hydrocodone-Acetaminophen Active 1 TABLE T PO EVERY 4 HOURS NEEDED 10 2 August 17, 2023 Start: 06-03-2017 End: 06-13-2017 take 1 tablet by mouth every eight hours HYDROcodone-acetaminophen (NORCO) 5-325 mg per tablet Take 1 (one) tablet by mouth every 8 (eight) hours as needed. 60 tablet 0 06/03/2017 06/13/2017 Active Start: 03-21-2017 End: 03-21-2017 take 2 tablets by mouth every four hours HYDROcodone-acetaminophen (NORCO) 5-325 mg per tablet 2 tablet 2 tablet, Oral, Every 4 hours PRN, moderate to severe pain, Starting 03/21/17 at 0114 Given 03/21/2017 03:49 EDT 2 tablets acetaminophen 325 mg / oxyCODONE hydrochloride 5 mg oral tablet (14 sources) Opioid Agonist Start: 10-04-2024 End: 12-07-2024 Oxycodone-Acetaminophen (Percocet) 5-325 mg tablet Discontinued 1 {tbl} PO EVERY 6 HOURS as needed for pain 20 5 0 October 04, 2024 December 07, 2024 6:35am Hematoma of left lower leg Contusion of left lower leg, initial encounter Start: 04-22-2017 End: 04-13-2018 take 1 tablet by mouth every eight hours as needed for pain oxyCODONE-acetaminophen (PERCOCET) 5-325 mg per tablet Indications: Fracture of spinous process of thoracic vertebra, with routine healing, subsequent encounter Take 1 (one) tablet by mouth every 8 (eight) hours as needed for pain. 90 tablet 0 04/22/2017 04/13/2018 Discontinued Start: 04-16-2017 End: 04-22-2017 take 1 tablet by mouth every six hours as needed for pain oxyCODONE-acetaminophen (PERCOCET) 5-325 mg per tablet Indications: Fracture of spinous process of thoracic vertebra, with routine healing, subsequent encounter Take 1 (one) tablet by mouth every 6 (six) hours as needed for pain. 24 tablet 0 04/16/2017 04/22/2017 Discontinued Start: 04-03-2017 take 1 tablet by feliz every six hours as needed for pain oxyCODONE-acetaminophen (PERCOCET) 5-325 mg per tablet Indications: Fracture of spinous process of thoracic vertebra, with routine healing, subsequent encounter Take 1 (one) tablet by mouth every 6 (six) hours as needed for pain. 28 tablet 0 04/03/2017 Active Start: 03-21-2017 End: 03-31-2017 take 1 tablet by mouth every four hours oxyCODONE-acetaminophen (PERCOCET) 5-325 mg per tablet Take 1 (one) tablet by mouth every 4 (four) hours as needed. 60 tablet 0 03/21/2017 03/31/2017 Active End: 04-03-2017 take 1 tablet by mouth every six hours oxyCODONE-acetaminophen (PERCOCET) 5-325 mg per tablet Take 1 tablet by mouth every 6 (six) hours as needed for pain. 04/03/2017 Discontinued atorvastatin 40 mg oral tablet (20 sources) HMG-CoA Reductase Inhibitor Start: 12-11-2021 End: 11-11-2022 Atorvastatin 40 mg tablet Discontinued December 11, 2021 12:00am November 11, 2022 2:50pm Start: 09-06-2021 End: 10-04-2024 take 1 tablet by mouth at bedtime Atorvastatin 40 mg Tablet Discontinued 40 mg PO AT BEDTIME December 02, 2022 12:00am October 04, 2024 10:28pm Start: 03-01-2021 End: 03-01-2022 take 1 tablet by mouth once daily atorvastatin (LIPITOR) 80 MG tablet Indications: Hypertriglyceridemia Take 1 (one) tablet (80 mg total) by mouth daily . 90 tablet 3 03/01/2021 03/01/2022 Active Start: 01-11-2020 End: 03-01-2021 take 1 tablet by mouth once daily atorvastatin (LIPITOR) 40 MG tablet Indications: Hypertriglyceridemia Take 1 (one) tablet (40 mg total) by mouth daily . 90 tablet 3 01/11/2020 03/01/2021 Discontinued (Reorder (Suppress CancelRx Message to Pharmacy)) clomiPHENE citrate 50 mg oral tablet (4 sources) Estrogen Agonist/Antagonist Start: 09-26-2019 End: 08-31-2020 take 1 tablet by mouth once daily, then take 1 tablet by mouth once daily clomiPHENE (CLOMID) 50 mg tablet Take 1 (one) tablet (50 mg total) by mouth daily Take one tablet daily . 30 tablet 4 09/26/2019 08/31/2020 Discontinued cyclobenzaprine hydrochloride 10 mg oral tablet (20 sources) Muscle Relaxant Start: 12-17-2022 End: 10-04-2024 take 1 tablet by mouth at bedtime as needed for muscle spasms Cyclobenzaprine 10 mg tablet Discontinued 10 mg PO BEDTIME as needed for muscle spasm 14 0 December 17, 2022 12:00am October 04, 2024 10:28pm Start: 12-16-2021 End: 11-07-2022 take 1 tablet by mouth three times daily as needed for muscle spasms Cyclobenzaprine 10 mg tablet Discontinued 10 mg PO THREE TIMES A DAY as needed for muscle spasm 20 7 0 October 31, 2022 12:00am November 06, 2022 12:00am November 07, 2022 12:04am Start: 04-17-2017 End: 04-21-2019 take 1 tablet by mouth three times daily as needed for muscle spasms cyclobenzaprine (FLEXERIL) 10 MG tablet Indications: Fracture of spinous process of thoracic vertebra, with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 Performed By: #### L 100.0100, L500.4100, L500.4050 ####[facility] [address] [place], [address] BUN/CRE 8.4 RATIO Low 10-20 [facility] Comment on above: Performed By: #### L 100.0100, L500.4100, L500.4050 ####[facility] [address] [place], [address] Calcium [Mass/Vol] 8.0 mg/dL Normal 7.6-11.0 [facility] Comment on above: Performed By: #### L 100.0100, L500.4100, L500.4050 ####[facility] [address] [place], [address] Chloride [Moles/Vol] 108 mmol/L Normal 98-108 [facility] Comment on above: Performed By: #### L 100.0100, L500.4100, L500.4050 ####[facility] [address] [place], [address] CO2 [Moles/Vol] 22.7 mmol/L Normal 21.0-32.0 [facility] Comment on above: Performed By: #### L 100.0100, L500.4100, L500.4050 ####[facility] [address] [place], [address] Creatinine [Mass/Vol] 0.93 mg/dL Normal 0.70-1.20 [facility] Comment on above: Performed By: #### L 100.0100, L500.4100, L500.4050 ####[facility] [address] [place], [address] ECRCL 105.60 ml/min Normal 50-250 [facility] Comment on above: Performed By: #### L 100.0100, L500.4100, L500.4050 ####[facility] [address] [place], [address] GAP 8 Normal 5-15 [facility] Comment on above: Performed By: #### L 100.0100, L500.4100, L500.4050 ####[facility] [address] [place], [address] GFR/1.73 sq M.predicted among non-blacks MDRD (S/P/Bld) [Vol rate/Area] 101 mL/min/{1.73_m2} Normal >60 [facility] Comment on above: Result Comment: mL/m in/1.73m2 CKD-EPI Creatinine Equation (2020) Performed By: #### L 100.0100, L500.4100, L500.4050 ####[facility] [address] [place], [address] Globulin (S) [Mass/Vol] 2.5 g/dL Normal 2.2-4.2 [facility] Comment on above: Performed By: #### L 100.0100, L500.4100, L500.4050 ####[facility] [address] [place], [address] Glucose [Mass/Vol] 97 mg/dL Normal 70-99 [facility] Comment on above: Performed By: #### L 100.0100, L500.4100, L500.4050 ####[facility] [address] [place], [address] Potassium [Moles/Vol] 4.2 mmol/L Normal 3.3-5.1 [facility] Comment on above: Performed By: #### L 100.0100, L500.4100, L500.4050 ####[facility] [address] [place], [address] Sodium [Moles/Vol] 139 mmol/L Normal 133-145 [facility] Comment on above: Performed By: #### L 100.0100, L500.4100, L500.4050 ####[facility] [address] [place], [address] T PROT 5.8 g/dL Low 5.9-8.4 [facility] Comment on above: Performed By: #### L 100.0100, L500.4100, L500.4050 ####[facility] [address] [place], [address] Urea nitrogen [Mass/Vol] 8 mg/dL Normal 4-19 [facility] Comment on above: Performed By: #### L 100.0100, L500.4100, L500.4050 ####[facility] [address] [place], [address] Eosinophil percentageOrdered By: Otis Mack on 12-08-2024 Eosinophils/100 WBC (Bld) 1.5 % Normal 0-5 [facility] Comment on above: Performed By: #### L 100.0100, L500.4100, L500.4050 #### [facility] [address] [place], [address] Erythrocyte distribution wid th ratioOrdered By: Otis Mack on 12-08-2024 Erythrocyte distribution width (RBC) [Ratio] 13.3 % Normal 11.6-14.6 [facility] Comment on above: Performed By: #### L 100.0100, L500.4100, L500.4050 #### [facility] [address] [place], [address] Erythrocyte distribution wid th standard deviationOrdered By: Otis Mack on 12-08-2024 Erythrocyte distribution width (RBC) [Ratio] 47.2 fl High 35.1-43.9 [facility] Gastric Emptying Studyon Gastric Emptying Study [facility] Imaging Services [address] [place] [address] Gastric Emptying Study MR#: [id number] Acct: [id number] Name: JUSTINO PACHECO Rep #: [id number] : 1975 M 48 From: Otis West MD PCP: Dr. Ronit Lara MD Status: ADM IN Study: Gastric Emptying Study Date of Exam: 12/08/24 Exam# [id number] Ordering Dr: Pk Sifuentes DO PROCEDURE: GASTRIC EMPTYING STUDY 12/08/2024 REASON FOR EXAM: GASTROPARESIS COMPARISON: None. TECHNIQUE: The patient ingested a standard meal of 1 cup of oatmeal with the radiopharmaceutical. Following ingestion, anterior and posterior gamma camera images were acquired at 60 second intervals for a total of 60 minutes. Regions of interest were drawn, and a geometric mean was used to calculate a [id number]-[id number]. Medications taken in the past 24 hours that may affect gastric emptying: None Radiopharmaceutical: 1.2 mCi of Technetium Sulfur Colloid in oatmeal. FINDINGS: T half-life = 24 min Percent activity remaining in stomach: 1 hour 20 % (normal 37-90%) NM/Gastric Emptying Study IMPRESSION: THERE IS 20% ACTIVITY REMAINING IN THE STOMACH AT 60 MINUTES. Reading Location: [facility] CC: Dr. Otis Mack DO; Dr. Ronit Lara MD; Pk Sifuentes DO Dna Analyst: Signed Normal [facility] Glomerular filtration rate ( GFR) estimation/1.73 sq m using serum, plasma, or whole bOrdered By: Otis Mack on 12-08-2024 GFR/1.73 sq M.predicted among non-blacks MDRD (S/P/Bld) [Vol rate/Area] 101 mL/min/{1.73_m2} >60 [facility] Comment on above: mL/min/1.73m2 CKD-EP I Creatinine Equation (2020) Hemoglobin measurementOrdere d By: Otis Mack on 12-08-2024 Hemoglobin (Bld) [Mass/Vol] 14.2 g/dL Normal 13.0-16.5 [facility] Comment on above: Performed By: #### L 100.0100, L500.4100, L500.4050 #### [facility] [address] [place], [address] Immature granulocytes/100 WB C Auto (Bld)Ordered By: Otis Mack on 12-08-2024 Immature granulocytes/100 WBC (Bld) 0.100 % 0.0-0.9 [facility] Comment on above: IG% - Immature Granu locytes (promyelocytes, myelocytes and metamyelocytes) > 1% indicates that a LEFT SHIFT is Present. LDL calc ser/plasOrdered By: Otis Mack on 12-08-2024 Cholesterol in LDL [Mass/Vol] 47 mg/dL [facility] Comment on above: Vyejctpfbc=189-334 m g/dL & Higher Yyyw=442 mg/dL or greater Laboratory - Chemistry and C hemistry - challengeOrdered By: Otis Mack on 12-08-2024 AST [Catalytic activity/Vol] 20 U/L <38 [facility] Lipid Profileon 12-08-2024 CHOL:HDL 8.02 Normal [facility] Comment on above: Performed By: #### L 100.0100, L500.4100, L500.4050 ####[facility] [address] [place], [address] Cholesterol [Mass/Vol] 130 mg/dL Normal <=200 [facility] Comment on above: Result Comment: Chol esterol level, Desirable <200 mg/dL Borderline high cholesterol 200-239 mg/dL High cholesterol >=240 mg/dL Recommendations of the NCEP Adult Treatment Panel for the following risk-cutoff thresholds for the [place] population. Performed By: #### L 100.0100, L500.4100, L500.4050 ####[facility] [address] [place], [address] Cholesterol in HDL [Mass/Vol] 16 mg/dL Low [facility] Comment on above: Result Comment: Kiara onal Cholesterol Education Program (NCEP) guidelines: <40 mg/dL: Low HDL-cholesterol (major risk factor for CHD) >= 60 mg/dL: High HDL-cholesterol (negative risk factor for CHD) HDL-cholesterol is affected by a number of factors, e.g. smoking, exercise, hormones, sex and age. Performed By: #### L 100.0100, L500.4100, L500.4050 ####[facility] [address] [place], [address] Cholesterol in LDL [Mass/Vol] 47 mg/dL Normal [facility] Comment on above: Result Comment: Bord hzrljm=583-014 mg/dL Higher Ijjj=210 mg/dL or greater Performed By: #### L 100.0100, L500.4100, L500.4050 ####[facility] [address] [place], [address] Cholesterol in VLDL [Mass/Vol] 67 mg/dL High 5-40 [facility] Comment on above: Performed By: #### L 100.0100, L500.4100, L500.4050 ####[facility] [address] [place], [address] Triglyceride [Mass/Vol] 336 mg/dL High [facility] Comment on above: Result Comment: The drugs N-Acetylcysteine and Metamizole may falsely depress this assay. Normal range: <150 mg/dL Borderline High: 150-199 mg/dL High: 200-499 mg/dL Very High: >500 mg/dL Performed By: #### L 100.0100, L500.4100, L500.4050 ####[facility] [address] [place], [address] MCV (mean corpuscular volume ) determinationOrdered By: Otis Mack on 12-08-2024 MCV (RBC) [Entitic vol] 95.7 fL High 80-94 [facility] Comment on above: Performed By: #### L 100.0100, L500.4100, L500.4050 #### [facility] [address] [place], [address] Mean corpuscular hemoglobin (MCH) determinationOrdered By: Otis Mack on 12-08-2024 MCH (RBC) [Entitic mass] 32.5 pg High 27.0-32.0 [facility] Comment on above: Performed By: #### L 100.0100, L500.4100, L500.4050 #### [facility] [address] [place], [address] Mean corpuscular hemoglobin concentration (MCHC) determinationOrdered By: Otis Mack on 05-08-2025 MCHC (RBC) [Mass/Vol] 34.0 g/dL Normal 32-36 [facility] Comment on above: Performed By: #### L 100.0100, L500.4100, L500.4050 #### [facility] [address] [place], [address] Mean platelet volume determi nationOrdered By: Otis Mack on 12-08-2024 Platelet mean volume (Bld) [Entitic vol] 10.0 fL Normal 6.2-12.0 [facility] Comment on above: Performed By: #### L 100.0100, L500.4100, L500.4050 #### [facility] [address] [place], [address] Monocyte percentageOrdered B y: Otis Mack on 12-08-2024 Monocytes/100 WBC (Bld) 6.3 % Normal 0-10 [facility] Comment on above: Performed By: #### L 100.0100, L500.4100, L500.4050 #### [facility] [address] [place], [address] Neutrophil percentageOrdered By: Otis Mack on 12-08-2024 Neutrophils/100 WBC (Bld) 71.4 % High 47-70 [facility] Comment on above: Performed By: #### L 100.0100, L500.4100, L500.4050 #### [facility] [address] [place], [address] Nucleated red blood cell per centageOrdered By: Otis Mack on 12-08-2024 Nucleated RBC/100 WBC (Bld) [Ratio] 0 % 0-5 [facility] Platelet countOrdered By: Jerod Mack on 12-08-2024 Platelets (Bld) [#/Vol] 170 10*3/uL Normal 150-450 [facility] Comment on above: Performed By: #### L 100.0100, L500.4100, L500.4050 #### [facility] [place], [address] Potassium measurement (mass/ volume)Ordered By: Otis Mack on 12-08-2024 Potassium (Unsp spec) [Mass/Vol] 4.2 mmol/L 3.3-5.1 [facility] Screening total cholesterol/ high density lipoprotein (HDL) cholesterol ratioOrdered By: Otis Mack on 12-08-2024 Cholesterol.total/Chol esterol in HDL [Mass ratio] 8.02 {ratio} [facility] Serum creatinine measurement (mass/volume)Ordered By: Otis Mack on 12-08-2024 Creatinine [Mass/Vol] 0.93 mg/dL 0.70-1.20 [facility] Serum globulin measurementOr dered By: Otis Mack on 12-08-2024 Globulin (S) [Mass/Vol] 2.5 g/dL 2.2-4.2 [facility] Serum glucose measurement (m ass/volume)Ordered By: Otis Mack on 12-08-2024 Glucose [Mass/Vol] 97 mg/dL 70-99 [facility] Serum or plasma alanine lala otransferase (ALT) measurementOrdered By: Otis Mack on 12-08-2024 ALT [Catalytic activity/Vol] 30 U/L <47 [facility] Serum or plasma albumin akin urement (mass/volume)Ordered By: Otis Mack on 12-08-2024 Albumin [Mass/Vol] 3.2 g/dL Low 3.5-5.0 [facility] Serum or plasma albumin/glob ulin mass ratioOrdered By: Otis Mack on 12-08-2024 Albumin/Globulin [Mass ratio] 1.3 {ratio} 0.9-2.4 [facility] Serum or plasma alkaline angelita sphatase measurementOrdered By: Otis Mack on 12-08-2024 ALP [Catalytic activity/Vol] 48 U/L 40-129 [facility] Serum or plasma calcium akin urement (mass/volume)Ordered By: Otis Mack on 12-08-2024 Calcium [Mass/Vol] 8.0 mg/dL 7.6-11.0 [facility] Serum or plasma cholesterol in HDL measurement (mass/volume)Ordered By: Otis Mack on 12-08-2024 Cholesterol in HDL [Mass/Vol] 16 mg/dL Low >40 [facility] Comment on above: National Cholesterol Education Program (NCEP) guidelines:<40 mg/dL: Low HDL-cholesterol (major risk factor for CHD)>= 60 mg/dL: High HDL-cholesterol (negative risk factor for CHD)HDL-cholesterol is affected by a number of factors, e.g. smoking, exercise, hormones, sex and age. Serum or plasma cholesterol measurement (mass/volume)Ordered By: Otis Mack on 12-08-2024 Cholesterol [Mass/Vol] 130 mg/dL <201 [facility] Comment on above: Cholesterol level, D esirable <200 mg/dLBorderline high cholesterol 200-239 mg/dLHigh cholesterol >=240 mg/dLRecommendations of the NCEP Adult Treatment Panel for the following risk-cutoff thresholds for the [place] population. Serum or plasma urea nitroge n measurement (mass/volume)Ordered By: Otis Mack on 12-08-2024 Urea nitrogen [Mass/Vol] 8 mg/dL 4-19 [facility] Sodium levelOrdered By: Otis Mack on 12-08-2024 Sodium [Moles/Vol] 139 mmol/L 133-145 [facility] Total proteinOrdered By: Jessica Mack on 12-08-2024 Protein [Mass/Vol] 5.8 g/dL Low 5.9-8.4 [facility] Triglycerides measurementOrd ered By: Otis Mack on 12-08-2024 Triglyceride [Mass/Vol] 336 mg/dL High <199 [facility] Comment on above: The drugs N-Acetylcy steine and Metamizole may falsely depress this assay. Normal range: <150 mg/dLBorderline High: 150-199 mg/dLHigh: 200-499 mg/dLVery High: >500 mg/dL White blood cell (WBC) count Ordered By: Otis Mack on 12-08-2024 WBC (Bld) [#/Vol] 8.6 10*3/uL Normal 4.4-11.0 [facility] Comment on above: Performed By: #### L 100.0100, L500.4100, L500.4050 #### [facility] [address] [place], [place], [address] Abdomen/Pelvis W IV Cont ONL Yon 12-07-2024 Abdomen/Pelvis W IV Cont ONLY [facility] Imaging Services [address] [place] [address] Abdomen/Pelvis W IV Cont ONLY MR#: [id number] Acct: [id number] Name: JUSTINO PACHECO Rep #: [id number] : 1975 M 48 From: Robert Braga MD PCP: Dr. Ronit Lara MD Status: REG ER Study: Abdomen/Pelvis W IV Cont ONLY Date of Exam: Exam# [id number] Ordering Dr: Pooja Valverde DO PROCEDURE: ABDOMEN/PELVIS W IV CONT ONLY, 12/07/2024 REASON FOR EXAM: RUQ ABD PAIN TECHNIQUE: CT abdomen and pelvis was performed with IV contrast. Multiplanar reformats were generated. IV contrast: Isovue-300 VOLUME: 98mL RADIATION DOSE SUMMARY: CTDlvol: 16.62+ 19.0 mGy DLP: 1166.65 mGycm One or more dose reduction techniques were used (e.g., Automated exposure control, adjustment of the mA and/or kV according to patient size, use of iterative reconstruction technique). COMPARISON: 12/07/2024 FINDINGS: Lung bases: Chronic granulomatous disease. Liver: Suspect mild steatosis. Mildly lobulated hepatic contours.. Spleen: Mild splenomegaly, 13.1 cm.. Gallbladder: Unremarkable gallbladder. Mild dilatation of the CBD to 10 mm with relatively abrupt transition of the pancreatic head Pancreas: Inflammatory changes surrounding the pancreatic head/uncinate process. Ill-defined soft tissue prominence in the region without measurable mass. 7 mm hypodensity in the uncinate process. No ductal dilatation. Adrenals: Unremarkable. Kidneys: Unremarkable. Bowel: Gastric underdistention limits evaluation of wall thickness. Minimal diverticulosis.. Normal caliber appendix. Lymph nodes: Unremarkable. Vasculature: Trace atherosclerosis. Prominent retroperitoneal collaterals of uncertain significance.. Peritoneum: Unremarkable. Bladder: Underdistended and suboptimally evaluated, grossly unremarkable. Reproductive Organs: Trace RIGHT hydrocele. LEFT orchiectomy.. Body Wall: Unremarkable. Bones: Mild multilevel spondylosis. Trace lumbar levoscoliosis may be positional.. CT/Abdomen/Pelvis W IV Cont ONLY IMPRESSION: 1. Findings are compatible with mild focal acute pancreatitis involving the pancreatic head/uncinate process. Lipase. No correlate with serum organized collection is present. Given soft tissue prominence versus edema in the region, recommend follow-up to ensure resolution and no underlying mass. No organized fluid collection at present. 2. Mild dilatation of the CBD with relatively abrupt transition at the pancreatic head. No visible choledocholithiasis or other measurable obstructing lesion. Correlate with serum bilirubin and consider MRCP as indicated. 3. 7 mm pancreatic hypodensity in the uncinate process, possible cystic neoplasm such as IPMN. No ductal dilatation. Recommend follow-up multiphase pancreatic protocol MRI abdomen with and without contrast and with MRCP in 1 year per ACR recommendations to evaluate stability. 4. Suspected hepatic steatosis with mild splenomegaly and mildly lobulated contours as can be seen in early fibrosis. No overt serosal nodularity to suggest cirrhosis. Correlate for clinical and laboratory evidence of chronic liver disease 5. Additional description as above. Reading Location: [id number] CC: Dr. Pooja Valverde DO; Dr. Ronit Lara MD Dna Analyst: Signed Normal [facility] Absolute lymphocyte countOrd ered By: Miguel Angel Hunter on 12-07-2024 Lymphocytes Auto (Unsp spec) [#/Vol] 1.54 10*3/uL 0.83-4.51 [facility] Absolute neutrophil countOrd ered By: Miguel Angel Hunter on 12-07-2024 Neutrophils (Bld) [#/Vol] 11.8 10*3/uL High 2.0-7.7 [facility] Anion gap in Serum or Plasma Ordered By: Miguel Angel Hunter on 12-07-2024 Anion gap [Moles/Vol] 11 mmol/L 5-15 [facility] Automated lymphocyte count a s percentage of total leukocytesOrdered By: Miguel Angel Hunter on 05-07-2025 Lymphocytes/100 WBC Auto (Unsp spec) 10.7 % Low 19-41 [facility] BUN/creatinine ratioOrdered By: Miguel Angel Hunter on 12-07-2024 Urea nitrogen/Creatinine [Mass ratio] 9.5 mg/mg Low 10-20 [facility] Basic Metabolic Profile (BMP )on 12-07-2024 BUN/CRE 9.5 RATIO Low 10-20 [facility] Comment on above: Performed By: #### L 501.2450, L500.2500, L100.0100, L500.3400, L503.6005 ####[facility] [address] [place], [address] Calcium [Mass/Vol] 9.2 mg/dL Normal 7.6-11.0 [facility] Comment on above: Performed By: #### L 501.2450, L500.2500, L100.0100, L500.3400, L503.6005 ####[facility] [address] [place], [address] Chloride [Moles/Vol] 102 mmol/L Normal 98-108 [facility] Comment on above: Performed By: #### L 501.2450, L500.2500, L100.0100, L500.3400, L503.6005 ####[facility] [address] [place], [address] CO2 [Moles/Vol] 23.6 mmol/L Normal 21.0-32.0 [facility] Comment on above: Performed By: #### L 501.2450, L500.2500, L100.0100, L500.3400, L503.6005 ####[facility] [address] [place], [address] Creatinine [Mass/Vol] 1.00 mg/dL Normal 0.70-1.20 [facility] Comment on above: Performed By: #### L 501.2450, L500.2500, L100.0100, L500.3400, L503.6005 ####[facility] [address] [place], [address] ECRCL 97.72 ml/min Normal 50-250 [facility] Comment on above: Performed By: #### L 501.2450, L500.2500, L100.0100, L500.3400, L503.6005 ####[facility] [address] [place], [address] GAP 11 Normal 5-15 [facility] Comment on above: Performed By: #### L 501.2450, L500.2500, L100.0100, L500.3400, L503.6005 ####[facility] [address] [place], [address] GFR/1.73 sq M.predicted among non-blacks MDRD (S/P/Bld) [Vol rate/Area] 93 mL/min/{1.73_m2} Normal >60 [facility] Comment on above: Result Comment: mL/m in/1.73m2 CKD-EPI Creatinine Equation (2020) Performed By: #### L 501.2450, L500.2500, L100.0100, L500.3400, L503.6005 ####[facility] [address] [place], [address] Glucose [Mass/Vol] 100 mg/dL High 70-99 [facility] Comment on above: Performed By: #### L 501.2450, L500.2500, L100.0100, L500.3400, L503.6005 ####[facility] [address] [place], [address] Potassium [Moles/Vol] 4.2 mmol/L Normal 3.3-5.1 [facility] Comment on above: Result Comment: Hemo lysis present, Results??could be affected. ?? Performed By: #### L 501.2450, L500.2500, L100.0100, L500.3400, L503.6005 ####[facility] [address] [place], [address] Sodium [Moles/Vol] 136 mmol/L Normal 133-145 [facility] Comment on above: Performed By: #### L 501.2450, L500.2500, L100.0100, L500.3400, L503.6005 ####[facility] [address] [place], [address] Urea nitrogen [Mass/Vol] 9 mg/dL Normal 4-19 [facility] Comment on above: Performed By: #### L 501.2450, L500.2500, L100.0100, L500.3400, L503.6005 ####[facility] [address] [place], [address] Basophil percentageOrdered B y: Miguel Angel Hunter on 12-07-2024 Basophils/100 WBC (Bld) 0.3 % 0-1 [facility] Bilirubin directOrdered By: Miguel Angelchristel Hunter on 12-07-2024 Bilirubin.direct [Mass/Vol] 0.16 mg/dL 0.00-0.30 [facility] Comment on above: Hemolysis present, R esults could be affected. Bilirubin, totalOrdered By: Miguel Angel Hunter on 12-07-2024 Bilirubin [Mass/Vol] 0.58 mg/dL 0.00-1.30 [facility] CBC W/Diff, Automatedon Absolute Lymph 1.54 X10 3/uL Normal 0.83-4.51 [facility] Comment on above: Performed By: #### L 501.2450, L500.2500, L100.0100, L500.3400, L503.6005 ####[facility] [address] [place], [address] Absolute Neut 11.8 X10 3/uL High 2.0-7.7 [facility] Comment on above: Performed By: #### L 501.2450, L500.2500, L100.0100, L500.3400, L503.6005 ####[facility] [address] [place], [address] Basophils/100 WBC (Bld) 0.3 % Normal 0-1 [facility] Comment on above: Performed By: #### L 501.2450, L500.2500, L100.0100, L500.3400, L503.6005 ####[facility] [address] [place], [address] Eosinophils/100 WBC (Bld) 0.8 % Normal 0-5 [facility] Comment on above: Performed By: #### L 501.2450, L500.2500, L100.0100, L500.3400, L503.6005 ####[facility] [address] [place], [address] Erythrocyte distribution width (RBC) [Ratio] 12.9 % Normal 11.6-14.6 [facility] Comment on above: Performed By: #### L 501.2450, L500.2500, L100.0100, L500.3400, L503.6005 ####[facility] [address] [place], [address] Hematocrit (Bld) [Volume fraction] 47.6 % Normal 40-54 [facility] Comment on above: Performed By: #### L 501.2450, L500.2500, L100.0100, L500.3400, L503.6005 ####[facility] [address] [place], [address] Hemoglobin (Bld) [Mass/Vol] 16.8 g/dL High 13.0-16.5 [facility] Comment on above: Performed By: #### L 501.2450, L500.2500, L100.0100, L500.3400, L503.6005 ####[facility] [address] [place], [address] IG% 0.600 Normal 0.0-0.9 [facility] Comment on above: Result Comment: IG% - Immature Granulocytes (promyelocytes, myelocytes and metamyelocytes) > 1% indicates that a LEFT SHIFT is Present. Performed By: #### L 501.2450, L500.2500, L100.0100, L500.3400, L503.6005 ####[facility] [address] [place], [address] Lymphocytes/100 WBC (Bld) 10.7 % Low 19-41 [facility] Comment on above: Performed By: #### L 501.2450, L500.2500, L100.0100, L500.3400, L503.6005 ####[facility] [address] [place], [address] MCH (RBC) [Entitic mass] 32.4 pg High 27.0-32.0 [facility] Comment on above: Performed By: #### L 501.2450, L500.2500, L100.0100, L500.3400, L503.6005 ####[facility] [address] [place], [address] MCHC (RBC) [Mass/Vol] 35.3 g/dL Normal 32-36 [facility] Comment on above: Performed By: #### L 501.2450, L500.2500, L100.0100, L500.3400, L503.6005 ####[facility] [address] [place], [address] MCV (RBC) [Entitic vol] 91.7 fL Normal 80-94 [facility] Comment on above: Performed By: #### L 501.2450, L500.2500, L100.0100, L500.3400, L503.6005 ####[facility] [address] [place], [address] Monocytes/100 WBC (Bld) 6.4 % Normal 0-10 [facility] Comment on above: Performed By: #### L 501.2450, L500.2500, L100.0100, L500.3400, L503.6005 ####[facility] [address] [place], [address] Neutrophils/100 WBC (Bld) 81.2 % High 47-70 [facility] Comment on above: Performed By: #### L 501.2450, L500.2500, L100.0100, L500.3400, L503.6005 ####[facility] [address] [place], [address] Nucleated RBC (Bld) [#/Vol] 0 10*3/uL Normal 0-5 [facility] Comment on above: Performed By: #### L 501.2450, L500.2500, L100.0100, L500.3400, L503.6005 ####[facility] [address] [place], [address] Platelet mean volume (Bld) [Entitic vol] 9.5 fL Normal 6.2-12.0 [facility] Comment on above: Performed By: #### L 501.2450, L500.2500, L100.0100, L500.3400, L503.6005 ####[facility] [address] [place], [address] Platelets (Bld) [#/Vol] 204 10*3/uL Normal 150-450 [facility] Comment on above: Performed By: #### L 501.2450, L500.2500, L100.0100, L500.3400, L503.6005 ####[facility] [address] [place], [address] RBC (Bld) [#/Vol] 5.19 10*6/uL Normal 4.6-6.2 [facility] Comment on above: Performed By: #### L 501.2450, L500.2500, L100.0100, L500.3400, L503.6005 ####[facility] [address] [place], [address] RDW SD 43.1 fl Normal 35.1-43.9 [facility] Comment on above: Performed By: #### L 501.2450, L500.2500, L100.0100, L500.3400, L503.6005 ####[facility] [address] [place], [address] WBC (Bld) [#/Vol] 14.5 10*3/uL High 4.4-11.0 [facility] Comment on above: Performed By: #### L 501.2450, L500.2500, L100.0100, L500.3400, L503.6005 ####[facility] [address] [place], [address] Carbon dioxide, total [Moles /volume] in Central venous bloodOrdered By: Miguel Angel Hunter on 12-07-2024 CO2 [Moles/Vol] 23.6 mmol/L 21.0-32.0 [facility] Chloride assayOrdered By: Joanne Hunter on 12-07-2024 Chloride [Moles/Vol] 102 mmol/L 98-108 [facility] Emergency Department Summary on 12-07-2024 Emergency Department Summary [facility] Medical Records Department [address] [place] [address] Emergency Department Summary 12/07/24 MR#: [id number] Acct: [id number] Name: JUSTINO PACHECO Rep #: [id number] : 1975 48 From: Miguel Angel Hunter DO PCP: Dr. Ronit Lara MD Status:REG ER Location: ED ADDENDUM by Dr. Pooja Valverde DO on 12/07/24 at 1219 Patient signed out to me pending right upper quadrant ultrasound results. Presenting with 2 days of upper abdominal pain and nausea. Does also regularly drink alcohol and has a history of gastritis. Right upper quadrant ultrasound does show a dilated common bile duct at 7 mm but no findings consistent with cholecystitis. His LFTs and alkaline phosphatase however are normal which is not consistent with any type of acute obstruction or ascending cholangitis. He does have a leukocytosis of uncertain etiology. Despite receiving Dilaudid and GI cocktail he has no improvement of his pain. Is then given fentanyl and again has no improvement of his pain. CT of the abdomen pelvis is added onWhich shows inflammatory changes started pancreatic head/uncinate process and ill-defined soft tissue prominence in the region without measurable mass. There is a 7 mm hypodensity in the uncinate process. There is no ductal dilation. Due to his intractable pain and CT findings as well as physical exam findings consistent with acute pancreatitis will be admitted for pain control. Is given further IV fluids and Dilaudid in the emergency room. Case discussed with hospitalist, Dr. Mack. Diagnosis 1 acute pancreatitis 2 dilated common bile duct 3 intractable epigastric abdominal pain 12/07/24 1219 Cosigner Signature (if applicable): cc: Dr. Ronit Lara MD * Signed HPI History of Present Illness Chief Complaint: Abd Pain Informant: patient and spouse/S.O. Narrative Narrative: Patient is a 48-year-old male with past medical history of of gastritis and lumbar radiculopathy. He states over the past 2 days or so he has developed upper abdominal pain with nausea. He states that he has taken medications for his gastritis without any symptom improvement. He reports with this he has had subjective fevers and chills. He denies any loose stool or diarrhea and he denies any known sick contacts. He reports that despite giving his symptoms time to improve they seem to be worsening and secondary to this he comes in for evaluation [facility] Medical History Lumbar radiculopathy, acute Wears glasses Alcohol use History of steroid therapy Arthritis Back pain Injury of back Migraine headache Injury of head and neck Gastric reflux Smoker History of fracture of clavicle Hx of fracture of wrist Left shoulder strain Strain of left hip Lumbar radiculopathy Lumbar strain Thoracic myofascial strain High cholesterol Home Medications ???Medication ???Instructions ???Recorded ???Last Taken ???Type naproxen 500 mg tablet (Naprosyn) 500 mg PO BID PRN pain #20 tabs 0 12/11/21 Unknown Rx sildenafil 100 mg tablet 100 mg PO DAILY PRN sexual FUNCTIO N 09/24/24 09/03/24 History multivitamin (Daily Multi-Vitamin 1 tab PO DAILY 10/04/24 Unknown H istory tablet) testosterone cypionate 100 mg/mL 100 mg IM QMONTH 12/07/24 Unknown History intramuscular oil (Depo-Testosterone) Allergy/AdvReac Type Severity Reaction Status Date / Time bee venom protein (honey bee) Allergy Anaphylaxis Verified 12/07/24 05:02 fish oil Allergy Hives Verified 12/07/24 05:02 Surgical History Hx of removal of testicle History of incision and drainage History of removal of retained hardware Social History Smoking Status: Current every day smoker tobacco type: cigarettes alcohol intake: current substance use type: does not use additional social history: daily use of aspirin and ibuprofen ROS ROS ED Constitutional Constitutional ED: Reports chills, fever(s) and subjective ENT ENT ED: Denies sore throat Cardiovascular Cardiovascular: Denies chest pain Respiratory/Chest Respiratory/Chest: Denies cough or dyspnea Gastrointestinal Gastrointestinal: Reports abdominal pain and nausea; Denies diarrhea or vomiting Genitourinary Genitourinary ED: Denies dysuria or hematuria Musculoskeletal Musculoskeletal: Denies back pain or myalgias Integumentary Denies rash Neurologic Neurologic: Denies headache(s) Hematologic/Lymphatic Hematologic/Lymphatic: Denies easy bleeding or easy bruising EXAM Physical Exam Const Vital Signs: 12/07/24 04:57 12/07/24 04:59 12/07/24 05:45 Temperature 98.1 F 98.1 F Temperature Source Oral Oral Pulse Rate 81 83 97 (more content not included)... Normal [facility] Eosinophil percentageOrdered By: Miguel Angel Hunter on 12-07-2024 Eosinophils/100 WBC (Bld) 0.8 % 0-5 [facility] Erythrocyte distribution wid th ratioOrdered By: Miguel Angel Hunter on 12-07-2024 Erythrocyte distribution width (RBC) [Ratio] 12.9 % 11.6-14.6 [facility] Erythrocyte distribution wid th standard deviationOrdered By: Miguel Angel Hunter on 12-07-2024 Erythrocyte distribution width (RBC) [Ratio] 43.1 fl 35.1-43.9 [facility] Gallbladderon 12-07-2024 Gallbladder [facility] Imaging Services [address] [place] [address] Gallbladder MR#: [id number] Acct: [id number] Name: JUSTINO PACHECO Rep #: [id number] : 1975 M 48 From: Rocky Wild MD PCP: Dr. Ronit Lara MD Status: REG ER Study: Gallbladder Date of Exam: 12/07/24 Exam# [id number] Ordering Dr: Miguel Angel Hunter DO PROCEDURE: GALLBLADDER 12/07/2024 REASON FOR EXAM: RUQ ABD PAIN COMPARISON: None available FINDINGS: Liver: Measures 17.8 cm and appears diffusely increased in echogenicity which can be seen with hepatic steatosis or other hepatocellular disease. Increased liver echogenicity limits parenchymal sonographic evaluation. No intrahepatic biliary ductal dilation. Hepatic color flow is present. Flow within the portal vein appears hepatopetal as expected. Gallbladder: Gallbladder appears within limits without stones, wall thickening or pericholecystic free fluid. Wall measures 2 mm. Report of a negative sonographic Meng's sign. Hypoechoic area adjacent to the gallbladder fossa may represent focal fatty sparing. Common bile duct: 7 mm mildly large for age. Pancreas: The visualized pancreas appears within limits. No pancreatic ductal dilation identified. The right kidney measures 12 x 5.6 x 5.3 cm with a cortical thickness of 1.6 cm. No right hydronephrosis, renal stone or perinephric fluid seen. No free fluid seen. US/Gallbladder IMPRESSION: CBD measures large for age at 7 mm. May correlate further with LFTs and alkaline phosphatase. The liver is diffusely increased in echogenicity which can be seen with hepatic steatosis or other hepatocellular disease. Reading Location: [facility] CC: Dr. Ronit Lara MD; Miguel Angel Hunter DO Dna Analyst: Signed Normal [facility] Glomerular filtration rate ( GFR) estimation/1.73 sq m using serum, plasma, or whole bOrdered By: Miguel Angel Hunter on 12-07-2024 GFR/1.73 sq M.predicted among non-blacks MDRD (S/P/Bld) [Vol rate/Area] 93 mL/min/{1.73_m2} >60 [facility] Comment on above: mL/min/1.73m2 CKD-EP I Creatinine Equation (2020) H AND P Exam - [facility] 12-07-2024 H&P Exam - Hospitalist [facility] Medical Records Department [address] [place] [address] H P Exam - Hospitalist 12/07/24 1253 MR#: [id number] Acct: [id number] Name: JUSTINO PACHECO Rep #: [id number] : 1975 48 From: Otis Mack DO PCP: Dr. Ronit Lara MD Status:ADM IN [place] [facility] - General General Date of Admission: 12/07/24 Date of Service: 12/07/24 Chief Complaint: abdominal pain. HPI Narrative JUSTINO PACHECO, is a 48 M who presents with 2 weeks of epigastric abdominal pain. Normally drinks alcohol from 1-12 beers/day, but states that he has not drank alcohol during this past 2 weeks. He presented to the ED and had an US that showed the CBD measuring 7mm. Diffusely increased echogenicity. Subsequent CT showed findings consistent with acute pancreatitis involving the pancreatic head/uncinate process. Mild dilation of the common bile duct with relatively abrupt transition at the pancreatic head. No visible clear cholelithiasis or other possible obstructing lesion. 7 mm pancreatic hypodensity in the uncinate process, possible cystic neoplasm. Patient was having significant abdominal pain and did require fentanyl as well as hydromorphone. Patient has never had any issues like this in the past. No prior history of pancreatitis. [facility] Medical History Lumbar radiculopathy, acute Wears glasses Alcohol use History of steroid therapy Arthritis Back pain Injury of back Migraine headache Injury of head and neck Gastric reflux Smoker History of fracture of clavicle Hx of fracture of wrist Left shoulder strain Strain of left hip Lumbar radiculopathy Lumbar strain Thoracic myofascial strain High cholesterol Home Medications ???Medication ???Instructions ???Recorded ???Last Taken ???Type naproxen 500 mg tablet (Naprosyn) 500 mg PO BID PRN pain #20 tabs 0 12/11/21 Unknown Rx sildenafil 100 mg tablet 100 mg PO DAILY PRN sexual FUNCTIO N 09/24/24 09/03/24 History multivitamin (Daily Multi-Vitamin 1 tab PO DAILY 10/04/24 Unknown H istory tablet) testosterone cypionate 100 mg/mL 100 mg IM QMONTH 12/07/24 Unknown History intramuscular oil (Depo-Testosterone) Allergy/AdvReac Type Severity Reaction Status Date / Time bee venom protein (honey bee) Allergy Anaphylaxis Verified 12/07/24 05:02 fish oil Allergy Hives Verified 12/07/24 05:02 Surgical History Hx of removal of testicle History of incision and drainage History of removal of retained hardware Social History Smoking Status: Current every day smoker tobacco type: cigarettes alcohol intake: current substance use type: does not use additional social history: daily use of aspirin and ibuprofen ROS ROS Narrative Has been cold over the past 2 weeks. All review of systems were negative except as mentioned above in the history of present illness and the other review of systems. Vital Signs Vital Signs Vital Signs: 12/07/24 04:57 12/07/24 04:59 12/07/24 05:45 Temperature 36.7 C 36.7 C Temperature Source Oral Oral Pulse Rate 81 83 97 Respiratory Rate 16 16 16 Blood Pressure 137/90 H 136/87 H 125/82 H Blood Pressure Mean 105 103 96 Pulse Ox 95 95 99 Oxygen Delivery Method Room Air Room Air Room Air 12/07/24 05:59 12/07/24 06:00 12/07/24 07:00 Temperature 36.9 C 36.9 C 36.9 C Temperature Source Oral Oral Oral Pulse Rate 73 72 77 Respiratory Rate 16 16 18 Blood Pressure 133/64 H 133/64 H 118/63 Blood Pressure Mean 87 87 81 Pulse Ox 94 98 95 Oxygen Delivery Method Room Air Room Air Room Air 12/07/24 09:00 12/07/24 11:00 Temperature Temperature Source Pulse Rate 70 76 Respiratory Rate 17 Blood Pressure 128/82 H Blood Pressure Mean 97 Pulse Ox 93 92 Oxygen Delivery Method Room Air Room Air Weight Weight: 95.5 kg Body Mass Index (BMI) 34.0 Physical Exam Const alert and no apparent distress HEENT normocephalic and head/scalp atraumatic Resp normal respiratory effort, no retractions, no use of accessory muscles and clear to auscultation bilaterally Cardio regular rate, regular rhythm, S1 normal heart sound and S2 normal heart sound GI GI Narrative: Epigastric right-sided abdominal pain. Patient with tense before out palpate that region. No rebound tenderness throughout. Extremity normal to inspection and full ROM Skin Skin Narrative: Numerous tattoos of varying age throughout. Neuro Sensorium / Orientation: awake and alert Psych affect normal Results Lab / Micro Data Attestation: I reviewed the patient's lab results. 12/07/24 05:42 12/07/24 05 (more content not included)... Normal [facility] Hematocrit Auto (Bld) [Volum e fraction]Ordered By: Miguel Angel Hunter on 12-07-2024 Hematocrit (Bld) [Volume fraction] 47.6 % 40-54 [facility] Hemoglobin measurementOrdere d By: Miguel Angel Hunter on 12-07-2024 Hemoglobin (Bld) [Mass/Vol] 16.8 g/dL High 13.0-16.5 [facility] Immature granulocytes/100 WB C Auto (Bld)Ordered By: Miguel Angel Hunter on 12-07-2024 Immature granulocytes/100 WBC (Bld) 0.600 % 0.0-0.9 [facility] Comment on above: IG% - Immature Granu locytes (promyelocytes, myelocytes and metamyelocytes) > 1% indicates that a LEFT SHIFT is Present. Laboratory - Chemistry and C hemistry - challengeOrdered By: Miguel Angel Hunter on 12-07-2024 AST [Catalytic activity/Vol] 29 U/L <38 [facility] Comment on above: Hemolysis present, R esults could be affected. Lactic Acidon 12-07-2024 Lactate [Moles/Vol] 1.1 mmol/L Normal 0.0-2.0 [facility] Comment on above: Order Comment: Y Performed By: #### L 501.2450, L500.2500, L100.0100, L500.3400, L503.6005 ####[facility] [address] [place], [place], [id number] Lactic acid measurementOrder ed By: Miguel Angel Hunter on 12-07-2024 Lactate [Moles/Vol] 1.1 mmol/L 0.0-2.0 [facility] Lipaseon 12-07-2024 Lipase [Catalytic activity/Vol] 76 U/L High 13-75 [facility] Comment on above: Result Comment: Plea se note: LIPASE revised reference range effective 22. New Lipase methodology. Expected to produce lower values than the previous assay method. NEW Reference Range: 13 - 75 U/L Performed By: #### L 501.2450, L500.2500, L100.0100, L500.3400, L503.6005 ####[facility] [address] [place], [address] Lipase measurementOrdered By : Miguel Angel Hunter on 12-07-2024 Lipase [Catalytic activity/Vol] 76 U/L High 13-75 [facility] Comment on above: Please note:LIPASE r evised reference range effective 22. New Lipase methodology. Expected to produce lower values than the previous assay method. NEW Reference Range: 13 - 75 U/L Liver Profileon 12-07-2024 Albumin [Mass/Vol] 4.1 g/dL Normal 3.5-5.0 [facility] Comment on above: Performed By: #### L 501.2450, L500.2500, L100.0100, L500.3400, L503.6005 ####[facility] [address] [place], [address] ALK PHOS 61 U/L Normal 40-129 [facility] Comment on above: Performed By: #### L 501.2450, L500.2500, L100.0100, L500.3400, L503.6005 ####[facility] [address] [place], [address] ALT [Catalytic activity/Vol] 47 U/L Normal <=46 [facility] Comment on above: Performed By: #### L 501.2450, L500.2500, L100.0100, L500.3400, L503.6005 ####[facility] [address] [place], [address] AST [Catalytic activity/Vol] 29 U/L Normal <=37 [facility] Comment on above: Result Comment: Hemo lysis present, Results??could be affected. ?? Performed By: #### L 501.2450, L500.2500, L100.0100, L500.3400, L503.6005 ####[facility] [address] [place], [address] Bilirubin [Mass/Vol] 0.58 mg/dL Normal 0.00-1.30 [facility] Comment on above: Performed By: #### L 501.2450, L500.2500, L100.0100, L500.3400, L503.6005 ####[facility] [address] [place], [address] Bilirubin.direct [Mass/Vol] 0.16 mg/dL Normal 0.00-0.30 [facility] Comment on above: Result Comment: Hemo lysis present, Results??could be affected. ?? Performed By: #### L 501.2450, L500.2500, L100.0100, L500.3400, L503.6005 ####[facility] [address] [place], [address] Globulin (S) [Mass/Vol] 3.7 g/dL Normal 2.2-4.2 [facility] Comment on above: Performed By: #### L 501.2450, L500.2500, L100.0100, L500.3400, L503.6005 ####[facility] [address] [place], [address] T PROT 7.8 g/dL Normal 5.9-8.4 [facility] Comment on above: Performed By: #### L 501.2450, L500.2500, L100.0100, L500.3400, L503.6005 ####[facility] [address] [place], [address] MCV (mean corpuscular volume ) determinationOrdered By: Miguel Angel Hunter on 12-07-2024 MCV (RBC) [Entitic vol] 91.7 fL 80-94 [facility] MR/CON.PCM.GIon 12-07-2024 MR/CON.PCM.GI [facility] Medical Records Department [address] [place] [address] Consultation - GI 12/07/24 1734 MR#: [id number] Acct: [id number] Name: JUSTINO PACHECO Rep #: [id number] : 1975 48 From: Pk Friend DO PCP: Dr. Ronit Lara MD Status:ADM IN Location: [place] [address]-1 HPI Consult Data Date of Consult: 12/07/24 HPI Narrative Reason for Consultation: Pancreatitis HPI Narrative: JUSTINO PACHECO, is a 48 M who presented to the ED with worsening abdominal pain. As per the chart he has a history of gastritis and lumbar radiculopathy. He has not seen a GI doctor in the past. He does take Naprosyn 500 mg p.o. twice daily for pain, sildenafil and testosterone. He stated over the past 2 days or so he has developed upper abdominal pain with nausea. He stated that he has taken medications for his gastritis without any symptom improvement. He reports with this he has had subjective fevers and chills. He denies any loose stool or diarrhea and he denies any known sick contacts. He reports that despite giving his symptoms time to improve they seem to be worsening and secondary to this he comes in for evaluation. Patient signed out to me pending right upper quadrant ultrasound results. Presenting with 2 days of upper abdominal pain and nausea. Does also regularly drink alcohol and has a history of gastritis. ???There was no history of hypertriglyceridemia or hypercalcemia. Family history was unremarkable. He does not know if he has been checked for diabetes. WBC 14.5 H, RBC 5.19, Hgb 16.8 H, Hct 47.6, MCV 91.7, Plt Count 204, Sodium 136, Potassium 4.2, Chloride 102, Carbon Dioxide 23.6, Anion Gap 11, BUN 9, Creatinine 1.00,Glucose 100 H, Lactic Acid 1.1, Calcium 9.2 Total Bilirubin 0.58, Direct Bilirubin 0.16, AST 29, ALT 47, Alkaline Phosphatase 61, Total Protein 7.8, Albumin 4.1, Globulin 3.7, Lipase 76 H US/Gallbladder CBD measures large for age at 7 mm. May correlate further with LFTs and alkaline phosphatase. The liver is diffusely increased in echogenicity which can be seen with hepatic steatosis or other hepatocellular disease. CT/Abdomen/Pelvis W IV Cont ONLY 1. Findings are compatible with mild focal acute pancreatitis involving the pancreatic head/uncinate process. Lipase. No correlate with serum organized collection is present. Given soft tissue prominence versus edema in the region, recommend follow-up to ensure resolution and no underlying mass. No organized fluid collection at present. 2. Mild dilatation of the CBD with relatively abrupt transition at the pancreatic head. No visible choledocholithiasis or other measurable obstructing lesion. Correlate with serum bilirubin and consider MRCP as indicated. 3. 7 mm pancreatic hypodensity in the uncinate process, possible cystic neoplasm such as IPMN. No ductal dilatation. Recommend follow-up multiphase pancreatic protocol MRI abdomen with and without contrast and with MRCP in 1 year per ACR recommendations to evaluate stability. 4. Suspected hepatic steatosis with mild splenomegaly and mildly lobulated contours as can be seen in early fibrosis. No overt serosal nodularity to suggest cirrhosis. [facility] Medical History (Updated 12/07/24 @ 17:[address] Whittington Friend, DO) Lumbar radiculopathy, acute Wears glasses Alcohol use History of steroid therapy Arthritis Back pain Injury of back Migraine headache Injury of head and neck Gastric reflux Smoker History of fracture of clavicle Hx of fracture of wrist Left shoulder strain Strain of left hip Lumbar radiculopathy Lumbar strain Thoracic myofascial strain High cholesterol Home Medications ???Medication ???Instructions ???Recorded ???Last Taken ???Type naproxen 500 mg tablet (Naprosyn) 500 mg PO BID PRN pain #20 tabs 0 12/11/21 Unknown Rx sildenafil 100 mg tablet 100 mg PO DAILY PRN sexual FUNCTIO N 09/24/24 09/03/24 History multivitamin (Daily Multi-Vitamin 1 tab PO DAILY 10/04/24 Unknown H istory tablet) testosterone cypionate 100 mg/mL 100 mg IM QMONTH 12/07/24 Unknown History intramuscular oil (Depo-Testosterone) Allergy/AdvReac Type Severity Reaction Status Date / Time bee venom protein (honey bee) Allergy Anaphylaxis Verified 12/07/24 05:02 fish oil Allergy Hives Verified 12/07/24 05:02 Surgical History Hx of removal of testicle History of incision and drainage History of removal of retained hardware Social History Smoking Status: Current every day smoker tobacco type: cigarettes alcohol intake: current substance use type: does not use additional social history: daily use of aspirin and ibuprofen ROS Constitutional Constitutional: Denies fatigue, fever(s), poor appeti (more content not included)... Normal [facility] MRCP Abdomen without Contras ton 12-07-2024 MRCP Abdomen without Contrast [facility] Imaging Services [address] [place], [place] [address] MRCP Abdomen without Contrast MR#: [id number] Acct: [id number] Name: JUSTINO PACHECO Rep #: [id number] : 1975 M 48 From: Robert Braga MD PCP: Dr. Ronit Lara MD Status: ADM IN Study: MRCP Abdomen without Contrast Date of Exam: Exam# [id number] Ordering Dr: Otis Mack DO PROCEDURE: MRCP ABDOMEN WITHOUT CONTRAST, 12/07/2024 REASON FOR EXAM: PANCREATITIS TECHNIQUE: Multiplanar multisequence MRI abdomen was performed without IV contrast. MRCP was performed including generation of MIP reconstructions and 3D reformats. COMPARISON: CT of same date FINDINGS: Variable overall mild motion limitation. Some sequences are mild/moderately motion degraded. Note that the exam was optimized for evaluation of the gallbladder and biliary tree rather than the remaining abdominal viscera. Note also that sensitivity is limited in the absence of IV contrast. Liver: Similar mildly lobulated hepatic contours.. Gallbladder: Suspect T1 bright layering sludge. No calculi identified. Biliary tree: Mild dilatation of the CBD to 9 mm in the common hepatic duct to 8 mm, with gradual tapering at the level of the pancreatic head. No intrahepatic ductal dilatation. No filling defect identified to suggest choledocholithiasis.. Pancreas Mild stranding along the head/uncinate process as on previous CT. No ductal dilatation. No definite correlate for the previously seen 7 mm hypodensity within the anterior pancreatic head/uncinate process. The intrapancreatic lipomas likely present in the region. Other: None. MRI/MRCP Abdomen without Contrast IMPRESSION: 1. Findings again compatible with mild acute pancreatitis. Given soft tissue prominence of the pancreatic head/uncinate process, follow-up again recommended following the patient's acute presentation to ensure resolution as previously suggested. Ideally, given the below, recommend multiphase pancreatic protocol MRI abdomen with and without IV contrast and with MRCP. 2. Similar mildly dilated CBD without filling defect identified to suggest choledocholithiasis or other measurable obstructing lesion evident in the absence of IV contrast/routine MR abdomen sequences. Correlate with serum bilirubin. Findings could be related to ampullary stenosis or perhaps less likely an occult underlying ampullary lesion. This would be optimally evaluated by ERCP as indicated but could be further evaluated at the time of above follow-up. 3. Suspect gallbladder sludge without cholelithiasis. 4. Additional description as above and as described previously. Reading Location: [id number] CC: Dr. Otis Mack DO; Dr. Ronit Lara MD Dna Analyst: Signed Normal [facility] Magnetic resonance imaging r eportOrdered By: Robert Braga on 12-07-2024 Study report [facility] Imaging Services [address] [place], [place] [id number] MRCP Abdomen without Contrast MR#: [id number] Acct: [id number] Name: PENJUSTINO GARLAND Rep #: [id number] : 1975 M 48 From: Rosi Braga MD PCP: Dr. Ronit Lara MD Status: AD M IN Study:MRCP Abdomen without Contrast Date of Jones acr: 12/07/24 Exam# [id number] Ordering Dr: Otis Mack DO PROCEDURE: MRCP ABDOMEN WITHOUT CONTRAST, 12/07/2024 REASON FOR EXAM: PANCREATITIS TECHNIQUE: Multiplanar multisequence MRI abdomen was performed without IV contrast. MRCP was performed including generation of MIP reconstructions and 3D reformats. COMPARISON: CT of same date FINDINGS: Variable overall mild motion limitation. Some sequences are mild/moderately motion degraded. Note that the exam was optimized for evaluation of the gallbladder and biliary tree rather than the remaining abdominal viscera. Note also that sensitivity is limited in the absence of IV contrast. Liver: Similar mildly lobulated hepatic contours.. Gallbladder: Suspect T1 bright layering sludge. No calculi identified. Biliary tree: Mild dilatation of the CBD to 9 mm in the common hepatic duct to 8mm, with gradual tapering at the level of the pancreatic head. No intrahepatic ductal dilatation. No filling defect identified to suggest choledocholithiasis.. Pancreas Mild stranding along the head/uncinate process as on previous CT. No ductal dilatation. No definite correlate for the previously seen 7 mm hypodensity within the anterior pancreatic head/uncinate process. The intrapancreatic lipomas likely present in the region. Other: None. MRI/MRCP Abdomen without Contrast IMPRESSION: 1. Findings again compatible with mild acute pancreatitis. Given soft tissue prominence of the pancreatic head/uncinate process, follow-up again recommended following the patient's acute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 leg injury that occurred today. Patient states that his accidentally ran over his leg with a golf cart. Patient states his leg was pinned between a golf cart and a metal gate. Patient describes the pain as throbbing. Patient admits to some tingling into his foot. Patient states his pain is worse with movement. Patient states his last tetanus was approximately 6 years ago. Patient denies any weakness. Patient denies any other injuries. Chief Complaint: Trauma Informant: patient Occured/Mechanism Mechanism/Context: Yes direct blow Onset/Context/Timing Onset: Today Context: Sudden Onset Timing: Continuous Quality of Pain: Throbbing Location: Left ankle Worsened by: Movement Relieved by: Nothing Associated Symptoms Associated Symptoms: Positive for Parasthesia; Negative for Weakness or Loss of Funtion Narrative Tetanus Immunization: 5-10 years PFSH [facility] Medical History Lumbar radiculopathy, acute Wears glasses Alcohol use History of steroid therapy Arthritis Back pain Injury of back Migraine headache Injury of head and neck Gastric reflux Smoker History of fracture of clavicle Hx of fracture of wrist Left shoulder strain Strain of left hip Lumbar radiculopathy Lumbar strain Thoracic myofascial strain High cholesterol Home Medications ???Medication ???Instructions ???Recorded ???Last Taken ???Type naproxen 500 mg tablet (Naprosyn) 500 mg PO BID PRN pain #20 tabs 12/11/21 Unknown Rx pantoprazole 20 mg tablet,delayed 20 mg PO DAILY 12/11/21 11/29/22 History release testosterone cypionate 200 mg/mL 100 mg IM QWEEK 12/11/21 Unknown History intramuscular oil fenofibrate nanocrystallized 48 mg 48 mg PO DAILY 11/11/22 Unknown History tablet (Tricor) atorvastatin 40 mg tablet 40 mg PO QHS 12/02/22 Unknown History multivitamin 1 cap PO DAILY 12/02/22 Unknown History cyclobenzaprine 10 mg tablet 10 mg PO HS PRN muscle spasm #14 12/17/22 Unknown Rx tabs hydrocodone-acetaminoph en 5-325mg 1 tab PO Q4H PRN PRN Pain 2 days 08/17/23 Unknown Rx 5mg-325mg #10 TABLETS naproxen 500 mg tablet (Naprosyn) 500 mg PO BID PRN pain #20 tabs 08/17/23 Unknown Rx cyclobenzaprine 10 mg tablet 10 mg PO TID PRN Muscle Spasm #15 01/10/24 Unknown Rx TABLETS Allergy/AdvReac Type Severity Reaction Status Date / Time bee venom protein (honey bee) Allergy Anaphylaxis Verified 03/30/24 20:45 fish oil Allergy Hives Verified 03/30/24 20:45 Surgical History Hx of removal of testicle History of incision and drainage History of removal of retained hardware Social History Smoking Status: Current every day smoker tobacco type: cigarettes alcohol intake: current substance use type: does not use additional social history: daily use of aspirin and ibuprofen ROS ROS ED Constitutional Constitutional ED: Denies chills or fever(s) Eyes Eyes: Denies blurry vision or change in vision ENT ENT ED: Denies rhinorrhea or sore throat Cardiovascular Cardiovascular: Denies chest pain or palpitations Respiratory/Chest Respiratory/Chest: Denies cough or dyspnea Gastrointestinal Gastrointestinal: Denies nausea or vomiting Genitourinary Genitourinary ED: Denies dysuria or hematuria Musculoskeletal Musculoskeletal: Denies back pain or neck pain Integumentary Denies abscess or rash Neurologic Neurologic: Denies headache(s) or weakness Allergic/Immunologic Allergic/Immunologic ED: Denies mouth swelling or urticaria EXAM Physical Exam Const Vital Signs: 03/30/24 20:43 Temperature 97.8 F Temperature Source Temporal Pulse Rate 78 Respiratory Rate 16 Blood Pressure 146/99 H Blood Pressure Mean 114 Pulse Ox 96 Oxygen Delivery Method Room Air Positive well nourished and well developed General Appearance ED: well developed and NAD HEENT Reports moist mucous membranes Neck full ROM and supple Extremity Extremity Narrative: There is tenderness over the medial aspect of the left distal tibia. There is a 1 cm laceration over this area. There is no bony crepitance or step-off noted. There is no obvious deformity noted. There is mild tenderness over the proximal tibia as well. There is decreased range of motion of the left knee and left ankle secondary to pain. Pe (more content not included)... Normal [facility] Tibia Fibula 2 Viewson 03-30 Tibia Fibula 2 Views [facility] Imaging Services [address] [place] [address] Tibia Fibula 2 Views MR#: [id number] Acct: [id number] Name: JUSTINO PACHECO Rep #: [id number] : 1975 M 48 From: Derik Olivas PCP: Dr. Ronit Lara MD Status: REG ER Study: Tibia Fibula 2 Views Date of Exam: 03/30/24 Exam# [id number] Ordering [place]: [place] [id number] EXAM: XR LEFT TIBIA AND FIBULA, 2 VIEWS CLINICAL INDICATION: Injury/Pain TECHNIQUE: Frontal and lateral views of the left tibia and fibula. COMPARISON: No relevant prior studies available. FINDINGS: BONES/JOINTS: Unremarkable. No acute fracture. No subluxation. Normal alignment. Preservation of the joint space. No sclerotic or destructive changes observed. SOFT TISSUES: Calf soft tissue swelling posteriorly and medially may be due to hematoma. RAD/Tibia Fibula 2 Views IMPRESSION: Calf soft tissue swelling posteriorly and medially may be due to hematoma. No fracture. Electronically Signed: Derik Fernandes MD at 22:25 EDT , CC: Dr. Otis Carlos DO; Dr. Ronit Lara MD Dna Analyst: Signed Normal [facility] Emergency Department Summary on 03-27-2024 Emergency Department Summary [facility] Medical Records Department [address] [place] [address] Emergency Department Summary 03/27/24 MR#: [id number] Acct: [id number] Name: JUSTINO PACHECO Rep #: [id number] : 1975 48 From: Severo Gann PCP: Dr. Ronit Lara MD Status:DEP ER Location: ED HPI History of Present Illness Chief Complaint: Upper Extremity Injury Narrative Narrative: Patient presenting today with pain to his right hand after an injury that occurred last night. He was visiting with a new horse and got his hand smashed between the horse and the stable. He reports that he is ambidextrous but does use his left hand more. He denies any other injury. [facility] Medical History Lumbar radiculopathy, acute Wears glasses Alcohol use History of steroid therapy Arthritis Back pain Injury of back Migraine headache Injury of head and neck Gastric reflux Smoker History of fracture of clavicle Hx of fracture of wrist Left shoulder strain Strain of left hip Lumbar radiculopathy Lumbar strain Thoracic myofascial strain High cholesterol Home Medications ???Medication ???Instructions ???Recorded ???Last Taken ???Type naproxen 500 mg tablet (Naprosyn) 500 mg PO BID PRN pain #20 tabs 12/11/21 Unknown Rx pantoprazole 20 mg tablet,delayed 20 mg PO DAILY 12/11/21 11/29/22 History release testosterone cypionate 200 mg/mL 100 mg IM QWEEK 12/11/21 Unknown History intramuscular oil fenofibrate nanocrystallized 48 mg 48 mg PO DAILY 11/11/22 Unknown History tablet (Tricor) atorvastatin 40 mg tablet 40 mg PO QHS 12/02/22 Unknown History multivitamin 1 cap PO DAILY 12/02/22 Unknown History cyclobenzaprine 10 mg tablet 10 mg PO HS PRN muscle spasm #14 12/17/22 Unknown Rx tabs hydrocodone-acetaminoph en 5-325mg 1 tab PO Q4H PRN PRN Pain 2 days 08/17/23 Unknown Rx 5mg-325mg #10 TABLETS naproxen 500 mg tablet (Naprosyn) 500 mg PO BID PRN pain #20 tabs 08/17/23 Unknown Rx cyclobenzaprine 10 mg tablet 10 mg PO TID PRN Muscle Spasm #15 01/10/24 Unknown Rx TABLETS Allergy/AdvReac Type Severity Reaction Status Date / Time bee venom protein (honey bee) Allergy Anaphylaxis Verified 03/27/24 10:53 fish oil Allergy Hives Verified 03/27/24 10:53 Surgical History Hx of removal of testicle History of incision and drainage History of removal of retained hardware Social History Smoking Status: Current every day smoker tobacco type: cigarettes alcohol intake: current substance use type: does not use additional social history: daily use of aspirin and ibuprofen ROS ROS ED Constitutional Constitutional ED: Denies chills or fever(s) Cardiovascular Cardiovascular: Denies chest pain Respiratory/Chest Respiratory/Chest: Denies dyspnea Gastrointestinal Gastrointestinal: Denies abdominal pain, nausea or vomiting Musculoskeletal Musculoskeletal: Reports arthralgias Integumentary Denies Abrasions Neurologic Neurologic: Denies paresthesias EXAM Physical Exam Const Vital Signs: 03/27/24 10:54 Temperature 97.6 F L Temperature Source Temporal Pulse Rate 101 H Respiratory Rate 18 Blood Pressure 133/87 H Blood Pressure Mean 102 Pulse Ox 92 Oxygen Delivery Method Room Air Positive well nourished, well developed and no apparent distress General Appearance ED: well developed HEENT Reports normocephalic and head/scalp atraumatic Mouth ED: Yes moist mucous membranes normal Eyes PERRL and EOMs intact bilaterally Neck full ROM Resp normal respiratory effort and clear to auscultation bilaterally Cardio regular rate and regular rhythm Back/Spine normal to inspection Extremity normal to inspection and full ROM Extremity Narrative: Edema to the dorsum of the right hand, full flexion and extension at the MCP, PIP, DIP joints of the right hand. Right radial pulse 2+, good capillary refill, sensation intact. Neuro oriented x3, CN's II-XII intact bilaterally, moves all extremities, no focal motor deficits and no sensory deficits noted Sensorium / Orientation: awake and alert Psych mental status grossly normal and thought process normal Skin no rashes or lesions noted and no wounds MDM MDM MDM Narrative Medical decision making narrative: Patient presenting today with pain to his right hand after getting his hand smashed between a horse and the stall yesterday. X-ray will be obtained to rule out fracture, I did offer analgesia, he declines. X-ray shows evidence of previous wrist fracture which patient had surgery for. No acute fracture in his hand or wrist. He will be given a cock up wrist splint, RICE (more content not included)... Normal [facility] Hand Min 3 Viewson 4 Hand Min 3 Views [facility] Imaging Services [address] [place] [id number] Hand Min 3 Views MR#: [id number] Acct: [id number] Name: JUSTINO PACHECO Rep #: [id number] : 1975 M 48 From: Alphonse Younger MD PCP: Dr. Ronit Lara MD Status: REG ER Study: Hand Min 3 Views Date of Exam: 03/27/24 Exam# [id number] Ordering Dr: Joan Summers [id number] EXAM: XR RIGHT HAND COMPLETE, 3 OR MORE VIEWS CLINICAL INDICATION: hand pain TECHNIQUE: Frontal, lateral and oblique views of the right hand. COMPARISON: No relevant prior studies available. FINDINGS: BONES/JOINTS: Small well-corticated bone of the distal ulnar side of process due to remote fracture injury. Preservation of the joint space. No sclerotic or destructive changes observed. SOFT TISSUES: Unremarkable. No soft tissue swelling or gas. No radiopaque foreign body. RAD/Hand Min 3 Views IMPRESSION: No acute osseous abnormality in the right hand. Electronically Signed: Alphonse Younger MD at 11:47 EDT , CC: Dr. Ronit Lara MD; OSIRIS Babb Dna Analyst: Signed Normal [facility] CNCOon 03-23-2024 CNCO Letter Text Normal [facility] CNOVon 03-23-2024 CNOV Office Visit (AGGENS 3) JUSTINO PACHECO ([id number]) 1975 M Date Time Provider Department 03/23/24 11:15 AM SOHAM [email or web address] During your visit today, we recorded the following information about you: Pulse Blood pressure Weight Height 94/minute 148/90 98.9 kg 1.676 m Soham Machado MD 03/23/2024 11:34 AM Signed Soham Machado M.D. Surgical Oncology [address] [facility], [address] [place] [address] Plan SUBJECTIVE Justino Pacheco is a 48 year old male presenting for follow-up status post excision of a left scalp cyst. Patient reports that he is doing relatively well from surgery. He does have some headaches which are slowly resolving and some swelling at the surgical site with no redness. No drainage. He reports no other new or worsening medical condition since his last visit. The ROS, medical, surgical, family, and social history were reviewed by Soham Machado MD OBJECTIVE BP 148/90 Pulse 94 Ht 167.6 cm (5' 6) Wt 98.9 kg (218 lb) SpO2 98% BMI 35.19 kg/m? BMI 35.19 kg/(m2) Physical Exam: General: Patient standing in no distress. Scalp: Incision healing well with no signs of infection. ASSESSMENT AND PLAN 48-year-old man status post excision of a epidermal inclusion cyst of the scalp. Patient is recovering well. I discussed with patient that he can follow-up with me as needed. He did mention but he may be interested in having a back cyst removed as well. Advised patient that this was totally feasible and he could likely perform this in the office. If he wishes to proceed he will call the clinic. Answered all the patient's questions to his satisfaction he is agreeable to this plan. Soham Machado MD 03/23/2024 11:32 AM Allergies As of Date: 03/23/2024 Noted Allergy Reaction BEE VENOM PROTEIN (HONEY BEE) 10/19/2020 10 - Anaphylaxis Comments: All bee venom FISH OIL 10/19/2020 14 - Other: See Comments Comments: Nausea, vomiting heartburn, insomnia Date Reviewed: 03/23/2024 Reviewed by: Soham Machado MD - Fully Assessed Reason for Visit: Post Op Follow Up [3947] Cmt: Post op head lipoma Primary Visit Diagnosis:EIC (epidermal inclusion cyst) [L72.0] Prescriptions as of 03/23/2024 - Fenofibrate (LOFIBRA) 160 mg tablet Take 160 mg by mouth once daily. - amitriptyline (ELAVIL) 25 mg tablet Take 25 mg by mouth daily at bedtime. TAKE ONE TABLET BY MOUTH NIGHTLY - icosapent ethyl (VASCEPA) capsule Take 2 capsules by mouth twice daily with meals. - atorvastatin (LIPITOR) 40 mg tablet Take 40 mg by mouth once daily. - pantoprazole DR (PROTONIX) 20 mg tablet Take 20 mg by mouth once daily. - sildenafil (VIAGRA) 100 mg tablet Take 100 mg by mouth as needed. - testosterone cypionate 200 mg/mL kit Inject 0.5 mL intramuscularly one time a week. - MULTIVITAMIN ORAL Take by mouth once daily. - glucosamine/msm/chondro itin A ([id number]-XNJ ORAL) Take 500 mg by mouth three times daily. - ibuprofen (MOTRIN) 800 mg tablet Take 800 mg by mouth every 6 hours as needed. - EPINEPHRINE HCL INJECTION 0.3 mg by INJECTION(UNSPECIFIED PARENTERAL ROUTES) route. Problem List As Of Date: 03/23/2024 (None) Level of Service: POSTOP FOLLOW UP VISIT RELATED TO ORIGINAL PX [38348] Encounter Status:Closed by SOHAM MACHADO on 03/23/24 [facility] ANES POSTPROC EVALon 024 ANES POSTPROC EVAL HNO ID: [id number] Author: LUZ MARIA HUGGINS MD Service: Anesthesiology Author Type: Anesthesiologist Type: Anesthesia Postprocedure Evaluation Filed: 03/11/2024 10:42 Note Text: POST ANESTHESIA EVALUATION NOTE : 1975 Procedure Summary Date: 03/11/24 Room / Location: IA OR / IA OR Anesthesia Start: 757 Anesthesia Stop: 915 Procedure: EXCISION LIPOMA SCALP [1918] - wide local excision lipoma scalp 3cm (Scalp) Diagnosis: Lipoma of head (Lipoma of head [D17.0]) Surgeons: Soham Machado MD Responsible Provider: Luz Maria Huggins MD Anesthesia Type: MAC ASA Status: 2 Anesthesia Type: MAC Last Vitals Vitals Value Taken Time BP 136/84 03/11/24 1015 Temp 36 ?C (96.8 ?F) 03/11/24 0945 HR SpO2 80 03/11/24 1030 Resp 21 03/11/24 1030 SpO2 98 % 03/11/24 1030 Post Anesthesia Patient Status Patient Evaluation: PACU. PACU/ICU Patient Condition: stable. Anticipated Disposition: phase 2 then home. Neurological Status: aware and responsive. Pulmonary Status: breathing comfortably on room air Airway Control: returned to baseline unsupported. Cardiovascular Status: stable. Pain Management: clinically adequate Postoperative Hydration: acceptable. Intraoperative Events: no significant anesthesia events Post Operative Nausea/Vomiting Status: no significant post operative nausea or vomiting Recommendation: continue current plan of care. Anesthesia Observations No Documentation SIGNATURE: Luz Maria Huggins MD PATIENT NAME: Justino Pacehco DATE: March 11, 2024 TIME: 10:41 AM CSN: [id number] [facility] ANES PRE-OPon 03-11-2024 ANES PRE-OP HNO ID: [id number] Author: LUZ MARIA HUGGINS MD Service: Anesthesiology Author Type: Anesthesiologist Type: Anesthesia Preprocedure Evaluation Filed: 03/11/2024 08:30 Note Text: ANESTHESIOLOGY DAY OF SURGERY NOTE : 1975 Procedure Information Anesthesia Start Date/Time: 03/11/24 0758 Procedure: EXCISION LIPOMA SCALP [1918] - wide local excision lipoma scalp 3cm (Scalp) Location: [place] [facility] [place] [facility] Surgeons: Soham Machado MD Estimated body mass index is 33.54 kg/m? as calculated from the following: Height as of 10/19/20: 167.6 cm (5' 6). Weight as of this encounter: 94.3 kg (207 lb 12.8 oz). Most recent hematocrit and potassium results: No results found for this basename: HCT,HEMATOCRIT,K,POTASS IUM Other history: Scalp lipoma with bony erosion + tobacco - 30 year history, 1/2 ppd HLD Relevant Problems No relevant active problems I - PHYSICAL EVALUATION AIRWAY Patient intubated: No. Tracheostomy tube not present Mallampati: III. TM distance: >3 FB. Neck ROM: full ROM without neurological symptoms. Mouth opening: adequate. Short neck: no. Thick neck: yes Shaw present: yes DENTAL Dental findings: missing tooth/teeth and poor dentition. II - ANESTHESIA PLAN ASA Score: 2 Anesthetic Plan: MAC The patient is a current smoker. NPO Status: adequate Beta Renetta Perioperative beta-renetta/statin: n/a. Monitoring Plan Monitoring plan: standard ASA. Post Procedure Analgesic Plan Postoperative analgesic plan: multimodal analgesia. Informed Consent Anesthetic risks, benefits, alternatives, personnel and consent discussed: yes. Patient / Responsible Libertarian agrees to proceed: yes Patient / Surrogate agrees to blood products: blood products not planned Significant changes in the patient condition since the History and Physical, not otherwise documented in primary service progress note: no. Potential Anesthesia issues that may suggest increased risk of complications or contraindication to planned procedure: none. Vitals Value Taken Time BP 135/75 03/11/24 0702 Pulse 78 03/11/24 0702 Resp 16 03/11/24701 Temp 36.7 ?C (98.1 ?F) 03/11/24701 SpO2 95 % 03/11/24701 Facility-Administered Medications as of 03/11/2024 Medication Dose Route Frequency lidocaine (PF) 10 mg/mL (1 %) 1-2 mg injection (XYLOCAINE) 0.1-0.2 mL INTRADERMAL PRN lactated ringers iv infusion 5-30 mL/hr INTRAVENOUS CONTINUOUS NaCl 0.9% iv flush bag 20 mL INTRAVENOUS PRN [COMPLETED] acetaminophen 975 mg tab(s) (TYLENOL) 975 mg ORAL Pre-Op Once [COMPLETED] celecoxib 400 mg cap(s) (CeleBREX) 400 mg ORAL Pre-Op Once [COMPLETED] gabapentin 300 mg cap(s) (NEURONTIN) 300 mg ORAL Pre-Op Once water for irrigation irrigation X (OR/PROCEDURE) PRN BUPivacaine HCl injection (SENSORCAINE) X (OR/PROCEDURE) PRN Outpatient Medications as of 03/11/2024 Medication Sig Fenofibrate (LOFIBRA) 160 mg tablet Take 160 mg by mouth once daily. amitriptyline (ELAVIL) 25 mg tablet Take 25 mg by mouth daily at bedtime. TAKE ONE TABLET BY MOUTH NIGHTLY atorvastatin (LIPITOR) 40 mg tablet Take 40 mg by mouth once daily. pantoprazole DR (PROTONIX) 20 mg tablet Take 20 mg by mouth once daily. sildenafil (VIAGRA) 100 mg tablet Take 100 mg by mouth as needed. MULTIVITAMIN ORAL Take by mouth once daily. glucosamine/msm/chondro itin A ([id number]-UZXUZG-ZQG ORAL) Take 500 mg by mouth three times daily. icosapent ethyl (VASCEPA) capsule Take 2 capsules by mouth twice daily with meals. (Patient not taking: Reported on 01/27/2024) testosterone cypionate 200 mg/mL kit Inject 0.5 mL intramuscularly one time a week. ibuprofen (MOTRIN) 800 mg tablet Take 800 mg by mouth every 6 hours as needed. (Patient not taking: Reported on 03/11/2024) EPINEPHRINE HCL INJECTION 0.3 mg by INJECTION(UNSPECIFIED PARENTERAL ROUTES) route. I have interviewed and examined the patient. I have reviewed the medical record and/or the pre-anesthesia evaluation, pertinent labs, and test results. This contains updated information obtained within 48 hours of Surgery/Procedure. SIGNATURE: Luz Maria Huggins MD PATIENT NAME: Justino Pacheco DATE: March 11, 2024 TIME: 8:29 AM CSN: [id number] [facility] BRIEF OP NOTon 03-11-2024 BRIEF OP NOT HNO ID: [id number] Author: SOHAM MACHADO MD Service: General Surgery Author Type: Resident Type: Brief Op Note Filed: 03/14/2024 08:17 Note Text: Attestation signed by Soham Machado MD at 03/14/2024 8:17 AM I was present for the critical and ray portions of the surgery and I was immediately available to provide assistance. BRIEF OPERATIVE / PROCEDURE NOTE LOG ID: [id number] SURGERY/PROCEDURE DATE: 03/11/2024 INCISION/PROCEDURE START TIME: 8:23 AM INCISION CLOSE/PROCEDURE END TIME: 9:05 AM SURGEON(S)/PROCEDURALIS T(S) AND WAREHOUSE GENERAL LABORER(S): Surgeon(s) and Role: * Soham Machado MD - Primary * Anny Yee DO - Resident - Assisting No Additional Staff SURGERY/PROCEDURE(S): Scalp Cyst Excision ANESTHESIA: Monitored Anesthesia Care FINDINGS: Approximately 3 cm cyst ESTIMATED BLOOD LOSS: 5 mls SPECIMENS: ID Type Source Tests Collected by Time Destination A : left scalp cyst Tissue Cyst, Skin, Sebaceous SURGICAL PATHOLOGY Soham Machado MD 03/11/2024 8:42 AM COMPLICATIONS: None CLOSURE TECHNIQUE: Primary PRE-OP/PRE-PROCEDURE DIAGNOSIS: Scalp Lipoma POST-OP/POST-PROCEDURE DIAGNOSIS: Scalp Cyst SIGNATURE: Anny Yee DO PATIENT NAME: Justino Pacheco DATE: March 11, 2024 TIME: 9:25 AM [facility] CNCOon 03-11-2024 CNCO Letter Text [facility] HISTORY PHYSICALon HISTORY PHYSICAL HNO ID: [id number] Author: SOHAM MACHADO MD Service: General Surgery Author Type: Resident Type: H&P Filed: 03/14/2024 08:17 Note Text: Attestation signed by Soham Machado MD at 03/14/2024 8:17 AM I personally saw and examined the patient. I reviewed the resident's note. I agree with the resident's assessment and plan except as noted below. Plan of care discussed with: Provider, RN, Patient. UPDATED HISTORY AND PHYSICAL EXAMINATION SERVICE DATE: 03/11/2024 SERVICE TIME: 7:41 AM PHYSICAL EXAM MUST BE COMPLETED ON ADMISSION The History and Physical has been reviewed and the patient has been examined. The contents accurately reflect the patient's condition with the following additions or revisions since the HANDP was completed. Examination indicates no changes. This HANDP can be found in the Electronic Medical Record dated 01/27/24. SIGNATURE: Anny Yee DO PATIENT NAME: Justino Pacheco DATE: March 11, 2024 TIME: 7:40 AM [facility] NURSING PROGon 03-11-2024 NURSING PROG HNO ID: [id number] Author: NICOLE BUENO RN Service: Nursing Author Type: Registered Nurse Type: Nursing Progress Note Filed: 03/11/2024 09:34 Note Text: DR Yee called to bedside to address incisional swelling. She aspirated a small amount of blood from the site and instructed to hold pressure until swelling subsides. [facility] OPERATIVE NOon 03-11-2024 OPERATIVE NO HNO ID: [id number] Author: SOHAM MACHADO MD Service: General Surgery Author Type: Physician Type: Operative Report Filed: 03/14/2024 08:24 Note Text: OPERATIVE/PROCEDURE REPORT LOG ID: [id number] SURGERY/PROCEDURE DATE: 03/11/2024 INCISION/PROCEDURE START TIME: 8:23 AM INCISION CLOSE/PROCEDURE END TIME: 9:05 AM SURGEON(S)/PROCEDURALIS T(S) AND WAREHOUSE GENERAL LABORER(S): Surgeon(s) and Role: * Soham Machado MD - Primary * Anny Yee DO - Resident - Assisting No Additional Staff INDICATIONS: Patient is a 48 year old man with longstanding nodule on his left forehead. Imaging of this nodule revealed a possible lipoma with some concern for bone erosion on the scalp. Given these findings patient was offered resection and agreed to proceed. SURGERY/PROCEDURE(S): Procedure(s): EXCISION LIPOMA SCALP [1918] - wide local excision lipoma scalp 3cm ANESTHESIA: Monitored Anesthesia Care SURGERY/PROCEDURE DETAILS: After correct patient identification, the patient was brought to the operating room and placed in supine position. A pre-procedure checklist was performed. Appropriate DVT prophylaxis and perioperative antibiotics were given prior to the induction of general anesthesia. Patient was then prepped and draped in usual fashion and a surgical timeout was performed. Local anesthesia was infiltrated into the operative site prior to incision for a total of 10 cc. A 3 cm incision was made in left forehead overlying the nodule which was approximately 2 cm. The dissection was carried into the superficial subcutaneous tissue. We identified the fascia overlying the skull and incised this to expose the nodule. We then circumferentially dissected the nodule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 Diabetic >or= 6.5 % Please note range changes. Absolute lymphocyte countOrd ered By: Dr. Stanton on 2022 Lymphocytes Auto (Unsp spec) [#/Vol] 2.28 10*3/uL 0.83-4.51 [facility] Basophil percentageOrdered B y: Reynaldo Stanton on 2022 Basophil percentage 0 SEEN /hpf 0-5 [facility] Basophil percentageOrdered B y: Dr. Stanton on 2022 Basophils/100 WBC (Bld) 0.5 % 0-1 [facility] Bilirubin [Mass/Vol] 0.30 mg/dL 0.20-1.00 [facility] Comment on above: For patients on eltr ombopag therapy, use of Dimension [place] TBIL is not recommended. Chloride [Moles/Vol] 107 mmol/L 98-107 [facility] Eosinophils/100 WBC (Bld) 1.0 % 0-5 [facility] Glucose [Mass/Vol] 109 mg/dL 74-106 [facility] Comment on above: Fasting Glucose resu lt from 100 to 125 mg/dL suggests IMPAIRED HOMEOSTASIS per A.D.A. criteria. Neutrophils (Bld) [#/Vol] 7.4 10*3/uL 2.0-7.7 [facility] Neutrophils/100 WBC (Bld) 69.7 % 47-70 [facility] Potassium [Moles/Vol] 3.9 mmol/L 3.5-5.1 [facility] Comment on above: Slight Hemolysis, Re sult may be falsely increased. Protein [Mass/Vol] 8.4 g/dL 6.4-8.2 [facility] Sodium [Moles/Vol] 141 mmol/L 136-145 [facility] WBC (Bld) [#/Vol] 10.7 10*3/uL 4.4-11.0 [facility] Bilirubin Test strip Ql (U)O rdered By: Dr. Stanton on 2022 Bilirubin Ql (U) Negative Negative [facility] Blood erythrocytes count (nu mber/volume)Ordered By: Dr. Stanton on 2022 RBC (Bld) [#/Vol] 5.05 10*6/uL 4.6-6.2 [facility] Blood hemoglobin measurement (mass/volume)Ordered By: Dr. Stanton on 2022 Hemoglobin (Bld) [Mass/Vol] 15.9 g/dL 13.0-16.5 [facility] Blood lymphocytes/100 leukoc ytesOrdered By: Dr. Stanton on 2022 Lymphocytes/100 WBC (Bld) 21.4 % 19-41 [facility] Blood monocytes/100 leukocyt esOrdered By: Dr. Stanton on 2022 Monocytes/100 WBC (Bld) 6.8 % 0-10 [facility] Blood platelet mean volumeOr dered By: Dr. Stanton on 2022 Platelet mean volume (Bld) [Entitic vol] 9.5 fL 6.2-12.0 [facility] Determination of erythrocyte mean corpuscular volume (MCV)Ordered By: Dr. Stanton on 2022 MCV (RBC) [Entitic vol] 94.3 fL 80-94 [facility] Hematocrit Auto (Bld) [Volum e fraction]Ordered By: Dr. Stanton on 2022 Hematocrit (Bld) [Volume fraction] 47.6 % 40-54 [facility] Ketones Test strip Ql (U)Ord ered By: Dr. Stanton on 2022 Ketones Ql (U) Negative Negative [facility] Laboratory - Chemistry and C hemistry - challengeOrdered By: Dr. Stanton on 2022 ALP [Catalytic activity/Vol] 43 U/L 45-117 [facility] ALT [Catalytic activity/Vol] 91 U/L 16-61 [facility] CO2 [Moles/Vol] 22.0 mmol/L 21.0-32.0 [facility] Globulin (S) [Mass/Vol] 4.3 g/dL 2.2-4.2 [facility] Urea nitrogen/Creatinine [Mass ratio] 11.6 mg/mg 10-20 [facility] Laboratory - Drug toxicology Ordered By: Dr. Stanton on 2022 Amphetamines Ql (U) Negative <1000 ng/mL [facility] Benzodiazepines Ql (U) Negative < 200 ng/mL [facility] Cannabinoids Screen Ql (U) Negative < 50 ng/mL [facility] Cocaine Ql (U) Negative < 300 ng/mL [facility] Opiates Ql (U) Negative < 300 ng/mL [facility] Laboratory - Hematology and Cell countsOrdered By: Dr. Stanton on 2022 Erythrocyte distribution width (RBC) [Entitic vol] 51.3 fL 35.1-43.9 [facility] Erythrocyte distribution width (RBC) [Ratio] 14.9 % 11.6-14.6 [facility] Immature granulocytes/100 WBC (Bld) 0.600 % 0.0-0.9 [facility] Comment on above: IG% - Immature Granu locytes (promyelocytes, myelocytes and metamyelocytes) > 1% indicates that a LEFT SHIFT is Present. MCH (RBC) [Entitic mass] 31.5 pg 27.0-32.0 [facility] Nucleated RBC/100 WBC (Bld) [Ratio] 0 % 0-5 [facility] MCHC Auto (RBC) [Mass/Vol]Or dered By: Dr. Stanton on 2022 MCHC (RBC) [Mass/Vol] 33.4 g/dL 32-36 [facility] Mucus LM Ql (Urine sed)Order ed By: Reynaldo Stanton on 2022 Mucus Ql (Urine sed) 0 SEEN /hpf [facility] Nitrite Test strip Ql (U)Ord ered By: Dr. Stanton on 2022 Nitrite Ql (U) Negative Negative [facility] No Panel InformationOrdered By: Dr. Stanton on 2022 MDMA (Ecstasy) Screen Negative < 500 ng/mL [facility] Urine Barbiturates Screen Negative < 200 ng/mL [facility] Urine Drug Screen Comment [facility] Comment on above: CONFIRMATORY TESTING FOR ALL POSITIVE URINE DRUG SCREENRESULTS WILL ONLY BE SENT OUT UPON PHYSICIAN ORDER. VISTA Urine Drug Screen methods provide only preliminaryanalytical test results. A more specific alternate chemicalmethod must be used in order to obtain a confirmedanalytical result. Gas chromatography/mass spectrometery(GC/MS) is the preferred confirmatory method. Clinicalconsideration and professional judgement should be appliedto any drug of abuse test result, particularly whenpreliminary positive results are used. URINE TCA TESTING MUST BE ORDERED SEPARATELY. USE TESTMNEMONIC: [facility] Urine Methadone Screen Negative < 300 ng/mL [facility] Estimated Creatinine Clearance Calc 66.17 ml/min [facility] Estimated GFR (MDRD) Amer 71 mL/min >60 [facility] Comment on above: GFR Calc Estimated GFR (MDRD) Non-Af Amer 59 mL/min >60 [facility] Comment on above: Non- GFR Calc Ethyl Alcohol Level 180.0 mg/dL [facility] Comment on above: The serum:whole bloo d ethanol ratio is approximately 1.14and varies slightly with hematocrit. Medical Alcohol reference interval and critical value innon-tolerant individuals; 50 - 100 Impairment 100 Intoxication 100 - 250 Severe Poisoning 250 - 400 Deep/possible fatal coma Troponin I High Sensitivity 16 pg/mL 3.0-78.0 [facility] Comment on above: Please Note: New Irish t Units and Gender Specific Reference Ranges. For more information see Policy Stat Procedure [place] High Sensitivity Troponin (TNIH) and attachments. Platelets bldOrdered By: Dr. Stanton on 2022 Platelets (Bld) [#/Vol] 313 10*3/uL 150-450 [facility] Protein Test strip Ql (U)Ord ered By: Dr. Stanton on 2022 Protein Ql (U) 100 mg/dl Negative [facility] Serum or plasma albumin akin urement (mass/volume)Ordered By: Dr. Stanton on 2022 Albumin [Mass/Vol] 4.1 g/dL 3.2-5.0 [facility] Serum or plasma albumin/glob ulin mass ratioOrdered By: Dr. Stanton on 2022 Albumin/Globulin [Mass ratio] 1.0 {ratio} 0.9-2.4 [facility] Serum or plasma calcium akin urement (mass/volume)Ordered By: Dr. Stanton on 2022 Calcium [Mass/Vol] 9.1 mg/dL 8.5-10.1 [facility] Serum or plasma creatinine m easurement (mass/volume)Ordered By: Dr. Stanton on 2022 Creatinine [Mass/Vol] 1.38 mg/dL 0.70-1.30 [facility] Comment on above: The validity of the calculated GFR & GFRAA in patients over 70 years has not been determined. Clinical correlation is essential. Serum or plasma urea nitroge n measurement (mass/volume)Ordered By: Dr. Stanton on 2022 Urea nitrogen [Mass/Vol] 16 mg/dL 7-18 [facility] Squamous epithelial cells de tection in urine sediment by light microscopyOrdered By: Reynaldo Stanton on 2022 Epithelial cells.squamous LM Ql (Urine sed) 0 SEEN /hpf 0-5 [facility] Thin prep Papanicolaou smear with manual screeningOrdered By: Dr. Stanton on 2022 Thin prep Papanicolaou smear with manual screening 88 U/L 15-37 [facility] Comment on above: Slight Hemolysis, Re sult may be falsely increased. Thin prep Papanicolaou smear with manual screening 12 5-15 [facility] Urine blood detectionOrdered By: Dr. Stanton on 2022 RBC Ql (U) 25 /ul Negative [facility] Urine blood detectionOrdered By: Reynaldo Stanton on 2022 RBC Ql (U) 0 SEEN /hpf 0-5 [facility] Urine clarityOrdered By: Dr. Stanton on 2022 Clarity (U) Clear Clear [facility] Urine color determinationOrd ered By: Dr. Stanton on 2022 Color (U) Yellow Yellow [facility] Urine glucose detectionOrder ed By: Dr. Stanton on 2022 Glucose Ql (U) Normal mg/dl Normal [facility] Urine leukocyte esterase det ection by dipstickOrdered By: Dr. Stanton on 2022 Leukocyte esterase Test strip Ql (U) Negative Negative [facility] Urine pHOrdered By: Dr. Aquilino eduardo on 2022 pH (U) 5.0 [pH] 5.0 - 8.0 [facility] Urine phencyclidine (PCP) de tectionOrdered By: Dr. Stanton on 2022 Phencyclidine Ql (U) Negative < 25 ng/mL [facility] Urine sediment bacteria coun t by microscopy (number/high power field)Ordered By: Reynaldo Stanton on 2022 Bacteria LM.HPF (Urine sed) [#/Area] 0 /[HPF] None Seen [facility] Urine specific gravity measu rementOrdered By: Dr. Stanton on 2022 Specific gravity (U) [Rel density] 1.025 1.002-1.030 [facility] Urobilinogen Auto test strip Ql (U)Ordered By: Dr. Stanton on 2022 Urobilinogen Ql (U) Normal mg/dl Normal [facility] Absolute lymphocyte countOrd ered By: Dr. Lara on 11-01-2022 Lymphocytes Auto (Unsp spec) [#/Vol] 2.13 10*3/uL 0.83-4.51 [facility] Basophil percentageOrdered B y: Dr. Lara on 11-01-2022 Basophils/100 WBC (Bld) 0.3 % 0-1 [facility] Bilirubin [Mass/Vol] 0.40 mg/dL 0.20-1.00 [facility] Comment on above: Slight Lipemia, Resu lt may be falsely increased. For patients on eltrombopag therapy, use of Dimension [place] TBIL is not recommended. Chloride [Moles/Vol] 110 mmol/L 98-107 [facility] Cholesterol [Mass/Vol] 149 mg/dL <200 [facility] Comment on above: Slight Lipemia, Resu lt may be falsely increased. <200 mg/dL Desirable 200-240 mg/dL Borderline >240 mg/dL High Risk Eosinophils/100 WBC (Bld) 2.7 % 0-5 [facility] Glucose [Mass/Vol] 110 mg/dL 74-106 [facility] Comment on above: Slight Lipemia, Resu lt may be falsely increased.Fasting Glucose result from 100 to 125 mg/dL suggests IMPAIRED HOMEOSTASIS per A.D.A. criteria. Neutrophils (Bld) [#/Vol] 4.2 10*3/uL 2.0-7.7 [facility] Neutrophils/100 WBC (Bld) 60.4 % 47-70 [facility] Potassium [Moles/Vol] 4.3 mmol/L 3.5-5.1 [facility] Comment on above: Moderate Hemolysis, Result may be falsely increased.-Slight Lipemia, Result may be falsely increased. Protein [Mass/Vol] 7.2 g/dL 6.4-8.2 [facility] Comment on above: Slight Lipemia, Resu lt may be falsely increased. Sodium [Moles/Vol] 138 mmol/L 136-145 [facility] Triglyceride [Mass/Vol] 1288 mg/dL <199 [facility] Comment on above: The drugs N-Acetylcy steine and Metamizole may falsely depress this assay. Slight Lipemia, Result may be falsely increased. Serum Triglycerides Reference Interval Normal <150 mg/dL Borderline high 150 - 199 mg/dL High 200 - 499 mg/dL Very High > or = 500 mg/dL WBC (Bld) [#/Vol] 7.0 10*3/uL 4.4-11.0 [facility] Blood erythrocytes count (nu mber/volume)Ordered By: Dr. Lara on 11-01-2022 RBC (Bld) [#/Vol] 4.55 10*6/uL 4.6-6.2 [facility] Blood hemoglobin measurement (mass/volume)Ordered By: Dr. Lara on 11-01-2022 Hemoglobin (Bld) [Mass/Vol] 14.4 g/dL 13.0-16.5 [facility] [facility] Blood lymphocytes/100 leukoc ytesOrdered By: Dr. Lara on 11-01-2022 Lymphocytes/100 WBC (Bld) 30.6 % 19-41 [facility] Blood monocytes/100 leukocyt esOrdered By: Dr. Lara on 11-01-2022 Monocytes/100 WBC (Bld) 5.6 % 0-10 [facility] Blood platelet mean volumeOr dered By: Dr. Lara on 11-01-2022 Platelet mean volume (Bld) [Entitic vol] 9.7 fL 6.2-12.0 [facility] Determination of erythrocyte mean corpuscular volume (MCV)Ordered By: Dr. Lara on 11-01-2022 MCV (RBC) [Entitic vol] 91.6 fL 80-94 [facility] Hematocrit Auto (Bld) [Volum e fraction]Ordered By: Dr. Lara on 11-01-2022 Hematocrit (Bld) [Volume fraction] 41.7 % 40-54 [facility] Laboratory - Chemistry and C hemistry - challengeOrdered By: Dr. Lara on 11-01-2022 ALP [Catalytic activity/Vol] 34 U/L 45-117 [facility] ALT [Catalytic activity/Vol] 39 U/L 16-61 [facility] CO2 [Moles/Vol] 24.0 mmol/L 21.0-32.0 [facility] Comment on above: Slight Lipemia, Resu lt may be falsely increased. Free T4 [Mass/Vol] 0.73 ng/dL 0.76-1.46 [facility] Comment on above: Slight Lipemia, Resu lt may be falsely increased. Globulin (S) [Mass/Vol] 3.7 g/dL 2.2-4.2 [facility] Urea nitrogen/Creatinine [Mass ratio] 13.9 mg/mg 10-20 [facility] Laboratory - Hematology and Cell countsOrdered By: Dr. Lara on 11-01-2022 Erythrocyte distribution width (RBC) [Entitic vol] 45.8 fL 35.1-43.9 [facility] Erythrocyte distribution width (RBC) [Ratio] 13.6 % 11.6-14.6 [facility] Immature granulocytes/100 WBC (Bld) 0.400 % 0.0-0.9 [facility] Comment on above: IG% - Immature Granu locytes (promyelocytes, myelocytes and metamyelocytes) > 1% indicates that a LEFT SHIFT is Present. MCH (RBC) [Entitic mass] 31.6 pg 27.0-32.0 [facility] Nucleated RBC/100 WBC (Bld) [Ratio] 0 % 0-5 [facility] MCHC Auto (RBC) [Mass/Vol]Or dered By: Dr. Lara on 11-01-2022 MCHC (RBC) [Mass/Vol] 34.5 g/dL 32-36 [facility] No Panel InformationOrdered By: Dr. Lara on 11-01-2022 Hepatitis B Surface Antigen Non-Reactive Nonreactive [facility] Hepatitis C Antibody Non-Reactive Nonreactive [facility] Comment on above: Non Reactive: < 0.8 Equivocal: >/= 0.8 to < 1.0 Reactive: >/= 1.0The CDC recommends that a reactive/equivocal HCV antibody result be followed up by the HCV Nucleic Acid Amplificationtest (920051) Estimated GFR (MDRD) Amer 88 mL/min >60 [facility] Comment on above: GFR Calc Estimated GFR (MDRD) Non-Af Amer 73 mL/min >60 [facility] Comment on above: Non- GFR Calc Thyroid Stimulating Hormone (TSH) 1.82 uIU/mL 0.358-3.74 [facility] Platelets bldOrdered By: Dr. Lara on 11-01-2022 Platelets (Bld) [#/Vol] 262 10*3/uL 150-450 [facility] Serum hepatitis B virus surf tremaine antibody IgG detectionOrdered By: Dr. Lara on 11-01-2022 HBV surface IgG Ql (S) Non-Reactive [facility] Comment on above: Non Reactive: Incons istent with immunity less than <10 mIU/mL Reactive: Consistent with immunity greater than or equal to 10 mIU/mL Serum or plasma albumin akin urement (mass/volume)Ordered By: Dr. Lara on 11-01-2022 Albumin [Mass/Vol] 3.5 g/dL 3.2-5.0 [facility] Serum or plasma albumin/glob ulin mass ratioOrdered By: Dr. Lara on 11-01-2022 Albumin/Globulin [Mass ratio] 0.9 {ratio} 0.9-2.4 [facility] Serum or plasma calcium akin urement (mass/volume)Ordered By: Dr. Lara on 11-01-2022 Calcium [Mass/Vol] 8.3 mg/dL 8.5-10.1 [facility] Comment on above: Slight Lipemia, Resu lt may be falsely increased. Serum or plasma cholesterol in HDL measurement (mass/volume)Ordered By: Dr. Lara on 11-01-2022 Cholesterol in HDL [Mass/Vol] 9 mg/dL >40 [facility] Comment on above: The drugs N-Acetylcy steine and Metamizole may falsely depress this assay. Reference Range HDL <40 mg/dL Low HDL Cholesterol HDL >or= 60 mg/dL High HDL Cholesterol Serum or plasma cholesterol in VLDL measurement (mass/volume)Ordered By: Dr. Lara on 11-01-2022 Cholesterol in VLDL [Mass/Vol] TNP [facility] Comment on above: Test not performed Serum or plasma creatinine m easurement (mass/volume)Ordered By: Dr. Lara on 11-01-2022 Creatinine [Mass/Vol] 1.15 mg/dL 0.70-1.30 [facility] Comment on above: Slight Lipemia, Resu lt may be falsely increased.The validity of the calculated GFR & GFRAA in patients over 70 years has not been determined. Clinical correlation is essential. Serum or plasma low density lipoprotein (LDL) cholesterol measurement (mass/volume)Ordered By: Dr. Lara on 11-01-2022 Cholesterol in LDL [Mass/Vol] [facility] Comment on above: Test not performed Serum or plasma urea nitroge n measurement (mass/volume)Ordered By: Dr. Lara on 11-01-2022 Urea nitrogen [Mass/Vol] 16 mg/dL 7-18 [facility] Comment on above: Slight Lipemia, Resu lt may be falsely increased. Thin prep Papanicolaou smear with manual screeningOrdered By: Dr. Lara on 11-01-2022 Thin prep Papanicolaou smear with manual screening 35 U/L 15-37 [facility] Thin prep Papanicolaou smear with manual screening 4 5-15 [facility] Whole blood hemoglobin A1c/t otal hemoglobin ratio (mass fraction)Ordered By: Dr. Lara on 11-01-2022 HbA1c (Bld) [Mass fraction] 5.6 % 3.8-5.6 [facility] Comment on above: Normal < 5.7 % Predi abetic 5.7 - 6.4 % Diabetic >or= 6.5 % Please note range changes. CBC panel Auto (Bld)on 09-23 Erythrocyte distribution width (RBC) [Entitic vol] 13.5 % 11.6 - 14.8 % [facility] [place] [facility] Hematocrit (Bld) [Volume fraction] 41.3 % 41.0 - 53.0 % [facility] [place] [facility] Hemoglobin (Bld) [Mass/Vol] 14.0 g/dL 13.5 - 17.5 g/dL [facility] [place] [facility] MCH (RBC) [Entitic mass] 31.1 pg 26.0 - 34.0 pg [facility] [place] [facility] MCHC (RBC) [Mass/Vol] 33.9 g/dL 31.0 - 37.0 g/dL [facility] [place] [facility] MCV (RBC) [Entitic vol] 91.8 fL 80.0 - 100.0 fL [facility] [place] [facility] Nucleated RBC (Bld) [#/Vol] 0.00 10*3/uL [facility] [place] [facility] Nucleated RBC/100 WBC (Bld) [Ratio] 0.0 % [facility] [place] [facility] Platelet mean volume (Bld) [Entitic vol] 10.5 fL 9.4 - 12.4 fL [facility] [place] [facility] Platelets (Bld) [#/Vol] 202 10*3/uL [facility] [place] [facility] RBC (Bld) [#/Vol] 4.50 10*6/uL [facility] WBC (Bld) [#/Vol] 6.73 10*3/uL [facility] [place] [facility] Monitoron 09-23-2021 Prostate specific Ag [Mass/Vol] 0.37 ng/mL 0.00 - 0.99 ng/mL [facility] [place] [facility] Prostate specific Ag [Mass/V ol]on 09-23-2021 Interpretation and review of laboratory results Normal [facility] Testosterone, Totalon 2021 Interpretation and review of laboratory results Normal [facility] [place] [facility] Testosterone [Mass/Vol] 167 ng/dL 123 - 813 ng/dL [facility] Hepatic function 2000 panelo n 04-26-2021 Albumin [Mass/Vol] 3.9 g/dL 3.2 - 5.2 g/dL [facility] [place] [facility] ALP [Catalytic activity/Vol] 53 U/L 40 - 150 U/L [facility] [place] [facility] ALT [Catalytic activity/Vol] 110 U/L High 14 - 65 U/L [facility] [place] [facility] AST [Catalytic activity/Vol] 59 U/L High 0 - 45 U/L [facility] [place] [facility] Bilirubin [Mass/Vol] 0.3 mg/dL 0.0 - 1 .3 mg/dL [facility] [place] [facility] Bilirubin.conjugated [Mass/Vol] mg/dL 0.0 - 0.4 mg/dL [facility] [place] [facility] Protein [Mass/Vol] 7.4 g/dL 6.0 - 8.0 g/dL [facility] [place] [facility] Lipid 1996 panelon Cholesterol [Mass/Vol] 111 mg/dL 100 - 199 mg/dL [facility] [place] [facility] Comment on above: National Cholesterol Education Program Guidelines: Cholesterol Desirable: <200 mg/dL Borderline High: 200-239 mg/dL High: greater than or equal to 240 mg/dL Cholesterol in HDL [Mass/Vol] 12 mg/dL Low 40 - 59 [facility] [place] [facility] Comment on above: National Cholesterol Education Program Guidelines: HDL Cholesterol Low: <40 mg/dL Near Optimal: 40-59 mg/dL High: greater than or equal to 60 mg/dL Cholesterol in LDL [Mass/Vol] [facility] [place] [facility] Comment on above: Calculated LDL inval id, triglycerides >400 mg/dl Cholesterol non HDL [Mass/Vol] 99 mg/dL [facility] [place] [facility] Comment on above: National Cholesterol Education Program Guidelines: NON HDL Cholesterol Desirable: <130 mg/dL Borderline High: 130-159 mg/dL High: 160-189 mg/dL Very High: > or = 190 mg/dL Cholesterol.total/Chol esterol in HDL [Mass ratio] 9.3 {ratio} ratio [facility] [place] [facility] Comment on above: Males Cholesterol/HD L Ratio: Average risk: 5.0 1/2 average risk: 3.4 2 x average risk: 9.6 Triglyceride [Mass/Vol] 666 mg/dL High 30 - 150 mg/dL [facility] [place] [facility] Comment on above: National Cholesterol Education Program Guidelines: Triglyceride Normal: <150 mg/dL Borderline High: 150-199 mg/dL High: 200-499 mg/dL Very High: greater than or equal to 500 mg/dL No Panel Informationon 04-26 Interpretation and review of laboratory results Abnormal [facility] CNPLuann 12-11-2020 [place] Telephone (WALTER) JUSTINO PACHECO ([id number]) 1975 M Date Time Provider Department 12/11/20 RICARDO GODDARD During your visit today, we recorded the following information about you: [place]b [place] [facility] [place]/11[place] 10:15 AM Signed I called [facility] and waited on hold before going through a litany of menus over 30 minutes ? they do not see a case, and the case number as provided is incorrect. They also have a different Dr. Goddard listed who is not me. A new case cannot be opened within 60 days but they say they will try. I asked them to connect me to the appeals department and they are trying to do this. Please update the patient that he needs the appointment with Dr. Edgar irrespective (no show previously). The patient has a very rare lipid disorder and irrespective of whether the medication is approved, he needs Dr. Edgar?s input. Ricardo Goddard M.D., Ph.D. Sbazra Moody [facility] 12/11/2020 10:15 AM Signed Medication APPROVED until 2023 ---- i.d. # [id number]. The insurance company will be sending him a letter. Ricardo Goddard M.D., Ph.D. Sb Moody [facility] 12/11/2020 10:15 AM Signed Sb Moody [facility] 12/11/2020 10:15 AM Signed Please remind him he must stop Gemfibrozil when he starts Vascepa (approved) and he must continue atorvastatin. He must also see Dr. Edgar who will assume care of him. Ricardo Goddard M.D., Ph.D. Sb Jonancy [facility] 12/11/2020 3:10 PM Addendum Called and left message for Mrs. Pacheco to call back to give all information regarding medications and appointments scheduled for 01/[address] Edgar and EKG. Mrs. Pacheco called back and I gave her all instructions: Stop Gemfibrozil (Tricor) when he starts Vascepa and he must continue atorvastatin. Gave her date/times of EKG and appointment with Dr. Edgar on 01/23/21. She is in agreement. Sb Moody Allergies As of Date: 12/11/2020 Noted Allergy Reaction BEE VENOM PROTEIN (HONEY BEE) 10/19/2020 10 - Anaphylaxis Comments: All bee venom FISH OIL 10/19/2020 14 - Other: See Comments Comments: Nausea, vomiting heartburn, insomnia Date Reviewed: 10/19/2020 Reviewed by: Kristyn Hill) STEF Jain - Fully Assessed Reason for Visit: Insurance Authorization [[id number]] Cmt: VASCEPA? Prescriptions as of 12/11/2020 Sig: X ICOSAPENT ETHYL 1 GRAM CAPSULE Take 2 capsules by mouth twic* ATORVASTATIN 40 MG TABLET Take 40 mg by mouth once kira* PANTOPRAZOLE 20 MG TABLET,DEL* Take 20 mg by mouth once kira* SILDENAFIL 100 MG TABLET Take 100 mg by mouth as neede* TESTOSTERONE CYPIONATE 200 MG* Inject 0.5 mL intramuscularly* MULTIVITAMIN ORAL Take by mouth. [id number] ORAL Take 500 mg by mouth three ti* IBUPROFEN 800 MG TABLET Take 800 mg by mouth every 6 * EPINEPHRINE HCL INJECTION 0.3 mg by INJECTION(UNSPECIFI* X FENOFIBRATE 160 MG TABLET Take 160 mg by mouth once reza* Problem List As Of Date: 12/11/2020 (None) Encounter Status:Closed by SB HUNTLEY on 12/11/20 [facility] OBSOLETEon 12-11-2020 OBSOLETE Orders Only (CHERRIEN) JUSTINO PACHECO ([id number]) 1975 M Date Time Provider Department 12/11/20 RICARDO GODDARD During your visit today, we recorded the following information about you: Allergies As of Date: 12/11/2020 Noted Allergy Reaction BEE VENOM PROTEIN (HONEY BEE) 10/19/2020 10 - Anaphylaxis Comments: All bee venom FISH OIL 10/19/2020 14 - Other: See Comments Comments: Nausea, vomiting heartburn, insomnia Date Reviewed: 10/19/2020 Reviewed by: Kristyn (Rn) STEF Jain - Fully Assessed Order(s):icosapent ethyl (VASCEPA) capsuleTake 2 capsules by mouth twice daily with meals.Disp: 120 capsuleRfl: 5 Prescriptions as of 12/11/2020 Sig: ICOSAPENT ETHYL 1 GRAM CAPSULE Take 2 capsules by mouth twic* ATORVASTATIN 40 MG TABLET Take 40 mg by mouth once kira* PANTOPRAZOLE 20 MG TABLET,DEL* Take 20 mg by mouth once kira* SILDENAFIL 100 MG TABLET Take 100 mg by mouth as neede* TESTOSTERONE CYPIONATE 200 MG* Inject 0.5 mL intramuscularly* MULTIVITAMIN ORAL Take by mouth. [id number] ORAL Take 500 mg by mouth three ti* IBUPROFEN 800 MG TABLET Take 800 mg by mouth every 6 * EPINEPHRINE HCL INJECTION 0.3 mg by INJECTION(UNSPECIFI* Problem List As Of Date: 12/11/2020 (None) Prescriptions ordered this encounter Disp Refills Start End ICOSAPENT ETHYL 1 GRAM CAPSULE 120 * 5 12/11/2020 Route: ORAL Sig: Take 2 capsules by mouth twice daily with meals. Medications Discontinued During This Encounter Prescriptions - Fenofibrate (LOFIBRA) 160 mg tablet (Discontinued) Take 160 mg by mouth once daily. - icosapent ethyl (VASCEPA) capsule (Discontinued) Take 2 capsules by mouth twice daily with meals. Encounter Status:Closed by RICARDO GODDARD on 12/11/20 [facility] Hui 12-10-2020 [facility] Telephone (PERN) JUSTINO PACHECO ([id number]) 1975 Date Time Provider Department 12/10/20 RICARDO GODDARD During your visit today, we recorded the following information about you: Sb Moody [facility] 12/10/2020 11:21 AM Signed Mrs. Pacheco called back today to find out what is going on with the prior auth. on Vascepa. She wasn?t sure if Dr. Goddard was going to change the medication or if still trying to get authorized (I was reading the messages back and forth in the PA basket but cannot tell what is going on). She would like to know something EMILEE as she has to reschedule the appointment with Dr. Edgar in Preventive Cardiology. I told her that you are out today but would return Thursday. Can you please call her and give her update and make a note in the chart. [phone] Thanks. Sb Perez Sec 12/14/2020 12:19 PM Signed Mrs. Pacheco called today and states that they cannot afford the Vasepa and is asking for an alternative medication. I checked the website for Vasepa regarding financial assistance and they have a card which can reduce the cost, but it's only good through 08/02/21. Is this something that you would suggest they try? If so, I can give them the information. Lainey Allergies As of Date: 12/10/2020 Noted Allergy Reaction BEE VENOM PROTEIN (HONEY BEE) 10/19/2020 10 - Anaphylaxis Comments: All bee venom FISH OIL 10/19/2020 14 - Other: See Comments Comments: Nausea, vomiting heartburn, insomnia Date Reviewed: 10/19/2020 Reviewed by: Kristyn HallRn) STEF Jain - Fully Assessed Reason for Visit: Medication Question [0787] Cmt: Re: prior authorization and possibly changing medications Prescriptions as of 12/10/2020 Sig: X ICOSAPENT ETHYL 1 GRAM CAPSULE Take 2 capsules by mouth twic* ATORVASTATIN 40 MG TABLET Take 40 mg by mouth once kira* PANTOPRAZOLE 20 MG TABLET,DEL* Take 20 mg by mouth once kira* SILDENAFIL 100 MG TABLET Take 100 mg by mouth as neede* TESTOSTERONE CYPIONATE 200 MG* Inject 0.5 mL intramuscularly* MULTIVITAMIN ORAL Take by mouth. [id number] ORAL Take 500 mg by mouth three ti* IBUPROFEN 800 MG TABLET Take 800 mg by mouth every 6 * EPINEPHRINE HCL INJECTION 0.3 mg by INJECTION(UNSPECIFI* X FENOFIBRATE 160 MG TABLET Take 160 mg by mouth once reza* Problem List As Of Date: 12/10/2020 (None) Encounter Status:Closed by SB HUNTLEY on 12/17/20 Normal [facility] Hui 12-03-2020 [place] Telephone (WALTER) BECCAJUSTINO GARLAND ([id number]) 1975 M Date Time Provider Department 5/3/21 RICARDO GODDARD During your visit today, we recorded the following information about you: Marian Perez Sec 12/03/2020 3:41 PM Signed Patient has not been able to start the Vascepa because it has not been approved by insurance yet. She states she forgot to call and let us know about this issue. Since his appointment with Dr. Edgar in preventive cardiology is on 12/07/20, he will reschedule the appointment with him 3 months after he starts taking the Vescepa. Allergies As of Date: 12/03/2020 Noted Allergy Reaction BEE VENOM PROTEIN (HONEY BEE) 10/19/2020 10 - Anaphylaxis Comments: All bee venom FISH OIL 10/19/2020 14 - Other: See Comments Comments: Nausea, vomiting heartburn, insomnia Date Reviewed: 10/19/2020 Reviewed by: Kristyn (Rn) STEF Jain - Fully Assessed Reason for Visit: Patient Update [1234] Prescriptions as of 12/03/2020 Sig: X ICOSAPENT ETHYL 1 GRAM CAPSULE Take 2 capsules by mouth twic* ATORVASTATIN 40 MG TABLET Take 40 mg by mouth once kira* PANTOPRAZOLE 20 MG TABLET,DEL* Take 20 mg by mouth once kira* SILDENAFIL 100 MG TABLET Take 100 mg by mouth as neede* TESTOSTERONE CYPIONATE 200 MG* Inject 0.5 mL intramuscularly* MULTIVITAMIN ORAL Take by mouth. [id number] ORAL Take 500 mg by mouth three ti* IBUPROFEN 800 MG TABLET Take 800 mg by mouth every 6 * EPINEPHRINE HCL INJECTION 0.3 mg by INJECTION(UNSPECIFI* X FENOFIBRATE 160 MG TABLET Take 160 mg by mouth once reza* Problem List As Of Date: 12/03/2020 (None) Encounter Status:Closed by BS HUNTLEY on 12/11/20 Normal [facility] Fang 10-19-2020 [place] Office Visit (WALTER ) JUSTINO PACHECO ([id number]) 1975 M Date Time Provider Department 10/19/20 7:45 AM RICARDO GODDARD During your visit today, we recorded the following information about you: Pulse Blood pressure Weight Height 68/minute 138/82 94.8 kg 1.676 m Ricardo Goddard MD,PhD,RPVI 10/19/2020 11:30 AM Signed [facility] Department of Cardiovascular Medicine SECTION OF VASCULAR MEDICINE OUTPATIENT VISIT DATE October 19, 2020 OUTPATIENT VISIT TYPE CONSULTATION Consult regarding: Dyslipideamia Consult requested by: Manuel Quinn My final recommendations will be communicated back to the requesting physician by way of the shared medical record or by letter. Primary care physician: Manuel Quinn MD History of present illness: The patient is a 44-year-old male from [facility] who presents for evaluation of dyslipidemia and [...] - MULTIVITAMIN ORAL Take by mouth. - glucosamine/msm/chondro itin A (COYMRMPIVTB-[id number]-MWR ORAL) Take 500 mg by mouth three [...] - No Pain with walking - No (more content not included)... Normal [facility] Lipaseon 10-19-2020 Lipase [Catalytic activity/Vol] 28 U/L Normal 16-61 [facility] Comment on above: Performed By: #### L IPA #### [facility] [address] [place] [address] NMR Particle Analon 10-20-19 HDL Size 8.6 nm Low >9.0 [facility] Comment on above: Result Comment: (NOT E) Relative risk: Optimal >9.0; Moderate 8.7-9.0; High <8.7 nm. Reference range is 8.3-10.5 nm. Performed By: #### L IPA #### [facility] [address] [place] [address] HDL-P 16.1 umol/L Low >32.8 [facility] Comment on above: Result Comment: (NOT E) Relative risk: Optimal >32.8; Moderate 29.2-32.8; High <29.2 umol/L. Reference range is 21.1-43.4 umol/L. Performed By: #### L IPA #### [facility] [address] [place] [address] Large HDL-P <3.0 Low >7.2 [facility] Comment on above: Result Comment: (NOT E) Relative risk: Optimal >7.2; Moderate 5.3-7.2; High <5.3 umol/L. Reference range is >3.5 umol/L. Performed By: #### L IPA #### [place] [address] Large VLDL-P 24.8 nmol/L High <3.7 [facility] Comment on above: Result Comment: (NOT E) Relative risk: Optimal <3.7; Moderate 3.7-6.1; High >6.1 nmol/L. Reference range is <16.0 nmol/L. Performed By: #### L IPA #### [facility] [address] [phone] LDL Size 19.6 nm Low >20.5 [facility] Comment on above: Result Comment: (NOT E) Relative risk: Optimal >20.5; High <20.6 nm. Reference range is 20.0-22.3 nm. Performed By: #### L IPA #### [facility] [address] [place] [phone] LDL-P 1502 nmol/L High <935 [facility] Comment on above: Result Comment: (NOT E) Relative risk: Optimal <935; Moderate 935-1816; High >1816 nmol/L. Reference range is 592-2404 nmol/L. This test is performed by a Nuclear Magnetic Resonance method. This test was developed and its performance characteristics determined by [facility] [employer] It has not been cleared or approved by the U.S. FDA. [facility] is regulated under Clinical Laboratory Improvement Amendments (CLIA) as qualified to perform high-complexity testing. This test is used for clinical purposes. It should not be regarded as investigational or for research. Performed By: #### L IPA #### [facility] [address] [phone] Small LDL-P 957 nmol/L High <467 [facility] Comment on above: Result Comment: (NOT E) Relative risk: Optimal <467; Moderate 467-820; High >820 nmol/L. Reference range is <1408 nmol/L. Performed By: #### L IPA #### [facility] [address] [place] [phone] VLDL Size 62.2 nm High <47.1 [facility] Comment on above: Result Comment: (NOT E) Relative risk: Optimal <47.1; Moderate 47.1-49.0; High >49.0 nm. Reference range is 41.1-61.7 nm. Test performed at: [facility] [address] [place] [address] Kenton Anderson MD Performed By: #### L IPA #### [facility] [address] [place], [place] [address] Otheron 10-19-2020 Susanna Giles CNP 10/19/2020 5:38 PM LG Jt Injection/Arthrocentesi s: L subacromial bursa Performed by: Susanna Giles CNP Authorized by: Susanna Giles CNP CPT 51480 - Large Joint Arthrocentesis: Consent given by: [...] the procedure well with no immediate complications [facility] XR Shoulder Left 2+ Views (S tandard)on 10-18-2020 Erythrocyte distribution width (RBC) [Ratio] Postsurgical changes from ORIF of the healed proximal humeral fracture with intact hardware. No acute osseous abnormality. Moderate glenohumeral joint arthrosis. SA/lab Workstation ID: [id number] [facility] EXAMINATION: XR SHOULDER LEFT 2+ VIEWS (STANDARD) 10/18/2020 10:04 AM HISTORY: ORDERING SYSTEM PROVIDED HISTORY: Right shoulder pain, TECHNOLOGIST PROVIDED HISTORY: Injury/Trauma Reason for exam: left shoulder pain Cancer History: unk Surgery, RadiationHistory: left shoulder surgery Encounter Type: Initial Mechanism of injury: ORDERING SYSTEM PROVIDED DIAGNOSIS CODES: Z96.9 Retained orthopedic hardware M25.512 Chronic left shoulder pain G89.29 Chronic left shoulder pain COMPARISON: Shoulder radiograph on 05/17/2012. FINDINGS: There are postsurgical changes from ORIF of the healed proximal humeral fracture with a compression plate and multiple screws. Hardware appears intact. The acromioclavicular and glenohumeral joint is preserved. There is at least moderate glenohumeral joint arthrosis. The visualized portion of the lung parenchyma is clear. No acute abnormalities of the visualized ribs. [facility] [place] [facility] Interface, Rad In Fu ji Speechq - 10/18/2020 11:52 AM EDT EXAMINATION: XR SHOULDER LEFT 2+ VIEWS (STANDARD) 10/18/2020 10:04 AM HISTORY: ORDERING SYSTEM PROVIDED HISTORY: Right shoulder pain, TECHNOLOGIST PROVIDED HISTORY: Injury/Trauma Reason for exam: left shoulder pain Cancer History: unk Surgery, RadiationHistory: left shoulder surgery Encounter Type: Initial Mechanism of injury: ORDERING SYSTEM PROVIDED DIAGNOSIS CODES: Z96.9 Retained orthopedic hardware M25.512 Chronic left shoulder pain G89.29 Chronic left shoulder pain COMPARISON: Shoulder radiograph on 05/17/2012. FINDINGS: There are postsurgical changes from ORIF of the healed proximal humeral fracture with a compression plate and multiple screws. Hardware appears intact. The acromioclavicular and glenohumeral joint is preserved. There is at least moderate glenohumeral joint arthrosis. The visualized portion of the lung parenchyma is clear. No acute abnormalities of the visualized ribs. IMPRESSION: Postsurgical changes from ORIF of the healed proximal humeral fracture with intact hardware. No acute osseous abnormality. Moderate glenohumeral joint arthrosis. SA/lab Workstation ID: [id number] [facility] [place] [facility] Hepatic Functn Panelon 10-09 Albumin Test reordered by [facility]3]. Normal 3.9-4.9 [facility] Comment on above: Result Comment: SEE NEW MILES [id number] Account Credited Performed By: #### T SH, LIPNF #### [facility] [address] [place], [place] [id number] Albumin [Mass/Vol] 4.5 g/dL Normal 3.9-4.9 [facility] Comment on above: Result Comment: Khloe benjamin removed prior to analysis. Specimen Lipemic Performed By: #### H FP #### [facility] [address] [place], [place] [address] Alkaline Phosphatase Test reordered by [facility]. Normal 38-113 [facility] Comment on above: Result Comment: SEE NEW MILES [id number] Account Credited Performed By: #### T SH, LIPNF #### [facility] [address] [place], [place] [address] ALP [Catalytic activity/Vol] 48 U/L Normal 38-113 [facility] Comment on above: Result Comment: Khloe benjamin removed prior to analysis. Specimen Lipemic Performed By: #### H FP #### [facility] [address] [place], [place] [address] ALT Test reordered by [facility]3]. Normal 10-54 [facility] Comment on above: Result Comment: SEE NEW MILES [id number] Account Credited Performed By: #### T SH, LIPNF #### [facility] [address] [place] [phone] ALT [Catalytic activity/Vol] 50 U/L Normal 10-54 [facility] Comment on above: Result Comment: Khloe benjamin removed prior to analysis. Specimen Lipemic Performed By: #### H FP #### [facility] [address] [place] [address] AST Test reordered by [facility]3]. Normal 14-40 [facility] Comment on above: Result Comment: SEE NEW MILES [id number] Account Credited Performed By: #### T SH, LIPNF #### [facility] [address] [place] [address] AST [Catalytic activity/Vol] 30 U/L Normal 14-40 [facility] Comment on above: Result Comment: Khloe benjamin removed prior to analysis. Specimen Lipemic Performed By: #### H FP #### [facility] [address] [place] [address] Bilirubin [Mass/Vol] mg/dL Low 0.2-1.3 [facility] Comment on above: Result Comment: Resu lt rechecked. Lipemia removed prior to analysis. Specimen Lipemic Performed By: #### H FP #### [facility] [address] [place], [place] [address] Bilirubin, Total Test reordered by [facility]3]. Normal 0.2-1.3 [facility] Comment on above: Result Comment: SEE NEW MILES [id number] Account Credited Performed By: #### T SH, LIPNF #### [facility] [address] [place], [place] [address] Bilirubin,Conjugated <0.2 Normal <0.2 [facility] Comment on above: Result Comment: Klhoe benjamin removed prior to analysis. Specimen Lipemic Performed By: #### H FP #### [facility] [address] [place], [place] [address] Bilirubin,Conjugated Test reordered by [facility]. Normal <0.2 [facility] Comment on above: Result Comment: SEE NEW MILES [id number] Account Credited Performed By: #### T SH, LIPNF #### [facility] [address] [place], [place] [address] Protein [Mass/Vol] 7.5 g/dL Normal 6.3-8.0 [facility] Comment on above: Result Comment: Khloe benjamin removed prior to analysis. Specimen Lipemic Performed By: #### H FP #### [facility] [address] [place], [place] [address] Protein, Total Test reordered by [facility]3]. Normal 6.3-8.0 [facility] Comment on above: Result Comment: SEE NEW MILES [id number] Account Credited Performed By: #### T SH, LIPNF #### [facility] [address] [place], [place] [address] Lipid Panel, Nonfaston 10-09 Cholesterol [Mass/Vol] 129 mg/dL Normal <200 [facility] Comment on above: Result Comment: <200 mg/dL, Desirable 200-239 mg/dL, Borderline high >239 mg/dL, High Performed By: #### T SH, LIPNF #### [facility] [address] [place], [place] [address] HDL Cholesterol, NF 11 mg/dL Low >39 [facility] Comment on above: Result Comment: 40-5 9 mg/dL, Acceptable >59 mg/dL, High: Negative risk factor for coronary heart disease <40 mg/dL, Low: Positive risk factor for coronary heart disease Performed By: #### T SH, LIPNF #### [facility] [address] [place], [place] [address] LDL Cholesterol, NF Unable to calculate due to increased Triglycerides. A Direct LDL Cholesterol measurement will not be performed. If clinically indicated, a fasting Basic Lipid Panel (LIPB) may be ordered. Normal <100 [facility] Comment on above: Performed By: #### T SH, LIPNF #### [facility] [address] [place], [place] [address] LDL/HDL Ratio, NF Unable to calculate due to elevated Triglycerides. Normal <2.54 [facility] Comment on above: Result Comment: Yuliet chino: 1. National Cholesterol Education Program ATP III Guideline At-A-Glance Quick Desk Reference: National Heart, Lung, and Blood Union. National Institutes of Health. 2001: NIH Publication No. 01-3305. 2. An International Atherosclerosis Society position paper: global recommendations for the management of dyslipidemia: executive summary, Atherosclerosis. 2014: 232(2):410-413. Performed By: #### T SH, LIPNF #### [facility] [address] [place], [place] [address] Non HDL Chol, NF 118 mg/dL Normal <130 [facility] Comment on above: Result Comment: <130 mg/dL, Optimal 130-159 mg/dL, Near optimal/above optimal 160-189 mg/dL, Borderline high 190-219 mg/dL, High >219 mg/dL, Very high Secondary prevention optimal non HDL Cholesterol levels are recommended to be < 100 mg/dL Performed By: #### T SH, LIPNF #### [facility] [address] [place] [id number] T Chol/HDL Ratio NF 11.73 mg/dL High <5.10 [facility] Comment on above: Performed By: #### T SH, LIPNF #### [place] [address] [place] [address] Triglycerides, NF 836 mg/dL High <150 [facility] Comment on above: Result Comment: <150 mg/dL, Normal 150-199 mg/dL, Borderline high 200-499 mg/dL, High >499 mg/dL, Very high Performed By: #### T SH, LIPNF #### [place] [address] [place] [address] VLDL Cholesterol, NF Unable to calculate due to elevated Triglycerides. Normal <30 [facility] Comment on above: Performed By: #### T SH, LIPNF #### [place] [address] [place] [address] TSHon 10-09-2020 TSH Qn 1.750 m[IU]/L Normal 0.270-4.200 [facility] Comment on above: Performed By: #### T SH, LIPNF #### [place] [address] [place] [address] CNCOon 09-28-2020 CNCO Letter Text Normal [facility] CNPNon 09-28-2020 CNPN Telephone (JORGERenaldo) JUSTINO PACHECO ([id number]) 1975 M Date Time Provider Department 09/28/20 RICARDO GODDARD During your visit today, we recorded the following information about you: Sb [facility] 09/28/2020 10:31 AM Signed Received faxed outside records. Given to Dr. Goddard for review for up-coming appointment 10/19/20. Sb Insurance Underwriter Allergies As of Date: 09/28/2020 (Not on File) Date Reviewed: Never Reviewed Reason for Visit: Received Outside Medical Records [[id number]] Problem List As Of Date: 09/28/2020 (None) Encounter Status:Closed by SB HUNTLEY on 09/28/20 Normal [facility] CBCon 09-24-2020 Erythrocyte distribution width (RBC) [Entitic vol] 12.9 % 11.6 - 14.8 % [facility] [place] [facility] Hematocrit (Bld) [Volume fraction] 41.1 % 41.0 - 53.0 % [facility] [place] [facility] Hemoglobin (Bld) [Mass/Vol] 13.8 g/dL 13.5 - 17.5 g/dL [facility] [place] [facility] Interpretation and review of laboratory results Abnormal [facility] [place] [facility] MCH (RBC) [Entitic mass] 31.7 pg 26.0 - 34.0 pg [facility] [place] [facility] MCHC (RBC) [Mass/Vol] 33.6 g/dL 31.0 - 37.0 g/dL [facility] [place] [facility] MCV (RBC) [Entitic vol] 94.5 fL 80.0 - 100.0 fL [facility] [place] [facility] Nucleated RBC (Bld) [#/Vol] 0.00 10*3/uL [facility] [place] [facility] Nucleated RBC/100 WBC (Bld) [Ratio] 0.0 % [facility] [place] [facility] Platelet mean volume (Bld) [Entitic vol] 9.7 fL 9.4 - 12.4 fL [facility] [place] [facility] Platelets (Bld) [#/Vol] 246 10*3/uL [facility] [place] [facility] RBC (Bld) [#/Vol] 4.35 10*6/uL Low [facility] [place] [facility] WBC (Bld) [#/Vol] 6.05 10*3/uL [facility] [place] [facility] eah Luteinizing Hormoneon 2020 Interpretation and review of laboratory results Abnormal [facility] [place] [facility] Lutropin Qn 1.1 m[IU]/mL Low [facility] [place] [facility] PSA Monitoron 09-24-2020 Interpretation and review of laboratory results Normal [facility] [place] [facility] Prostate specific Ag [Mass/Vol] 0.45 ng/mL 0.00 - 0.99 ng/mL [facility] [place] [facility] TESTOSTERONE, TOTALon 2020 Interpretation and review of laboratory results Normal [facility] [place] [facility] Testosterone [Mass/Vol] 324 ng/dL 123 - 813 ng/dL [facility] [place] [facility] XR WRIST RIGHT 3+ VIEWS (STA NDARD)on 02-22-2020 XR WRIST RIGHT 3+ VIEWS (STANDARD) EXAMINATION: XR WRIST RIGHT 3+ VIEWS (STANDARD) HISTORY: ORDERING SYSTEM PROVIDED HISTORY: wrist pain/injury, TECHNOLOGIST PROVIDED HISTORY: Injury/Trauma Reason for exam: wrist pain/injury Cancer History: unk Surgery, RadiationHistory: unk Encounter Type: Initial Mechanism of injury: smashed in between 2 slabs ORDERING SYSTEM PROVIDED DIAGNOSIS CODES: COMPARISON: 03/20/2017 x-ray right wrist IMPRESSION: FINDINGS/ 1. No radiographic evidence of acute [...] the lunate is unchanged. Workstation ID: [id number] Dictated by: LEXIS BROCK on ThuFeb 22, 2020 3:36:12 PM EDT Transcribed by: LEXIS BROCK on ThuFeb 22, 2020 3:36:12 PM EDT Finalized by: LEXIS BROCK on ThuFeb 22, 2020 3:36:12 PM EDT Normal [facility] Comment on above: Order Comment: Injur y/Trauma or Illness?:Injury/Trauma How long have you had these symptoms (acute/chronic)?:Acute Reason for exam?:wrist pain/injury History of cancer?:unk Surgeries, chemotherapy, or radiation?:unk Type of Exam?:Initial Mechanism of injury?:smashed in between 2 slabs XR Wrist Right 3+ Views (Sta ndard)on 02-22-2020 FINDINGS/ 1. No radiographic evidence of acute [...] the lunate is unchanged. Workstation ID: [id number] [facility] [place] [facility] EXAMINATION: XR WRIS T RIGHT 3+ VIEWS (STANDARD) HISTORY: ORDERING SYSTEM PROVIDED HISTORY: wrist pain/injury, TECHNOLOGIST PROVIDED HISTORY: Injury/Trauma Reason for exam: wrist pain/injury Cancer History: unk Surgery, RadiationHistory: unk Encounter Type: Initial Mechanism of injury: smashed in between 2 slabs ORDERING SYSTEM PROVIDED DIAGNOSIS CODES: COMPARISON: 03/20/2017 x-ray right wrist [facility] [place] [facility] Vincenzo, Matteo Henderson ji Speechq - 02/22/2020 3:38 PM EDT EXAMINATION: XR WRIST RIGHT 3+ VIEWS (STANDARD) HISTORY: ORDERING SYSTEM PROVIDED HISTORY: wrist pain/injury, TECHNOLOGIST PROVIDED HISTORY: Injury/Trauma Reason for exam: wrist pain/injury Cancer History: unk Surgery, RadiationHistory: unk Encounter Type: Initial Mechanism of injury: smashed in between 2 slabs ORDERING SYSTEM PROVIDED DIAGNOSIS CODES: COMPARISON: 03/20/2017 x-ray right wrist IMPRESSION: FINDINGS/ 1. No radiographic evidence of acute [...] the lunate is unchanged. Workstation ID: [id number] [facility] [place] [facility] ED Clinical Summaryon 2019 ED Clinical Summary [address] [address] Fax: [phone] PERSON INFORMATION Name: JUSTINO PACHECO Age: 43 Years : 1975 Sex: Male Language: Indonesian PCP: No Family Doctor, Physician Marital Status: Med Service: Emergency Medicine Arrival: 10/01/2019 06:30:37 Visit Reason: Shoulder pain-swelling; shoulder pain Acuity: 4 LOS: 000 01:28 Address: [address] [facility] [id number] Diagnosis: Acromioclavicular joint arthritis; Chronic shoulder pain Medications Administered: Radiology Orders: Laboratory Orders: Lab and Rad: Laboratory or Other Results This Visit (last charted value for your 10/01/2019 visit) Diagnostic Radiology 10/01/2019 6:49 AM XR Shoulder Complete 2+ Views Right: XR Shoulder Complete 2+ Views Right Medications: PROVIDER INFORMATION Provider Role Assigned Unassigned MD Adam, Taylor Escalante ED Provider 10/01/2019 07:09:53 Kiesha Hall ED Nurse 10/01/2019 07:10:05 Attending Physician: MD Adam, Taylor Escalante Admit Doc MD Adam, Taylor Escalante Consulting Doc VITALS INFORMATION Vital Sign Triage Latest Temp Oral 98.5 Deg F 98.5 Deg F Temp Temporal Temp Intravascular Temp Axillary Temp Rectal 02 Sat 98 % 98 % Respiratory Rate 16 br/min 16 br/min Peripheral Pulse Rate 78 bpm 78 bpm Apical Heart Rate Blood Pressure 124 mmHg / 82 mmHg 124 mmHg / 82 mmHg Allergies Fish Oil Immunizations No Immunizations Documented This Visit DISCHARGE INFORMATION Discharge Disposition: Home or Self Care Discharge Location: Home Discharge Date and Time: 10/01/2019 07:58:00 ED Checkout Date and Time: 10/01/2019 07:58:00 DEPART REASON INCOMPLETE INFORMATION Depart Action Incomplete Reason Vital Signs and Pain Recently assessed Problems Active No Chronic Problems Smoking Status Former smoker, quit more than 30 days ago PATIENT EDUCATION INFORMATION Instructions: Joint Pain, Jlib-wo-Udvg Follow up: With: Address: When: [facility] Orthopedics and Physical Medicine [address] [place] [phone] Business ([employer] In 1 week 10/08/2019 Comments: You can attempt to call to follow-up with this orthopedics team. Based on your preference you can also have your call [facility] to get in touch with their orthopedics clinic to arrange follow-up with a shoulder specialist at [facility] you will be able to find the number on Google or by calling general [facility] ED Patient Education Noteon 10-01-2019 ED Patient Education Note Patient Education Instructions Name: JUSTINO PACHECO Current Date: 10/01/2019 07:58:22 [facility]: [id number] The following sheet(s) are the Patient Education Leaflets for JUSTINO PACHECO Rheumatology Joint Pain Introduction Joint pain can be caused by many things. The joint can be bruised, infected, weak from aging, or sore from exercise. The pain will probably go away if you follow your doctor's instructions for home care. If your joint pain continues, more tests may be needed to help find the cause of your condition. Follow these instructions at home: Watch your condition for any changes. Follow these instructions as told to lessen the pain that you are feeling: ? Take medicines only as told by your doctor. ? Rest the sore joint for as long as told by your doctor. If your doctor tells you to, raise (elevate) the painful joint above the level of your heart while you are sitting or lying down. ? Do notdo things that cause pain or make the pain worse. ? If told, put ice on the painful area:? Put ice in a plastic bag. ? Place a towel between your skin and the bag. ? Leave the ice on for 20 minutes, 2?3 times per day. ? Wear an elastic bandage, splint, or sling as told by your doctor. Loosen the bandage or splint if your fingers or toes lose feeling (become numb) and tingle, or if they turn cold and blue. ? Begin exercising or stretching the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 the bag. ? Leave the ice on for 20 minutes, 2?3 times a day. ? If you have a shoulder immobilizer (sling and straps), wear it until told otherwise by your health care provider. ? You may want to sleep on several pillows or in a recliner at night to lessen swelling and pain. ? Only take [id number] or prescription medicines for pain, discomfort, or fever as directed by your health care provider. ? Do simple hand squeezing exercises with a soft rubber ball to decrease hand swelling. SEEK MEDICAL CARE IF: ? Your shoulder pain increases, or new pain or numbness develops in your arm, hand, or fingers. ? Your hand or fingers are colder than your other hand. SEEK IMMEDIATE MEDICAL CARE IF: ? Your arm, hand, or fingers are numb or tingling. ? Your arm, hand, or fingers are increasingly swollen and painful, or they turn white or blue. MAKE SURE YOU: ? Understand these instructions. ? Will watch your condition. ? Will get help right away if you are not doing well or get worse. This information is not intended to replace advice given to you by your health care provider. Make sure you discuss any questions you have with your health care provider. Document Released: 07/17/2001 Document Revised: 07/25/2014 Document Reviewed: 03/01/2014 Elsevier Interactive Patient Education ?2017 [employer]. [facility] Patient Letteron 01-06-2019 Patient Letter (Inserted Image. Laney ble to display) January 06, 2019 JUSTINO PACHECO [address] [facility] [id number] Justino Pacheco will be off work through 01/14/19 to return to work 01/15/19 secondary to a medical condition. Thank you, Selvin Guillen MS, PA-C [facility] XR Shoulder Complete 2+ View s Righton 01-06-2019 XR Shoulder Complete 2+ Views Right EXAMINATION: 4 XRAY VIEWS OF THE RIGHT SHOULDER 01/06/2019 11:22 am COMPARISON: 01/02/2019 HISTORY: ORDERING SYSTEM PROVIDED HISTORY: Shoulder pain TECHNOLOGIST PROVIDED HISTORY: Tech Provided Reason for Exam: Rt shoulder pain Injury/Trauma or Illness: Injury/Trauma Type of Encounter: Recurring Acuity: Since Tuesday 01/02 Ongoing evaluation, recurrent right shoulder pain, acute FINDINGS: No fracture or dislocation. 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 No erosions are present. No evidence of rotator cuff calcification. IMPRESSION: 1. No acute osseous abnormality 2. 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 Ordering Provider: Dayana Reyes Final Dictated by: MD Lopez David Dictated DT/TM: 01/06/2019 2:22 pm Signed by: MD Lopez David S Signed (Electronic Signature): 01/06/2019 2:22 pm [facility] Comment on above: Order Comment: Darma fall ED Clinical Summaryon 2018 ED Clinical Summary [facility] [address], [place] [phone] Fax: [phone] PERSON INFORMATION Name: JUSTINO PACHECO Age: 43 Years : 75 Sex: Male Language: Indonesian PCP: Marital Status: Med Service: Emergency Medicine Arrival: 01/05/19 09:30:00 Visit Reason: Shoulder injury - Minor; Shoulder pain Acuity: 4 LOS: 000 02:27 Address: [address] [facility] [id number] Diagnosis: Right shoulder strain Medications Administered: Medication Dose Route lidocaine topical 1 patches TD ketorolac 60 mg IM Radiology Orders: Laboratory Orders: Lab and Rad: Laboratory or Other Results This Visit (last charted value for your 01/05/2019 visit) No Laboratory or Other Results This Visit Medications: PROVIDER INFORMATION Provider Role Assigned Unassigned Viri Gregg ED Nurse 01/05/19 09:54:51 01/05/19 11:34:58 SADIQ Verduzco Benjamin E ED MidLevel 01/05/19 10:09:57 Karen No ED Nurse 01/05/19 11:01:31 Attending Physician: MD Allen E D Admit Doc MD Allen E D Consulting Doc VITALS INFORMATION Vital Sign Triage Latest Temp Oral 97.9 Deg F 97.9 Deg F Temp Temporal Temp Intravascular Temp Axillary Temp Rectal 02 Sat 96 % 96 % Respiratory Rate 18 br/min 18 br/min Peripheral Pulse Rate 73 bpm 73 bpm Apical Heart Rate Blood Pressure 139 mmHg / 91 mmHg 139 mmHg / 91 mmHg Allergies Fish Oil Immunizations No Immunizations Documented This Visit DISCHARGE INFORMATION Discharge Disposition: Home or Self Care Discharge Location: Home Discharge Date and Time: 01/05/19 11:57:00 ED Checkout Date and Time: 01/05/19 11:57:00 DEPART REASON INCOMPLETE INFORMATION Depart Action Incomplete Reason Vital Signs/Pain Recently assessed Patient Understanding Recently assessed Problems Active No Chronic Problems Smoking Status Former smoker, quit more than 30 days ago PATIENT EDUCATION INFORMATION Instructions: Form - Excuse from Work, School, or Physical Activity; Shoulder Pain; Rotator Cuff Injury Follow up: With: Address: When: Froilan Barrow [address] [address] [facility] () Within 2 to 4 days Normal [facility] ED Patient Education Noteon 01-05-2019 ED Patient Education Note Patient Education Instructions Name: JUSTINO PACHECO Current Date: 01/05/19 11:57:58 The following sheet(s) are the Patient Education Leaflets for JUSTINO PACHECO Forms Introduction Justino Pacheco needs to be excused from: __X__ Work ____ School ____ Physical activity beginning now and through the following date: ___01/05-01/08 . He or she may return to work or school but should still avoid the following physical activity or activities from now until . Activity restrictions include: ____ Lifting more than lb ____ Sitting longer than minutes at a time ____ Standing longer than minutes at a time ____ He or she may return to full physical activity as of . Health Care Provider Name (printed): Health Care Provider (signature): Date: This information is not intended to replace advice given to you by your health care provider. Make sure you discuss any questions you have with your health care provider. Document Released: 01/13/2002 Document Revised: 02/06/2017 Document Reviewed: 02/19/2015 ? 2017 Elsevier Orthopedics Shoulder Pain Many things can cause shoulder pain, including: ? An injury to the area. ? Overuse of the shoulder. ? Arthritis. The source of the pain can be: ? Inflammation. ? An injury to the shoulder joint. ? An injury to a tendon, ligament, or bone. Follow these instructions at home: Take these actions to help with your pain: ? Squeeze a soft ball or a foam pad as much as possible. This helps to keep the shoulder from swelling. It also helps to strengthen the arm. ? Take lebo-lrk-zlyrtwy and prescription medicines only as told by your health care provider. ? If directed, apply ice to the area: ? Put ice in a plastic bag. ? Place a towel between your skin and the bag. ? Leave the ice on for 20 minutes, 2?3 times per day. Stop applying ice if it does not help with the pain. ? If you were given a shoulder sling or immobilizer: ? Wear it as told. ? Remove it to shower or bathe. ? Move your arm as little as possible, but keep your hand moving to prevent swelling. Contact a health care provider if: ? Your pain gets worse. ? Your pain is not relieved with medicines. ? New pain develops in your arm, hand, or fingers. Get help right away if: ? Your arm, hand, or fingers: ? Tingle. ? Become numb. ? Become swollen. ? Become painful. ? Turn white or blue. This information is not intended to replace advice given to you by your health care provider. Make sure you discuss any questions you have with your health care provider. Document Released: 04/29/2006 Document Revised: 03/15/2017 Document Reviewed: 11/12/2015 [employer] Interactive Patient Education ? 2017 [employer] Rotator Cuff Injury Rotator cuff injury is any type of injury to the set of muscles and tendons that make up the stabilizing unit of your shoulder. This unit holds the ball of your upper arm bone (humerus) in the socket of your shoulder blade (scapula). What are the causes? Injuries to your rotator cuff most commonly come from sports or activities that cause your arm to be moved repeatedly over your head. Examples of this include throwing, weight lifting, swimming, or racquet sports. Long lasting (chronic) irritation of your rotator cuff can cause soreness and swelling (inflammation), bursitis, and eventual damage to your tendons, such as a tear (rupture). What are the signs or symptoms? Acute rotator cuff tear: ? Sudden tearing sensation followed by severe pain shooting from your upper shoulder down your arm toward your elbow. ? Decreased range of motion of your shoulder because of pain and muscle spasm. ? Severe pain. ? Inability to raise your arm out to the side because of pain and loss of muscle power (large tears). Chronic rotator cuff tear: ? Pain that usually is worse at night and may interfere with sleep. ? Gradual weakness and decreased shoulder motion as the pain worsens. ? Decreased range of motion. Rotator cuff tendinitis: ? Deep ache in your shoulder and the outside upper arm over your shoulder. ? Pain that comes on gradually and becomes worse when lifting your arm to the side or turning it inward. How is this diagnosed? Rotator cuff injury is diagnosed through a medical history, physical exam, and imaging exam. The medical history helps determine the type of rotator cuff injury. Your health care provider will look at your injured shoulder, feel the injured area, and ask you to move your shoulder in different positions. X-ray exams typically are done to rule out other causes of shoulder pain, such as fractures. MRI is the exam of choice for the most severe shoulder injuries because the images show muscles and tendons. How is this treated? Chronic tear: ? Medicine for pain, such as acetaminophen or ibuprofen. ? Physical therapy and mbltw-ci-rtgadx exercises may be helpful in maintaining shoulder function and strength. ? Steroid injections into your shoulder joint. ? Surgical repair of the rotator cuff if the injury does not heal with noninvasive treatment. Acute tear: ? Anti-inflammatory medicines such as ibuprofen and naproxen to help reduce pain and swelling. ? A sling to help support your arm and rest your rotator cuff muscles. Long-term use of a sling is not advised. It may cause significant stiffening of the shoulder joint. ? Surgery may be considered within a few weeks, especially in younger, active people, to return the shoulder to full function. ? Indications for surgical treatment include the following: ? Age younger than 60 years. ? Rotator cuff tears that are complete. ? Physical therapy, rest, and anti-inflammatory medicines have been used for 6?8 weeks, with no improvement. ? Employment or sporting activity that requires constant shoulder use. Tendinitis: ? Anti-inflammatory medicines such as ibuprofen and naproxen to help reduce pain and swelling. ? A sling to help support your arm and rest your rotator cuff muscles. Long-term use of a sling is not advised. It may cause significant stiffening of the shoulder joint. ? Severe tendinitis may require: ? Steroid injections into your shoulder joint. ? Physical therapy. ? Surgery. Follow these instructions at home: ? Apply ice to your injury: ? Put ice in a plastic bag. ? Place a towel between your skin and the bag. ? Leave the ice on for 20 minutes, 2?3 times a day. ? If you have a shoulder immobilizer (sling and straps), wear it until told otherwise by your health care provider. ? You may want to sleep on several pillows or in a recliner at night to lessen swelling and pain. ? Only take mtan-oxl-xwurhxf or prescription medicines for pain, discomfort, or fever as directed by your health care provider. ? Do simple hand squeezing exercises with a soft rubber ball to decrease hand swelling. Contact a health care provider if: ? Your shoulder pain increases, or new pain or numbness develops in your arm, hand, or fingers. ? Your hand or fingers are colder than your other hand. Get help right away if: ? Your arm, hand, or fingers are numb or tingling. ? Your arm, hand, or fingers are increasingly swollen and painful, or they turn white or blue. This information is not intended to replace advice given to you by your health care provider. Make sure you discuss any questions you have with your health care provider. Document Released: 07/17/2001 Document Revised: 12/25/2016 Document Reviewed: 03/01/2014 [employer] Interactive Patient Education ? 2017 [employer] Normal [facility] ED Patient Summaryon 019 ED Patient Summary (Inserted Image. Laney ble to display) [facility] Emergency Department [address] [place] [address] [phone] Discharge Instructions (Patient) Name:JUSTINO PACHECO : 75 Reason For Visit: Shoulder injury - Minor; Shoulder pain Final Diagnosis: Right shoulder strain Visit Date: 01/05/19 09:30:00 Address: [address] [facility] [id number] Primary Care Provider: Name: Phone: Emergency Department Providers:Primary Physician: Jim Verduzco [facility] would like to thank you for allowing us to assist you with your healthcare needs. The following includes patient education materials and information regarding your injury/illness. Follow-up Instructions: You were treated today on an emergency basis; it may be martinez to contact your primary care provider to notify them of your visit today. You may have been referred to your regular doctor or a specialist, please follow up as instructed. If your condition worsens or you can't get in to see the doctor, contact the Emergency Department. With: Address: When: Froilan Barrow [facility] [place][note 2][address] [id number] [facility] (1) Within 2 to 4 days Prescriptions naproxen (naproxen 500 mg oral tablet), 500 Milligrams, 1 tab, Oral (given by mouth), 2 times a day cyclobenzaprine (cyclobenzaprine 10 mg oral tablet), 10 Milligrams, 1 tab, Oral (given by mouth), 3 times a day, as needed for as needed for muscle spasm Patient Education Materials: Form - Excuse from Work, School, or Physical Activity; Shoulder Pain; Rotator Cuff Injury Introduction Adolfosusie Pacheco needs to be excused from: __X__ Work ____ School ____ Physical activity beginning now and through the following date: ___01/05-01/08 . He or she may return to work or school but should still avoid the following physical activity or activities from now until . Activity restrictions include: ____ Lifting more than lb ____ Sitting longer than minutes at a time ____ Standing longer than minutes at a time ____ He or she may return to full physical activity as of . Health Care Provider Name (printed): Health Care Provider (signature): Date: This information is not intended to replace advice given to you by your health care provider. Make sure you discuss any questions you have with your health care provider. Document Released: 01/13/2002 Document Revised: 02/06/2017 Document Reviewed: 02/19/2015 ? 2017 [employer] Shoulder Pain Many things can cause shoulder pain, including: ? An injury to the area. ? Overuse of the shoulder. ? Arthritis. The source of the pain can be: ? Inflammation. ? An injury to the shoulder joint. ? An injury to a tendon, ligament, or bone. Follow these instructions at home: Take these actions to help with your pain: ? Squeeze a soft ball or a foam pad as much as possible. This helps to keep the shoulder from swelling. It also helps to strengthen the arm. ? Take zfox-uar-gapivld and prescription medicines only as told by your health care provider. ? If directed, apply ice to the area: ? Put ice in a plastic bag. ? Place a towel between your skin and the bag. ? Leave the ice on for 20 minutes, 2?3 times per day. Stop applying ice if it does not help with the pain. ? If you were given a shoulder sling or immobilizer: ? Wear it as told. ? Remove it to shower or bathe. ? Move your arm as little as possible, but keep your hand moving to prevent swelling. Contact a health care provider if: ? Your pain gets worse. ? Your pain is not relieved with medicines. ? New pain develops in your arm, hand, or fingers. Get help right away if: ? Your arm, hand, or fingers: ? Tingle. ? Become numb. ? Become swollen. ? Become painful. ? Turn white or blue. This information is not intended to replace advice given to you by your health care provider. Make sure you discuss any questions you have with your health care provider. Document Released: 04/29/2006 Document Revised: 03/15/2017 Document Reviewed: 11/12/2015 [employer] Interactive Patient Education ? 2017 [employer] Rotator Cuff Injury Rotator cuff injury is any type of injury to the set of muscles and tendons that make up the stabilizing unit of your shoulder. This unit holds the ball of your upper arm bone (humerus) in the socket of your shoulder blade (scapula). What are the causes? Injuries to your rotator cuff most commonly come from sports or activities that cause your arm to be moved repeatedly over your head. Examples of this include throwing, weight lifting, swimming, or racquet sports. Long lasting (chronic) irritation of your rotator cuff can cause soreness and swelling (inflammation), bursitis, and eventual damage to your tendons, such as a tear (rupture). What are the signs or symptoms? Acute rotator cuff tear: ? Sudden tearing sensation followed by severe pain shooting from your upper shoulder down your arm toward your elbow. ? Decreased range of motion of your shoulder because of pain and muscle spasm. ? Severe pain. ? Inability to raise your arm out to the side because of pain and loss of muscle power (large tears). Chronic rotator cuff tear: ? Pain that usually is worse at night and may interfere with sleep. ? Gradual weakness and decreased shoulder motion as the pain worsens. ? Decreased range of motion. Rotator cuff tendinitis: ? Deep ache in your shoulder and the outside upper arm over your shoulder. ? Pain that comes on gradually and becomes worse when lifting your arm to the side or turning it inward. How is this diagnosed? Rotator cuff injury is diagnosed through a medical history, physical exam, and imaging exam. The medical history helps determine the type of rotator cuff injury. Your health care provider will look at your injured shoulder, feel the injured area, and ask you to move your shoulder in different positions. X-ray exams typically are done to rule out other causes of shoulder pain, such as fractures. MRI is the exam of choice for the most severe shoulder injuries because the images show muscles and tendons. How is this treated? Chronic tear: ? Medicine for pain, such as acetaminophen or ibuprofen. ? Physical therapy and gelep-yk-cpkjit exercises may be helpful in maintaining shoulder function and strength. ? Steroid injections into your shoulder joint. ? Surgical repair of the rotator cuff if the injury does not heal with noninvasive treatment. Acute tear: ? Anti-inflammatory medicines such as ibuprofen and naproxen to help reduce pain and swelling. ? A sling to help support your arm and rest your rotator cuff muscles. Long-term use of a sling is not advised. It may cause significant stiffening of the shoulder joint. ? Surgery may be considered within a few weeks, especially in younger, active people, to return the shoulder to full function. ? Indications for surgical treatment include the following: ? Age younger than 60 years. ? Rotator cuff tears that are complete. ? Physical therapy, rest, and anti-inflammatory medicines have been used for 6?8 weeks, with no improvement. ? Employment or sporting activity that requires constant shoulder use. Tendinitis: ? Anti-inflammatory medicines such as ibuprofen and naproxen to help reduce pain and swelling. ? A sling to help support your arm and rest your rotator cuff muscles. Long-term use of a sling is not advised. It may cause significant stiffening of the shoulder joint. ? Severe tendinitis may require: ? Steroid injections into your shoulder joint. ? Physical therapy. ? Surgery. Follow these instructions at home: ? Apply ice to your injury: ? Put ice in a plastic bag. ? Place a towel between your skin and the bag. ? Leave the ice on for 20 minutes, 2?3 times a day. ? If you have a shoulder immobilizer (sling and straps), wear it until told otherwise by your health care provider. ? You may want to sleep on several pillows or in a recliner at night to lessen swelling and pain. ? Only take egjn-wvm-euejycf or prescription medicines for pain, discomfort, or fever as directed by your health care provider. ? Do simple hand squeezing exercises with a soft rubber ball to decrease hand swelling. Contact a health care provider if: ? Your shoulder pain increases, or new pain or numbness develops in your arm, hand, or fingers. ? Your hand or fingers are colder than your other hand. Get help right away if: ? Your arm, hand, or fingers are numb or tingling. ? Your arm, hand, or fingers are increasingly swollen and painful, or they turn white or blue. This information is not intended to replace advice given to you by your health care provider. Make sure you discuss any questions you have with your health care provider. Document Released: 07/17/2001 Document Revised: 12/25/2016 Document Reviewed: 03/01/2014 [employer] Interactive Patient Education ? 2017 [employer] Allergy Info: Fish Oil Medication Information: [facility] ED Physicians provided you with a complete list of medications post discharge, if you have been instructed to stop taking a medication please ensure you also follow up with this information to your Primary Care Physician. Unless otherwise noted, patient will continue to take medications as prescribed prior to the Emergency Room visit. Any specific questions regarding your chronic medications and dosages should be discussed with your physician(s) and pharmacist. Major Tests and Procedures: The following procedures and tests were performed during your ED visit. Radiology Orders: Laboratory Orders: Patient Care Orders: Discharge Patient 01/05/19 11:31:00 EDT Comment: General Information We are happy to serve you. The examination and treatment you have received have been on an emergency basis only. It's not intended to be a substitute or replacement for complete medical care. Call the Emergency Department for any questions or concerns at [phone]. Some illnesses get worse even when treated correctly. Others may take more time before the correct diagnosis can be made. If you don't get better, or you get worse, you should return to the Emergency Department or call your doctor. We are very concerned about your general health and safety. When driving or riding in a vehicle, we encourage you to always wear your seatbelt, and if you have an or child, always use the appropriate infant/child car seat. Medication Instructions If you need a prescription refill, you must see your doctor. Take all medications only as directed. Do not take a medication you are allergic to. If you have been prescribed new medications check with your pharmacist to make sure there are no problems with the medications you are taking. To help ensure your safety, keep a copy of this discharge instruction to share with your health care provider at your next visit. It contains a copy of your medication list, diagnoses made in our emergency department and information about treatment you received here. Referral Instructions You were treated today on an emergency basis; it may be martinez to contact your primary care provider to notify them of your visit today. You may have been referred to your regular doctor or a specialist, please follow up as instructed. If your condition worsens or you can't get in to see the doctor, contact the Emergency Department. Diagnostic Studies If you had a diagnostic study performed, we will notify you of any lab, EKG or X-ray findings that would require a change in treatment. A specialist reviews most diagnostic studies after your visit. Some test results are not available for 24-72 hours. You may need a copy of your x-rays to take to your follow-up doctor. You can arrange to leaf size picker a copy of your x-rays by calling [phone]. Case Management A pillowcase cleaner can help you with follow up visits, referrals, or questions about your care and other needs. You may call [phone] during regular business hours. Many medications can make you feel sleepy, impair your ability to drive, or effect your ability to make good decisions. Some of these medicines can even make you stop breathing when you go to sleep, particularly if several different medicines are combined. For this reason,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 types of sprains: ? Grade 1 is a mild sprain involving an overstretched ligament or a very slight tear of the ligament. ? Grade 2 is a moderate sprain involving a partial tear of the ligament. ? Grade 3 is a severe sprain involving a complete tear of the ligament. What are the causes? This condition may be caused by: ? Trauma, such as a fall or a hit to the body. ? Twisting or overstretching the back. This may result from doing activities that require a lot of energy, such as lifting heavy objects. What increases the risk? The following factors may increase your risk of getting this condition: ? Playing contact sports. ? Participating in sports or activities that put excessive stress on the back and require a lot of bending and twisting, including: ? Lifting weights or heavy objects. ? Gymnastics. ? Soccer. ? Figure skating. ? Snowboarding. ? Being overweight or obese. ? Having poor strength and flexibility. What are the signs or symptoms? Symptoms of this condition may include: ? Sharp or dull pain in the lower back that does not go away. Pain may extend to the buttocks. ? Stiffness. ? Limited range of motion. ? Inability to stand up straight due to stiffness or pain. ? Muscle spasms. How is this diagnosed? This condition may be diagnosed based on: ? Your symptoms. ? Your medical history. ? A physical exam. ? Your health care provider may push on certain areas of your back to determine the source of your pain. ? You may be asked to bend forward, backward, and side to side to assess the severity of your pain and your range of motion. ? Imaging tests, such as: ? X-rays. ? MRI. How is this treated? Treatment for this condition may include: ? Applying heat and cold to the affected area. ? Medicines to help relieve pain and to relax your muscles (muscle relaxants). ? NSAIDs to help reduce swelling and discomfort. ? Physical therapy. When your symptoms improve, it is important to gradually return to your normal routine as soon as possible to reduce pain, avoid stiffness, and avoid loss of muscle strength. Generally, symptoms should improve within 6 weeks of treatment. However, recovery time varies. Follow these instructions at home: Managing pain, stiffness, and swelling ? If directed, apply ice to the injured area during the first 24 hours after your injury. ? Put ice in a plastic bag. ? Place a towel between your skin and the bag. ? Leave the ice on for 20 minutes, 2?3 times a day. ? If directed, apply heat to the affected area as often as told by your health care provider. Use the heat source that your health care provider recommends, such as a moist heat pack or a heating pad. ? Place a towel between your skin and the heat source. ? Leave the heat on for 20?30 minutes. ? Remove the heat if your skin turns bright red. This is especially important if you are unable to feel pain, heat, or cold. You may have a greater risk of getting burned. Activity ? Rest and return to your normal activities as told by your health care provider. Ask your health care provider what activities are safe for you. ? Avoid activities that take a lot of effort (are strenuous) for as long as told by your health care provider. ? Do exercises as told by your health care provider. General instructions ? Take [id number] and prescription medicines only as told by your health care provider. ? If you have questions or concerns about safety while taking pain medicine, talk with your health care provider. ? Do notdrive or operate heavy machinery until you know how your pain medicine affects you. ? Do notuse any tobacco products, such as cigarettes, chewing tobacco, and e-cigarettes. Tobacco can delay bone healing. If you need help quitting, ask your health care provider. ? Keep all follow-up visits as told by your health care provider. This is important. How is this prevented? ? Warm up and stretch before being active. ? Cool down and stretch after being active. ? Give your body time to rest between periods of activity. ? Avoid: ? Being physically inactive for long periods at a time. ? Exercising or playing sports when you are tired or in pain. ? Use correct form when playing sports and lifting heavy objects. ? Use good posture when sitting and standing. ? Maintain a healthy weight. ? Sleep on a mattress with medium firmness to support your back. ? Make sure to use equipment that fits you, including shoes that fit well. ? Be safe and responsible while being active to avoid falls. ? Do at least 150 minutes of moderate-intensity exercise each week, such as brisk walking or water aerobics. Try a form of exercise that takes stress off your back, such as swimming or stationary cycling. ? Maintain physical fitness, including: ? Strength. In particular, develop and maintain strong abdominal muscles. ? Flexibility. ? Cardiovascular fitness. ? Endurance. Contact a health care provider if: ? Your back pain does not improve after 6 weeks of treatment. ? Your symptoms get worse. Get help right away if: ? Your back pain is severe. ? You are unable to stand or walk. ? You develop pain in your legs. ? You develop weakness in your buttocks or legs. ? You have difficulty controlling when you urinate or when you have a bowel movement. This information is not intended to replace advice given to you by your health care provider. Make sure you discuss any questions you have with your health care provider. Document Released: 07/20/2006 Document Revised: 03/26/2017 Document Reviewed: 04/30/2016 [employer] Interactive Patient Education ? 2017 [employer] Normal [facility] ED Patient Summaryon 019 ED Patient Summary (Inserted Image. Laney ble to display) [facility] Emergency Department Eliza Madden [phone] Discharge Instructions (Patient) Name:JUSTINO PACHECO : [address] [facility]: [id number] Reason For Visit: Back pain; Back Pain Final Diagnosis: 1:Thoracic sprain; 2:Lumbar sprain Visit Date: 11/25/18 19:13:00 [address]: [address] [facility] [id number] Primary Care Provider: Name: Phone: Emergency Department Providers:Primary Physician: OSIRIS Young Chad B [facility] would like to thank you for allowing us to assist you with your healthcare needs. The following includes patient education materials and information regarding your injury/illness. Follow-up Instructions: You were treated today on an emergency basis; it may be martinez to contact your primary care provider to notify them of your visit today. You may have been referred to your regular doctor or a specialist, please follow up as instructed. If your condition worsens or you can't get in to see the doctor, contact the Emergency Department. With: Address: When: first [facility] urgent [facility] [address] [place] [address] In 1 day Patient Education Materials: Low Back Sprain Low Back Sprain A sprain is a stretch or tear in the bands of tissue that hold bones and joints together (ligaments). Sprains of the lower back (lumbar spine) are a common cause of low back pain. A sprain occurs when ligaments are overextended or stretched beyond their limits. The ligaments can become inflamed, resulting in pain and sudden muscle tightening (spasms). A sprain can be caused by an injury (trauma), or it can develop gradually due to overuse. There are three types of sprains: ? Grade 1 is a mild sprain involving an overstretched ligament or a very slight tear of the ligament. ? Grade 2 is a moderate sprain involving a partial tear of the ligament. ? Grade 3 is a severe sprain involving a complete tear of the ligament. What are the causes? This condition may be caused by: ? Trauma, such as a fall or a hit to the body. ? Twisting or overstretching the back. This may result from doing activities that require a lot of energy, such as lifting heavy objects. What increases the risk? The following factors may increase your risk of getting this condition: ? Playing contact sports. ? Participating in sports or activities that put excessive stress on the back and require a lot of bending and twisting, including: ? Lifting weights or heavy objects. ? Gymnastics. ? Soccer. ? Figure skating. ? Snowboarding. ? Being overweight or obese. ? Having poor strength and flexibility. What are the signs or symptoms? Symptoms of this condition may include: ? Sharp or dull pain in the lower back that does not go away. Pain may extend to the buttocks. ? Stiffness. ? Limited range of motion. ? Inability to stand up straight due to stiffness or pain. ? Muscle spasms. How is this diagnosed? This condition may be diagnosed based on: ? Your symptoms. ? Your medical history. ? A physical exam. ? Your health care provider may push on certain areas of your back to determine the source of your pain. ? You may be asked to bend forward, backward, and side to side to assess the severity of your pain and your range of motion. ? Imaging tests, such as: ? X-rays. ? MRI. How is this treated? Treatment for this condition may include: ? Applying heat and cold to the affected area. ? Medicines to help relieve pain and to relax your muscles (muscle relaxants). ? NSAIDs to help reduce swelling and discomfort. ? Physical therapy. When your symptoms improve, it is important to gradually return to your normal routine as soon as possible to reduce pain, avoid stiffness, and avoid loss of muscle strength. Generally, symptoms should improve within 6 weeks of treatment. However, recovery time varies. Follow these instructions at home: Managing pain, stiffness, and swelling ? If directed, apply ice to the injured area during the first 24 hours after your injury. ? Put ice in a plastic bag. ? Place a towel between your skin and the bag. ? Leave the ice on for 20 minutes, 2?3 times a day. ? If directed, apply heat to the affected area as often as told by your health care provider. Use the heat source that your health care provider recommends, such as a moist heat pack or a heating pad. ? Place a towel between your skin and the heat source. ? Leave the heat on for 20?30 minutes. ? Remove the heat if your skin turns bright red. This is especially important if you are unable to feel pain, heat, or cold. You may have a greater risk of getting burned. Activity ? Rest and return to your normal activities as told by your health care provider. Ask your health care provider what activities are safe for you. ? Avoid activities that take a lot of effort (are strenuous) for as long as told by your health care provider. ? Do exercises as told by your health care provider. General instructions ? Take [id number] and prescription medicines only as told by your health care provider. ? If you have questions or concerns about safety while taking pain medicine, talk with your health care provider. ? Do notdrive or operate heavy machinery until you know how your pain medicine affects you. ? Do notuse any tobacco products, such as cigarettes, chewing tobacco, and e-cigarettes. Tobacco can delay bone healing. If you need help quitting, ask your health care provider. ? Keep all follow-up visits as told by your health care provider. This is important. How is this prevented? ? Warm up and stretch before being active. ? Cool down and stretch after being active. ? Give your body time to rest between periods of activity. ? Avoid: ? Being physically inactive for long periods at a time. ? Exercising or playing sports when you are tired or in pain. ? Use correct form when playing sports and lifting heavy objects. ? Use good posture when sitting and standing. ? Maintain a healthy weight. ? Sleep on a mattress with medium firmness to support your back. ? Make sure to use equipment that fits you, including shoes that fit well. ? Be safe and responsible while being active to avoid falls. ? Do at least 150 minutes of moderate-intensity exercise each week, such as brisk walking or water aerobics. Try a form of exercise that takes stress off your back, such as swimming or stationary cycling. ? Maintain physical fitness, including: ? Strength. In particular, develop and maintain strong abdominal muscles. ? Flexibility. ? Cardiovascular fitness. ? Endurance. Contact a health care provider if: ? Your back pain does not improve after 6 weeks of treatment. ? Your symptoms get worse. Get help right away if: ? Your back pain is severe. ? You are unable to stand or walk. ? You develop pain in your legs. ? You develop weakness in your buttocks or legs. ? You have difficulty controlling when you urinate or when you have a bowel movement. This information is not intended to replace advice given to you by your health care provider. Make sure you discuss any questions you have with your health care provider. Document Released: 07/20/2006 Document Revised: 03/26/2017 Document Reviewed: 04/30/2016 [employer] Interactive Patient Education ? 2017 [employer] Allergy Info: Fish Oil Medication Information: [facility] ED Physicians provided you with a complete list of medications post discharge, if you have been instructed to stop taking a medication please ensure you also follow up with this information to your Primary Care Physician. Unless otherwise noted, patient will continue to take medications as prescribed prior to the Emergency Room visit. Any specific questions regarding your chronic medications and dosages should be discussed with your physician(s) and pharmacist. Major Tests and Procedures: The following procedures and tests were performed during your ED visit. Radiology Orders: Laboratory Orders: Patient Care Orders: Discharge Patient 11/25/18 20:33:00 EDT, Home or Self Care Comment: General Information We are happy to serve you. The examination and treatment you have received have been on an emergency basis only. It's not intended to be a substitute or replacement for complete medical care. Call the Emergency Department for any questions or concerns at [phone]. Some illnesses get worse even when treated correctly. Others may take more time before the correct diagnosis can be made. If you don't get better, or you get worse, you should return to the Emergency Department or call your doctor. We are very concerned about your general health and safety. When driving or riding in a vehicle, we encourage you to always wear your seatbelt, and if you have an infant or child, always use the appropriate /child car seat. Medication Instructions If you need a prescription refill, you must see your doctor. Take all medications only as directed. Do not take a medication you are allergic to. If you have been prescribed new medications check with your pharmacist to make sure there are no problems with the medications you are taking. To help ensure your safety, keep a copy of this discharge instruction to share with your health care provider at your next visit. It contains a copy of your medication list, diagnoses made in our emergency department and information about treatment you received here. Referral Instructions You were treated today on an emergency basis; it may be martinez to contact your primary care provider to notify them of your visit today. You may have been referred to your regular doctor or a specialist, please follow up as instructed. If your condition worsens or you can't get in to see the doctor, contact the Emergency Department. Diagnostic Studies If you had a diagnostic study performed, we will notify you of any lab, EKG or X-ray findings that would require a change in treatment. A specialist reviews most diagnostic studies after your visit. Some test results are not available for 24-72 hours. You may need a copy of your x-rays to take to your follow-up doctor. You can arrange to leaf size picker a copy of your x-rays by calling [phone]. Case Management A pillowcase cleaner can help you with follow up visits, referrals, or questions about your care and other needs. You may call [phone] during regular business hours. Many medications can make you feel sleepy, impair your ability to drive, or effect your ability to make good decisions. Some of these medicines can even make you stop breathing when you go to sleep, particularly if several different medicines are combined. For this reason, we ask that you arrange for someone else to give you a ride home, do not operate machinery or make important decisions, and do not take any sleeping pills, pain pills, or drink alcohol for at least 4-6 hours from the time you leave the emergency department. It is also important to know that the use of narcotic medications can be habit forming. I have received this information and my questions have been answered. Patient/Training Executive Signature: _ Relationship to Patient: Patient Name:JUSTINO PACHECO RAY Witness Signature: Date:11/25/18 20:59:45 Normal [facility] XR Spine Lumbosacral 2 or 3 Viewson 11-25-2018 XR Spine Lumbosacral 2 or 3 Views EXAMINATION: 3 XRAY VIEWS OF THE LUMBAR SPINE 11/25/2018 8:07 pm COMPARISON: None. HISTORY: ORDERING SYSTEM PROVIDED HISTORY: Injury TECHNOLOGIST PROVIDED HISTORY: Tech Provided Reason for Exam: back pain Injury/Trauma or Illness: Injury/Trauma Type of Encounter: Initial Relevant Medical/Surgical History: Mid to lower back pain onset today while pulling on heavy skids at work. [place] a pop sensation. Radiating down legs. Left leg numbness. No loss of bowel or bladder function. Acuity: today FINDINGS: There are 5 lumbar type vertebral bodies. Lumbar vertebral body heights, vertebral body alignment and disc spaces are normal. There is mild anterior spondylosis at L3, L4 and L5. Pedicles are intact. Sacroiliac joints are unremarkable. IMPRESSION: Mild anterior spondylosis. Otherwise unremarkable lumbar spine examination. No evidence of an acute injury. Final Dictated by: MD Garcia James L Dictated DT/TM: 11/25/2018 8:15 pm Signed by: MD Garcia James L Signed (Electronic Signature): 11/25/2018 8:15 pm Normal [facility] XR Spine Thoracic 3 Viewson 11-25-2018 XR Spine Thoracic 3 Views EXAMINATION: 3 XRAY VIEWS OF THE THORACIC SPINE 11/25/2018 8:07 pm COMPARISON: None. HISTORY: ORDERING SYSTEM PROVIDED HISTORY: Injury TECHNOLOGIST PROVIDED HISTORY: Tech Provided Reason for Exam: back pain Injury/Trauma or Illness: Injury/Trauma Type of Encounter: Initial Relevant Medical/Surgical History: Mid to lower back pain onset today while pulling on heavy skids at work. Melstone a pop sensation. Radiating down legs. Left leg numbness. No loss of bowel or bladder function. Acuity: today FINDINGS: Thoracic vertebral body heights, vertebral body alignment and disc spaces are normal. There is no significant thoracic spondylosis. Pedicles are intact. No evidence of an acute fracture. Orthopedic hardware in a proximal humerus status post ORIF. IMPRESSION: No evidence of an acute injury. Final Dictated by: MD Garcia James L Dictated DT/TM: 11/25/2018 8:17 pm Signed by: MD Garcia James L Signed (Electronic Signature): 11/25/2018 8:17 pm Normal [facility] DRUGS OF ABUSE SCREEN, URINE on 10-13-2018 Amphetamines Ql (U) Positive Abnormal None Detected [facility] Comment on above: Urine Amphetamine Cutoff: < 1000 ng/mL = None Detected Barbiturates Screen Ql (U) None Detected None Detected [facility] Comment on above: Urine Barbiturates Cutoff: < 200 ng/mL = None Detected Benzodiazepines Ql (U) None Detected None Detected [facility] Comment on above: Urine Benzodiazepine Cutoff: < 300 ng/mL = None Detected Cannabinoids Screen Ql (U) None Detected None Detected [facility] Comment on above: Urine Cannabinoids Cutoff: < 50 ng/mL = None Detected Cocaine Ql (U) None Detected None Detected [facility] Comment on above: Urine Cocaine Cutoff: < 300 ng/mL = None Detected Interpretation and review of laboratory results Abnormal [facility] Methadone Screen Ql (U) None Detected None Detected [facility] Comment on above: Urine Methadone Cutoff: < 300 ng/mL = None Detected Opiates Screen Ql (U) None Detected None Detected [facility] Comment on above: Urine Opiates Cutoff: < 300 ng/mL = None Detected Oxycodone Ql (U) None Detected None Detected [facility] Comment on above: Urine Oxycodone Cutoff: < 100 ng/mL = None Detected Screen results shoul d be used for treatment purposes only. Specimen will be kept for 2 weeks, if the sample is adequate. Confirmation testing can be initiated by calling the lab within 2 weeks. [facility] Drugs of Abuse Screen, Urine on 01-20-2018 Amphetamine Screen, Urine None Detected Invalid Interpretation Code None Detected [facility] Comment on above: Urine Amphetamine Cu toff: < 1000 ng/mL = None Detected Cocaine, Screen Urine None Detected Invalid Interpretation Code None Detected [facility] Comment on above: Urine Cocaine Cutoff : < 300 ng/mL = None Detected Methadone Screen, Urine None Detected Invalid Interpretation Code None Detected [facility] Comment on above: Urine Methadone Cuto ff: < 300 ng/mL = None Detected Opiate Screen, Urine None Detected Invalid Interpretation Code None Detected [facility] Comment on above: Urine Opiates Cutoff : < 300 ng/mL = None Detected Oxycodone Screen, Urine None Detected Invalid Interpretation Code None Detected [facility] Comment on above: Urine Oxycodone Cuto ff: < 100 ng/mL = None Detected Urine, barbiturates presence None Detected Invalid Interpretation Code None Detected [facility] Comment on above: Urine Barbiturates C utoff: < 200 ng/mL = None Detected Urine, benzodiazepines presence None Detected Invalid Interpretation Code None Detected [facility] Comment on above: Urine Benzodiazepine Cutoff: < 300 ng/mL = None Detected Urine, cannabinoids presence None Detected Invalid Interpretation Code None Detected [facility] Comment on above: Urine Cannabinoids C utoff: < 50 ng/mL = None Detected Drugs of Abuse Screen, Urine Screen results should be used for treatment purposes only. Invalid Interpretation Code [facility] PSA Monitoron 01-20-2018 Interpretation and review of laboratory results Normal Invalid Interpretation Code [facility] PSA 0.50 ng/mL Invalid Interpretation Code 0 - 0.99 ng/mL [facility] Comment on above: Per the National [facility] (NCCN) Guidelines: . Repeat test every 2-4 years (for ages 45-75) . PSA> 3.0 ng/ml is positive regardless of age. . PSA normal values are based upon a patient with a normal Digital Rectal Exam (JAVED). A JAVED suspicious for cancer at any PSA level is an indication for biopsy. . Any serum PSA level in a patient previously treated for prostate cancer should be interpreted with caution. Basic Metabolic Panelon 03-04 Anion gap 17 mmol/L Invalid Interpretation Code 10 - 20 mmol/L [facility] Bicarbonate (HCO3) 23 mmol/L Invalid Interpretation Code 21 - 32 mmol/L [facility] BUN/Creatinine Ratio 12.3 mg/mg Invalid Interpretation Code 10.0 - 20.0 [facility] Calcium 8.9 mg/dL Invalid Interpretation Code 8.4 - 10.2 mg/dL [facility] Chloride 103 mmol/L Invalid Interpretation Code 98 - 108 mmol/L [facility] Creatinine 1.06 mg/dL Invalid Interpretation Code 0.5 - 1.3 mg/dL [facility] eGFR (non-black) The eGFR should be u sed for monitoring renal function only and not for medication dosing. Invalid Interpretation Code [facility] eGFR (non-black) 87 mL/min/{1.73_m2} Invalid Interpretation Code >=60 [facility] Glucose 113 mg/dL High 65 - 99 mg/dL [facility] Interpretation and review of laboratory results Abnormal Invalid Interpretation Code [facility] Potassium 4.0 mmol/L Invalid Interpretation Code 3.5 - 5.1 mmol/L [facility] Sodium 139 mmol/L Invalid Interpretation Code 135 - 145 mmol/L [facility] Urea nitrogen 13 mg/dL Invalid Interpretation Code 8 - 25 mg/dL [facility] CBCon 03-22-2017 Erythrocytes (RBC) 0.00 K/mcL Invalid Interpretation Code 0.00 - 0.00 [facility] Erythrocytes (RBC) 4.43 M/mcL Low 4.50 - 5.90 [facility] AB Hematocrit (HCT) 40.3 % Low 41 - 53 % [facility] Hemoglobin (HGB) 14.1 g/dL Invalid Interpretation Code 13.5 - 17.5 g/dL [facility] MCH 31.8 pg Invalid Interpretation Code 26 - 34 pg [facility] MCHC 35.0 g/dL Invalid Interpretation Code 31 - 37 g/dL [facility] MCV 91.0 fL Invalid Interpretation Code 80 - 100 fL [facility] Nucleated erythrocytes/100 erythrocytes 0.0 % Invalid Interpretation Code [facility] Platelet mean volume (PMV) 9.8 fL Invalid Interpretation Code 9 - 15.5 fL [facility] Platelets 191 K/mcL Invalid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 12-11-2021 13:59-0400 Body mass index (BMI) [Ratio] 35.5 kg/m2 PA Crescencio Jordan PA Work Phone: [facility] Work Phone: 12-11-2021 13:59-0400 Body temperature 98.7 [degF] PA Crescencio Jordan PA Work Phone: [facility] Work Phone: 12-11-2021 13:59-0400 Body weight 99.79 kg PA Crescencio Jordan PA Work Phone: [facility] Work Phone: 12-11-2021 13:59-0400 Diastolic blood pressure 74 mm[Hg] PA Crescencio Jordan PA Work Phone: [facility] Work Phone: 12-11-2021 13:59-0400 Heart rate 87 /min PA Crescencio Jordan PA Work Phone: [facility] Work Phone: 12-11-2021 13:59-0400 Respiratory rate 18 /min PA Crescencio Jordan PA Work Phone: [facility] Work Phone: 12-11-2021 13:59-0400 SaO2% (BldA) [Mass fraction] 93 % PA Crescencio Jordan PA Work Phone: [facility] Work Phone: 12-11-2021 13:59-0400 Systolic blood pressure 123 mm[Hg] PA Crescencio Jordan PA Work Phone: [facility] Work Phone: 10-02-2021 17:07-0500 Body mass index (BMI) [Ratio] 34.2 kg/m2 PA Crescencio Jordan PA Work Phone: [facility] Work Phone: 10-02-2021 17:07-0500 Body temperature 96.8 [degF] PA Crescencio Jordan PA Work Phone: [facility] Work Phone: 10-02-2021 17:07-0500 Body weight 99.1 kg PA Crescencio Jordan PA Work Phone: [facility] Work Phone: 10-02-2021 17:07-0500 Diastolic blood pressure 91 mm[Hg] PA Crescencio Jordan PA Work Phone: [facility] Work Phone: 10-02-2021 17:07-0500 Heart rate 89 /min PA Crescencio Jordan PA Work Phone: [facility] Work Phone: 10-02-2021 17:07-0500 Respiratory rate 15 /min PA Crescencio Jordan PA Work Phone: [facility] Work Phone: 10-02-2021 17:07-0500 SaO2% (BldA) [Mass fraction] 98 % PA Crescencio Jordan PA Work Phone: [facility] Work Phone: 10-02-2021 17:07-0500 Systolic blood pressure 128 mm[Hg] OSIRIS Jordan PA Work Phone: [facility] Work Phone: 09-27-2021 06:56-0500 Body temperature 98.5 [degF] PA Crescencio Jordan PA Work Phone: [facility] Work Phone: 09-27-2021 06:56-0500 Diastolic blood pressure 70 mm[Hg] PA Crescencio Jordan PA Work Phone: [facility] Work Phone: 09-27-2021 06:56-0500 Heart rate 95 /min PA Crescencio Jordan PA Work Phone: [facility] Work Phone: 09-27-2021 06:56-0500 Respiratory rate 15 /min PA Crescencio Jordan PA Work Phone: [facility] Work Phone: 09-27-2021 06:56-0500 SaO2% (BldA) [Mass fraction] 95 % PA Crescencio Jordan PA Work Phone: [facility] Work Phone: 09-27-2021 06:56-0500 Systolic blood pressure 126 mm[Hg] PA Crescencio Jordan PA Work Phone: [facility] Work Phone: 09-23-2021 08:02-0500 Diastolic blood pressure 86 mm[Hg] Lindsay Traore MD Work Phone: [facility] 09-23-2021 08:02-0500 Heart rate 68 /min Lindsay Traore MD Work Phone: [facility] 09-23-2021 08:02-0500 SaO2% (BldA) [Mass fraction] 92 % Lindsay Traore MD Work Phone: [facility] 09-23-2021 08:02-0500 Systolic blood pressure 131 mm[Hg] Lindsay Traore MD Work Phone: [facility] 09-17-2021 07:07-0500 Body temperature 97 [degF] PA Crescencio Jordan PA Work Phone: [facility] Work Phone: 09-17-2021 07:07-0500 Diastolic blood pressure 78 mm[Hg] PA Crescencio Jordan PA Work Phone: [facility] Work Phone: 09-17-2021 07:07-0500 Heart rate 80 /min PA Crescencio Jordan PA Work Phone: [facility] Work Phone: 09-17-2021 07:07-0500 Respiratory rate 14 /min PA Crescencio Jordan PA Work Phone: [facility] Work Phone: 09-17-2021 07:07-0500 SaO2% (BldA) [Mass fraction] 94 % PA Crescencio Jordan PA Work Phone: [facility] Work Phone: 09-17-2021 07:07-0500 Systolic blood pressure 124 mm[Hg] PA Crescencio Jordan PA Work Phone: [facility] Work Phone: 09-06-2021 09:32-0500 Body temperature 97.9 [degF] PA Crescencio Jordan PA Work Phone: [facility] Work Phone: 09-06-2021 09:32-0500 Diastolic blood pressure 82 mm[Hg] PA Crescencio Jordan PA Work Phone: [facility] Work Phone: 09-06-2021 09:32-0500 Heart rate 94 /min PA Crescencio Jordan PA Work Phone: [facility] Work Phone: 09-06-2021 09:32-0500 Respiratory rate 14 /min PA Crescencio Jordan PA Work Phone: [facility] Work Phone: 09-06-2021 09:32-0500 SaO2% (BldA) [Mass fraction] 95 % PA Crescencio Jordan PA Work Phone: [facility] Work Phone: 09-06-2021 09:32-0500 Systolic blood pressure 136 mm[Hg] PA Crescencio Jordan PA Work Phone: [facility] Work Phone: 08-26-2021 08:26-0500 Body temperature 97.2 [degF] PA Crescencio Jordan PA Work Phone: [facility] Work Phone: 08-26-2021 08:26-0500 Diastolic blood pressure 82 mm[Hg] PA Crescencio Jordan PA Work Phone: [facility] Work Phone: 08-26-2021 08:26-0500 Heart rate 63 /min PA Crescencio Jordan PA Work Phone: [facility] Work Phone: 08-26-2021 08:26-0500 Respiratory rate 18 /min PA Crescencio Jordan PA Work Phone: [facility] Work Phone: 08-26-2021 08:26-0500 SaO2% (BldA) [Mass fraction] 99 % PA Crescencio Jordan PA Work Phone: [facility] Work Phone: 08-26-2021 08:26-0500 Systolic blood pressure 142 mm[Hg] PA Crescencio Jordan PA Work Phone: [facility] Work Phone: 04-26-2021 08:30-0400 Body height 167.6 cm Manuel Quinn MD Work Phone: [facility] 04-26-2021 08:30-0400 Body mass index (BMI) [Ratio] 34.22 kg/m2 Manuel Quinn MD Work Phone: [facility] 04-26-2021 08:30-0400 Body temperature 98.91 [degF] Manuel Quinn MD Work Phone: [facility] 04-26-2021 08:30-0400 Body weight 96.16 kg Manuel Quinn MD Work Phone: [facility] 04-26-2021 08:30-0400 Diastolic blood pressure 70 mm[Hg] Manuel Quinn MD Work Phone: [facility] 04-26-2021 08:30-0400 Heart rate 76 /min Manuel Quinn MD Work Phone: [facility] 04-26-2021 08:30-0400 SaO2% (BldA) [Mass fraction] 94 % Manuel Quinn MD Work Phone: [facility] 04-26-2021 08:30-0400 Systolic blood pressure 110 mm[Hg] Manuel Quinn MD Work Phone: [facility] 03-25-2021 07:59-0400 Diastolic blood pressure 74 mm[Hg] Lindsay Traore MD Work Phone: [facility] 03-25-2021 07:59-0400 Heart rate 69 /min Lindsay Traore MD Work Phone: [facility] 03-25-2021 07:59-0400 SaO2% (BldA) [Mass fraction] 94 % Lindsay Traore MD Work Phone: [facility] 03-25-2021 07:59-0400 Systolic blood pressure 142 mm[Hg] Lindsay Traore MD Work Phone: [facility] 03-01-2021 08:15-0400 Body height 167.6 cm Manuel Quinn MD Work Phone: [facility] 03-01-2021 08:15-0400 Body mass index (BMI) [Ratio] 34.33 kg/m2 Manuel Quinn MD Work Phone: [facility] 03-01-2021 08:15-0400 Body temperature 99 [degF] Manuel Quinn MD Work Phone: [facility] 03-01-2021 08:15-0400 Body weight 96.48 kg Manuel Quinn MD Work Phone: [facility] 03-01-2021 08:15-0400 Diastolic blood pressure 83 mm[Hg] Manuel Quinn MD Work Phone: [facility] 03-01-2021 08:15-0400 Heart rate 72 /min Manuel Quinn MD Work Phone: [facility] 03-01-2021 08:15-0400 SaO2% (BldA) [Mass fraction] 93 % Manuel Quinn MD Work Phone: [facility] 03-01-2021 08:15-0400 Systolic blood pressure 135 mm[Hg] Manuel Quinn MD Work Phone: [facility] 10-18-2020 09:31-0400 BMI (Body Mass Index) 35.51 kg/m2 [facility] 10-18-2020 09:31-0400 Body weight 99.79 kg [facility] 10-18-2020 09:31-0400 BP Diastolic 80 mm[Hg] [facility] 10-18-2020 09:31-0400 BP Systolic 135 mm[Hg] [facility] 10-18-2020 09:31-0400 Height 167.6 cm [facility] 10-18-2020 09:31-0400 Pulse (Heart Rate) 71 /min [facility] 10-05-2020 10:19-0500 BMI (Body Mass Index) 34.25 kg/m2 reyna Quinn [facility] 10-05-2020 10:19-0500 Body Temperature 98.71 [degF] Manuel Quinn [facility] 10-05-2020 10:19-0500 Body weight 96.25 kg reyna Quinn [facility] 10-05-2020 10:19-0500 BP Diastolic 80 mm[Hg] Manuel Quinn [facility] 10-05-2020 10:19-0500 BP Systolic 125 mm[Hg] Manuel Quinn [facility] 10-05-2020 10:19-0500 Pulse (Heart Rate) 81 /min Manuel Quinn [facility] 10-05-2020 10:19-0500 Pulse Oximetry 96 % Manuel Quinn [facility] 09-24-2020 08:26-0500 BMI (Body Mass Index) 33.89 kg/m2 Lindsay [facility] 09-24-2020 08:26-0500 [facility] 09-24-2020 08:26-0500 BP Diastolic 71 mm[Hg] [facility] 09-24-2020 08:26-0500 BP Systolic 114 mm[Hg] [facility] 09-24-2020 08:26-0500 Height 167.6 cm [facility] 09-24-2020 08:26-0500 Pulse (Heart Rate) 84 /min [facility] 09-24-2020 08:260500 Pulse Oximetry 92 % [facility] 08-31-2020 09:26-0500 BMI (Body Mass Index) 33.09 kg/m2 Manuel Quinn [facility] 08-31-2020 09:26-0500 [facility] [facility] 08-31-2020 09:-0500 Height 167.6 cm reyna Darlin [facility] 02-22-2020 16:27-0400 BP Diastolic 76 mm[Hg] [facility] 02-22-2020 16:27-0400 BP Systolic 121 mm[Hg] [facility] 02-22-2020 16:27-0400 Pulse (Heart Rate) 70 /min [facility] 02-22-2020 16:27-0400 Pulse Oximetry 97 % [facility] 02-22-2020 16:27-0400 Respiratory Rate 16 /min [facility] 02-22-2020 14:26-0400 BMI (Body Mass Index) 31.34 kg/m2 [facility] 02-22-2020 14:26-0400 Body Temperature 98.4 [degF] [facility] 02-22-2020 14:26-0400 Body weight 88.09 kg [facility] 02-22-2020 14:26-0400 Height 167.6 cm Derik Driver [facility] 09-26-2019 15:08-0500 BMI (Body Mass Index) 31.64 kg/m2 Consuelo [facility] 09-26-2019 15:08-0500 Body weight 91.63 kg Consuelo [facility] 09-26-2019 15:08-0500 BP Diastolic 81 mm[Hg] Consuelo [facility] 09-26-2019 15:08-0500 BP Systolic 127 mm[Hg] Consuelo [facility] 09-26-2019 15:08-0500 Height 170.2 cm Consuelo [facility] 09-26-2019 15:08-0500 Pulse (Heart Rate) 89 /min Consuelo [facility] 09-26-2019 15:08-0500 Pulse Oximetry 96 % Consuelo [facility] 05-31-2019 14:03-0400 BMI (Body Mass Index) 31.64 kg/m2 Consuelo [facility] 05-31-2019 14:03-0400 Body weight 91.63 kg Consuelo [facility] 05-31-2019 14:03-0400 BP Diastolic 84 mm[Hg] [facility] 05-31-2019 14:03-0400 BP Systolic 122 mm[Hg] Consuelo [facility] 05-31-2019 14:03-0400 Pulse (Heart Rate) 82 /min Consuelo [facility] 04-21-2019 08:32-0400 BMI (Body Mass Index) 31.64 kg/m2 [facility] 04-21-2019 08:32-0400 Body Temperature 98.29 [degF] [facility] 04-21-2019 08:32-0400 Body weight 91.63 kg [facility] 04-21-2019 08:32-0400 BP Diastolic 74 mm[Hg] [facility] 04-21-2019 08:32-0400 BP Systolic 133 mm[Hg] [facility] 04-21-2019 08:32-0400 Height 170.2 cm [facility] 04-21-2019 08:32-0400 Pulse (Heart Rate) 75 /min Sin Morris [facility] 04-21-2019 08:32-0400 Pulse Oximetry 96 % Sin oMrris [facility] 04-21-2019 08:32-0400 Respiratory Rate 16 /min Sin Rust [facility] 04-18-2019 07:40-0400 BMI (Body Mass Index) 33.57 kg/m2 [facility] [place] 04-18-2019 07:40-0400 Body Temperature 98.91 [degF] [facility] [place] 04-18-2019 07:40-0400 Body weight 94.35 kg [facility] [place] 04-18-2019 07:40-0400 BP Diastolic 106 mm[Hg] [facility] [place] 04-18-2019 07:40-0400 BP Systolic 153 mm[Hg] [facility] [place] 04-18-2019 07:40-0400 Height 167.6 cm [facility] [place] 04-18-2019 07:40-0400 Pulse (Heart Rate) 82 /min [facility] [place] 04-18-2019 07:40-0400 Respiratory Rate 14 /min [facility] [place] 10-13-2018 15:10-0400 BMI (Body Mass Index) 30.85 kg/m2 Nati Felder [facility] 10-13-2018 15:10-0400 Body Temperature 98.2 [degF] Nati Felder [facility] 10-13-2018 15:10-0400 BP Diastolic 62 mm[Hg] [facility] 10-13-2018 15:10-0400 BP Systolic 118 mm[Hg] Nati Felder [facility] 10-13-2018 15:10-0400 Height 170.2 cm Nati Felder [facility] 10-13-2018 15:10-0400 Pulse (Heart Rate) 103 /min Nati Felder [facility] 10-13-2018 15:10-0400 Respiratory Rate 18 /min Nati Felder [facility] 10-13-2018 15:10-0400 Weight 89.36 kg Nati Felder [facility] 04-13-2018 15:42-0400 BMI (Body Mass Index) 31.89 kg/m2 [facility] 04-13-2018 15:42-0400 Body Temperature 97.9 [degF] [facility] 04-13-2018 15:42-0400 BP Diastolic 69 mm[Hg] [facility] 04-13-2018 15:42-0400 BP Systolic 121 mm[Hg] [facility] 04-13-2018 15:42-0400 Height 170.2 cm [facility] 04-13-2018 15:42-0400 Pulse (Heart Rate) 73 /min [facility] 04-13-2018 15:42-0400 Pulse Oximetry 95 % [facility] 04-13-2018 15:42-0400 Respiratory Rate 18 /min [facility] 04-13-2018 15:42-0400 Weight 92.35 kg [facility] 01-20-2018 13:25-0400 BMI (Body Mass Index) 30.54 kg/m2 Nati [facility] 01-20-2018 13:25-0400 Body Temperature 97.9 [degF] Nati [facility] 01-20-2018 13:25-0400 BP Diastolic 62 mm[Hg] Nati [facility] 01-20-2018 13:25-0400 BP Systolic 108 mm[Hg] Nati [facility] 01-20-2018 13:25-0400 Height 170.2 cm [facility] 01-20-2018 13:25-0400 Pulse (Heart Rate) 92 /min [facility] 01-20-2018 13:25-0400 Respiratory Rate 16 /min [facility] 01-20-2018 13:25-0400 Weight 88.45 kg Nati [facility] 07-16-2017 15:46-0500 BMI (Body Mass Index) 30.32 kg/m2 Carlos Chayavale [facility] Work Phone: 07-16-2017 15:46-0500 Body Temperature 97.39 [degF] Carlos Prado [facility] Work Phone: 07-16-2017 15:46-0500 BP Diastolic 78 mm[Hg] Carlos Prado [employer] Work Phone: 07-16-2017 15:46-0500 BP Systolic 112 mm[Hg] Carlos [employer] Work Phone: 07-16-2017 15:46-0500 Height 170.2 cm Carlos Prado [employer] Work Phone: 07-16-2017 15:46-0500 Pulse (Heart Rate) 80 /min Carlos Prado [employer] Work Phone: 07-16-2017 15:46-0500 Respiratory Rate 16 /min Carlos Prado [employer] Work Phone: 07-16-2017 15:46-0500 Weight 87.82 kg Carlos Prado [employer] Work Phone: 06-03-2017 14:22-0400 BMI (Body Mass Index) 30.38 kg/m2 Jim Canada [employer] Work Phone: 06-03-2017 14:22-0400 Body Temperature 97.2 [degF] Jim Canada [employer] Work Phone: 06-03-2017 14:22-0400 Height 170.2 cm Jim [place] [employer] Work Phone: 06-03-2017 14:22-0400 Pulse (Heart Rate) 90 /min Jim [place] [employer] Work Phone: 06-03-2017 14:22-0400 Weight 88 kg Jim [place] [employer] Work Phone: 04-22-2017 11:17-0400 BMI (Body Mass Index) 30.38 kg/m2 Jim [place] [employer] Work Phone: 04-22-2017 11:17-0400 Body Temperature 97 [degF] Jim [place] [employer] Work Phone: 04-22-2017 11:17-0400 Height 170.2 cm Jim [place] [employer] Work Phone: 04-22-2017 11:17-0400 Pulse (Heart Rate) 102 /min Jim Canada [facility] Work Phone: 04-22-2017 11:17-0400 Weight 88 kg Jim Canada [facility] Work Phone: 04-03-2017 09:32-0400 Body Temperature 97.7 [degF] Deborah Ovalle [facility] Work Phone: 04-03-2017 09:32-0400 BP Diastolic 90 mm[Hg] Deborah Ovalle [facility] Work Phone: 04-03-2017 09:32-0400 BP Systolic 132 mm[Hg] Deborah Ovalle [facility] Work Phone: 04-03-2017 09:32-0400 Pulse (Heart Rate) 97 /min Deborah Ovalle [facility] Work Phone: 04-03-2017 09:32-0400 Pulse Oximetry 95 % Deborah Ovalle [facility] Work Phone: 04-03-2017 09:32-0400 Respiratory Rate 18 /min Deborah Ovalle [facility] Work Phone: 03-22-2017 08:16-0400 Body Temperature 97.81 [degF] Kely Rashid [facility] Work Phone: 03-22-2017 08:16-0400 BP Diastolic 86 mm[Hg] Kely Rashid [facility] Work Phone: 03-22-2017 08:16-0400 BP Systolic 129 mm[Hg] Kely Rachid [facility] Work Phone: 03-22-2017 08:16-0400 Pulse (Heart Rate) 88 /min Kely Rachid [facility] Work Phone: 03-22-2017 08:16-0400 Pulse Oximetry 97 % Kely Rachid [facility] Work Phone: 03-22-2017 08:16-0400 Respiratory Rate 20 /min Kely Rashid [facility] Work Phone: 03-21-2017 00:47-0400 BMI (Body Mass Index) 30.38 kg/m2 Kely Rashid [facility] Work Phone: 03-21-2017 00:47-0400 Height 170.2 cm Kely Rashid [facility] Work Phone: 03-21-2017 00:47-0400 Weight 88 kg Kely Rashid [facility] Work Phone: 03-20-2017 16:53-0400 BP Diastolic 82 mm[Hg] Primitivo Walters [facility] Work Phone: 03-20-2017 16:53-0400 BP Systolic 136 mm[Hg] Primitivo Walters [facility] Work Phone: 03-20-2017 14:36-0400 BMI (Body Mass Index) 30.38 kg/m2 Primitivo Walters [facility] Work Phone: 03-20-2017 14:36-0400 Body Temperature 98.1 [degF] Primitivo Walters [facility] Work Phone: 03-20-2017 14:36-0400 Height 170.2 cm Primitivo Walters [facility] Work Phone: 03-20-2017 14:36-0400 Pulse (Heart Rate) 78 /min Primitivo Walters [facility] Work Phone: 03-20-2017 14:36-0400 Respiratory Rate 18 /min Primitivo Walters [facility] Work Phone: 03-20-2017 14:36-0400 Weight 88 kg Primitivo Walters [facility] Work Phone: Encounters Encounter Date Encounter Type Care Provider Facility Start: 02-14-2025 End: 02-14-2025 Patient encounter procedure Royce Padilla [place] -[facility] Work Phone: Start: 02-14-2025 End: 02-14-[address] [facility] MD [facility] Phone[facility] Start: 12-09-2024 Non-patient / Non-visit Dr. Otis Roach [facility] Work Phone: Start: 12-08-2024 Non-patient / Non-visit Dr. Otis Roach [facility] Work Phone: Start: 12-07-2024 Non-patient / Non-visit Pk Cancino vel [facility] Start: 12-07-2024 Non-patient / Non-visit Dr. Otis Roach [facility] Work Phone: Start: 12-07-2024 End: 12-09-2024 ambulatory Ronit Lara Facility:[facility] Start: 12-07-2024 End: 12-09-2024 Evaluation and management of inpatient Dr. Otis Mack DO -Medical Surgical 3 Work Phone: Start: 11-08-2024 ambulatory GUS RONIT [facility] Start: 10-04-2024 End: 10-04-2024 Emergency department patient visit Miguel Angel Hunter DO -Emergency Department Work Phone: Start: 09-24-2024 End: 09-24-2024 Emergency department patient visit Dr. Alphonse Avina MD -Emergency Department Work Phone: Start: 09-14-2024 End: 09-14-2024 Office outpatient visit 25 minutes Gus Sethi MD Work Phone: [facility] Comment on above: Hypogonadism in male (Primary Dx); Low libido; Erectile dysfunction, unspecified erectile dysfunction type; Prostate cancer screening; Microhematuria Start: 09-14-2024 End: 09-14-2024 ambulatory GUS COTTRELL [facility] Amb[facility] Start: 07-08-2024 End: 07-09-2024 Orders Only Kyle Leonardo RN [facility] Comment on above: Primary hypogonadism in male (Primary Dx) Erectile dysfunction , unspecified erectile dysfunction type Start: 04-01-2024 ambulatory MANUEL LOPEZ [facility] Ambulatory Start: 03-30-2024 End: 03-30-2024 Emergency department patient visit Ronit Lara Facility:[facility] Start: 03-27-2024 End: 03-27-2024 Emergency department patient visit Ronit Lara Facility:[facility] Start: 03-23-2024 End: 03-23-2024 Postop follow up visit related to original px Soham Machado MD Work Phone: [facility] Comment on above: EIC (epidermal inclu tremaine cyst) (Primary Dx) Start: 03-23-2024 End: 03-23-2024 ambulatory [facility] Jones FRANKSWARAYNA Facility:[facility] Start: 03-11-2024 End: 03-11-2024 ambulatory SOHAM MACHADO [facility] [facility] Start: 01-29-2024 Orders Only Soham britton MD Work Phone: [facility] SURGERY DEPARTMENT Comment on above: Lipoma of head (Prim christopher Dx) Start: 01-27-2024 End: 01-27-2024 Office outpatient new 30 minutes Soham Machado MD Work Phone: [facility] DE[facility] Comment on above: Lipoma of head (Prim christopher Dx) Start: 01-27-2024 End: 01-27-2024 ambulatory MANUEL QUINN Facility:[facility] Start: 01-26-2024 End: 01-26-2024 Office outpatient visit 15 minutes Lindsay Traore MD Work Phone: [facility] Comment on above: Low testosterone; Primary hypogonadism in male; Erectile dysfunction, unspecified erectile dysfunction type Start: 01-26-2024 End: 01-26-[address] [facility] Start: 01-21-2024 End: 01-25-2024 ambulatory REYNA LOPEZ [facility] Start: 01-20-2024 Orders Only Malvin Schwarz RN [facility] [employer] Comment on above: Hypogonadism in male (Primary Dx) Start: 01-05-2024 Telephone encounter Soham Machado MD Work Phone: [facility] SURGERY DEPARTMENT Comment on above: Appointment Start: 12-02-2023 End: 12-02-[address] Ronit Lara Work Phone: [facility] Work Phone: Start: 12-02-2023 End: 12-02-[address] Ronit Lara Work Phone: [facility] Work Phone: Start: 08-24-2023 End: 08-24-[address] Ronit Lara Work Phone: [facility] Work Phone: Start: 08-17-2023 End: 08-17-[address] Ronit Lara Work Phone: [facility] Work Phone: Start: 08-17-2023 End: 08-17-2023 Emergency department patient visit Dr. Ronit Lara Work Phone: [facility]-Emergency Department Work Phone: Start: 07-14-2023 Refill Daysi Casarez RN [facility] Comment on above: Erectile dysfunction , unspecified erectile dysfunction type Start: 06-19-2023 Refill Malvin Schwarz RN [facility] Comment on above: Erectile dysfunction , unspecified erectile dysfunction type Start: 05-05-2023 End: 05-05-[address] Ronit Lara Work Phone: [facility] Work Phone: Start: 03-11-2023 End: 03-11-[address] Ronit Lara Work Phone: [facility] Work Phone: Start: 02-18-2023 End: 02-18-[address] Ronit Lara Work Phone: [facility] Start: 02-17-2023 End: 02-17-[address] Ronit Lara Work Phone: [facility] Work Phone: Start: 02-11-2023 End: 02-11-2023 Emergency department patient visit No Primary Care Physician [facility]-Emergency Department Work Phone: Start: 02-10-2023 End: 02-10-2023 Emergency department patient visit No Primary Care Physician [facility]-Emergency Department Work Phone: Start: 01-23-2023 End: 01-23-2023 Patient encounter procedure No Primary Care Physician [facility] Work Phone: Start: 01-07-2023 End: 01-07-2023 Patient encounter procedure No Primary Care Physician [facility] Work Phone: Start: 12-31-2022 End: 12-31-[address] Ronit Lara Work Phone: [facility] Work Phone: Start: 12-31-2022 End: 12-31-[address] Ronit Lara Work Phone: [facility]-Physical Therapy Work Phone: Start: 12-31-2022 Registered Recurring No Primar y Care Physician [facility]-Physical Therapy Work Phone: Start: 12-30-2022 End: 12-30-2022 Patient encounter procedure No Primary Care Physician [facility] Work Phone: Start: 2022 End: 2022 Emergency department patient visit No Primary Care Physician [facility]-Emergency Department Start: 12-24-2022 Registered Recurring No Primar y Care Physician [facility]-Physical Therapy Start: 12-17-2022 End: 12-17-2022 Patient encounter procedure No Primary Care Physician [facility] Start: 12-05-2022 Non-patient / Non-visit No Ania michelle Care Physician [facility] Start: 12-05-2022 End: 12-05-2022 Admission to same day surgery center No Primary Care Physician [facility]-Endoscopy Start: 12-05-2022 End: 12-05-2022 ambulatory No Primary Care Physician [facility] Work Phone: Start: 12-03-2022 Registered Recurring No Primar y Care Physician [facility]-Physical Therapy Start: 11-20-2022 Registered Recurring No Primar y Care Physician [facility]-Physical Therapy Start: 11-17-2022 End: 11-17-2022 Patient encounter procedure No Primary Care Physician [facility] Start: 11-14-2022 End: 11-14-2022 Admission to same day surgery center No Primary Care Physician [facility]-Endoscopy Start: 11-14-2022 End: 11-14-2022 ambulatory No Primary Care Physician [facility] Work Phone: Start: 11-11-2022 End: 11-11-2022 Patient encounter procedure No Primary Care Physician [facility] Start: 11-06-2022 End: 11-06-2022 Patient encounter procedure No Primary Care Physician [facility] Start: 11-01-2022 End: 11-01-2022 ambulatory No Primary Care Physician [facility] Work Phone: Start: 11-01-2022 End: 11-01-2022 Patient encounter procedure No Primary Care Physician [facility]-Laboratory Start: 10-31-2022 End: 10-31-2022 Patient encounter procedure No Primary Care Physician [facility] Start: 09-30-2022 End: 09-30-2022 Office outpatient visit 25 minutes Lindsay Traore MD Work Phone: [facility] Comment on above: Hypogonadism in male (Primary Dx); Erectile dysfunction, unspecified erectile dysfunction type; Primary hypogonadism in male; Low testosterone Start: 09-16-2022 End: 08-22-2024 Orders Only Lindsay Traore MD Work Phone: [facility] Start: 05-07-2022 Refill Carolyn brown MA [facility] Comment on above: Low testosterone (Pr imary Dx); Erectile dysfunction, unspecified erectile dysfunction type Start: 03-25-2022 End: 03-25-2022 Office outpatient visit 25 minutes Lindsay Traore MD Work Phone: [facility] Comment on above: Hypogonadism in male (Primary Dx); Erectile dysfunction, unspecified erectile dysfunction type Start: 02-27-2022 Refill Daysi Casarez RN [facility] Comment on above: Erectile dysfunction , unspecified erectile dysfunction type; Primary hypogonadism in male Start: 12-11-2021 End: 12-11-2021 Emergency department patient visit OSIRIS NEWELL Work Phone: [facility]-Emergency Department Start: 10-02-2021 End: 10-02-2021 Emergency department patient visit [facility]LL [facility] Start: 09-27-2021 End: 09-27-2021 Patient encounter procedure OSIRIS NEWELL Work Phone: [facility] Start: 09-23-2021 End: 09-23-2021 Office outpatient visit 15 minutes Lindsay Traore MD Work Phone: [facility] [employer] Comment on above: Low testosterone (Pr imary Dx); Erectile dysfunction, unspecified erectile dysfunction type Start: 09-17-2021 End: 09-17-2021 Patient encounter procedure OSIRIS NEWELL Work Phone: [facility] Start: 09-06-2021 End: 09-06-2021 Patient encounter procedure OSIRIS NEWELL Work Phone: [facility] Start: 09-05-2021 End: 09-05-2021 Patient encounter procedure OSIRIS NEWELL Work Phone: [facility] Start: 08-26-2021 End: 08-26-2021 Patient encounter procedure PA Crescencio NEWELL Work Phone: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 Lara MD Primary Care Provider Active Start: December 09, 2024 Dr. Miguel Angel Hunter , DO Emergency Provider Active Start: December 09, 2024 Dr. Otis Mack , DO Admit Provider Active Star t: December 09, 2024 Dr. Otis Mack , DO Attending Provider Active Start: December 09, 2024 Dr. 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 Ronit Lara MD Primary Care Provider Active Team Status: Inactive Member Role/Relationship Status Dates Dr. Ronit Lara MD Primary Care Provider Active Start: December 07, 2024 End: December 09, 2024 Dr. Miguel Angel Hunter , DO Emergency Provider Active Start: December 07, 2024 End: December 09, 2024 Dr. Otis Mack DO Admit Provider Active Star t: December 07, 2024 End: December 09, 2024 Dr. Otis Mack DO Attending Provider Active Start: December 07, 2024 End: December 09, 2024 Team Status: Active Member Role/Relationship Status Dates Dr. Ronit Lara MD Primary Care Provider Active Start: December 07, 2024 Dr. Miguel Angel Hunter , DO Emergency Provider Active Start: December 07, 2024 Dr. Otis Mack DO Admit Provider Active Star t: December 07, 2024 Dr. Otis Mack DO Attending Provider Active Start: December 07, 2024 Dr. Otis Mack DO Other Provider Active Star t: December 07, 2024 Team Status: Active Member Role/Relationship Status Dates Dr. Ronit Lara MD Primary Care Provider Active Start: December 07, 2024 Dr. Miguel Angel Hunter , DO Emergency Provider Active Start: December 07, 2024 Dr. Otis Mack DO Admit Provider Active Star t: December 07, 2024 Dr. Otis Mack DO Referring Provider Active Start: December 07, 2024 Dr. Otis Mack DO Other Provider Active Star t: December 07, 2024 Dr. Pk Sifuentes , DO Attending Provider Active Start: December 07, 2024 Team Status: Active Member Role/Relationship Status Dates Dr. Ronit Lara MD Primary Care Provider Active Start: December 08, 2024 Dr. Miguel Angel Hunter , DO Emergency Provider Active Start: December 08, 2024 Dr. Otis Mack , DO Admit Provider Active Star t: December 08, 2024 Dr. Otis Mack DO Attending Provider Active Start: December 08, 2024 Dr. Otis Mack DO Other Provider Active Star t: December 08, 2024 Team Status: Active Member Role/Relationship Status Dates Dr. Ronit Lara MD Primary Care Provider Active Start: December 09, 2024 Dr. Miguel Angel Hunter DO Emergency Provider Active Start: December 09, 2024 Dr. Otis Mack DO Admit Provider Active Star t: December 09, 2024 Dr. Otis Mack DO Attending Provider Active Start: December 09, 2024 Dr. Otis Mack DO Other Provider Active Star t: December 09, 2024 Team Status: Inactive Member Role/Relationship Status Dates Dr. Ronit Lara MD Primary Care Provider Active Start: February 14, 2025 End: February 14, 2025 Dr. Ronit Lara MD Referring Provider Active Start: February 14, 2025 End: February 14, 2025 Royce NEWELL, PA Attending Provider Active Start: February 14, 2025 End: February 14, 2025 Goals (unrecognized section and content) Goals may be documented in a n alternate sectionGoals may be documented in an alternate sectionGoals may be documented in an alternate sectionGoals may be documented in an alternate sectionGoals may be documented in an alternate sectionGoals may be documented in an alternate section Source Comments (unrecognize d section and content) In the event this informatio n is protected by the Federal Confidentiality of Alcohol and Drug Abuse Patient Records regulations: The Federal rules restrict any use of the information to criminally investigate or prosecute any alcohol or drug abuse patient.[facility] Hospital[facility] the event this information is protected by the Federal Confidentiality of Alcohol and Drug Abuse Patient Records regulations: The Federal rules restrict any use of the information to criminally investigate or prosecute any alcohol or drug abuse patient.[facility] HospitalIn the event this information is protected by the Federal Confidentiality of Alcohol and Drug Abuse Patient Records regulations: The Federal rules restrict any use of the information to criminally investigate or prosecute any alcohol or drug abuse patient.[facility] HospitalIn the event this information is protected by the Federal Confidentiality of Alcohol and Drug Abuse Patient Records regulations: The Federal rules restrict any use of the information to criminally investigate or prosecute any alcohol or drug abuse patient.[facility] FOR RECORDS PERTAINING TO PATIENTS WHO ARE [...] BE BASED ON THE PRIMARY CLINICAL RECORDS. [facility] provides no warranty or guarantee of the accuracy or completeness of information in this document.
--- NOTE | 2025-03-16 03:43 | RAD_ITS ---
PROCEDURE: THORACIC SPINE 3 VIEWS 03/16/2025 REASON FOR EXAM: INJURY/PAIN TECHNIQUE: THORACIC SPINE 3 VIEWS COMPARISON: No FINDINGS: Mild S shaped scoliosis. Multilevel disc space narrowing and anterior osteophyte formation. No acute bone, soft tissue, or lung pathology. RAD/Thoracic Spine 3 Views IMPRESSION: No acute findings Reading Location: [place] [id number]
[2025-03-16 04:20] VITALS: BP 134/91; PULSE 65; RESP 18; TEMP 36.7; O2SAT 96
== END 2025-03-16 04:21 | disposition home or self-care (01) ==
PROVIDERS: Emergency Provider Emergency Medicine; PCP Family Medicine; Visit Provider Emergency Medicine
DX: M54.9 Dorsalgia, unspecified (principal); S20.219A Contusion of unspecified front wall of thorax, initial encounter; E78.00 Pure hypercholesterolemia, unspecified; S29.019A Strain of muscle and tendon of unspecified wall of thorax, initial encounter; V80.010A Animal-rider injured by fall from or being thrown from horse in noncollision accident, initial encounter; Y93.52 Activity, horseback riding; F17.210 Nicotine dependence, cigarettes, uncomplicated
CPT/HCPCS: 72072; 96372; 99282

== ENCOUNTER 2025-05-21 15:31 | Emergency (ER) | payer SELFPAY ==
[2025-05-21 15:32] VITALS: BP 177/157; PULSE 77; RESP 18; TEMP 36.4; O2SAT 99; BMI 32.2
[2025-05-21 16:31] VITALS: BP 112/91; PULSE 86; RESP 18; O2SAT 93
[2025-05-21 17:00] VITALS: BP 116/75; PULSE 75; RESP 20; O2SAT 100
[2025-05-21 18:00] VITALS: BP 123/83; PULSE 84; RESP 18; O2SAT 94
[2025-05-21 19:00] VITALS: BP 119/72; PULSE 72; RESP 20; TEMP 36.9; O2SAT 99
== END 2025-05-21 19:15 | disposition home or self-care (01) ==
PROVIDERS: Emergency Provider Emergency Medicine; PCP Family Medicine; Visit Provider Emergency Medicine
DX: S30.22XA Contusion of scrotum and testes, initial encounter (principal); W55.19XA Other contact with horse, initial encounter; Y93.52 Activity, horseback riding; E78.00 Pure hypercholesterolemia, unspecified; N50.89 Other specified disorders of the male genital organs; F17.210 Nicotine dependence, cigarettes, uncomplicated; Z90.79 Acquired absence of other genital organ(s)
CPT/HCPCS: 72193; 96374; 96375; 99282; Q9967; A4216; J2405